=== PATIENT | male | born 1945 | race Caucasian/White ===

== ENCOUNTER 2021-12-10 09:30 | Inpatient (IN) | payer OTHER, SELFPAY ==
[2021-12-10] VITALS (22 sets, daily range): BP systolic 90–141; BP diastolic 46–76; PULSE 41–89; RESP 16–24; TEMP 35.9–36.9; O2SAT 94–99; BMI 27.2; BMI 27.7
--- NOTE | 2021-12-10 09:58 | RAD_ITS ---
STUDY: X-RAY CHEST REASON FOR EXAM: Male, 76 years old. weakness TECHNIQUE: Single AP portable view of the chest. COMPARISON: None. FINDINGS: Status post median sternotomy with a left atrial appendage closure device. The lungs are clear and expanded. There is no demonstrated pleural abnormality. Normal size heart. Normal mediastinum and dimitris. Normal visualized pulmonary arteries. Normal visualized aortic arch and descending thoracic aorta. Normal visualized thoracic spine. Normal visualized ribs, clavicles, and shoulders. There is no demonstrated abnormality of the visualized soft tissue structures of the upper abdomen. RAD/Chest 1 View (Portable) IMPRESSION: No active disease. Electronically Signed: Clarence Corley MD at 10:19 EST Tel , Service support ,
--- NOTE | 2021-12-10 09:58 | EKG12_ITS ---
Test Reason : FATIGUE Blood Pressure : / mmHG Vent. Rate : 065 BPM Atrial Rate : 202 BPM P-R Int : 000 ms QRS Dur : 148 ms QT Int : 440 ms P-R-T Axes : 000 -75 075 degrees QTc Int : 457 ms Atrial fibrillation Right bundle branch block Left anterior fascicular block Bifascicular block Abnormal ECG Confirmed by MARINA MENG, ASAF ([id number]), marketing editor STEF COSBY ([id number]) on 12/12/2021 9:45:22 AM Referred By: ANOOP Confirmed By:ASAF GRAY MD
--- NOTE | 2021-12-10 10:00 | EX.ED.DYSGE1 ---
HPI History of Present Illness Chief Complaint: Fatigue Detail of Chief Complaint: Weakness and fatigue for about a week Informant: patient Narrative Narrative: Patient presents to the emergency department with complaint of fatigue and weakness for about a week. 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 Patient also states that he had one blood vessel bypassed. Patient states he felt pretty good for about a week and then started just having increased weakness. He complains of urinary frequency although he is on diuretics. Patient denies any chest pain. He denies shortness of breath. He denies cough or fever. He has had the COVID-vaccine and booster. Patient denies any blood in the stool or black tarry stool. Patient's only blood thinner is aspirin. Patient does have remote history of A. fib. Prior similar symptoms: No [facility] Medical History (Updated 12/10/21 @ 15:[address] Tamia Mccray, DO) A-fib HTN (hypertension) Home Medications amlodipine 5 mg PO DAILY 12/10/21 [History Last Taken Unknown] aspirin 81 mg PO DAILY 12/10/21 [History Last Taken Unknown] cetirizine 10 mg PO DAILY 12/10/21 [History Last Taken Unknown] levothyroxine 125 mcg PO DAILY 12/10/21 [History Last Taken Unknown] lisinopril 40 mg PO DAILY 12/10/21 [History Last Taken Unknown] metoprolol tartrate 25 mg PO BID 12/10/21 [History Last Taken Unknown] potassium chloride 20 meq PO BID 12/10/21 [History Last Taken Unknown] tamsulosin 0.4 mg PO DAILY 12/10/21 [History Last Taken Unknown] Allergy/AdvReac Type Severity Reaction Status Date / Time Irynblb-IWD-[id number] Reductase Allergy Other Verified 12/10/21 09:33 Inhibitor ibuprofen AdvReac Other Verified 12/10/21 09:33 Surgical History (Updated 12/10/21 @ 11:16 by William Guerrero) Heart valve replaced History of open heart surgery Hx of heart artery stent Social History Smoking Status: Never smoker ROS ROS ED Constitutional Constitutional ED: Reports systems reviewed and no addt'l complaints, except as documented; Denies body ache(s), change in weight or chills Eyes Eyes: Denies acute decrease in peripheral vision, change in vision, double vision or loss of vision ENT ENT ED: Reports none; Denies ear pain, lip swelling, loss taste/smell, neck pain, otalgia or sore throat Cardiovascular Cardiovascular: Reports none; Denies abdominal pain, chest pain with activity, leg edema, lightheadedness, palpitations, rapid heart rate or syncope Respiratory/Chest Respiratory/Chest: Reports none; Denies change in mental status, dry cough, dyspnea, hemoptysis, shortness of breath at rest or shortness of breath with exertion Gastrointestinal Gastrointestinal: Reports none; Denies abdominal pain, change in stool character, diarrhea, hematemesis, hematochezia, melena, rectal bleeding or vomiting Genitourinary Genitourinary ED: Reports none; Denies abdominal discomfort, anuria, dysuria, genital pain or polyuria Musculoskeletal Musculoskeletal: Reports none; Denies arthralgias, back pain, difficulty walking, extremity pain, muscle weakness or myalgias Integumentary Reports none; Denies abscess or rash Neurologic Neurologic: Reports none and weakness; Denies abnormal gait, confusion, focal weakness, frequent falls, headache(s), loss of vision, numbness, paresthesias, radicular pain or vertigo Psychiatric Psychiatric: Reports systems reviewed and no addt'l complaints, except as documented and none; Denies behavioral changes, confusion, difficulty concentrating, hallucinations, suicidal ideation, tactile hallucinations or visual hallucinations Endocrine Endocrinology: Denies none, cold intolerance, excessive sweating, fatigue or heat intolerance Hematologic/Lymphatic Hematologic/Lymphatic: Reports none; Denies anemia, easy bleeding or easy bruising Allergic/Immunologic Allergic/Immunologic ED: Denies as per HPI, none, lip swelling, mouth swelling, throat swelling, tongue swelling or hives EXAM Physical Exam Const Vital Signs: 12/10/21 09:31 12/10/21 11:09 12/10/21 13:46 Temperature 96.6 F L Temperature Source Temporal Pulse Rate 89 76 Respiratory Rate 16 18 Respiratory Pattern Normal Blood Pressure 123/76 H 107/62 Blood Pressure Mean 91 77 Pulse Ox 97 94 Oxygen Delivery Method Room Air Room Air Positive well nourished and well developed General Appearance ED: well developed and NAD HEENT Reports TM's clear and moist mucous membranes normocephalic and atraumatic; Negative for trauma or tenderness Tympanic Membrane ED: Yes TM's clear Eyes PERRL and EOMs intact bilaterally General Eye ED: Negative for pale conjunctiva or scleral icterus Neck no lymphadenopathy, supple and no JVD General: Negative for tenderness Chest Wall inspection of chest normal and palpation of chest normal Chest: Negative for tenderness Resp normal respiratory effort and clear to auscultation bilaterally Effort and Inspection: Negative for respiratory distress or pain with movement Auscultation: Negative for rhonchi, wheezes or diminished lung sounds Cardio S1 normal heart sound, S2 normal heart sound and no murmurs Rate: other Other Details: Irregularly irregular Peripheral Pulses: pulses 2+ throughout GI normal to inspection, nondistended, normoactive bowel sounds, soft to palpation, non-tender, non-distended and no masses Back/Spine no CVA tenderness and no thoracic nor lumbar tenderness Extremity normal to inspection General Extremety ED: Negative for edema General Extremity: Negative for edema Neuro oriented x3, CN's II-XII intact bilaterally, no sensory deficits noted and gait normal Sensorium / Orientation: awake, alert, oriented to person, oriented to place and oriented to time Motor Exam: strength 5/5 throughout and strength abnormal Psych mental status grossly normal Skin no rashes or lesions noted and no wounds MDM MDM MDM Narrative Medical decision making narrative: IV line established on arrival. Patient was noted to have an elevated troponin. I did order aspirin. It is unclear if his troponin has been trending up or down since surgery. He tells me that he did have a second blockage that the plating machine operator treating him did not feel required any type of intervention. He has not had chest pain. Patient CTA was negative for PE. There was a small effusion on the left and some concern for infiltrate however patient's had no fever or cough. His COVID test was negative. We attempted multiple times to contact the [facility] and attempt to transfer patient to their facility as this is where he had his surgery and care. [facility] I discussed case with hospitalist here at [place] and will temporarily admit patient here for management. Lab Data Attestation: I reviewed the patient's lab results. Labs: Laboratory Results - last 24 hr 12/10/21 12/10/21 12/10/21 10:15 10:15 10:15 WBC 9.4 RBC 4.01 L Hgb 11.8 L Hct 35.3 L MCV 88.0 MCH 29.4 MCHC 33.4 RDW Std Deviation 43.8 RDW Coeff of Ethan 13.4 Plt Count 405 MPV 8.8 Immature Gran % (Auto) 0.500 Neut % (Auto) 70.2 H Lymph % (Auto) 20.3 Zapata % (Auto) 5.9 Eos % (Auto) 2.6 Baso % (Auto) 0.5 Absolute Neuts (auto) 6.6 Absolute Lymphs (auto) 1.91 Nucleated RBC % 0 D-Dimer Quant (PE/DVT) 9.25 H* Sodium 134 L Potassium 4.3 Chloride 99 Carbon Dioxide 26.0 Anion Gap 9 BUN 35 H Creatinine 1.14 Estim Creat Clear Calc 55.14 Est GFR (MDRD) Af Amer 80 Est GFR (MDRD) Non-Af 66 BUN/Creatinine Ratio 30.7 H Glucose 118 H Calcium 9.6 Troponin I High Sens 184 H* Urine Color Urine Clarity Urine pH Ur Specific [place] Urine Protein Urine Glucose (UA) Urine Ketones Urine Occult Blood Urine Nitrite Urine Bilirubin Urine Urobilinogen Ur Leukocyte Esterase Urine RBC Urine WBC Ur Squamous Epith Cells Urine Bacteria Urine Mucus 12/10/21 11:15 WBC RBC Hgb Hct MCV MCH MCHC RDW Std Deviation RDW Coeff of Ethan Plt Count MPV Immature Gran % (Auto) Neut % (Auto) Lymph % (Auto) Z[place]ata % (Auto) Eos % (Auto) Baso % (Auto) Absolute Neuts (auto) Absolute Lymphs (auto) Nucleated RBC % D-Dimer Quant (PE/DVT) Sodium Potassium Chloride Carbon Dioxide Anion Gap BUN Creatinine Estim Creat Clear Calc Est GFR (MDRD) Af Amer Est GFR (MDRD) Non-Af BUN/Creatinine Ratio Glucose Calcium Troponin I High Sens Urine Color Yellow Urine Clarity Sl. Cloudy Urine pH 6.0 Ur Specific [place] 1.020 Urine Protein 15 H Urine Glucose (UA) Normal Urine Ketones Negative Urine Occult Blood Negative Urine Nitrite Negative Urine Bilirubin Negative Urine Urobilinogen Normal Ur Leukocyte Esterase Negative Urine RBC 0 SEEN Urine WBC 0 SEEN Ur Squamous Epith Cells 0-5 SEEN Urine Bacteria RARE Urine Mucus 0 SEEN Radiography Chest X-Ray - ED: 1 View Diagnostic Testing: Clinical Impression(s) from Imaging Studies Chest X-Ray 12/10/21 09:58 IMPRESSION: No active disease. Electronically Signed: Clarence Corley MD at 10:19 EST Tel , Service support , Chest CTA 12/10/21 10:54 IMPRESSION: CTA chest examination, without a demonstrated pulmonary embolism or arterial dissection. Left lower lung infiltrate and pleural effusion. Electronically Signed: Richie Allan MD at 12:57 EST , Service support , 1 view chest x-ray obtained interpreted by myself as no acute disease process. Radiology in agreement. EKG Initial EKG: Attestation: I personally reviewed and interpreted this EKG as follows: Comments: Atrial fibrillation with a ventricular rate of 65 bpm with a right bundle branch block and left anterior fascicular block. When compared with EKG from 2006 the A. fib is new Prior EKG tracings: available for review Prior: Changed Discharge Plan Dx/Rx/DC Orders Clinical Impression: Fatigue, Atrial fibrillation, Elevated troponin Disposition Disposition: Acute Care Hospital [facility]
[2021-12-10 10:25] LABS: Absolute Lymphocyte Count 1.91 X10^3/uL (0.83-4.51); Absolute Neutrophil Count 6.6 X10^3/uL (2.0-7.7); Basophil# 0.05 X10^3/uL; Basophil% 0.5 % (0-1); Eosinophil# 0.24 X10^3/uL; Eosinophils% 2.6 % (0-5); Hematocrit 35.3 % (40-54); Hemoglobin 11.8 g/dL (13.0-16.5); Lymphocyte # 1.91 X10^3/ul (0.83-4.51); Lymphocyte % 20.3 % (19-41); Mean Corp Hgb Conc 33.4 g/dL (32-36); Mean Corpuscular Hgb 29.4 pg (27.0-32.0); Mean Platelet Vol. 8.8 fl (6.2-12.0); Monocyte# 0.55 X10^3/uL; Monocyte% 5.9 % (0-10); NRBC Flagged by Analyzer 0 % (0-5); Neutrophil # 6.59 X10^3/uL (2.7-7.7); Neutrophil % 70.2 % (47-70); Platelet Count 405 K/mm3 (150-450); RBC Distribution Width CV 13.4 % (11.6-14.6); RBC Distribution Width SD 43.8 fl (35.1-43.9); Red Blood Count 4.01 M/mm3 (4.6-6.2); White Blood Count 9.4 K/mm3 (4.4-11.0)
[2021-12-10 10:46] LABS: D-Dimer Quantitative (DVT/PE) 9.25 FEU/ug/m (0.27-0.49)
[2021-12-10 10:48] LABS: Anion Gap 9 (5-15); BUN 35 mg/dL (7-18); BUN/Creat Ratio 30.7 RATIO (10-20); Calcium,Total 9.6 mg/dL (8.5-10.1); Chloride 99 mmol/L (98-107); Creatinine, Serum 1.14 mg/dL (0.70-1.30); EST Glomerular Filtration Rate 66 mL/min (>60); Est Glom Filt Rate - Afr Amer 80 mL/min (>60); Estimated Creatinine Clearance 55.14 ml/min; Glucose 118 mg/dL (74-106); Potassium 4.3 mmol/L (3.5-5.1); Sodium Level 134 mmol/L (136-145); Troponin-I HS 184 pg/mL (3.0-78.0)
--- NOTE | 2021-12-10 10:54 | CT_ITS ---
STUDY: CTA CHEST REASON FOR EXAM: Male, 76 years old. Elevated d-dimer RADIATION DOSAGE (If Supplied By Facility): CTDIvol = ( 10.60 ) mGy, DLP = ( 503.77 ) mGycm TECHNIQUE: The examination was performed with the intravenous administration of 100mL Isovue-370. Post-processing of the angiographic images was performed, with multiplanar reformation and 3D reconstruction. Individualized dose optimization techniques were used for this CT. COMPARISON: Chest x-ray FINDINGS: Normal enhancement of the main pulmonary artery and right and left pulmonary arteries. Normal enhancement of the bilateral peripheral pulmonary arteries. There is no demonstrated pulmonary embolism. There is atherosclerotic calcification of the aortic arch with tortuosity. There is no demonstrated aortic dissection. Sternal cerclage wires are present from a prior sternotomy. There is atrial appendage clip. There is aortic valve prosthesis. There are coronary artery calcifications and stents. There are calcified mediastinal and left hilar lymph nodes. Normal visualized trachea and bronchi. The lungs are well expanded. There is left lower lung airspace consolidation. There are left lung granulomas. There is small left pleural effusion. Normal chest wall structures. There are degenerative changes of thoracic spine. There are multiple benign calcified granulomata of the spleen. CT/CTA Chest W/WO Contrast IMPRESSION: CTA chest examination, without a demonstrated pulmonary embolism or arterial dissection. Left lower lung infiltrate and pleural effusion. Electronically Signed: Richie Allan MD at 12:57 EST , Service support ,
[2021-12-10 11:24] LABS: Mucous, Urine 0 SEEN /hpf (<or=2+); Red Blood Cells-Urine 0 SEEN /hpf (0-5); White Blood Cells 0 SEEN /hpf (0-5)
[2021-12-10 11:25] LABS: Color, Urine Yellow (Yellow); Glucose, Dipstick Normal (Normal); Ketone-Dipstick Negative (Negative); Leukocyte Esterase-Dipstick Negative /ul (Negative); Nitrite-Dipstick Negative (Negative); Occult Blood-Urine Negative /ul (Negative); Protein-Dipstick 15 mg/dl (Negative); Urine Bilirubin Dipstick Negative (Negative); Urine Clarity Sl. Cloudy (Clear); Urine Urobilinogen Normal (Normal)
[2021-12-10 11:33] LABS: Squamous Epithelial Cells - UA 0-5 SEEN /hpf (0-5)
[2021-12-10 11:34] LABS: Bacteria RARE /hpf (None Seen)
--- NOTE | 2021-12-10 13:15 | NURSING ---
CALLED [facility] NO ONE IN TRANSFER LINE, BED CONTROL AND ADMINISTRATION. LEFT MESSAGE WITH INFO
--- NOTE | 2021-12-10 13:19 | NURSING ---
DR KARLENE DAVALOS
--- NOTE | 2021-12-10 14:33 | NURSING ---
CALLED [facility] FOR [facility]. PHONE JUST [employer]. CAN'T LEAVE MESSAGE OR TALK TO PERSON
--- NOTE | 2021-12-10 14:58 | NURSING ---
CALLING [facility]
--- NOTE | 2021-12-10 15:06 | NURSING ---
CALLED ER AT [facility]. RELEASE OF INFO NEEDS FAXED TO [facility] AT [phone] WAS TOLD TO CALL [employer] [employer] MACHINE OPERATOR ON [facility] AT EXT [phone]
--- NOTE | 2021-12-10 15:07 | NURSING ---
CALLED ADMININSTRATOR ON DUTY, EXT [phone] NO ANSWER
--- NOTE | 2021-12-10 15:32 | NURSING ---
FAXED RELEASE OF INFO TO [facility]
--- NOTE | 2021-12-10 15:33 | NURSING ---
PAGED HOSPITALIST DR SOLER FOR DR DAVALOS
--- NOTE | 2021-12-10 15:45 | NURSING ---
PCU KARLENE ACEVEDO, ELEVATED TROP, AFIB
[2021-12-10] MEDS: Aspirin 81 MG TAB.CHEW 162 MG PO (15:59)
--- NOTE | 2021-12-10 16:08 | HP.PCM.HOS_ITS ---
HPI - General General Date of Admission: 12/10/21 Date of Service: 12/10/21 Chief Complaint: Fatigue HPI Narrative STONE HAILE, is a 76 M who presented to the emergency department [facility] 12/10/2021 with a chief complaint of fatigue/weakness. On 11/27/2021 the patient underwent open heart surgery at the [facility] at which time he had per his report, a one-vessel bypass as well as a porcine aortic valve replacement. He states he was discharged from the [facility] on 12/01/2021 and had been doing well up until approximately Saturday of last week on the at which time he developed increasing fatigue and generalized weakness. Per him and his who is at the bedside with him on admission, he has had increasing amounts of sleeping and last evening he went to bed at 6 PM. He states he does not sleep well at night having to wake up multiple times to urinate. He had been on Lasix but lost 4 pounds overnight and discontinued this medication at the instruction of the [facility] physicians. He is on Flomax for BPH and I suspect this is why he is having frequent urination at night. He states he presented today because his fatigue had increased so significantly. His indicates that after surgery he had been back to his normal self and had been very active up until last Saturday as noted above. He denies any fever, cough, he denies any chills, he denies any shortness of breath, nausea or vomiting, constipation or d iarrhea, tingling numbness or weakness, dysgeusia or anosmia. In the emergency department he was afebrile with a pulse rate of 76-89, his blood pressure was within normal limits, his respiratory rate was 16-18 and his oxygen saturation was 94 to 97% on room air. His CBC was overall unremarkable e xcept for a mild anemia that was normocytic. His hemoglobin was 11.8. There is no previous lab work here for comparison. A D-dimer was 9.25 and he therefore underwent a CTA of his chest which was normal and did not demonstrate any pulmonary embolism or aortic dissection. It did however show a small left pleural effusion and some compression atelectasis. I suspect this is postoperative in nature given that he has no infectious signs or symptoms. His BMP shows a mild hyponatremia at 134 but again I have no previous lab for comparison. His serum BUN is slightly elevated at 35 with a serum creatinine of 1.14. His initial troponin was elevated at 184. His EKG showed no acute signs of ischemia but did show atrial fibrillation. The patient upon discussion has no known history of atrial fibrillation and was not told he had postoperative atrial fibrillation after his open heart surgery. A UA was obtained given his urinary frequency and was negative except for mild proteinuria. [facility] to [facility] the patient [facility] since this is where he just underwent open heart surgery and we have no medical records but we are unable to make this transfer at this time. We may need to be able to consider transfer tomorrow. Records have also been requested but not obtained at this time. [facility] Medical History (Updated 12/10/21 @ 16:[address] Bailey Garcia DO) BPH (benign prostatic hyperplasia) CAD (coronary artery disease) Carotid artery stenosis History of alcohol abuse History of tobacco abuse HTN (hypertension) Hyperlipidemia Hypothyroidism Seasonal allergies Home Medications amlodipine 5 mg PO DAILY 12/10/21 [History Last Taken Unknown] aspirin 81 mg PO DAILY 12/10/21 [History Last Taken Unknown] cetirizine 10 mg PO DAILY 12/10/21 [History Last Taken Unknown] levothyroxine 125 mcg PO DAILY 12/10/21 [History Last Taken Unknown] lisinopril 40 mg PO DAILY 12/10/21 [History Last Taken Unknown] metoprolol tartrate 25 mg PO BID 12/10/21 [History Last Taken Unknown] potassium chloride 20 meq PO BID 12/10/21 [History Last Taken Unknown] tamsulosin 0.4 mg PO DAILY 12/10/21 [History Last Taken Unknown] Allergy/AdvReac Type Severity Reaction Status Date / Time [id number]-DaV Reductase Allergy Other Verified 12/10/21 09:33 Inhibitor ibuprofen AdvReac Other Verified 12/10/21 09:33 Surgical History (Updated 12/10/21 @ 11:16 by William Guerrero) Heart valve replaced History of open heart surgery Hx of heart artery stent Social History Smoking Status: Never smoker ROS Constitutional Constitutional: Reports fatigue and weakness; Denies anorexia, change in weight, chills, fever(s), malaise, night sweats or other Eyes Eyes: Denies blurry vision, change in eye color, change in vision, discharge from eye(s), double vision, erythema, eye pain, loss of vision or other ENT HEENT: Denies abnormal hearing, dysphagia, ear pain, epistaxis, headache(s), hearing loss, nasal congestion, nasal discharge, post nasal drip, sinus pressure, sore throat or other Cardiovascular Cardiovascular: Denies chest pain, claudication, dyspnea on exertion, edema, lightheadedness, orthopnea, palpitations, paroxysmal nocturnal dyspnea, rapid heart rate, syncope or other Respiratory/Chest Respiratory/Chest: Denies cough, dyspnea, excessive phlegm production, hemoptysis, productive cough, shortness of breath at rest, shortness of breath with exertion, wheezing or other Gastrointestinal Gastrointestinal: Denies abdominal pain, coffee ground emesis, constipation, diarrhea, dyspepsia, hematemesis, hematochezia, loose stools, melena, nausea, vomiting or other Genitourinary Genitourinary: Reports nocturia, urinary frequency and urinary hesitancy; Denies burning urination, difficulty urinating, dysuria, hematuria, urinary incontinence, urinary urgency or other Musculoskeletal Musculoskeletal: Denies arthralgias, back pain, joint pain, joint stiffness, joint swelling, myalgias, neck pain or other Neurologic Neurologic: Denies abnormal gait, abnormal speech, confusion, disequilibrium, dizziness, focal weakness, headache(s), numbness, paresthesias, seizure-like activity, seizures, syncope, tingling, tremor(s) or other Psychiatric Psychiatric: Denies anxiety, depression, homicidal ideation, suicidal ideation or other Endocrine Endocrinology: Denies change in body appearance, cold intolerance, excessive sweating, heat intolerance, polydipsia, polyuria or other Hematologic/Lymphatic Hematologic/Lymphatic: Denies anemia, easy bleeding, easy bruising, lymphadenopathy or other Allergic/Immunologic Allergic/Immunologic: Denies rhinitis, hives, eczemia, asthma or other Vital Signs Vital Signs Vital Signs: 12/10/21 09:31 12/10/21 11:09 12/10/21 13:46 Temperature 96.6 F L Temperature Source Temporal Pulse Rate 89 76 Respiratory Rate 16 18 Respiratory Pattern Normal Blood Pressure 123/76 H 107/62 Blood Pressure Mean 91 77 Pulse Ox 97 94 Oxygen Delivery Method Room Air Room Air 12/10/21 15:00 12/10/21 15:42 Temperature 98.4 F Temperature Source Temporal Pulse Rate 85 85 Respiratory Rate 16 18 Respiratory Pattern Blood Pressure 126/73 H 126/73 H Blood Pressure Mean 90 90 Pulse Ox 96 96 Oxygen Delivery Method Room Air Room Air Weight Weight: 86.183 kg Body Mass Index (BMI) 27.2 Physical Exam Const alert, oriented x3, no apparent distress, healthy appearing and well nourished Constitutional Narrative: Overweight older white male sitting up in bed, appears comfortable, nontoxic, at bedside General Appearance: cooperative HEENT normocephalic, head/scalp atraumatic, moist oral mucous membranes and oropharynx normal HEENT Narrative: Mildly hard of hearing, dentition is fair, Mallampati is 2, Mouth: oral and palatal mucosa normal Eyes PERRL, EOMs intact bilaterally and conjunctivae normal Eyes Narrative: No scleral icterus Neck no lymphadenopathy, supple, no JVD and no carotid bruits Neck Narrative: Trachea midline no thyroid enlargement or nodules Resp normal respiratory effort, no retractions, no use of accessory muscles and clear to auscultation bilaterally Auscultation: Negative for crackles, rales, rhonchi or wheezes Cardio regular rate, S1 normal heart sound, S2 normal heart sound, no murmurs, no rub, no gallops, no clicks and no JVD Cardio Narrative: Irregularly irregular rhythm GI normal to inspection, nondistended, normoactive bowel sounds, soft to palpation, non-tender and non-distended; Negative for hepatosplenomegaly Extremity no clubbing, cyanosis or edema Peripheral Pulses: Yes pulses 2+ throughout Skin no rashes or lesions noted, skin turgor normal, no jaundice, no petechiae and no mottling Skin Narrative: Multiple tattoos, sternotomy incision is clean dry and intact with dressing covering Neuro oriented x3, CN's II-XII intact bilaterally, moves all extremities and no focal motor deficits Neuro Narrative: Mild generalized weakness Sensorium / Orientation: awake, alert and oriented to person Speech: speech normal Psych affect normal Results Lab / Micro Data Attestation: I reviewed the patient's lab results. Result Diagrams: 12/10/21 10:15 12/10/21 10:15 Labs: Laboratory Results - last 24 hr 12/10/21 10:15: WBC 9.4, RBC 4.01 L, Hgb 11.8 L, Hct 35.3 L, MCV 88.0, MCH 29.4, MCHC 33.4, RDW Std Deviation 43.8, RDW Coeff of Ethan 13.4, Plt Count 405, MPV 8.8, Immature Gran % (Auto) 0.500, Neut % (Auto) 70.2 H, Lymph % (Auto) 20.3, [place] % (Auto) 5.9, Eos % (Auto) 2.6, Baso % (Auto) 0.5, Absolute Neuts (auto) 6.6, Absolute Lymphs (auto) 1.91, Nucleated RBC % 0 12/10/21 10:15: D-Dimer Quant (PE/DVT) 9.25 H* 12/10/21 10:15: Sodium 134 L, Potassium 4.3, Chloride 99, Carbon Dioxide 26.0, Anion Gap 9, BUN 35 H, Creatinine 1.14, Estim Creat Clear Calc 55.14, Est GFR (MDRD) Af Amer 80, Est GFR (MDRD) Non-Af 66, BUN/Creatinine Ratio 30.7 H, Glucose 118 H, Calcium 9.6, Troponin I High Sens 184 H* 12/10/21 11:15: Urine Color Yellow, Urine Clarity Sl. Cloudy, Urine pH 6.0, Ur Specific [place] 1.020, Urine Protein 15 H, Urine Glucose (UA) Normal, Urine Ke tones Negative, Urine Occult Blood Negative, Urine Nitrite Negative, Urine Bilirubin Negative, Urine Urobilinogen Normal, Ur Leukocyte Esterase Negative, Urine RBC 0 SEEN, Urine WBC 0 SEEN, Ur Squamous Epith Cells 0-5 SEEN, Urine Bacteria RARE, Urine Mucus 0 SEEN Micro: Microbiology 12/10/21 10:12 Nasal Secretion SARS-CoV-2 Antigen (Rapid) - Final Radiology Impression Chest X-Ray 12/10/21 09:58 IMPRESSION: No active disease. Electronically Signed: Clarence Corley MD at 10:19 EST Tel , Service support , Chest CTA 12/10/21 10:54 IMPRESSION: CTA chest examination, without a demonstrated pulmonary embolism or arterial dissection. Left lower lung infiltrate and pleural effusion. Electronically Signed: Richie Allan MD at 12:57 EST , Service support , Assessment & Plan Assessment/Plan (1) Atrial fibrillation: (2) Elevated troponin: (3) Fatigue: (4) Normocytic anemia: PLAN: New onset atrial fibrillation -Continue metoprolol -Start therapeutic Lovenox -Check TSH -Obtain medical records from [place] -will potentially need an echocardiogram depending on what recent test have been performed but will hold off on ordering at this time until records have been received -Suspect this is probably related to recent cardiac surgery and valvular replacement -It is unclear at this time if he had any atrial fibrillation in the perioperative period -Await records Troponin elevation -We will cycle cardiac enzymes -Full dose Lovenox at this point -Patient just had recent bypass graft x1 on 11/27/2021 at [facility] -Suspect this was BAI or JUAN given no donation sites noted on exam -Await surgical report -May be related to atrial fibrillation -Consult cardiology Fatigue -Patient had improved postoperatively so I doubt that his fatigue is related to his recent surgery -Likely related to new onset atrial fibrillation -Check TSH -PT/OT to evaluate Normocytic anemia -I suspect this is related to his recent surgery however I have nothing to compare this to -No signs of bleeding -Anemia is mild -Monitor hemoglobin and if there is a precipitous drop will work-up further CAD/HPL/HTN -Continue home aspirin -Patient has allergy to statin -Continue home amlodipine 5 mg daily, lisinopril 40 mg daily, metoprolol 25 mg p.o. twice daily Bilateral carotid artery stenosis -Patient states he has 1 side that has 60% occlusion and the other has 80% occlusion -No bruit on exam -Patient does have follow-up in [place] for this soon Hypothyroidism -Check TSH -Continue levothyroxine 125 mcg daily BPH -Continue Flomax Seasonal allergies -Continue sertraline DVT prophylaxis -Full dose Lovenox for atrial fibrillation CODE STATUS -Full code as per discussion with patient and in the emergency department Charges/Coding Visit Charges Inpatient E&M: 14043 Init Hosp L3
--- NOTE | 2021-12-10 16:16 | EKG12_ITS ---
Test Reason : CP ADMISSION Blood Pressure : / mmHG Vent. Rate : 072 BPM Atrial Rate : 066 BPM P-R Int : 000 ms QRS Dur : 154 ms QT Int : 456 ms P-R-T Axes : 000 -80 071 degrees QTc Int : 499 ms Atrial fibrillation Right bundle branch block Left anterior fascicular block Bifascicular block Abnormal ECG When compared with ECG of 10-DEC-2021 10:31, MANUAL COMPARISON REQUIRED, DATA IS UNCONFIRMED Confirmed by MARINA MENG, ASAF ([id number]), production editor STEF COSBY ([id number]) on 12/12/2021 10:00:26 AM Referred By: KARLENE Confirmed By:ASAF GRAY MD
[2021-12-10 16:40] LABS: Troponin-I HS 188 pg/mL (3.0-78.0)
[2021-12-10 17:23] LABS: Troponin-I HS 187 pg/mL (3.0-78.0)
--- NOTE | 2021-12-10 18:03 | ECHOCS_ITS ---
Version 2 Reason For Study: Chest Pain Procedure This was a 2D Doppler, Color Flow transthoracic echocardiogram. The study was technically difficult. Contrast injection was performed. Exam performed portable in patient room. Left Ventricle Normal LV size. Mild concentric left ventricular hypertrophy. Left ventricular systolic function is normal. The estimated ejection fraction is 60 %. Post operative septal motion. Unable to assess diastolic dysfunction. Right Ventricle Normal RV size. Normal systolic function. Atria The left atrium is mildly enlarged. Normal right atrium. No doppler evidence for ASD. Mitral Valve There is mild mitral annular calcification. Mild focal mitral valve calcification of the anterior leaflet. Mild-Moderate (1-2+) mitral valve insufficiency. Tricuspid Valve Normal tricuspid valve. Mild tricuspid valve insufficiency. Right ventricular systolic pressure estimated to be 21 mmHg. Aortic Valve Stable appearing bioprosthetic aortic valve apparatus. Pulmonic Valve The pulmonic valve is not well visualized. Trivial pulmonic valve insufficiency. Great Vessels Normal sized aortic root. Pericardium/Pleural No pericardial effusion. Medication Diluted definity 2ml given slow IV push to enhance endocardial definition. MMode/2D Measurements & Calculations LVIDd: 4.3 cm IVSd: 1.4 cm LVOT diam: 2.0 cm LVIDs: 3.2 cm LVPWd: 1.4 cm RVDd: 4.3 cm FS: 23.8 % LVOT area: 3.1 cm2 Ao root diam: 2.9 cm LAV(MOD-bp): 66.6 ml LA A4 area: 20.1 cm2 LA dimension: 4.0 cm LAV(MOD-bp) Indexed: 32.4 ml/m2 LAV(MOD-sp2): 76.3 ml LAV(MOD-sp4): 54.7 ml RA A4 area: 16.1 cm2 Doppler Measurements & Calculations MV E max aaliyah: 106.8 cm/sec Ao V2 max: 155.8 cm/sec LV V1 max: 117.6 cm/sec Ao max P.7 mmHg LV V1 max P.5 mmHg Ao V2 mean: 92.5 cm/sec LV V1 mean P.3 mmHg Ao mean P.2 mmHg LV V1 mean: 69.6 cm/sec Ao V2 VTI: 25.3 cm LV V1 VTI: 19.4 cm MARK(I,D): 2.4 cm2 MARK(V,D): 2.3 cm2 SV(LVOT): 60.1 ml PA V2 max: 95.2 cm/sec TR max aaliyah: 209.0 cm/sec TR max P.5 mmHg ECHO/Echo Complete W/ Contrast Interpretation Summary The study was technically difficult. Contrast injection was performed. Left ventricular systolic function is normal. The estimated ejection fraction is 60 %. Post operative septal motion. Mild concentric left ventricular hypertrophy. The left atrium is mildly enlarged. There is mild mitral annular calcification. Mild focal mitral valve calcification of the anterior leaflet. Mild-Moderate (1-2+) mitral valve insufficiency. Mild tricuspid valve insufficiency. Stable appearing bioprosthetic aortic valve apparatus. Trivial pulmonic valve insufficiency. Right ventricular systolic pressure estimated to be 21 mmHg. Unable to assess diastolic dysfunction. Ordering Physician: Facundo Costa Referring Physician: [place], [place] Performed By: Colten Cohen RCS
[2021-12-10] MEDS: 0.9% Saline Lock 10 ML Syringe IV (18:27)
[2021-12-10 18:51] LABS: International Normalized Ratio 1.1; Prothrombin Time (Protime)PT. 13.9 SECONDS (11.7-14.9)
[2021-12-10 18:52] LABS: Partial Thromboplast Time 29.7 Seconds (24.1-36.2)
[2021-12-10] MEDS: Heparin Injection (Vial) 5,000 UNIT/ML VIAL 6000 UNIT IV (19:59)
--- NOTE | 2021-12-10 20:09 | PCS.PANDOC ---
PANDEMIC DOCUMENTATION INITIATED: Date: 07/03/2021 Time: 190
[2021-12-10] MEDS: Metoprolol Tartrate 25 MG Tablet PO (21:48)
[2021-12-11] VITALS (24 sets, daily range): BP systolic 99–141; BP diastolic 53–75; PULSE 40–72; RESP 15–21; TEMP 36.3–36.9; O2SAT 94–100
[2021-12-11] MEDS: Acetaminophen 325 MG Tablet 650 MG PO ×2 (01:34→19:38)
[2021-12-11 02:03] LABS: Absolute Lymphocyte Count 2.11 X10^3/uL (0.83-4.51); Absolute Neutrophil Count 7.7 X10^3/uL (2.0-7.7); Basophil# 0.07 X10^3/uL; Basophil% 0.6 % (0-1); Eosinophil# 0.25 X10^3/uL; Eosinophils% 2.3 % (0-5); Hematocrit 33.9 % (40-54); Hemoglobin 11.3 g/dL (13.0-16.5); Lymphocyte # 2.11 X10^3/ul (0.83-4.51); Lymphocyte % 19.5 % (19-41); Mean Corp Hgb Conc 33.3 g/dL (32-36); Mean Corpuscular Hgb 29.4 pg (27.0-32.0); Mean Corpuscular Volume 88.3 fL (80-94); Mean Platelet Vol. 9.1 fl (6.2-12.0); Monocyte# 0.61 X10^3/uL; Monocyte% 5.6 % (0-10); NRBC Flagged by Analyzer 0 % (0-5); Neutrophil # 7.72 X10^3/uL (2.7-7.7); Neutrophil % 71.5 % (47-70); Platelet Count 418 K/mm3 (150-450); RBC Distribution Width CV 13.5 % (11.6-14.6); RBC Distribution Width SD 43.5 fl (35.1-43.9); Red Blood Count 3.84 M/mm3 (4.6-6.2); White Blood Count 10.8 K/mm3 (4.4-11.0)
[2021-12-11 02:23] LABS: Partial Thromboplast Time 56.2 Seconds (24.1-36.2)
[2021-12-11 02:38] LABS: ALB/GLOB Ratio 0.8 RATIO (0.9-2.4); AST(SGOT) 14 U/L (15-37); Alanine Aminotransfer ALT/SGPT 20 U/L (16-61); Albumin, Serum 3.2 g/dL (3.2-5.0); Alkaline Phosphatase 79 U/L (45-117); Anion Gap 11 (5-15); BUN 39 mg/dL (7-18); BUN/Creat Ratio 32.8 RATIO (10-20); Calcium,Total 9.1 mg/dL (8.5-10.1); Chloride 101 mmol/L (98-107); Creatinine, Serum 1.19 mg/dL (0.70-1.30); EST Glomerular Filtration Rate 63 mL/min (>60); Est Glom Filt Rate - Afr Amer 76 mL/min (>60); Estimated Creatinine Clearance 52.82 ml/min; Globulin 4.2 g/dL (2.2-4.2); Glucose 158 mg/dL (74-106); Magnesium 1.8 mg/dL (1.6-2.6); Phosphorus 4.4 mg/dL (2.5-4.9); Potassium 4.2 mmol/L (3.5-5.1); Protein, Total 7.4 g/dL (6.4-8.2); Sodium Level 134 mmol/L (136-145); Thyroid Stim Hormone (TSH) 8.45 uIU/mL (0.358-3.74)
[2021-12-11] MEDS: Levothyroxine 125 MCG Tablet PO (05:57)
--- NOTE | 2021-12-11 07:35 | PN.HOSP_ITS ---
Subjective Subjective Patient overnight with transition on to Cardizem drip however he had significant bradycardia therefore this was discontinued. Evaluation per cardiology this morning with initiation of amiodarone drip and continued heparin drip for anticoagulation. Cardiology noted intention for potential need for cardioversion in the future once has been anticoagulated appropriately. Patient notes feeling improved, denies any dyspnea or chest pain or palpitations at this time. Patient denies fevers, chills, nausea, emesis, abdominal pain. Objective Data Objective Data Vital Signs: Vital Signs Temp Pulse Resp BP Pulse Ox 98.5 F 52 L 15 112/64 96 12/11/21 03:00 12/11/21 07:00 12/11/21 07:00 12/11/21 07:00 12/11/21 07:00 Oxygen Delivery Method Room Air Weight: 192 lb 14.472 oz Body Mass Index (BMI) 27.7 Intake & Output: Intake and Output for Last 24 Hours 12/09/21 12/10/21 12/11/21 23:59 23:59 23:59 Intake Total 254.17 / 254.17 308.4 / 308.4 Output Total 200 / 200 Balance 254.17 / 254.17 108.4 / 108.4 Lab / Micro Data Result Diagrams: 12/11/21 01:40 12/11/21 01:40 Labs: Laboratory Results - last 24 hr 12/10/21 10:15: WBC 9.4, RBC 4.01 L, Hgb 11.8 L, Hct 35.3 L, MCV 88.0, MCH 29.4, MCHC 33.4, RDW Std Deviation 43.8, RDW Coeff of Ethan 13.4, Plt Count 405, MPV 8.8, Immature Gran % (Auto) 0.500, Neut % (Auto) 70.2 H, Lymph % (Auto) 20.3, [place] % (Auto) 5.9, Eos % (Auto) 2.6, Baso % (Auto) 0.5, Absolute Neuts (auto) 6.6, Absolute Lymphs (auto) 1.91, Nucleated RBC % 0 12/10/21 10:15: D-Dimer Quant (PE/DVT) 9.25 H* 12/10/21 10:15: Sodium 134 L, Potassium 4.3, Chloride 99, Carbon Dioxide 26.0, Anion Gap 9, BUN 35 H, Creatinine 1.14, Estim Creat Clear Calc 55.14, Est GFR (MDRD) Af Amer 80, Est GFR (MDRD) Non-Af 66, BUN/Creatinine Ratio 30.7 H, Glucose 118 H, Calcium 9.6, Troponin I High Sens 184 H* 12/10/21 11:15: Urine Color Yellow, Urine Clarity Sl. Cloudy, Urine pH 6.0, Ur Specific [place] 1.020, Urine Protein 15 H, Urine Glucose (UA) Normal, Urine Ketones Negative, Urine Occult Blood Negative, Urine Nitrite Negative, Urine Bilirubin Negative, Urine Urobilinogen Normal, Ur Leukocyte Esterase Negative, Urine RBC 0 SEEN, Urine WBC 0 SEEN, Ur Squamous Epith Cells 0-5 SEEN, Urine Bacteria RARE, Urine Mucus 0 SEEN 12/10/21 16:00: Troponin I High Sens 188 H* 12/10/21 16:44: Troponin I High Sens 187 H* 12/10/21 18:28: PT 13.9, INR 1.1, APTT 29.7 12/11/21 01:40: WBC 10.8, RBC 3.84 L, Hgb 11.3 L, Hct 33.9 L, MCV 88.3, MCH 29.4, MCHC 33.3, RDW Std Deviation 43.5, RDW Coeff of Ethan 13.5, Plt Count 418, MPV 9.1, Immature Gran % (Auto) 0.500, Neut % (Auto) 71.5 H, Lymph % (Auto) 19.5, [place] % (Auto) 5.6, Eos % (Auto) 2.3, Baso % (Auto) 0.6, Absolute Neuts (auto) 7.7, Absolute Lymphs (auto) 2.11, Nucleated RBC % 0 12/11/21 01:40: Sodium 134 L, Potassium 4.2, Chloride 101, Carbon Dioxide 22.0, Anion Gap 11, BUN 39 H, Creatinine 1.19, Estim Creat Clear Calc 52.82, Est GFR (MDRD) Af Amer 76, Est GFR (MDRD) Non-Af 63, BUN/Creatinine Ratio 32.8 H, Glucose 158 H, Calcium 9.1, Phosphorus 4.4, Magnesium 1.8, Total Bilirubin 0.40, AST 14 L, ALT 20, Alkaline Phosphatase 79, Total Protein 7.4, Albumin 3.2, Globulin 4.2, Albumin/Globulin Ratio 0.8 L, TSH 8.45 H 12/11/21 01:40: APTT 56.2 H Micro: Microbiology 12/10/21 10:12 Nasal Secretion SARS-CoV-2 Antigen (Rapid) - Final Radiography Diagnostic Testing: Radiology Impression Chest X-Ray 12/10/21 09:58 IMPRESSION: No active disease. Electronically Signed: Clarence Corley MD at 10:19 EST Tel , Service support , Chest CTA 12/10/21 10:54 IMPRESSION: CTA chest examination, without a demonstrated pulmonary embolism or arterial dissection. Left lower lung infiltrate and pleural effusion. Electronically Signed: Richie Allan MD at 12:57 EST , Service support , Physical Exam Narrative Physical Examination: General: Awake, alert, oriented x 3 and cooperative, seated upright in the PCU bed, no complaints. Skin: Normal color, normal turgor, no icterus, no cyanosis except for midline sternotomy incision well appearing, no drainage even from the chest tube sites although staff did report some prior drainage, none current. HEENT: AT/NC, EOMI, PERRLA, MMM. Lungs: Mildly diminished, greater bases, appropriate effort, no rales, ronchi or wheezing. Heart: Irregular, rate controlled; no gallop, rub audible. Abdomen: Soft, overweight, NTTP, ND, distant normal bowel sounds. Extremities: No cyanosis, clubbing, or edema. Neurological: Patient awake, alert, oriented as noted, cognitive function intact; pupils equally reactive to light and accommodation, cranial nerves II- XII grossly normal, moving all 4 extremities, no focal deficits, strength mo derately to severely global decrease complicated by recent open heart surgery. Psychiatric: Affect appears fatigued otherwise normal, no acute evidence of depressive or anxiety feelings. Assessment & Plan Assessment/Plan (1) Atrial fibrillation: QUALIFIERS: Atrial fibrillation type: paroxysmal Qualified Code(s): I48.0 - Paroxysmal atrial fibrillation (2) Elevated troponin: PLAN: The patient is a 76 y/o M w/ PMHx: CAD s/p recent CABG and AVR, HTN, HLD, Chronic anemia/normocytic, Overweight, Hypothyroidism, Carotid disease, BPH, Former tobacco use and Former EtOH abuse who presents to [facility] ED on 12/10/21 with increasing fatigue, lethargy. #1. New onset, Paroxsymal atrial fibrillation w/ elevated troponin: EKG in ED w/ atrial fibrillation, rate controlled. Patient troponin suspected likely elevated given ongoing atrial fibrillation and recent cardiac surgery, given symptoms patient mid to PCU, cardiology consulted, initially requested Cardizem drip however patient came more bradycardic, transition to amiodarone drip, echocardiogram obtained as noted, TSH mildly elevated, pending free T4, continued on heparin drip. Mag 1.8. #2. Hyperglycemia, mild: Admission glucose mildly elevated 158, will obtain hemoglobin A1c to be cautious. #3. CAD: Status post recent 11/27/2021 CABG at the [facility] with a CABG x 1 BAI or JUAN as well as porcine AVR at that time, discharged 12/01/2021, records requested, CTA of note with no evidence of PE or dissection, encourage continued appropriate dressings and chest care as well as limited parameters including usage of a pillow, currently continued on aspirin, heparin drip, metoprolol although low threshold to hold given usage of amiodarone, MARILEE inhibitor, not on statin secondary to intolerance. #4. Valvular heart disease: Status post recent porcine AVR 11/27/2021, discharge is noted 12/01/2021, records requested, echocardiogram obtained with normal LV systolic function, EF 60%, postop septal motion, mild concentric LVH, mild enlarged LA, mild to moderate MVI, mild TVI, stable appearing bioprosthetic AV apparatus, trivial PVI, RVSP 21 mmHg with inability to assess diastolic dysfunction. #5. Carotid disease: Patient with history of bilateral carotid disease noting one side with 60% and the other with 80% occlusion, patient has upcoming eval uation again in [place] for continued monitoring, continued on aspirin, heparin drip, hypertensive regimen, noted statin intolerance #6. Chronic normocytic anemia: Admission hemoglobin 11.8, repeat 11.3, suspect similar given recent CABG, records requested from [place], repeat CBC in a.m. #7. Hypothyroidism with abnormal TSH: Patient currently continued on levothyroxine, TSH elevated, will obtain free T4 #8. BPH: We will continue patient home Flomax regimen. #9. DVT prophylaxis: SCDs, continue on a heparin drip. #10. CODE STATUS: Full code. Charges/Coding Visit Charges Inpatient E&M: 26633 Subs Hosp L2
[2021-12-11] MEDS: Aspirin 81 MG TAB.CHEW PO (08:02)
[2021-12-11] MEDS: Metoprolol Tartrate 25 MG Tablet PO ×2 (08:02→21:19)
[2021-12-11] MEDS: Tamsulosin HCl 0.4 MG Capsule PO (08:02)
[2021-12-11 08:07] LABS: Partial Thromboplast Time 52.1 Seconds (24.1-36.2)
--- NOTE | 2021-12-11 08:12 | PCM.CONS.C ---
Assessment & Plan Assessment/Plan (1) Fatigue: PLAN: The patient presents with concern of fatigue. This may be multifactorial in etiology. His atrial fibrillation may be a contributing factor to this superimposed upon his other comorbidities. At the moment he states he actually feels better. He is being monitored. His cardiac enzymes have been followed. He remains in atrial fibrillation with a controlled ventricular response at this time. A request has been made from the [facility] to obtain his recent cardiovascular records for continuity of care. (2) Elevated troponin: PLAN: His troponin I levels are somewhat elevated. They have not significantly changed. The etiology may be multifactorial as this could be related to his recent open heart surgery procedure as well as potentially contribution from what appears to be postoperative atrial fibrillation. At the moment it does not appear that he is undergoing an acute coronary syndrome event based upon his clinical course with respect to symptoms and lack of acute electrocardiographic findings. Thus his troponins may be a type II event secondary to his recent open heart surgery procedure and his atrial fibrillation. At the moment he is being followed. As noted above request has been made for the [facility] for copies of his recent cardiovascular records for continuity of care. He will continue medical management for his history of CAD, etc., as deemed appropriate. (3) Atrial fibrillation: PLAN: He has had atrial fibrillation. His rate appears to be controlled at this time. He will continue rate control therapy and anticoagulant therapy. It may not be unreasonable to place him on antiarrhythmic therapy and attempt to regain sinus rhythm. However, if he does not regain sinus rhythm and he maintains rate control and can tolerate anticoagulant therapy then it would be reasonable to have him followed for period of time with future plans on synchronized biphasic DC cardioversion hopefully once he is allowed to heal somewhat from his recent open heart surgery procedure. (4) CAD (coronary artery disease): PLAN: The details of his CAD are unknown. He states he only required 1 bypass graft. He will continue medical management. (5) S/P CABG (coronary artery bypass graft): PLAN: A copy of his [facility] report has been requested for continuity of care. As he does not have graft harvest incisions in his upper or lower extremities it appears that his graft may be a BAI or possibly a JUAN. (6) S/P AVR (aortic valve replacement): PLAN: He states he did have valvular replacement with a pig valve . He believes it was the aortic valve. A copy of his records have been requested. As he is into postoperative atrial fibrillation and his cardiac anatomy and structure are unknown it is not unreasonable to proceed with a transthoracic echocardiogram to assess his valvular apparatus. He will need continued [place] antibiotic prophylaxis. (7) HLD (hyperlipidemia): PLAN: According to the patient's medical records he has a allergy to statin therapy. He may need to be considered for nonstatin therapy to assist with his cardiovascular risk factors. (8) HTN (hypertension): PLAN: His blood pressure can be followed and his medications can be adjusted. (9) Normocytic anemia: PLAN: He is somewhat anemic. This may be related to his recent open heart surgery procedure. This may be a contributing factor to his fatigue. Addt'l Comments The above was discussed and reviewed with the patient and previously with Dr. Costa of Interventional Cardiology. This note was generated using a voice recognition system and there may be incorrect words, spelling or punctuation that were not noted when reviewing the office note prior to saving. HPI Consult Data Date of Consult: 12/11/21 HPI Narrative HPI Narrative: STONE HAILE, is a 76 year old white male who presents for cardiovascular rotation based upon concerns of symptoms of fatigue, abnormal troponin I levels, postoperative atrial fibrillation, status post recent (11-27-2021 at the [facility]) CABG (x1), status post recent (11-27-2021 at the [facility]) aortic valve replacement (bioprosthetic), hyperlipidemia, hypertension, hypothyroidism, peripheral arterial occlusive disease/carotid artery disease-stenosis, and anemia (mild thought to be postoperative related). The patient states he underwent evaluation and care at the [facility] on with a CABG x1 (possible BAI versus JUAN as the patient has no upper or lower extremity graft harvest incisions) and AVR (bioprosthetic). He does not recall any obvious postoperative concerns. He states he was released on 12-01-2021. He states he appeared to be recuperating reasonably well, however, yesterday he states he felt more tired and fatigued than usual. He presented to the [facility] emergency department for evaluation. He was found to be in atrial fibrillation. He also had cardiac enzymes levels performed which were elevated. He underwent evaluation with a chest x-ray and a chest CTA which were thought to be negative for any acute cardiopulmonary disease process. He was subsequently placed in the PCU for further evaluation and care. He has had repetitive cardiac enzymes which have not significantly changed. He has remained in atrial fibrillation with a controlled ventricular response. He states overall he felt better yesterday evening and better this morning. He states he has some residual chest soreness along his median sternotomy incision and chest tube sites. Otherwise he has had no other new acute chest discomforts. He denies any symptoms of acute shortness of breath or dyspnea and he has not had orthopnea or PND. There is been no near syncope or syncope. He notes that he was on diuretic therapy after leaving the hospital. He states he had weight loss. He eventually stopped his diuretics because of frequent urination at night. He states since doing so he does not believe he has had any adverse consequences. 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 [facility] Medical History (Updated 12/11/21 @ 08:[address] Thomas Franks MD) BPH (benign prostatic hyperplasia) CAD (coronary artery disease) CAD (coronary artery disease) Carotid artery stenosis History of alcohol abuse History of tobacco abuse HLD (hyperlipidemia) HTN (hypertension) HTN (hypertension) Hyperlipidemia Hypothyroidism Seasonal allergies Home Medications amlodipine 5 mg PO DAILY 12/10/21 [History Last Taken Unknown] aspirin 81 mg PO DAILY 12/10/21 [History Last Taken Unknown] cetirizine 10 mg PO DAILY 12/10/21 [History Last Taken Unknown] levothyroxine 125 mcg PO DAILY 12/10/21 [History Last Taken Unknown] lisinopril 40 mg PO DAILY 12/10/21 [History Last Taken Unknown] metoprolol tartrate 25 mg PO BID 12/10/21 [History Last Taken Unknown] potassium chloride 20 meq PO BID 12/10/21 [History Last Taken Unknown] tamsulosin 0.4 mg PO DAILY 12/10/21 [History Last Taken Unknown] Allergy/AdvReac Type Severity Reaction Status Date / Time [id number] Reductase Allergy Other Verified 12/10/21 09:33 Inhibitor ibuprofen AdvReac Other Verified 12/10/21 09:33 Surgical History (Updated 12/11/21 @ 08:[address] Thomas Franks MD) Heart valve replaced History of open heart surgery Hx of heart artery stent S/P AVR (aortic valve replacement) S/P CABG (coronary artery bypass graft) Social History Smoking Status: Never smoker ROS Constitutional Constitutional: Reports fatigue Eyes Eyes: Reports as per HPI ENT HEENT: Reports as per HPI Cardiovascular Cardiovascular: Reports fatigue Respiratory/Chest Respiratory/Chest: Reports as per HPI Gastrointestinal Gastrointestinal: Reports as per HPI Genitourinary Genitourinary: Reports as per HPI Musculoskeletal Musculoskeletal: Reports as per HPI Integumentary Integumentary: Reports as per HPI Neurologic Neurologic: Reports as per HPI Physical Exam Const alert, oriented x3 and no apparent distress Orientation / Consciousness: awake HEENT normocephalic, head/scalp atraumatic and hearing grossly normal bilaterally Eyes PERRL, EOMs intact bilaterally and conjunctivae normal Neck supple and no JVD Chest Chest: midline sternotomy incision Resp Auscultation: wheezes expiratory wheezes and left upper Cardio Rhythm: abnormal rhythm irregularly irregular Heart Sounds: S1 normal and S2 normal GI normal to inspection, nondistended, normoactive bowel sounds Extremity no pedal edema Skin Skin Narrative: Median sternotomy incision: Appears to be healing well Chest tube sites: Surgical dressing in place Neuro oriented x3, moves all extremities, no focal motor deficits and no sensory deficits noted Psych mental status grossly normal Risk Stratification Risk Stratification Applicable: Yes Age >/= 65: Yes >/= 3 CAD Risk Factors (HTN, HLD, DM, family hx of CAD, or current smoker): Yes Aspirin Use in the Past 7 Days: Yes Severe Angina (>/= episodes in 24 hours): No EKG ST Changes >/= 0.5mm: No Positive Cardiac Marker: Yes GO Risk Stratification Score: 4 GO % Risk: 20% Risk Procedure Criteria Type of Procedure Procedure Type: Elective Elective Risks - COVID COVID Risk Discussion: The surgeon/proceduralist and patient have discussed in detail the risk of exposure to and/or potential harm posed by the COVID-19 virus with having a surgery/procedure at this time versus the risk of delaying the surgery/procedure. It is not possible to know either the risk of delaying the surgery or procedure or chance of getting an infection with perfect accuracy, but a joint decision was made between the patient and the surgeon/proceduralist to proceed at this time with the scheduled surgery/procedure as indicated on the consent form. Objective Data Vital Signs: Vital Signs Temp Pulse Resp BP Pulse Ox 98.1 F 71 16 116/75 98 12/11/21 07:58 12/11/21 08:02 12/11/21 07:58 12/11/21 08:02 12/11/21 07:58 Oxygen Delivery Method Room Air Weight: 192 lb 14.472 oz Body Mass Index (BMI) 27.7 Intake & Output: Intake and Output for Last 24 Hours 12/09/21 12/10/21 12/11/21 23:59 23:59 23:59 Intake Total 254.17 / 254.17 308.4 / 308.4 Output Total 200 / 200 Balance 254.17 / 254.17 108.4 / 108.4 Lab / Micro Data Result Diagrams: 12/11/21 01:40 12/11/21 01:40 Labs: Laboratory Results - last 24 hr 12/10/21 10:15: WBC 9.4, RBC 4.01 L, Hgb 11.8 L, Hct 35.3 L, MCV 88.0, MCH 29.4, MCHC 33.4, RDW Std Deviation 43.8, RDW Coeff of Ethan 13.4, Plt Count 405, MPV 8.8, Immature Gran % (Auto) 0.500, Neut % (Auto) 70.2 H, Lymph % (Auto) 20.3, [place] % (Auto) 5.9, Eos % (Auto) 2.6, Baso % (Auto) 0.5, Absolute Neuts (auto) 6.6, Absolute Lymphs (auto) 1.91, Nucleated RBC % 0 12/10/21 10:15: D-Dimer Quant (PE/DVT) 9.25 H* 12/10/21 10:15: Sodium 134 L, Potassium 4.3, Chloride 99, Carbon Dioxide 26.0, Anion Gap 9, BUN 35 H, Creatinine 1.14, Estim Creat Clear Calc 55.14, Est GFR (MDRD) Af Amer 80, Est GFR (MDRD) Non-Af 66, BUN/Creatinine Ratio 30.7 H, Glucose 118 H, Calcium 9.6, Troponin I High Sens 184 H* 12/10/21 11:15: Urine Color Yellow, Urine Clarity Sl. Cloudy, Urine pH 6.0, Ur Specific [place] 1.020, Urine Protein 15 H, Urine Glucose (UA) Normal, Urine Ketones Negative, Urine Occult Blood Negative, Urine Nitrite Negative, Urine Bilirubin Negative, Urine Urobilinogen Normal, Ur Leukocyte Esterase Negative, Urine RBC 0 SEEN, Urine WBC 0 SEEN, Ur Squamous Epith Cells 0-5 SEEN, Urine Bacteria RARE, Urine Mucus 0 SEEN 12/10/21 16:00: Troponin I High Sens 188 H* 12/10/21 16:44: Troponin I High Sens 187 H* 12/10/21 18:28: PT 13.9, INR 1.1, APTT 29.7 12/11/21 01:40: WBC 10.8, RBC 3.84 L, Hgb 11.3 L, Hct 33.9 L, MCV 88.3, MCH 29.4, MCHC 33.3, RDW Std Deviation 43.5, RDW Coeff of Ethan 13.5, Plt Count 418, MPV 9.1, Immature Gran % (Auto) 0.500, Neut % (Auto) 71.5 H, Lymph % (Auto) 19.5, [place] % (Auto) 5.6, Eos % (Auto) 2.3, Baso % (Auto) 0.6, Absolute Neuts (auto) 7.7, Absolute Lymphs (auto) 2.11, Nucleated RBC % 0 12/11/21 01:40: Sodium 134 L, Potassium 4.2, Chloride 101, Carbon Dioxide 22.0, Anion Gap 11, BUN 39 H, Creatinine 1.19, Estim Creat Clear Calc 52.82, Est GFR (MDRD) Af Amer 76, Est GFR (MDRD) Non-Af 63, BUN/Creatinine Ratio 32.8 H, Glucose 158 H, Calcium 9.1, Phosphorus 4.4, Magnesium 1.8, Total Bilirubin 0.40, AST 14 L, ALT 20, Alkaline Phosphatase 79, Total Protein 7.4, Albumin 3.2, Globulin 4.2, Albumin/Globulin Ratio 0.8 L, TSH 8.45 H 12/11/21 01:40: APTT 56.2 H 12/11/21 07:36: APTT 52.1 H Micro: Microbiology 12/10/21 10:12 Nasal Secretion SARS-CoV-2 Antigen (Rapid) - Final Cardiology Labs/Tests 12/10/21 10:15: WBC 9.4, RBC 4.01 L, Hgb 11.8 L, Hct 35.3 L, MCV 88.0, MCH 29.4, MCHC 33.4, Plt Count 405, MPV 8.8, Immature Gran % (Auto) 0.500, Neut % (Auto) 70.2 H, Lymph % (Auto) 20.3, [place] % (Auto) 5.9, Eos % (Auto) 2.6, Baso % (Auto) 0.5, Absolute Neuts (auto) 6.6, Nucleated RBC % 0 12/10/21 10:15: D-Dimer Quant (PE/DVT) 9.25 H* 12/10/21 10:15: Sodium 134 L, Potassium 4.3, Chloride 99, Carbon Dioxide 26.0, Anion Gap 9, BUN 35 H, Creatinine 1.14, Est GFR (MDRD) Af Amer 80, Est GFR (MDRD) Non-Af 66, BUN/Creatinine Ratio 30.7 H, Glucose 118 H, Calcium 9.6 12/10/21 11:15: Urine Color Yellow, Urine Clarity Sl. Cloudy, Urine pH 6.0, Ur Specific [place] 1.020, Urine Protein 15 H, Urine Glucose (UA) Normal, Urine Ketones Negative, Urine Occult Blood Negative, Urine Nitrite Negative, Urine Bilirubin Negative, Urine Urobilinogen Normal, Ur Leukocyte Esterase Negative, Urine RBC 0 SEEN, Urine WBC 0 SEEN 12/10/21 18:28: PT 13.9, INR 1.1, APTT 29.7 12/11/21 01:40: WBC 10.8, RBC 3.84 L, Hgb 11.3 L, Hct 33.9 L, MCV 88.3, MCH 29.4, MCHC 33.3, Plt Count 418, MPV 9.1, Immature Gran % (Auto) 0.500, Neut % (Auto) 71.5 H, Lymph % (Auto) 19.5, [place] % (Auto) 5.6, Eos % (Auto) 2.3, Baso % (Auto) 0.6, Absolute Neuts (auto) 7.7, Nucleated RBC % 0 12/11/21 01:40: Sodium 134 L, Potassium 4.2, Chloride 101, Carbon Dioxide 22.0, Anion Gap 11, BUN 39 H, Creatinine 1.19, Est GFR (MDRD) Af Amer 76, Est GFR (MDRD) Non-Af 63, BUN/Creatinine Ratio 32.8 H, Glucose 158 H, Calcium 9.1, Phosphorus 4.4, Magnesium 1.8, Total Bilirubin 0.40 12/11/21 01:40: APTT 56.2 H 12/11/21 07:36: APTT 52.1 H Rhythm: Atrial fibrillation EKG: Atrial fibrillation; left axis deviation; right bundle branch block; left anterior fascicular block Radiography Diagnostic Testing: Radiology Impression Chest X-Ray 12/10/21 09:58 IMPRESSION: No active disease. Electronically Signed: Clarence Corley MD at 10:19 EST Tel , Service support , Chest CTA 12/10/21 10:54 IMPRESSION: CTA chest examination, without a demonstrated pulmonary embolism or arterial dissection. Left lower lung infiltrate and pleural effusion. Electronically Signed: Richie Allan MD at 12:57 EST , Service support ,
[2021-12-11] MEDS: Heparin Injection (Vial) 5,000 UNIT/ML VIAL IV ×2 (08:54→15:25)
[2021-12-11 08:56] LABS: Cholesterol 167 mg/dL (200); High Density Lipoprotein 36 mg/dL; Triglycerides 122 mg/dL; Very Low Density Lipoprotein 24 mg/dL (5-40)
--- NOTE | 2021-12-11 10:00 | CASEMGMT ---
RN CM Face to Face with patient for initial transition planning/care coordination assessment. RN CM introduced self and role at [facility]. Patient lying in bed, alert and oriented. Patient willing to participate in assessment and is able to answer all questions appropriately. Care providers, pharmacy, and demographics verified. Patient wishes to discharge home, denies need for home health at this time. Patient states he has no further needs or concerns at this time. CM to follow for discharge planning needs that may arise. PCP: Prem NAVARRO, karen appt Specialists: behaviorist at [place] Preferred Pharmacy: [facility] retail at discharge Insurance: [place] [facility] Prescription Benefit: none Living Will/HPOA: none LNOK: son, girlfriend Living Arrangements: Patient lives with girlfriend in a mobile home with 3 steps to enter the home. Patient states she is independent at home. Transportation: self/girlfriend DME/HHC: patient states he has cane at home. Patient denies previous HHC or SNF Disposition Plan: Patient to discharge home with family support and follow-up plans in place. Dede GRIMM, RN, CM
--- NOTE | 2021-12-11 12:10 | WOUNDNOTE ---
wound photo: chest
[2021-12-11 15:19] LABS: Partial Thromboplast Time 48.4 Seconds (24.1-36.2)
--- NOTE | 2021-12-11 17:06 | CHAPLAIN ---
Type of Pastoral Visit _x__ Initial Visit ___ Follow-up Visit ___ On-call Visit ___ General Patient Visit ___ Spiritual Assessment ___ Family Conference ___ Bereavement ___ Rapid Response ___ Code Blue ___ Other (describe below) Pastoral Care Referral From _x__ Patient ___ Family ___ Nurse ___ Physician ___ Health Education Specialist ___ Floor Layer Apprentice ___ Other (describe below) Sacrament/Intervention _x__ Active listening ___ Anointing ___ Congregation ___ Bereavement ___ Communion _x__ Stephanie exploration ___ _x__ Life review _x__ Prayer ___ Reconciliation ___ Sacrament of Sick _x__ Supportive presence ___ Wedding ___ Other (describe below) Pastoral Comments
[2021-12-11 22:05] LABS: Partial Thromboplast Time 64.3 Seconds (24.1-36.2)
--- NOTE | 2021-12-11 22:34 | NURSING ---
Ptt 64.3 therapeutic. Entered next ptt for 6 hrs from last draw
[2021-12-12 03:00] VITALS: PULSE 49
[2021-12-12 03:20] VITALS: BP 125/70; PULSE 53; RESP 16; TEMP 36.4; O2SAT 96
[2021-12-12 05:32] LABS: Absolute Lymphocyte Count 2.16 X10^3/uL (0.83-4.51); Absolute Neutrophil Count 5.2 X10^3/uL (2.0-7.7); Basophil# 0.05 X10^3/uL; Basophil% 0.6 % (0-1); Eosinophil# 0.24 X10^3/uL; Eosinophils% 2.9 % (0-5); Hematocrit 34.6 % (40-54); Hemoglobin 11.4 g/dL (13.0-16.5); Lymphocyte # 2.16 X10^3/ul (0.83-4.51); Lymphocyte % 26.2 % (19-41); Mean Corp Hgb Conc 32.9 g/dL (32-36); Mean Corpuscular Hgb 29.2 pg (27.0-32.0); Mean Corpuscular Volume 88.5 fL (80-94); Mean Platelet Vol. 9.7 fl (6.2-12.0); Monocyte# 0.62 X10^3/uL; Monocyte% 7.5 % (0-10); NRBC Flagged by Analyzer 0 % (0-5); Neutrophil # 5.15 X10^3/uL (2.7-7.7); Neutrophil % 62.3 % (47-70); Platelet Count 411 K/mm3 (150-450); RBC Distribution Width CV 13.4 % (11.6-14.6); RBC Distribution Width SD 43.7 fl (35.1-43.9); Red Blood Count 3.91 M/mm3 (4.6-6.2); White Blood Count 8.3 K/mm3 (4.4-11.0)
--- NOTE | 2021-12-12 05:55 | EKG12_ITS ---
Test Reason : AM EKG Blood Pressure : / mmHG Vent. Rate : 049 BPM Atrial Rate : 277 BPM P-R Int : 000 ms QRS Dur : 160 ms QT Int : 510 ms P-R-T Axes : 000 -75 086 degrees QTc Int : 460 ms Atrial fibrillation Right bundle branch block Left anterior fascicular block Bifascicular block Abnormal ECG Confirmed by MARIELY MENG, WHITLEY ([id number]), editor managing newspaper STEF COSBY ([id number]) on 12/13/2021 9:25:33 AM Referred By: DEEPA Confirmed By:WHITLEY SCHUSTER MD
[2021-12-12 05:57] LABS: ALB/GLOB Ratio 0.8 RATIO (0.9-2.4); AST(SGOT) 12 U/L (15-37); Alanine Aminotransfer ALT/SGPT 19 U/L (16-61); Albumin, Serum 3.2 g/dL (3.2-5.0); Alkaline Phosphatase 80 U/L (45-117); Anion Gap 8 (5-15); BUN 28 mg/dL (7-18); BUN/Creat Ratio 27.7 RATIO (10-20); Calcium,Total 8.8 mg/dL (8.5-10.1); Chloride 102 mmol/L (98-107); Creatinine, Serum 1.01 mg/dL (0.70-1.30); EST Glomerular Filtration Rate 76 mL/min (>60); Est Glom Filt Rate - Afr Amer 92 mL/min (>60); Estimated Creatinine Clearance 62.24 ml/min; Globulin 4.2 g/dL (2.2-4.2); Glucose 119 mg/dL (74-106); Potassium 4.2 mmol/L (3.5-5.1); Protein, Total 7.4 g/dL (6.4-8.2); Sodium Level 135 mmol/L (136-145); T4 Free Direct 1.39 ng/dL (0.76-1.46)
[2021-12-12] MEDS: Levothyroxine 125 MCG Tablet PO (05:59)
--- NOTE | 2021-12-12 06:02 | NURSING ---
ptt once again therapeutic. Next ptt entered for tomorrow am per policy.
[2021-12-12 06:57] VITALS: PULSE 63
--- NOTE | 2021-12-12 08:00 | PCM.PN.CARD ---
Subjective Subjective The patient appears to be resting comfortably with no new acute complaints. Objective Data Vital Signs: Vital Signs Temp Pulse Resp BP Pulse Ox 97.6 F L 63 16 125/70 H 96 12/12/21 03:20 12/12/21 06:57 12/12/21 03:20 12/12/21 03:20 12/12/21 03:20 Oxygen Delivery Method Room Air Weight: 191 lb 9.307 oz Body Mass Index (BMI) 27.7 Intake & Output: Intake and Output for Last 24 Hours 12/10/21 12/11/21 12/12/21 23:59 23:59 23:59 Intake Total 254.17 / 254.17 1288.13 / 1588.13 600 / 600 Output Total 201 / 601 700 / 700 Balance 254.17 / 254.17 1087.13 / 987.13 -100 / -100 Lab / Micro Data Result Diagrams: 12/12/21 04:10 12/12/21 04:10 Labs: Laboratory Results - last 24 hr 12/11/21 01:41: Triglycerides 122, Cholesterol 167, LDL Cholesterol 107, VLDL Cholesterol 24, HDL Cholesterol 36 L 12/11/21 07:36: APTT 52.1 H 12/11/21 14:56: APTT 48.4 H 12/11/21 21:23: APTT 64.3 H 12/12/21 04:10: WBC 8.3, RBC 3.91 L, Hgb 11.4 L, Hct 34.6 L, MCV 88.5, MCH 29.2, MCHC 32.9, RDW Std Deviation 43.7, RDW Coeff of Ethan 13.4, Plt Count 411, MPV 9.7, Immature Gran % (Auto) 0.500, Neut % (Auto) 62.3, Lymph % (Auto) 26.2, Ada % (Auto) 7.5, Eos % (Auto) 2.9, Baso % (Auto) 0.6, Absolute Neuts (auto) 5.2, Absolute Lymphs (auto) 2.16, Nucleated RBC % 0 12/12/21 04:10: Sodium 135 L, Potassium 4.2, Chloride 102, Carbon Dioxide 25.0, Anion Gap 8, BUN 28 H, Creatinine 1.01, Estim Creat Clear Calc 62.24, Est GFR (MDRD) Af Amer 92, Est GFR (MDRD) Non-Af 76, BUN/Creatinine Ratio 27.7 H, Glucose 119 H, Calcium 8.8, Total Bilirubin 0.40, AST 12 L, ALT 19, Alkaline Phosphatase 80, Total Protein 7.4, Albumin 3.2, Globulin 4.2, Albumin/Globulin Ratio 0.8 L, Free T4 1.39 12/12/21 04:10: APTT 57.0 H Cardiology Labs/Tests 12/11/21 01:41: Triglycerides 122, Cholesterol 167, LDL Cholesterol 107, VLDL Cholesterol 24, HDL Cholesterol 36 L 12/11/21 07:36: APTT 52.1 H 12/11/21 14:56: APTT 48.4 H 12/11/21 21:23: APTT 64.3 H 12/12/21 04:10: WBC 8.3, RBC 3.91 L, Hgb 11.4 L, Hct 34.6 L, MCV 88.5, MCH 29.2, MCHC 32.9, Plt Count 411, MPV 9.7, Immature Gran % (Auto) 0.500, Neut % (Auto) 62.3, Lymph % (Auto) 26.2, Ada % (Auto) 7.5, Eos % (Auto) 2.9, Baso % (Auto) 0.6, Absolute Neuts (auto) 5.2, Nucleated RBC % 0 12/12/21 04:10: Sodium 135 L, Potassium 4.2, Chloride 102, Carbon Dioxide 25.0, Anion Gap 8, BUN 28 H, Creatinine 1.01, Est GFR (MDRD) Af Amer 92, Est GFR (MDRD) Non-Af 76, BUN/Creatinine Ratio 27.7 H, Glucose 119 H, Calcium 8.8, Total Bilirubin 0.40 12/12/21 04:10: APTT 57.0 H Rhythm: Atrial fibrillation EKG: Atrial fibrillation; left axis deviation; right bundle branch block; left anterior fascicular block Radiography Diagnostic Testing: Radiology Impression Echocardiogram 12/10/21 18:03 Interpretation Summary The study was technically difficult. Contrast injection was performed. Left ventricular systolic function is normal. The estimated ejection fraction is 60 %. Post operative septal motion. Mild concentric left ventricular hypertrophy. The left atrium is mildly enlarged. There is mild mitral annular calcification. Mild focal mitral valve calcification of the anterior leaflet. Mild-Moderate (1-2+) mitral valve insufficiency. Mild tricuspid valve insufficiency. Stable appearing bioprosthetic aortic valve apparatus. Trivial pulmonic valve insufficiency. Right ventricular systolic pressure estimated to be 21 mmHg. Unable to assess diastolic dysfunction. Ordering Physician: Facundo Costa Referring Physician: [place], [place] Performed By: Colten Cohen RCS Physical Exam Const alert, oriented x3 and no apparent distress Orientation / Consciousness: awake HEENT normocephalic, head/scalp atraumatic and hearing grossly normal bilaterally Eyes PERRL, EOMs intact bilaterally and conjunctivae normal Neck supple and no JVD Chest Chest: midline sternotomy incision Resp Auscultation: wheezes expiratory wheezes and left upper Cardio Rhythm: abnormal rhythm irregularly irregular Heart Sounds: S1 normal and S2 normal GI normal to inspection, nondistended, normoactive bowel sounds Extremity no pedal edema Skin Skin Narrative: Median sternotomy incision: Appears to be healing well Chest tube sites: Surgical dressing in place Neuro oriented x3, moves all extremities, no focal motor deficits and no sensory deficits noted Psych mental status grossly normal Assessment & Plan Assessment/Plan (1) Fatigue: PLAN: The patient presents with concern of fatigue. However, he states he feels better and would like to be able to be released home for continued outpatient follow-up. This may be multifactorial in etiology. His atrial fibrillation may be a contributing factor to this superimposed upon his other comorbidities. He remains in atrial fibrillation with a controlled ventricular response at this time. A request has been made from the [facility] to obtain his recent cardiovascular records for continuity of care. They have not yet arrived. (2) Elevated troponin: PLAN: His troponin I levels are somewhat elevated. They have not significantly changed. The etiology may be multifactorial as this could be related to his recent open heart surgery procedure as well as potentially contribution from what appears to be postoperative atrial fibrillation. At the moment it does not appear that he is undergoing an acute coronary syndrome event based upon his clinical course with respect to symptoms and lack of acute electrocardiographic findings. Thus his troponins may be a type II event secondary to his recent open heart surgery procedure and his atrial fibrillation. At the moment he is being followed. As noted above request has been made for the [facility] for copies of his recent cardiovascular records for continuity of care. He will continue medical management for his history of CAD, etc., as deemed appropriate. (3) Atrial fibrillation: QUALIFIERS: Atrial fibrillation type: paroxysmal Qualified Code(s): I48.0 - Paroxysmal atrial fibrillation PLAN: He has had atrial fibrillation. His rate appears to be controlled at this time. He will continue rate control therapy and anticoagulant therapy. An attempt was made to initiate antiarrhythmic therapy with amiodarone. There was concern he did not tolerate this well based upon additional bradycardia. Thus this was discontinued. Thus, at the moment, he will continue rate control therapy. His IV heparin can be altered to oral systemic anticoagulant therapy such as apixaban/Eliquis. It may be reasonable to allow him to recover somewhat from his recent open heart surgery, with respect to his median sternotomy healing, prior to proceeding with a synchronized biphasic DC cardioversion unless required urgent/emergently based upon symptoms or hemodynamic compromise-which she has not demonstrated thus far. (4) CAD (coronary artery disease): PLAN: The details of his CAD are unknown. He states he only required 1 bypass graft. He will continue medical management. (5) S/P CABG (coronary artery bypass graft): PLAN: A copy of his [facility] report has been requested for continuity of care. As he does not have graft harvest incisions in his upper or lower extremities it appears that his graft may be a BAI or possibly a JUAN. (6) S/P AVR (aortic valve replacement): PLAN: He states he did have valvular replacement with a pig valve . He believes it was the aortic valve. A copy of his records have been requested. He did undergo evaluation with transthoracic echocardiogram. His aortic valve prosthesis appears to be stable at this time. He will need continued [place] [employer] antibiotic prophylaxis. (7) HLD (hyperlipidemia): PLAN: According to the patient's medical records he has a allergy to statin therapy. He may need to be considered for nonstatin therapy to assist with his cardiovascular risk factors. (8) HTN (hypertension): PLAN: His blood pressure can be followed and his medications can be adjusted. (9) Normocytic anemia: PLAN: He is somewhat anemic. This may be related to his recent open heart surgery procedure. This may be a contributing factor to his fatigue. Addt'l Comments Overall, at the present time, it appears reasonable to continue medical management as his recent symptoms and objective findings appear to be related to a type II event secondary to his recent open heart surgery procedure and his atrial dysrhythmia. It does not appear he requires additional noninvasive or invasive studies at this time. With respect to his atrial dysrhythmia he will continue rate control therapy and anticoagulant therapy. If he does not have spontaneous conversion to sinus rhythm during his cardiovascular follow-up scheduled at the [facility] then consideration can be given, as noted above, for future synchronized biphasic DC cardioversion which can be orchestrated by his [facility] cardiovascular team. The patient does state that he has a primary care follow-up at the [facility] later this week. He notes that in the beginning of December he has a peripheral vascular follow-up through the [facility] in [place] and subsequently a cardiovascular [facility] follow-up in [place]. The above was discussed with the patient he was agreeable to this approach. This note was generated using a voice recognition system and there may be incorrect words, spelling or punctuation that were not noted when reviewing the office note prior to saving.
[2021-12-12 08:12] VITALS: BP 117/62; PULSE 86
[2021-12-12] MEDS: Tamsulosin HCl 0.4 MG Capsule PO (08:12)
[2021-12-12] MEDS: Aspirin 81 MG TAB.CHEW PO (08:12)
[2021-12-12] MEDS: Metoprolol Tartrate 25 MG Tablet PO (08:12)
[2021-12-12] MEDS: Lisinopril 40 MG Tablet PO (08:13)
[2021-12-12 08:15] LABS: Hemoglobin A1c 6.2 % (3.8-5.6)
[2021-12-12 08:24] VITALS: BP 117/62; PULSE 74; RESP 16; TEMP 36.5; O2SAT 100
[2021-12-12] MEDS: APIXABAN 5 MG TABLET PO (09:18)
--- NOTE | 2021-12-12 10:57 | DCINST_ITS ---
Discharge Instructions Diet Discharge Diet: Low fat / Low cholesterol Activity Discharge Activity: Return to Normal Activity Weight Bearing Status: Weight bearing as tolerated Dressing / Incision Call your doctor if you observe: Fever of 101 or Higher, Shortness of breath, Dizziness, Swelling in the ankles, Chest pain and Increased palpitations (irregular heartbeat) Follow Up Care Test Results: Test results from this visit will be discussed in further detail at your follow-up appointment, if applicable. Discharge Plan Admission Admit Date/Time: 12/10/21 16:00 Primary Reason for Your Visit: afib with RVR Attending Provider: Rhina Palma Primary Care Provider: [facility],[place] Consulting Providers: Facundo Costa Instructions Patient Instructions: What Is Atrial Flutter/Atrial Fibrillation?, Understanding Atrial Fibrillation Discharge Orders/Prescriptions Prescriptions: New Eliquis 5 mg Tablet 5 mg PO BID Qty: 60 RF: 1 Continued cetirizine 10 mg Tablet 10 mg PO DAILY RF: 0 amlodipine 5 mg Tablet 5 mg PO DAILY RF: 0 tamsulosin 0.4 mg Capsule 0.4 mg PO DAILY RF: 0 levothyroxine 125 mcg Tablet 125 mcg PO DAILY RF: 0 aspirin 81 mg Tablet,Chewable 81 mg PO DAILY RF: 0 lisinopril 40 mg Tablet 40 mg PO DAILY RF: 0 metoprolol tartrate 25 mg Tablet 25 mg PO BID RF: 0 potassium chloride 20 mEq Tablet Extended Release 20 meq PO BID RF: 0 Referrals / Follow Up: Thomas Franks MD [STAFF PHYSICIAN] - Within 2 Weeks [facility],[place] [Primary Care Provider] - In 1 Week Disposition Disposition (needs filled in before D/C Order can be placed): Home, Self Care
--- NOTE | 2021-12-12 10:58 | DS.PCM_ITS ---
Providers Date of Admission: 12/10/21 Primary Care Physician: [facility] Consultations 12/10/21 16:14 Consult: Onc/Wound/process controls technician Routine Comment: Reason for Consult:: chest wound 12/10/21 16:25 Consult: Cardiology Routine Consulting Provider: Facundo Costa Reason for Consult: Troponin elevation/New Afib EMERGENT Consult: No MD Notified: Yes Date Notified: 12/10/21 Time Notified: 16:25 Method of Notification: Text Comments:: awaiting [facility] medical records Reason For Visit: AFIB/FATIGUE Diagnosis Discharge Diagnosis (1) Fatigue: Status: Acute Code(s): R53.83 - Other fatigue (2) Elevated troponin: Status: Acute Code(s): R77.8 - Other specified abnormalities of plasma proteins (3) Atrial fibrillation: Status: Acute Code(s): I48.91 - Unspecified atrial fibrillation Qualifiers: Atrial fibrillation type: paroxysmal Qualified Code(s): I48.0 - Paroxysmal atrial fibrillation (4) CAD (coronary artery disease): Status: Acute Code(s): I25.10 - Atherosclerotic heart disease of [place] coronary artery without angina pectoris (5) S/P CABG (coronary artery bypass graft): Status: Acute Code(s): Z95.1 - Presence of aortocoronary bypass graft (6) S/P AVR (aortic valve replacement): Status: Acute Code(s): Z95.2 - Presence of prosthetic heart valve (7) HLD (hyperlipidemia): Status: Acute Code(s): E78.5 - Hyperlipidemia, unspecified (8) HTN (hypertension): Status: Chronic Code(s): I10 - Essential (primary) hypertension (9) Normocytic anemia: Status: Acute Code(s): D64.9 - Anemia, unspecified Medications at Discharge Home Medications amlodipine 5 mg PO DAILY 12/10/21 aspirin 81 mg PO DAILY 12/10/21 cetirizine 10 mg PO DAILY 12/10/21 levothyroxine 125 mcg PO DAILY 12/10/21 lisinopril 40 mg PO DAILY 12/10/21 metoprolol tartrate 25 mg PO BID 12/10/21 potassium chloride 20 meq PO BID 12/10/21 tamsulosin 0.4 mg PO DAILY 12/10/21 apixaban [Eliquis] 5 mg PO BID #60 tab 12/12/21 Hospital Course Operations None Summary of Care Provided Minutes Spent on Discharge: 45 Hospital Course: Patient is a 76-year-old male with past medical history as outlined who was admitted through the ED on 12-10-2021 with chief complaint of weakness and fatigue. Patient had open heart surgery on 11-27-2021 at the [facility] where he reportedly had a one-vessel bypass as well as a porcine aortic valve replacement. Was subsequently discharged home and was doing well until he developed the above-mentioned symptoms of fatigue and generalized weakness. On admission, his vitals were essentially stable. CTA of the chest was negative for any evidence of PE or aortic dissection. Initial troponin was mildly elevated at 184 and EKG showed no evidence of ischemia but showed new onset atrial fibrillation. He was admitted and managed for new onset atrial fibrillation. He was continued on his metoprolol. Cardiology was consulted. Jeremie champagne was initially anticoagulated with Lovenox and this was subsequently switched to p.o. Eliquis. Cardiology was consulted and he had a 2D echo which showed EF of 60% with normal left ventricular size and mild concentric left ventricular hypertrophy with normal left ventricular systolic function. RVSP was 21 mmHg and had a stable appearing bioprosthetic aortic valve. He was put on Cardizem drip but this was subsequently stopped after he developed p bradycardia. He was put back on his p.o. metoprolol and remained rate controlled. Patient remained stable and was discharged home on 12-12-2021. He is to continue on his metoprolol and Eliquis and to follow-up with his primary care doctor and ca rdiologist. He is also to follow-up at the [facility] where he has an appointment on 12-13-2021. Patient seen and examined prior to discharge. He had no active complaints and felt well. Review of systems otherwise negative. Labs and vitals reviewed. Medication reviewed and reconciled. Physical Exam Const alert, oriented x3, no apparent distress, average body habitus, no limitations and healthy appearing General Appearance: cooperative, comfortable and well kempt Orientation / Consciousness: awake, oriented to person, oriented to place and oriented to time Exam Limitations: no limitations HEENT normocephalic, head/scalp atraumatic, hearing grossly normal bilaterally and moist oral mucous membranes Eyes PERRL, EOMs intact bilaterally and conjunctivae normal Resp normal respiratory effort, no retractions, no use of accessory muscles and clear to auscultation bilaterally Cardio S1 normal heart sound, S2 normal heart sound and no murmurs Cardio Narrative: afib, rate controlled. GI normal to inspection, nondistended, normoactive bowel sounds, soft to palpation and non-distended Extremity normal to inspection, full ROM and no clubbing, cyanosis or edema Skin no rashes or lesions noted Neuro oriented x3, CN's II-XII intact bilaterally and moves all extremities Sensorium / Orientation: awake and alert Psych affect normal Weight / BMI Weight Weight: 191 lb 9.307 oz Body Mass Index (BMI) 27.7 ABG / Lab / Microbiology Data Result Diagrams: 12/12/21 04:10 12/12/21 04:10 Laboratory: Laboratory Results - last 24 hr 12/11/21 14:56: APTT 48.4 H 12/11/21 21:23: APTT 64.3 H 12/12/21 04:10: WBC 8.3, RBC 3.91 L, Hgb 11.4 L, Hct 34.6 L, MCV 88.5, MCH 29.2, MCHC 32.9, RDW Std Deviation 43.7, RDW Coeff of Ethan 13.4, Plt Count 411, MPV 9.7, Immature Gran % (Auto) 0.500, Neut % (Auto) 62.3, Lymph % (Auto) 26.2, [place] % (Auto) 7.5, Eos % (Auto) 2.9, Baso % (Auto) 0.6, Absolute Neuts (auto) 5.2, Absolute Lymphs (auto) 2.16, Nucleated RBC % 0 12/12/21 04:10: Sodium 135 L, Potassium 4.2, Chloride 102, Carbon Dioxide 25.0, Anion Gap 8, BUN 28 H, Creatinine 1.01, Estim Creat Clear Calc 62.24, Est GFR (MDRD) Af Amer 92, Est GFR (MDRD) Non-Af 76, BUN/Creatinine Ratio 27.7 H, Glucose 119 H, Calcium 8.8, Total Bilirubin 0.40, AST 12 L, ALT 19, Alkaline Phosphatase 80, Total Protein 7.4, Albumin 3.2, Globulin 4.2, Albumin/Globulin Ratio 0.8 L, Free T4 1.39 12/12/21 04:10: Hemoglobin A1c 6.2 H 12/12/21 04:10: APTT 57.0 H Microbiology: Microbiology 12/10/21 10:12 Nasal Secretion SARS-CoV-2 Antigen (Rapid) - Final Radiography Diagnostic Testing: Radiology Impression Echocardiogram 12/10/21 18:03 Interpretation Summary The study was technically difficult. Contrast injection was performed. Left ventricular systolic function is normal. The estimated ejection fraction is 60 %. Post operative septal motion. Mild concentric left ventricular hypertrophy. The left atrium is mildly enlarged. There is mild mitral annular calcification. Mild focal mitral valve calcification of the anterior leaflet. Mild-Moderate (1-2+) mitral valve insufficiency. Mild tricuspid valve insufficiency. Stable appearing bioprosthetic aortic valve apparatus. Trivial pulmonic valve insufficiency. Right ventricular systolic pressure estimated to be 21 mmHg. Unable to assess diastolic dysfunction. Ordering Physician: Facundo Costa Referring Physician: [place], [place] Performed By: Colten Cohen RCS D/C Instructions Discharge Diet: Low fat / Low cholesterol Weight Bearing Status: Weight bearing as tolerated Call your doctor if you observe: Fever of 101 or Higher, Shortness of breath, Dizziness, Swelling in the ankles, Chest pain and Increased palpitations (irregular heartbeat) Meaningful Use Info Meaningful Use Diagnoses (Choose all that apply): None applicable Discharge Plan Admission Admit Date/Time: 12/10/21 16:00 Primary Reason for Your Visit: afib with RVR Attending Provider: Rhina Palma Primary Care Provider: [place], [place] Consulting Providers: Facundo Costa Instructions Patient Instructions: What Is Atrial Flutter/Atrial Fibrillation?, Und erstanding Atrial Fibrillation Discharge Orders/Prescriptions Prescriptions: New Eliquis 5 mg Tablet 5 mg PO BID Qty: 60 RF: 1 Continued cetirizine 10 mg Tablet 10 mg PO DAILY RF: 0 amlodipine 5 mg Tablet 5 mg PO DAILY RF: 0 tamsulosin 0.4 mg Capsule 0.4 mg PO DAILY RF: 0 levothyroxine 125 mcg Tablet 125 mcg PO DAILY RF: 0 aspirin 81 mg Tablet,Chewable 81 mg PO DAILY RF: 0 lisinopril 40 mg Tablet 40 mg PO DAILY RF: 0 metoprolol tartrate 25 mg Tablet 25 mg PO BID RF: 0 potassium chloride 20 mEq Tablet Extended Release 20 meq PO BID RF: 0 Referrals / Follow Up: Thomas rFanks MD [STAFF PHYSICIAN] - Within 2 Weeks [facility] [Primary Care Provider] - In 1 Week Disposition Disposition (needs filled in before D/C Order can be placed): Home, Self Care Charges/Coding Visit Charges Inpatient E&M: 60958 Disch Hosp
--- NOTE | 2021-12-12 11:05 | CASEMGMT ---
Addendum entered by Dede Tarcy 12/12/21 11:23: [facility], so [facility] unable to run for co-pay but Eliquis 30 day free trial card applied. Pt updated, voices understanding. Pt also aware that he will need to f[facility]u with [facility] provider to [facility] in [facility] clinic to [facility] the [facility], voices understanding and pt states has appt tomorrow [facility] with [facility]. Pt/family voice no further questions/concerns/needs and are ready for d/c. Shauna PENG CM Original Note: Pt to be sent home on Eliquis and med e-scribed to [facility] retail pharmacy. Lisha in pharmacy aware to check co-pay and then apply Eliquis card then notify this GINETTE ESTRELLA. Shauna PENG CM
== END 2021-12-12 12:22 | disposition home or self-care (01) | DRG 310 ==
LOC: ED 15:38 → PCU 17:15
PROVIDERS: Family Medicine; Internal Medicine Cardiovascular Disease; Internal Medicine Interventional Cardiology; Admitting Provider Internal Medicine; Emergency Provider Emergency Medicine; Visit Provider Student in an Organized Health Care Education/Training Program
DX: I48.0 Paroxysmal atrial fibrillation (principal); D64.9 Anemia, unspecified; Z95.1 Presence of aortocoronary bypass graft; Z95.2 Presence of prosthetic heart valve; I73.9 Peripheral vascular disease, unspecified; I25.10 Atherosclerotic heart disease of native coronary artery without angina pectoris; E03.9 Hypothyroidism, unspecified; I10 Essential (primary) hypertension; I65.23 Occlusion and stenosis of bilateral carotid arteries; E78.5 Hyperlipidemia, unspecified; F10.10 Alcohol abuse, uncomplicated; N40.0 Benign prostatic hyperplasia without lower urinary tract symptoms; R77.8 Other specified abnormalities of plasma proteins; Z79.01 Long term (current) use of anticoagulants; R73.9 Hyperglycemia, unspecified
CPT/HCPCS: 36415; 71045; 71275; 80048; 80053; 80061; 81001; 83036; 83735; 84100; 84439; 84443; 84484; 85025; 85379; 85610; 85730; 87426; 93005; 93306; 97162; 97166; 99251; 99285; Q9957; Q9967; A4216; C8929; G0463

== ENCOUNTER 2022-01-31 12:57 | Outpatient (CLI) | payer OTHER, SELFPAY ==
--- NOTE | 2022-01-31 13:04 | PCM.CR.HP2 ---
CR - History & Physical - General Arrival date:: 01/31/22 Arrival time:: 13:04 Date of Referral:: 01/16/22 Date of CR Evaluation:: 01/31/22 Referring Physician: [facility] Primary Diagnosis: S/P CABG AVR - History of Present Cardiac Event Onset Date: Enter Onset Date of cardiac illnesses in Comment field below Coronary Artery Bypass Graft:: Yes - 11/29/2021 Heart valve replacement or repair:: Yes - Sleep Disorder Evaluation Hx of Sleep Apnea: No Do you snore loudly (louder than talking or can be heard through closed doors)?: No Do you often feel tired/ fatigued/ sleepy during daytime?: Yes Has anyone observed you stop breathing during sleep?: No History of Hypertension (for STOP score): Yes - pt was recently tested STOP Results: Positive - Medications Home Medications: Ambulatory Orders Medication Instructions Recorded amlodipine 5 mg PO DAILY 12/10/21 aspirin 81 mg PO DAILY 12/10/21 cetirizine 10 mg PO DAILY 12/10/21 levothyroxine 125 mcg PO DAILY 12/10/21 lisinopril 40 mg PO DAILY 12/10/21 metoprolol tartrate 25 mg PO BID 12/10/21 potassium chloride 20 meq PO BID 12/10/21 tamsulosin 0.4 mg PO DAILY 12/10/21 apixaban [Eliquis] 5 mg PO BID #60 tab 12/12/21 - Allergies Allergies/Adverse Reactions: Allergies Xdgiwdi-OYU-LtB Reductase Inhibitor Allergy (Verified 12/10/21 09:33) Other ibuprofen Adverse Reaction (Verified 12/10/21 09:33) Other Advanced Directives - Advanced Directives Power of Spreader Operator: No Living Will: No Advance Directives Information Provided: Yes Advance Directives on File: No DNR Order?:: No Past Medical History - Covid-19 Screening Fever: No Unexplained muscle aches: No Current respiratory symptoms: No Upper respiratory infections symptoms: No Gastro-intestinal symptoms: No Vxu-Yldp-Qsffmf symptoms: No Has tested positive for COVID-19 in last 30 days: No Had contact w/person w/symptoms or Covid-19 (+) last 14 days: No Has High Risk Exposures ID'd by Health dept/Inf Control team: No 65 years or older:: Yes Lives in Assisted Living facility:: No Has a chronic lung disease or moderate to severe asthma:: No Has a serious heart condition:: Yes Immunocompromised:: No Severely obese (Body Mass Index of 40 or higher):: No Diabetic:: No Has chronic kidney disease undergoing dialysis:: No Has liver disease:: No - Past Medical Illness Medical History: Past Medical History (Last Updated 12/11/21 @ 08:[address] Thomas Franks MD) Atrial fibrillation I48.91 BPH (benign prostatic hyperplasia) N40.0 CAD (coronary artery disease) I25.10 CAD (coronary artery disease) I25.10 Carotid artery stenosis I65.29 Elevated troponin R77.8 Fatigue R53.83 History of alcohol abuse F10.11 History of tobacco abuse Z87.891 HLD (hyperlipidemia) E78.5 HTN (hypertension) I10 HTN (hypertension) I10 Hyperlipidemia E78.5 Hypothyroidism E03.9 Normocytic anemia D64.9 Seasonal allergies J30.2 - Past Surgical History Surgical History: Past Surgical History (Last Updated 12/11/21 @ 08:[address] Thomas Franks MD) Heart valve replaced Z95.2 History of open heart surgery Z98.890 Hx of heart artery stent Z95.5 S/P AVR (aortic valve replacement) Z95.2 S/P CABG (coronary artery bypass graft) Z95.1 Social History - Smoking History Smoking Status: Former smoker Hx Tobacco Use: Yes - Alcohol Use Alcohol Usage: Yes - Substance Abuse Hx Substance Use: No - Occupation Occupation (List type of work in comments):: Retired - Hobbies, Recreation, Social Activities Hobbies: Other - fishing and hunting Recreational Activities: I am able to engage in all my recreational activities Social Environment - Status Marital Status: - Current Living Arrangements Living Environment:: Alone - girlfriend - Children How many children do you have?: 2 Do any of your children live nearby?: Yes - Safety Do you feel safe in your surroundings?: Yes - Assistance Do you need any assistance at home?: no Review of Systems - Review of Systems Hints: Right click = Denies ([place]). Left click = Reports ([place]) Review of Present Symptoms: Reports: Heart Arrhythmia/Irregularities - a-fib, Appetite - Normal, Sleep - Normal. Denies: Shortness of Breath at Rest, Shortness of Breath with Exertion, PVD, Operative Discomfort, Angina, Wound Healing, Dizziness/Lightheadedness, Fatigue, Appetite - Special Diet - Pain Is Patient Pain Free?: Yes Risk Factor Assessment - Vital Signs Pulse Ox: 98 - Pulse Pulse Rate: 59 Pulse Rhythm: Irregular - Hypertension Blood Pressure Sitting - Right Arm: 130/64 - Obesity Height: 5 ft 10 in Weight:: 90.265 kg Weight in Pounds: 199.0 lbs Body Mass Index (BMI): 28.5 - Risk Stratification Risk Guidelines: Moderate Risk: Risk Factor for Smoking, Risk Factor for Dyslipidemia, Risk Factor for Diabetes, Risk Factor for Obesity, Risk Factor for Hypertension, Risk Factor for Sedentary Lifestyle, Risk Factor for Depression Motivation - Motivation to Participate On a scale of 1 to 10, how prepared are you to commit to attending program?: 8 What do you see as barriers to successfully being able to complete the program?: nothing What do you see as the benefits of succesfully completing the program? In other words, what do you hope to get out of participating in the program?: more energy,strength Are there issues you are dealing with that will interfere with completing the program?: none Do you have a spouse or signficant other, family or friends who will help support you to complete the program?: family
--- NOTE | 2022-01-31 13:04 | PCM.CR.ITP ---
Diagnosis - General Information Admitting Diagnosis: S/P CABG, AVR Personal Learning Style:: Audio/Visual Barriers to Learning: Vision Impairment Stage of change r/t lifestyle modifications:: Contemplation Gave educational material for:: Treating Heart Disease, Emotions & Heart Disease, Stress Management & Relaxation, Sleep Disorders & Heart Disease, How The Heart Works, What it means to have Heart Disease, How Coronary Artery Disease is Diagnosed, Heart Procedures, What Heart Medications Do, Risk Factors & Modifications, Living an Active Life, Nutrition - Education/Goals Cardiac Rehabilitation Goals: 1. Maintain the individual as the primary focus of care. 2. To improve the patient's quality of life. 3. Identification of cardiac risk factors and provide cardiac risk factor management. 4. Enhance the psychosocial status of the patient. 5. Reconditioning enough to allow the patient to resume customary activities. 6. Control symptoms of cardiac disease Personal Goals: Initial Assessment: Improve energy level, Get back to work, or to resume activities faster, Improve muscle strength and endurance, Other goal: Scale for measuring improvement of personal goals: Enter appropriate number in Comments. 2 = Unchanged. 3 = Slightly Better. 4 = Moderate Improvement. 5 = Met my Goal - Diagnosis & Disease Process Outcomes/Goals: Pt IDs own risk factors & lifestyle modifications by Session 10, Verbalizes symptoms of angina & response by session 3., Pt independently manages, Other Additional Outcomes/Goals: Plan/Interventions: Assist Pt to ID & engage in lifestyle modification to reduce CVD risk, Instruct on individual risk factors, Review symptoms of angina & emergency actions, Review secondary diagnosis & identify educational needs., Other see comment 30 day Reassessments:: Not Met 30 day Reassessments:: Not Met 30 day Reassessments:: Not Met 30 day Reassessments:: Not Met Final Reassessments:: Not Met - Safety Referral to Physical Therapy: No Referral to [facility] Case Management: No Fall Risk Assessed:: Yes Assistive Devices:: None Exercise - Initial Assessment - Visit Date of Eval: 01/31/22 - initial eval Mets: Pre-: >3 METS for 30 minutes by discharge, >5 METS for 30 minutes by discharge, >7 METS for 30 minutes by discharge, Unable to meet goal due to: (see comment below) - Physician Prescribed Exercise Modalities: Treadmill, Airdyne, NuStep, SciFit, Lateral [place] Frequency: 3x/week for 12 weeks [36 sessions] Intensity: 60-80% of age predicted maximum heart rate reserve Current METSs:: 2 Target Heart Rate:: 92-120 EKG Type: A-fib - Outcomes & Goals Goals:: Verbalizes understanding of THR, RPE & goal METS by session 6, Documents in home exercise log/reports 30 min aerobic 5 day/wk by DC, Demonstrates accurate pulse taking by DC, Other additional outcome/goals: see below - Intervention & Plan Exercise Program Goals: Instruct on personal THR & RPE, Instruct on MET level & personal MET goal, Show patient to take own pulse /validate performance until accurate, Instruct on home exercise, Other additional plan/int - Physical Activity Home Exercise Physical Activity - Home Exercise: Safe Exercise, Warm-up, Self-monitoring, Cool-Down, Home Exercise > 30 min Daily, Sitting Time <3 hours/daily - Outcomes & Goals Outcomes/Goals: Demonstrates correct Warm-up/exercise Cool-Down (S3) if = 2.5 METs, Verbalizes symptoms of exercise intolerance by Session 3 (S3), Demonstrate safe equipment use (S3) & follows exercise prescrition (6), Other: See below - Intervention & Plan Plan/Intervention: Instruct warm-up & cool-down if exercising at > 2 METs, Instruct on symptoms of exercise intolerance & actions to take, Instruct & monitor on saf, Assess intial functional capacity & safety risk, Other See below Nutrition - Initial Assessment - Program Goals Nutrition Program Goals: LDL <100 optimal. 100 - 129 Near optimal. 130 - 159 Borderline High. 160 - 189 High. Total Cholesterol <200 desirable. 200 - 239 Borderline High. >/= 240 High. HDL < 40 Low >/=60 High. Triglycerides <150 desirable. <199 optimal. VlDL 5 - 40. HgbA1C <7%. BMI <25 Patient has diagnosis of Hyperlipidemia (ICD E78)?: Yes - Visit Date of Assessment:: 01/31/22 - initial eval - Cholesterol/Lipids Determine presence & major risk factors that modify LDL goal: Cigarette smoking, Hypertension or hypertensive medication, Low HDL cholesterol <40 mg/dL*, Family history of premature CHD in Male < 55 years: female <65 yearsFa, Age men > 45 years; women >/= 55 years Outcomes/Goals: Pt IDs own risk factors & lifestyle modifications by Session 10, Verbalizes symptoms of angina & response by session 3., Pt independently manages, Other Additional Outcomes/Goals: Intervention/Plan: Advocate for lipid panel cholesterol medication if applicable, Instruct on personal lipid levels & lipid goals/NCEP guidelines, Instruct on cholesterol, Other additional plan/int Referral to dietitian:: No - declines - Diabetes (Other Core Measures) Diabetes Type: Not Applicable - Weight Mgt (Other Care) Height: 5 ft 10 in Weight:: 90.265 kg BMI: 28.5 Diagnosis Overweight/Obesity BMI> 30% ICD-10 E66: No Diagnosis High BMI/Morbid Obesity BMI> 35% ICD-10 Z68: No Outcomes/Goals: Pt sets, maintains & shows weight loss goal & trend during rehab, Other additional outcomes/goals Intervention/Plan: Instruct on ideal BMI & set weight loss goal w/patient, Assist pt to ID & incorporate diet changes for weight loss by S9, Refer to Structured Weight Loss program as appropriate, Encourage goal of using 250-300dcal per session for weight loss, Other additional plan/interventions - Healthy Eating Habits Will attend diet classes:: Yes Outcomes/Goals:: Consume diet rich in vegs,fruits,whole grain/high fiber,fish,lean meat, Limit sat/trans fats,cholesterol & added salts & sugars, Other additional outcome/goals: Intervention/Plan:: Assess current eating habits, Other Additional plan/interventions - Education Gave educational materials for:: Signs & symptoms of hypoglycemia, Signs & symptoms of hyperglycemia, Relate diabetes to coronary artery disease, Healthy eating Nutrition - 30-Day Assessment Nutrition - 60-Day Assessment Nutrition - 90-Day Assessment Nutrition - Final Assessment Medical - Initial Assessment - Visit Date of Eval: 01/31/22 - initial eval - Medication Compliance Preventative Medication(s):: Aspirin, MARILEE inhibitor, Beta lori, Eliquis H/O mental health issues: depression, anxiety, or addiction?: No Doesn?t believe in the benefits of treatment?: No Believes medications are unnecessary or harmful?: No Has a concern about medication side effects?: No Expresses concern over the cost of medications?: No Outcomes/Goals: Verbalizes medications,desired effect & common side effects @ DC, Pt self-reports following medication regimen, Keeps card in wallet w/medications listed by DC, Other additional outcome/goals: Interventions/plans: Instruct on medication effects & side effects, Review medication list w/patient every two weeks, Instruct importance of taking meds as ordered & assist problem solving, Other additional - Tobacco Use Tobacco Use: Non-smoker Do you use smokeless tobacco?: No - Hypertension Hypertension Diagnosis:: Hypertension ICD-10 I10 [place] [employer] Hypertension Guidelines: [place] [employer] Hypertension Guidelines. Normal BP Less than 120/80. Elevated BP 120/80. Hypertension Stage 1: BP 130-139/80-89. Hypertesnion Stage 2: BP 140 or higher/90 or higher. Hypertension Crisis: BP higher than 180/120 Outcomes/Goals: Able to verbalize/achieve optimal blood pressure <130/80, Incorporates diet changes & exercise for blood pressure control by DC, Other additional outcomes/goals Interventions/plan: Instruct on optimal blood pressure, hypertension & medications, Instruct on effects of sodium, alcohol, stress, exercise &hypertension, Other additional plan/interventions - Tobacco Cessation Referral Smoking Cessation Referral:: No Individual Education/Counseling:: Yes Education Schedule Given:: Yes Medical- 30-Day Assessment Medical- 60-Day Assessment Medical- 90-Day Assessment Medical - Final Assessment Psychosocial - Initial Assess - VIsit Date of Eval: 01/31/22 - initial eval History of previous Mental disease:: No - Outcomes/Goals: See list Psychosocial Outcomes/Goals:: ID's personal stressors & 2 strategies to manage stress by discharge, Other Additional outcome/goals: - Intervention/Plan: See List Interventions/Plan:: Assess stressors,coping strategies & signs of derpression on admission, Instruct/assist pt to develop coping & personal stress Mgt strategies, Refer to Behavioral Health if appropriate, Refer to Physician if appropriate, Instruct patient to recognize signs & symptoms of depression, Instruct patient to recog, Other additional plan/intervention Psychosocial - 30-Day Assess Psychosocial - 60-Day Assess Psychosocial - 90-Day Assess Psychosocial - Final Assessmen Patient Health Questionnaire Initial Assessment 1. Little interest or pleasure in doing things: Not at all 2. Feeling down, depressed, or hopeless: Not at all 3. Trouble falling or staying asleep, or sleeping too much: Not at all 4. Feeling tired or having little energy: Not at all 5. Poor appetite or overeating: Not at all 6. Feeling bad about yourself -- or that you are a failure or have let yourself or your family down: Not at all 7. Trouble concentrating on things, such as reading the newspaper or watching television: Not at all 8. Moving or speaking so slowly that other people could have noticed. Or the opposite - being so fidgety or restless that you have been moving around a lot more than usual: Not at all 9. Thoughts that you would be better off , or of hurting yourself in some way: Not at all How difficult have these problems made it for you to do your work, take care of things at home, or get along with other people?: Not difficult at all Total Score: 0 DAYNE-Q SV Test - Statements CAD is a disease of the arteries in the heart: False Examples of risk factors for heart disease: True Angina is chest pain or discomfort: True The benefits of resistance training include: True Eating more meat and dairy products: False Anti-platelet medications such as aspirin are important: True The only effective way to manage stress: False An exercise warm-up slowly increases heart rate: True Prepared, processed foods usually have high sodium: True Depression is common after a heart attack: True The statin medications lower cholesterol: True To control blood pressure, lower the amount of sodium: True If someone gets chest discomfort during walking: False Transfats are partially hydrogenated vegetable oils: I Don't Know Sleep apnea that is not treated increases the risk: False To control cholesterol, one should become a vegetarian: False Someone knows if he/she is exercising at the right level: True Diabetes cannot be prevented with exercise & health eating: True Stress is a large risk for heart attack: True A diet that can help lower blood pressure is rich in: True - Total Score Total Correct Responses: 18 Self-Efficacy Initial Assessment We would like to know how confident you are in doing certain activities. Please select your confidence level for:: Select your confidence level for the following using the scale 1-10 where 1 is not at all confident and 10 is totally confident. Your score is the average of all 6 responses. Fatigue: How confident are you that you can keep the fatigue caused by your disease from interfering with the things you want to do? Select Number: 9 Physical Discomfort or Pain: How confident are you that you can keep the physical discomfort or pain of your disease from interfering with the things you want to do? Select Number: 9 Emotional Distress: How confident are you that you can keep the emotional distress caused by your disease from interfering with the things you want to do? Select Number: 9 Other Symptoms or Health Problems: How confident are you that you can keep other symptoms or health problems from interfering with the things you want to do? Select Number: 9 Different Tasks and Activities: How confident are you that you can do the different tasks and activities needed to manage your health condition so as to reduce your need to see a doctor? Select Number: 9 Medication: How confident are you that you can do things other than just taking medication to reduce how much your illness affects your everyday life? Select Number: 9 Total Score:: 9 Nutrition Survey - Nutrition Survey Initial Have you lost >10 lbs over the past 2 months without trying?: No Are you following a special diet at home for diabetes, low fat, or low salt?: No Are you interested in meeting with a dietitian for help understanding your diet?: No Do you eat less than 3 meals a day?: Yes Do you eat fatty meats (brownlee, sausage, ribs, etc), fried foods, desserts, large amounts of salad dressings, margarine, butter, or cheese most days?: Yes Do you have food allergies? [Enter types in comment field]: No Do you eat in restaurants more than 3 times a week?: No Do you season food with salt, seasoning salt, or garlic salt?: Yes Do you used canned, boxed, frozen meals, or soups, seasoning packets?: No Total Score:: 3
[2022-01-31 14:02] VITALS: BP 130/64; PULSE 59; O2SAT 98; BMI 28.5
[2022-01-31 14:07] VITALS: BMI 28.5
== END 2022-01-31 23:59 | disposition home or self-care (01) ==
LOC: CR 12:59
DX: Z00.00 Encounter for general adult medical examination without abnormal findings (principal)

== ENCOUNTER 2022-02-12 09:30 | Outpatient (RCR) | payer OTHER, SELFPAY | END 2022-02-15 23:59 | disposition home or self-care (01) | LOC: CR 09:30 | DX: I25.84 Coronary atherosclerosis due to calcified coronary lesion (principal); Z95.1 Presence of aortocoronary bypass graft | CPT/HCPCS: 93798 ==

== ENCOUNTER 2022-03-16 09:30 | Outpatient (RCR) | payer OTHER, SELFPAY ==
--- NOTE | 2022-03-02 12:56 | PCM.CR.ITP ---
Diagnosis Exercise - 30-day Assessment - Visit Date of Eval: 03/02/22 Session #:: 8 - Physician Prescribed Exercise Modalities: Treadmill, Airdyne, NuStep Frequency: 3x/week for 12 weeks [36 sessions] Intensity: 60-80% of age predicted maximum heart rate reserve Current METSs:: 4.0 Target Heart Rate:: 92-120 Maximum Excercise HR:: 130 Resting Blood Pressure: 150/64 Maximum Exercise Blood Pressure: 178/50 EKG Type: SB with BBB, 1st degree AV block, rare PVCs. Current Physical Activity or Exercising minutes: 40:44 - Outcomes & Goals Goals:: Verbalizes understanding of THR, RPE & goal METS by session 6, Documents in home exercise log/reports 30 min aerobic 5 day/wk by DC, Demonstrates accurate pulse taking by DC - Intervention & Plan Exercise Program Goals: Instruct on personal THR & RPE, Instruct on MET level & personal MET goal, Show patient to take own pulse /validate performance until accurate, Instruct on home exercise - 30-day Reassessments 30 day Reassessments:: Progressing - Physical Activity Home Exercise Physical Activity - Home Exercise: Safe Exercise, Warm-up, Self-monitoring, Cool-Down, Home Exercise > 30 min Daily, Sitting Time <3 hours/daily - Outcomes & Goals Outcomes/Goals: Demonstrates correct Warm-up/exercise Cool-Down (S3) if = 2.5 METs, Verbalizes symptoms of exercise intolerance by Session 3 (S3), Demonstrate safe equipment use (S3) & follows exercise prescrition (6) - Intervention & Plan Plan/Intervention: Instruct warm-up & cool-down if exercising at > 2 METs, Instruct on symptoms of exercise intolerance & actions to take, Instruct & monitor on saf, Assess intial functional capacity & safety risk - 30-day Reassessments 30 day Reassessments:: Progressing Nutrition - Initial Assessment Nutrition - 30-Day Assessment - Program Goals Nutrition Program Goals: LDL <100 optimal. 100 - 129 Near optimal. 130 - 159 Borderline High. 160 - 189 High. Total Cholesterol <200 desirable. 200 - 239 Borderline High. >/= 240 High. HDL < 40 Low >/=60 High. Triglycerides <150 desirable. <199 optimal. VlDL 5 - 40. HgbA1C <7%. BMI <25 Patient has diagnosis of Hyperlipidemia (ICD E78)?: Yes - Visit Date of Assessment:: 03/02/22 Session #:: 8 - Cholesterol/Lipids Triglycerides (mg/dL): 122 Total Cholesterol (mg/dL): 167 LDL Cholesterol (mg/dL): 107 HDL Cholesterol (mg/dL): 36 Determine presence & major risk factors that modify LDL goal: Hypertension or hypertensive medication, Low HDL cholesterol <40 mg/dL*, Family history of premature CHD in Male < 55 years: female <65 yearsFa, Age men > 45 years; women >/= 55 years Outcomes/Goals: Pt IDs own risk factors & lifestyle modifications by Session 10, Verbalizes symptoms of angina & response by session 3., Pt independently manages Intervention/Plan: Instruct on personal lipid levels & lipid goals/NCEP guidelines, Instruct on cholesterol Referral to dietitian:: Yes - medical nutrition therapy 30-day Reassessments:: Progressing - Diabetes (Other Core Measures) Diabetes Type: Not Applicable - Weight Mgt (Other Care) Height: 5 ft 10 in Weight:: 199 lb BMI: 28.5 Diagnosis Overweight/Obesity BMI> 30% ICD-10 E66: No Diagnosis High BMI/Morbid Obesity BMI> 35% ICD-10 Z68: No Outcomes/Goals: Pt sets, maintains & shows weight loss goal & trend during rehab Intervention/Plan: Instruct on ideal BMI & set weight loss goal w/patient, Assist pt to ID & incorporate diet changes for weight loss by S9 30 day Reassessments:: Progressing - Healthy Eating Habits Will attend diet classes:: Yes Outcomes/Goals:: Consume diet rich in vegs,fruits,whole grain/high fiber,fish,lean meat, Limit sat/trans fats,cholesterol & added salts & sugars Intervention/Plan:: Assess current eating habits 30-day Reassessments:: Progressing - Education Gave educational materials for:: Healthy eating Nutrition - 60-Day Assessment Nutrition - 90-Day Assessment Nutrition - Final Assessment Medical - Initial Assessment Medical- 30-Day Assessment - Visit Date of Eval: 03/02/22 Session #:: 8 - Medication Compliance Preventative Medication(s):: Aspirin, Statin/lipid, Beta lori, Eliquis H/O mental health issues: depression, anxiety, or addiction?: No Doesn?t believe in the benefits of treatment?: No Believes medications are unnecessary or harmful?: No Has a concern about medication side effects?: No Expresses concern over the cost of medications?: No Outcomes/Goals: Verbalizes medications,desired effect & common side effects @ DC, Pt self-reports following medication regimen, Keeps card in wallet w/medications listed by DC Interventions/plans: Instruct on medication effects & side effects, Review medication list w/patient every two weeks, Instruct importance of taking meds as ordered & assist problem solving 30-day Reassessments:: Progressing - Tobacco Use Tobacco Use: Cigarettes How long ago did you quit using tobacco products?: Greater than or equal to 6 months ago Do you use smokeless tobacco?: No Outcomes/Goals: Smoking cessation achieved or maintained by discharge Interventions/plan: Instruct on effects of smoking & provide smoking cessation resource 30-day Reassessments:: Met - Hypertension Hypertension Diagnosis:: Hypertension ICD-10 I10 Resting Blood Pressure:: 150/64 [place] [employer] Hypertension Guidelines: [place] [employer] Hypertension Guidelines. Normal BP Less than 120/80. Elevated BP 120/80. Hypertension Stage 1: BP 130-139/80-89. Hypertesnion Stage 2: BP 140 or higher/90 or higher. Hypertension Crisis: BP higher than 180/120 Peak Exercise Blood Pressure:: 178/50 Outcomes/Goals: Able to verbalize/achieve optimal blood pressure <130/80, Incorporates diet changes & exercise for blood pressure control by DC Interventions/plan: Instruct on optimal blood pressure, hypertension & medications, Instruct on effects of sodium, alcohol, stress, exercise &hypertension 30 day Reassessments:: Progressing - Tobacco Cessation Referral Smoking Cessation Referral:: No - support provided to patient if requested Individual Education/Counseling:: No Education Schedule Given:: Yes Medical- 60-Day Assessment Medical- 90-Day Assessment Medical - Final Assessment Psychosocial - Initial Assess Psychosocial - 30-Day Assess Psychosocial - 60-Day Assess Psychosocial - 90-Day Assess Psychosocial - Final Assessmen Patient Health Questionnaire 30-Day Re-eval Assessment 1. Little interest or pleasure in doing things: Not at all 2. Feeling down, depressed, or hopeless: Not at all 3. Trouble falling or staying asleep, or sleeping too much: Not at all 4. Feeling tired or having little energy: Not at all 5. Poor appetite or overeating: Not at all 6. Feeling bad about yourself -- or that you are a failure or have let yourself or your family down: Not at all 7. Trouble concentrating on things, such as reading the newspaper or watching television: Not at all 8. Moving or speaking so slowly that other people could have noticed. Or the opposite - being so fidgety or restless that you have been moving around a lot more than usual: Not at all 9. Thoughts that you would be better off , or of hurting yourself in some way: Not at all How difficult have these problems made it for you to do your work, take care of things at home, or get along with other people?: Not difficult at all Total Score: 0 Self-Efficacy 30-Day Re-eval Assessment We would like to know how confident you are in doing certain activities. Please select your confidence level for:: Select your confidence level for the following using the scale 1-10 where 1 is not at all confident and 10 is totally confident. Your score is the average of all 6 responses. Fatigue: How confident are you that you can keep the fatigue caused by your disease from interfering with the things you want to do? Select Number: 9 Physical Discomfort or Pain: How confident are you that you can keep the physical discomfort or pain of your disease from interfering with the things you want to do? Select Number: 9 Emotional Distress: How confident are you that you can keep the emotional distress caused by your disease from interfering with the things you want to do? Select Number: 9 Other Symptoms or Health Problems: How confident are you that you can keep other symptoms or health problems from interfering with the things you want to do? Select Number: 9 Different Tasks and Activities: How confident are you that you can do the different tasks and activities needed to manage your health condition so as to reduce your need to see a doctor? Select Number: 9 Medication: How confident are you that you can do things other than just taking medication to reduce how much your illness affects your everyday life? Select Number: 9 Total Score:: 9 Nutrition Survey
[2022-03-02 13:02] VITALS: BP 150/64; BP 178/50; BMI 28.5
== END 2022-03-17 23:59 ==
LOC: CR 09:30
DX: I25.84 Coronary atherosclerosis due to calcified coronary lesion (principal)
CPT/HCPCS: 93798

== ENCOUNTER 2023-02-10 08:21 | Inpatient (IN) | payer OTHER, SELFPAY ==
[2022-03-02 13:02] VITALS: BMI 28.5
[2023-02-10] VITALS (15 sets, daily range): BP systolic 88–149; BP diastolic 43–81; PULSE 70–135; RESP 14–24; TEMP 36.7–39.4; O2SAT 93–100; BMI 32.1; BMI 31.7
--- NOTE | 2023-02-10 08:31 | EKG12_ITS ---
Test Reason : REPEAT EKG Blood Pressure : / mmHG Vent. Rate : 077 BPM Atrial Rate : 082 BPM P-R Int : 344 ms QRS Dur : 158 ms QT Int : 396 ms P-R-T Axes : 000 -70 -05 degrees QTc Int : 448 ms Sinus rhythm with sinus arrhythmia with 1st degree A-V block Right bundle branch block Left anterior fascicular block Bifascicular block Possible Lateral infarct , age undetermined Abnormal ECG Confirmed by MARINA MENG, ASAF ([id number]), managing editor STEF COSBY ([id number]) on 02/12/2023 8:19:03 AM Referred By: LATANYA Confirmed By:ASAF GRAY MD
--- NOTE | 2023-02-10 08:32 | EX.ED.DYSGE1 ---
HPI History of Present Illness Chief Complaint: Complaint Detail of Chief Complaint: Chills, difficulty urinating Informant: patient Narrative Narrative: Patient presents today that he has had chills and body aches for the past 2 days. He did not check his temperature at home. He states he is having difficulty urinating and when he does go he does get the small trickle out. He has had some burning when he does urinate. He has had some nausea. He has had a mild cough. PFSH PFSH Medical History Atrial fibrillation BPH (benign prostatic hyperplasia) CAD (coronary artery disease) Carotid artery stenosis Elevated troponin Fatigue History of alcohol abuse History of tobacco abuse HLD (hyperlipidemia) HTN (hypertension) Hypothyroidism Normocytic anemia Seasonal allergies Home Medications amlodipine 5 mg tablet 5 mg PO DAILY 12/10/21 [History Last Taken 02/09/23] aspirin 81 mg chewable tablet 81 mg PO DAILY 12/10/21 [History Last Taken 02/10/23] cetirizine 10 mg tablet 10 mg PO DAILY 12/10/21 [History Last Taken 02/10/23] levothyroxine 125 mcg tablet 125 mcg PO DAILY 12/10/21 [History Last Taken 02/09/23] metoprolol tartrate 25 mg tablet 25 mg PO BID 12/10/21 [History Last Taken 02/10/23] apixaban 5 mg tablet (Eliquis) 5 mg PO BID #60 tabs 12/12/21 [Rx Last Taken 02/10/23] lisinopril 2.5 mg tablet 2.5 mg PO DAILY HTN 02/10/23 [History Last Taken 02/10/23] Allergy/AdvReac Type Severity Reaction Status Date / Time Evhnoau-LQU-AsI Reductase Allergy Other Verified 02/10/23 08:21 Inhibitor ibuprofen AdvReac Other Verified 02/10/23 08:21 Surgical History Heart valve replaced History of open heart surgery Hx of heart artery stent S/P AVR (aortic valve replacement) S/P CABG (coronary artery bypass graft) Social History Smoking Status: Former smoker ROS ROS ED Constitutional Constitutional ED: Reports chills; Denies fever(s) Eyes Eyes: Denies change in vision or discharge from eye(s) ENT ENT ED: Denies discharge from eye(s), rhinorrhea or sore throat Cardiovascular Cardiovascular: Denies chest pain or palpitations Respiratory/Chest Respiratory/Chest: Reports cough; Denies dyspnea Gastrointestinal Gastrointestinal: Reports nausea; Denies abdominal pain or diarrhea Genitourinary Genitourinary ED: Reports difficulty urinating and dysuria Musculoskeletal Musculoskeletal: Reports myalgias; Denies back pain or extremity pain Integumentary Denies Abrasions or rash Neurologic Neurologic: Reports weakness; Denies headache(s) Allergic/Immunologic Allergic/Immunologic ED: Denies lip swelling or urticaria EXAM Physical Exam Const Vital Signs: 02/10/23 08:22 02/10/23 08:32 02/10/23 08:32 Temperature 99.7 F H 99.4 F H Temperature Source Oral Temporal Pulse Rate 135 H 121 H Respiratory Rate 14 24 H Blood Pressure 136/81 H 149/73 H Blood Pressure Mean 99 98 Pulse Ox 97 100 Oxygen Delivery Method Room Air Room Air Room Air 02/10/23 09:23 02/10/23 10:00 Temperature 102.6 F H 103.0 F H Temperature Source Core Core Pulse Rate 93 89 Respiratory Rate 18 16 Blood Pressure 121/78 H 108/78 Blood Pressure Mean 92 88 Pulse Ox 99 100 Oxygen Delivery Method Room Air Room Air Positive well nourished and well developed General Appearance ED: well developed HEENT Reports normocephalic and head/scalp atraumatic Eyes PERRL and EOMs intact bilaterally Neck supple Chest Wall inspection of chest normal and palpation of chest normal Resp normal respiratory effort and clear to auscultation bilaterally Cardio regular rhythm Rate: tachycardic GI non-tender Auscultation: hypoactive bowel sounds Palpation: soft Extremity normal to inspection Neuro oriented x3 Neuro Narrative: No focal neurologic deficits. Sensorium / Orientation: alert Psych mental status grossly normal Skin no rashes or lesions noted MDM MDM MDM Narrative Medical decision making narrative: Sepsis work-up initiated. Patient placed on compliance monitor. EKG obtained to evaluate for cardiac arrhythmia/ischemia. Labwork obtained to evaluate for leukocytosis, anemia, and electrolyte derangement. Urinalysis obtained to evaluate for infection/hematuria. Blood and urine cultures are obtained. Swab for COVID and influenza obtained. Given the patient having difficulty urinating Daniel catheter is placed. Lab Data Attestation: I reviewed the patient's lab results. Labs: Laboratory Results - last 24 hr 02/10/23 02/10/23 02/10/23 08:53 08:53 08:53 WBC 9.4 RBC 5.04 Hgb 14.8 Hct 45.8 MCV 90.9 MCH 29.4 MCHC 32.3 RDW Std Deviation 46.6 H RDW Coeff of Ethan 14.0 Plt Count 183 MPV 10.0 Immature Gran % (Auto) 0.100 Neut % (Auto) 91.1 H Lymph % (Auto) 7.4 L Pierce % (Auto) 1.0 Eos % (Auto) 0.1 Baso % (Auto) 0.3 Absolute Neuts (auto) 8.6 H Absolute Lymphs (auto) 0.70 L Nucleated RBC % 0 PT 17.0 H INR 1.4 APTT 29.4 Sodium 136 Potassium 4.1 Chloride 103 Carbon Dioxide 21.0 Anion Gap 12 BUN 30 H Creatinine 1.40 H Estim Creat Clear Calc 44.18 Est GFR (MDRD) Af Amer 63 Est GFR (MDRD) Non-Af 52 L BUN/Creatinine Ratio 21.4 H Glucose 204 H Lactic Acid Calcium 9.2 Total Bilirubin 1.10 H AST 15 ALT 25 Alkaline Phosphatase 79 Total Protein 8.1 Albumin 3.6 Globulin 4.5 H Albumin/Globulin Ratio 0.8 L Urine Color Urine Clarity Urine pH Ur Specific [place] Urine Protein Urine Glucose (UA) Urine Ketones Urine Occult Blood Urine Nitrite Urine Bilirubin Urine Urobilinogen Ur Leukocyte Esterase Urine RBC Urine WBC Ur Squamous Epith Cells Urine Bacteria Urine Mucus 02/10/23 02/10/23 08:53 08:53 WBC RBC Hgb Hct MCV MCH MCHC RDW Std Deviation RDW Coeff of Ethan Plt Count MPV Immature Gran % (Auto) Neut % (Auto) Lymph % (Auto) Pierce % (Auto) Eos % (Auto) Baso % (Auto) Absolute Neuts (auto) Absolute Lymphs (auto) Nucleated RBC % PT INR APTT Sodium Potassium Chloride Carbon Dioxide Anion Gap BUN Creatinine Estim Creat Clear Calc Est GFR (MDRD) Af Amer Est GFR (MDRD) Non-Af BUN/Creatinine Ratio Glucose Lactic Acid 5.5 H* Calcium Total Bilirubin AST ALT Alkaline Phosphatase Total Protein Albumin Globulin Albumin/Globulin Ratio Urine Color Yellow Urine Clarity Sl. Cloudy Urine pH 6.0 Ur Specific [place] 1.015 Urine Protein 100 H Urine Glucose (UA) Normal Urine Ketones 5 H Urine Occult Blood 150 H Urine Nitrite Positive H Urine Bilirubin Negative Urine Urobilinogen Normal Ur Leukocyte Esterase 100 H Urine RBC 10-25 SEEN Urine WBC 25-50 SEEN Ur Squamous Epith Cells 0 SEEN Urine Bacteria 3+ Urine Mucus 0 SEEN Radiography Chest X-Ray - ED: 1 View, Read by ED Physician and - (No focal infiltrate.) Treatment and Re-Evaluation :: Daniel catheter was placed with 400 to 500 mL of urine immediately drained. CBC reveals normal white count but left shift is noted. Chemistry studies reveal a BUN of 30 and a creatinine 1.40. This is an increase over his baseline creatinine. Lactic acid is elevated at 5.5. Urinalysis does show infection with positive nitrites, 25-50 white blood cells, 3+ bacteria. Swab for COVID and influenza is obtained. EKG reveals no acute ischemia. Bifascicular block is noted and is unchanged when compared to prior. Patient has been ordered Rocephin along with IV fluids. When I went back to reevaluate patient his blood pressure is low with a MAP of 67. Second IV line is being initiated so that he can receive his IV fluid bolus in an appropriate timeframe. He has been given Tylenol for fever but Daniel temp catheter is still reading a fever of 102. I will discuss patient with hospitalist regarding admission. Discharge Plan Triage Chief Complaint: Complaint ED Provider: Kelly Gutiérrez Dx/Rx/DC Orders Clinical Impression: Sepsis, UTI (urinary tract infection) Prescriptions: No Action cetirizine 10 mg Tablet 10 mg PO DAILY amlodipine 5 mg Tablet 5 mg PO DAILY levothyroxine 125 mcg Tablet 125 mcg PO DAILY aspirin 81 mg Tablet,Chewable 81 mg PO DAILY metoprolol tartrate 25 mg Tablet 25 mg PO BID Eliquis 5 mg Tablet 5 mg PO BID Qty: 60 1RF lisinopril 2.5 mg Tablet 2.5 mg PO DAILY [facility] [Primary [facility] Provider] - Disposition Disposition: Acute Care Hospital [facility]
[2023-02-10] MEDS: 0.9% Normal Saline 1,000 ML 150 ML IV ×3 (09:03→21:05)
[2023-02-10] MEDS: Acetaminophen 500 MG Tablet 1000 MG PO (09:03)
[2023-02-10] MEDS: proMETHazine 25 MG/ML Syringe 12.5 MG IM (09:04)
[2023-02-10 09:09] LABS: Mucous, Urine 0 SEEN /hpf (<or=2+); Squamous Epithelial Cells - UA 0 SEEN /hpf (0-5)
[2023-02-10 09:11] LABS: Absolute Neutrophil Count 8.6 X10^3/uL (2.0-7.7); Basophil# 0.03 X10^3/uL; Basophil% 0.3 % (0-1); Eosinophil# 0.01 X10^3/uL; Eosinophils% 0.1 % (0-5); Hematocrit 45.8 % (40-54); Hemoglobin 14.8 g/dL (13.0-16.5); Lymphocyte % 7.4 % (19-41); Mean Corp Hgb Conc 32.3 g/dL (32-36); Mean Corpuscular Hgb 29.4 pg (27.0-32.0); Mean Corpuscular Volume 90.9 fL (80-94); Monocyte# 0.09 X10^3/uL; NRBC Flagged by Analyzer 0 % (0-5); Neutrophil # 8.56 X10^3/uL (2.7-7.7); Neutrophil % 91.1 % (47-70); Platelet Count 183 K/mm3 (150-450); RBC Distribution Width SD 46.6 fl (35.1-43.9); Red Blood Count 5.04 M/mm3 (4.6-6.2); White Blood Count 9.4 K/mm3 (4.4-11.0)
[2023-02-10 09:19] LABS: Color, Urine Yellow (Yellow); Glucose, Dipstick Normal (Normal); Ketone-Dipstick 5 mg/dl (Negative); Leukocyte Esterase-Dipstick 100 /ul (Negative); Nitrite-Dipstick Positive (Negative); Occult Blood-Urine 150 /ul (Negative); Protein-Dipstick 100 mg/dl (Negative); Specific Gravity, Urine 1.015 (1.002-1.030); Urine Bilirubin Dipstick Negative (Negative); Urine Clarity Sl. Cloudy (Clear); Urine Urobilinogen Normal (Normal)
[2023-02-10 09:20] LABS: International Normalized Ratio 1.4
[2023-02-10 09:21] LABS: Partial Thromboplast Time 29.4 Seconds (24.1-36.2)
[2023-02-10 09:24] LABS: White Blood Cells 25-50 SEEN /hpf (0-5)
[2023-02-10 09:25] LABS: Bacteria 3+ /hpf (None Seen); Red Blood Cells-Urine 10-25 SEEN /hpf (0-5)
[2023-02-10 09:27] LABS: ALB/GLOB Ratio 0.8 RATIO (0.9-2.4); AST(SGOT) 15 U/L (15-37); Alanine Aminotransfer ALT/SGPT 25 U/L (16-61); Albumin, Serum 3.6 g/dL (3.2-5.0); Alkaline Phosphatase 79 U/L (45-117); Anion Gap 12 (5-15); BUN 30 mg/dL (7-18); BUN/Creat Ratio 21.4 RATIO (10-20); Calcium,Total 9.2 mg/dL (8.5-10.1); Chloride 103 mmol/L (98-107); EST Glomerular Filtration Rate 52 mL/min (>60); Est Glom Filt Rate - Afr Amer 63 mL/min (>60); Estimated Creatinine Clearance 44.18 ml/min; Globulin 4.5 g/dL (2.2-4.2); Glucose 204 mg/dL (74-106); Potassium 4.1 mmol/L (3.5-5.1); Protein, Total 8.1 g/dL (6.4-8.2); Sodium Level 136 mmol/L (136-145)
[2023-02-10 09:35] LABS: Lactic Acid 5.5 mmol/L (0.4-1.9)
--- NOTE | 2023-02-10 09:46 | RAD_ITS ---
EXAM: XR CHEST, 1 VIEW CLINICAL INDICATION: Cough. TECHNIQUE: Frontal view of the chest. This report was created using [employer] report generation technology. COMPARISON: 12/10/2021. FINDINGS: LUNGS AND PLEURAL SPACES: The lungs are clear. No pneumothorax. No effusion. HEART: Metallic clip in the left atrial appendage is unchanged. MEDIASTINUM: Central airways and mediastinal contour are unremarkable. BONES/JOINTS: Intact sternal wires. SOFT TISSUES: Unremarkable. RAD/Chest 1 View (Portable) IMPRESSION: No acute findings in the chest and unchanged when compared to 12/10/2021. Electronically Signed: Ravin Guzman MD at 11:01 EDT ,
[2023-02-10] MEDS: Ceftriaxone 1 GM/50 ML BAG IV ×2 (10:03→18:10)
[2023-02-10] MEDS: 0.9% Normal Saline 1,000 ML 999 ML IV ×4 (10:03→13:32)
--- NOTE | 2023-02-10 10:36 | EKG12_ITS ---
Test Reason : GI Blood Pressure : / mmHG Vent. Rate : 103 BPM Atrial Rate : 000 BPM P-R Int : 000 ms QRS Dur : 148 ms QT Int : 402 ms P-R-T Axes : 000 -89 052 degrees QTc Int : 526 ms Junctional rhythm with occasional Premature ventricular complexes Right bundle branch block Left anterior fascicular block Bifascicular block Septal infarct , age undetermined Abnormal ECG Confirmed by MARINA MENG, ASAF ([id number]), deputy editor in chief STEF COSBY ([id number]) on 02/12/2023 8:19:57 AM Referred By: LATANYA Confirmed By:ASAF GRAY MD
--- NOTE | 2023-02-10 12:36 | HP.PCM.HOS_ITS ---
[facility] Date of Service: 02/10/23 Chief Complaint: Chills, dysuria HPI Narrative STONE HAILE, is a 77 M who presents to the ER at [facility] with complaints of dysuria x48 hours along with chills. Patient has had problems urinating over the past 24 hours with decreased urine stream. Work-up in the emergency room showed the patient to be febrile with a temp of 103, white blood cell count was normal, lactic acid was elevated at 5.5, urinalysis was grossly positive for urinary tract infection. Patient's creatinine was elevated at 1.4, BUN was also elevated at 30. Bilirubin was mildly elevated at 1.1. Patient's chest x-ray was unremarkable. While in the emergency room, patient's systolic blood pressure dropped into the 80s, he was given several fluid boluses with elevation of his blood pressure as a result. Patient was alert and appropriate, he did not appear confused. Patient will be admitted for severe cystitis, he was given IV Rocephin in the emergency room, vigorous fluid administration we will continue. Patient's past medical history includes coronary artery disease with one-vessel bypass and aortic valve replacement last year. Patient takes Eliquis for paroxysmal A-fib. [facility] Medical History Atrial fibrillation BPH (benign prostatic hyperplasia) CAD (coronary artery disease) Carotid artery stenosis Elevated troponin Fatigue History of alcohol abuse History of tobacco abuse HLD (hyperlipidemia) HTN (hypertension) Hypothyroidism Normocytic anemia Seasonal allergies Home Medications amlodipine 5 mg tablet 5 mg PO DAILY 12/10/21 [History Last Taken 02/09/23] aspirin 81 mg chewable tablet 81 mg PO DAILY 12/10/21 [History Last Taken 02/10] cetirizine 10 mg tablet 10 mg PO DAILY 12/10/21 [History Last Taken 02/10/23] levothyroxine 125 mcg tablet 125 mcg PO DAILY 12/10/21 [History Last Taken 02/09/23] metoprolol tartrate 25 mg tablet 25 mg PO BID 12/10/21 [History Last Taken 02/10/23] apixaban 5 mg tablet (Eliquis) 5 mg PO BID #60 tabs 12/12/21 [Rx Last Taken 02/10/23] lisinopril 2.5 mg tablet 2.5 mg PO DAILY HTN 02/10/23 [History Last Taken 02/10/23] tamsulosin 0.4 mg capsule 0.4 mg PO QHS prostate 02/10/23 [History Last Taken 02/09/23] Allergy/AdvReac Type Severity Reaction Status Date / Time Opsdlyf-SQO-DhF Reductase Allergy Other Verified 02/10/23 08:21 Inhibitor ibuprofen AdvReac Other Verified 02/10/23 08:21 Surgical History Heart valve replaced History of open heart surgery Hx of heart artery stent S/P AVR (aortic valve replacement) S/P CABG (coronary artery bypass graft) Social History Smoking Status: Former smoker ROS Constitutional Constitutional: Reports chills and malaise; Denies anorexia, change in weight, fever(s), night sweats or weakness Eyes Eyes: Denies blurry vision, change in vision, discharge from eye(s) or eye pain Cardiovascular Cardiovascular: Denies chest pain, claudication, dyspnea on exertion, edema, lightheadedness, orthopnea or palpitations Respiratory/Chest Respiratory/Chest: Denies cough, excessive phlegm production, hemoptysis, productive cough, shortness of breath at rest or shortness of breath with exertion Gastrointestinal Gastrointestinal: Denies abdominal pain, constipation, diarrhea, hematemesis, hematochezia, melena, nausea or vomiting Genitourinary Genitourinary: Reports difficulty urinating and dysuria; Denies burning urination, hematuria, urinary frequency, urinary hesitancy, urinary incontinence or urinary urgency Musculoskeletal Musculoskeletal: Denies back pain, joint pain, joint stiffness, joint swelling, myalgias or neck pain Neurologic Neurologic: Denies abnormal gait, abnormal speech, confusion, disequilibrium, dizziness, focal weakness, headache(s), loss of vision, numbness, other visual disturbances, paresthesias, syncope or tingling Psychiatric Psychiatric: Denies anxiety, cognitive impairment, depression, irritability, mood swings or suicidal ideation Endocrine Endocrinology: Denies change in body appearance, cold intolerance, excessive sweating, heat intolerance, polydipsia or polyuria Hematologic/Lymphatic Hematologic/Lymphatic: Denies none, anemia, easy bleeding, easy bruising or lymphadenopathy Allergic/Immunologic Allergic/Immunologic: Denies rhinitis, urticaria, eczemia or asthma Vital Signs Vital Signs Vital Signs: 02/10/23 08:22 02/10/23 08:32 02/10/23 08:32 Temperature 99.7 F H 99.4 F H Temperature Source Oral Temporal Pulse Rate 135 H 121 H Respiratory Rate 14 24 H Blood Pressure 136/81 H 149/73 H Blood Pressure Mean 99 98 Pulse Ox 97 100 Oxygen Delivery Method Room Air Room Air Room Air 02/10/23 09:23 02/10/23 10:00 02/10/23 11:00 Temperature 102.6 F H 103.0 F H Temperature Source Core Core Pulse Rate 93 89 82 Respiratory Rate 18 16 Blood Pressure 121/78 H 108/78 88/54 L Blood Pressure Mean 92 88 65 Pulse Ox 99 100 94 Oxygen Delivery Method Room Air Room Air Room Air 02/10/23 11:50 02/10/23 12:01 Temperature 100.7 F H 100.6 F H Temperature Source Core Core Pulse Rate 80 Respiratory Rate 16 Blood Pressure 101/59 L Blood Pressure Mean 73 Pulse Ox 94 Oxygen Delivery Method Room Air Weight Weight: 101.5 kg Body Mass Index (BMI) 32.1 Physical Exam Const alert, oriented x3, no apparent distress and healthy appearing General Appearance: cooperative, well kempt and well developed Orientation / Consciousness: awake, oriented to person, oriented to place and oriented to time HEENT normocephalic, head/scalp atraumatic, hearing grossly normal bilaterally and moist oral mucous membranes Eyes PERRL, EOMs intact bilaterally and conjunctivae normal Neck supple, no JVD, thyroid normal and no carotid bruits General: trachea midline Resp normal respiratory effort, no retractions, no use of accessory muscles and clear to auscultation bilaterally Auscultation: Negative for rales, rhonchi or wheezes Cardio regular rate, regular rhythm, S1 normal heart sound, S2 normal heart sound, no rub and no gallops Cardio Narrative: 1/6 systolic murmur was noted at the apex and left sternal border GI normal to inspection, nondistended, normoactive bowel sounds, soft to palpation, non-tender and non-distended Extremity normal to inspection and no clubbing, cyanosis or edema Skin no rashes or lesions noted General Skin Exam: no breakdown Neuro oriented x3, CN's II-XII intact bilaterally, moves all extremities, no focal motor deficits and no sensory deficits noted Sensorium / Orientation: awake, alert, oriented to person, oriented to place and oriented to time Speech: speech normal Psych affect normal Results Lab / Micro Data Result Diagrams: 02/10/23 08:53 02/10/23 08:53 Labs: Laboratory Results - last 24 hr 02/10/23 08:53: WBC 9.4, RBC 5.04, Hgb 14.8, Hct 45.8, MCV 90.9, MCH 29.4, MCHC 32.3, RDW Std Deviation 46.6 H, RDW Coeff of Ethan 14.0, Plt Count 183, MPV 10.0, Immature Gran % (Auto) 0.100, Neut % (Auto) 91.1 H, Lymph % (Auto) 7.4 L, [place] % (Auto) 1.0, Eos % (Auto) 0.1, Baso % (Auto) 0.3, Absolute Neuts (auto) 8.6 H, Absolute Lymphs (auto) 0.70 L, Nucleated RBC % 0 02/10/23 08:53: PT 17.0 H, INR 1.4, APTT 29.4 02/10/23 08:53: Sodium 136, Potassium 4.1, Chloride 103, Carbon Dioxide 21.0, Anion Gap 12, BUN 30 H, Creatinine 1.40 H, Estim Creat Clear Calc 44.18, Est GFR (MDRD) Af Amer 63, Est GFR (MDRD) Non-Af 52 L, BUN/Creatinine Ratio 21.4 H, Glucose 204 H, Calcium 9.2, Total Bilirubin 1.10 H, AST 15, ALT 25, Alkaline Phosphatase 79, Total Protein 8.1, Albumin 3.6, Globulin 4.5 H, Albumin/Globulin Ratio 0.8 L 02/10/23 08:53: Lactic Acid 5.5 H* 02/10/23 08:53: Urine Color Yellow, Urine Clarity Sl. Cloudy, Urine pH 6.0, Ur Specific [place] 1.015, Urine Protein 100 H, Urine Glucose (UA) Normal, Urine Ketones 5 H, Urine Occult Blood 150 H, Urine Nitrite Positive H, Urine Bilirubin Negative, Urine Urobilinogen Normal, Ur Leukocyte Esterase 100 H, Urine RBC 10- 25 SEEN, Urine WBC 25-50 SEEN, Ur Squamous Epith Cells 0 SEEN, Urine Bacteria 3+, Urine Mucus 0 SEEN Micro: Microbiology 02/10/23 08:50 Nasal Secretion SARS-CoV-2 & FLU Antigen (Rapid) - Final Radiology Impression Chest X-Ray 02/10/23 09:46 IMPRESSION: No acute findings in the chest and unchanged when compared to 12/10/2021. Electronically Signed: Ravin Guzman MD at 11:01 EDT , Assessment & Plan Assessment/Plan (1) UTI (urinary tract infection): PLAN: Plan 1. Severe cystitis-patient will be admitted to [facility] 3, he will be given IV Rocephin, fluids will be administered, labs will be monitored. It is unclear at this time with the patient actually has sepsis. #2 dehydration-patient was given fluid bolus in the emergency room, I will continue vigorous fluid administration on [facility] #3 coronary artery disease-this appears stable at this time, he will remain on his home medications, patient is intolerant of statins #4 paroxysmal atrial fibrillation-patient currently is in sinus rhythm at this time with a rate of approximately 78, he will remain on his Eliquis and rate control medication #5 hypercoagulable state secondary to #4-patient takes Eliquis and this will be continued in the hospital #6 hypothyroidism-patient will remain on Synthroid #7 essential hypertension-patient will remain on his present medications #8 hypotension-this is probably secondary to dehydration, vigorous fluid adm inistration will be given to the patient Total clinical time spent by myself addressing the patient's medical problems, reviewing all of the data, and collaborating with the patient's care team: 75 m inutes Charges/Coding Visit Charges Inpatient E&M: 41570 Init Hosp L3
[2023-02-10 13:05] LABS: Reflex Lactate? Y
[2023-02-10 14:12] LABS: Lactic Acid 2.1 mmol/L (0.4-1.9)
[2023-02-10] MEDS: Tamsulosin HCl 0.4 MG Capsule PO (21:03)
[2023-02-10] MEDS: APIXABAN 5 MG TABLET PO (21:03)
[2023-02-10] MEDS: Metoprolol Tartrate 25 MG Tablet PO (21:03)
[2023-02-10] MEDS: Acetaminophen 325 MG Tablet 650 MG PO (21:05)
[2023-02-11] VITALS (12 sets, daily range): BP systolic 119–152; BP diastolic 53–67; PULSE 58–75; RESP 16–20; TEMP 36.9–37.5; O2SAT 93–98
[2023-02-11] MEDS: 0.9% Normal Saline 1,000 ML 150 ML IV ×2 (03:43→11:13)
[2023-02-11] MEDS: Levothyroxine 125 MCG Tablet PO (05:07)
[2023-02-11 07:11] LABS: Absolute Lymphocyte Count 0.93 X10^3/uL (0.83-4.51); Absolute Neutrophil Count 8.8 X10^3/uL (2.0-7.7); Basophil# 0.04 X10^3/uL; Basophil% 0.4 % (0-1); Eosinophil# 0.05 X10^3/uL; Eosinophils% 0.5 % (0-5); Hematocrit 35.8 % (40-54); Hemoglobin 11.5 g/dL (13.0-16.5); Lymphocyte # 0.93 X10^3/ul (0.83-4.51); Lymphocyte % 8.9 % (19-41); Mean Corp Hgb Conc 32.1 g/dL (32-36); Mean Corpuscular Hgb 30.1 pg (27.0-32.0); Mean Corpuscular Volume 93.7 fL (80-94); Mean Platelet Vol. 10.3 fl (6.2-12.0); Monocyte# 0.56 X10^3/uL; Monocyte% 5.4 % (0-10); NRBC Flagged by Analyzer 0 % (0-5); Neutrophil # 8.76 X10^3/uL (2.7-7.7); Neutrophil % 84.2 % (47-70); Platelet Count 127 K/mm3 (150-450); RBC Distribution Width CV 14.6 % (11.6-14.6); RBC Distribution Width SD 50.3 fl (35.1-43.9); Red Blood Count 3.82 M/mm3 (4.6-6.2); White Blood Count 10.4 K/mm3 (4.4-11.0)
[2023-02-11 07:44] LABS: Anion Gap 5 (5-15); BUN 27 mg/dL (7-18); BUN/Creat Ratio 31.1 RATIO (10-20); Calcium,Total 7.8 mg/dL (8.5-10.1); Chloride 114 mmol/L (98-107); Creatinine, Serum 0.87 mg/dL (0.70-1.30); EST Glomerular Filtration Rate 90 mL/min (>60); Est Glom Filt Rate - Afr Amer 109 mL/min (>60); Estimated Creatinine Clearance 71.09 ml/min; Glucose 144 mg/dL (74-106); Sodium Level 140 mmol/L (136-145)
[2023-02-11] MEDS: Aspirin 81 MG TAB.CHEW PO (08:35)
[2023-02-11] MEDS: Lisinopril 2.5 MG Tablet PO (08:35)
[2023-02-11] MEDS: Metoprolol Tartrate 25 MG Tablet PO ×2 (08:35→21:46)
[2023-02-11] MEDS: Loratadine 10 MG Tablet PO (08:35)
[2023-02-11] MEDS: amLODIPine 5 MG Tablet PO (08:35)
[2023-02-11] MEDS: APIXABAN 5 MG TABLET PO ×2 (08:36→21:45)
--- NOTE | 2023-02-11 14:05 | CASEMGMT ---
RN?CM?HORSE EXERCISER?CM?to room to meet with patient for initial transition planning/care coordination?assessment.?RN?CM?introduced self and role at [facility].? Pt voices understanding and consents to?assessment?at this time.? Pt resting in bed in no distress at this time.? Pt is A/O at this time and answers all questions appropriately.?? Care providers, pharmacy, and demographics verified/updated at this time. 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 LNOK: son, Keanu. Daughter. Caregiver/Sarah Living Arrangements: Sarah/caregiver lives w/pt in mobile home w/3 steps to enter. Pt indep w/ADL's. Sarah assists w/medications, meals @ times, exercises, and home mgmt tasks. Transportation:?Pt states drives self and states no transportation concerns at this time.?Sarah will take pt home @ d/c . DME: Pt uses a cane sometimes and has a BP machine. ?Pt states no need for further DME at this time.? HHC/SNF: No hx of either. Denies need for HHC and no needs identified. Pt wishes to return home and states has no concerns with going home at time of discharge.? CM?to follow for any discharge planning/needs.? Pt voices no concerns/needs at this time.? Advised pt to ask for?CM?if any questions/concerns/needs arise.? Voices understanding. PLAN:??Home Petey BSN?RN?CM
[2023-02-11] MEDS: Acetaminophen 325 MG Tablet 650 MG PO (15:00)
--- NOTE | 2023-02-11 16:15 | PN.HOSP_ITS ---
Reason for Visit Reason for Visit: Diagnoses Urinary tract infection, site not specified (02/10/23) Subjective Subjective Was seen and examined today, I talked with his who was in the room at the time of my examination. Patient's blood culture was positive for gram-negative lactose slat basket maker helper, the actual identity is not back at this time. Patient remains on IV Rocephin, I have elected to turn his fluids down. Patient does not complain of any chills, he does complain that his back hurt him but he states when he turned to the left that the back pain went away. Objective Data Objective Data Vital Signs: Vital Signs Temp Pulse Resp BP Pulse Ox O2 Del Method 99.5 F H 69 16 120/57 L 95 Room Air 02/11/23 15:40 02/11/23 15:40 02/11/23 15:40 02/11/23 15:40 02/11/23 15:40 02/11/23 15:40 Oxygen Delivery Method Room Air Weight: 100.335 kg Body Mass Index (BMI) 31.7 Intake & Output: Intake and Output for Last 24 Hours 02/09/23 02/10/23 02/11/23 23:59 23:59 23:59 Intake Total 4357.45 / 4597.45 3225 / 3225 Output Total 900 / 1150 1550 / 1550 Balance 3457.45 / 3447.45 1675 / 1675 Lab / Micro Data Result Diagrams: 02/11/23 06:33 02/11/23 06:33 Labs: Laboratory Results - last 24 hr 02/11/23 06:33: WBC 10.4, RBC 3.82 L, Hgb 11.5 L, Hct 35.8 L, MCV 93.7, MCH 30.1, MCHC 32.1, RDW Std Deviation 50.3 H, RDW Coeff of Ethan 14.6, Plt Count 127 L, MPV 10.3, Immature Gran % (Auto) 0.600, Neut % (Auto) 84.2 H, Lymph % (Auto) 8.9 L, [place] % (Auto) 5.4, Eos % (Auto) 0.5, Baso % (Auto) 0.4, Absolute Neuts (auto) 8.8 H, Absolute Lymphs (auto) 0.93, Nucleated RBC % 0 02/11/23 06:33: Sodium 140, Potassium 4.0, Chloride 114 H, Carbon Dioxide 21.0, Anion Gap 5, BUN 27 H, Creatinine 0.87, Estim Creat Clear Calc 71.09, Est GFR (MDRD) Af Amer 109, Est GFR (MDRD) Non-Af 90, BUN/Creatinine Ratio 31.1 H, Glucose 144 H, Calcium 7.8 L Micro: Microbiology 02/10/23 08:52 Blood Culture (Wb) - Anticubital Left Blood Culture - Preliminary GNR lactose slat basket maker helper 02/10/23 08:53 Blood Culture (Wb) - Anticubital Right Blood Culture - Preliminary GNR lactose slat basket maker helper 02/10/23 08:53 Urine Catheter - Catheter Urine Culture - Preliminary GNR lactose slat basket maker helper 02/10/23 08:50 Nasal Secretion SARS-CoV-2 & FLU Antigen (Rapid) - Final Physical Exam Const alert, oriented x3, no apparent distress and healthy appearing General Appearance: cooperative, well kempt and well developed Orientation / Consciousness: awake, oriented to person, oriented to place and o riented to time HEENT normocephalic, head/scalp atraumatic and moist oral mucous membranes Eyes PERRL, EOMs intact bilaterally and conjunctivae normal Neck supple, no JVD, thyroid normal and no carotid bruits General: trachea midline Resp normal respiratory effort, no retractions, no use of accessory muscles and clear to auscultation bilaterally Auscultation: Negative for rales, rhonchi or wheezes Cardio regular rate, regular rhythm, S1 normal heart sound, S2 normal heart sound, no murmurs, no rub and no gallops GI normal to inspection, nondistended, normoactive bowel sounds, soft to palpation, non-tender and non-distended Extremity no clubbing, cyanosis or edema Skin no rashes or lesions noted General Skin Exam: no breakdown Neuro oriented x3, CN's II-XII intact bilaterally, moves all extremities, no focal motor deficits and no sensory deficits noted Sensorium / Orientation: awake, alert, oriented to person, oriented to place and oriented to time Speech: speech normal Psych affect normal Assessment & Plan Assessment/Plan (1) Sepsis: (2) UTI (urinary tract infection): PLAN: Plan 1. Acute sepsis secondary to gram-negative bacteria from severe cystitis- continue IV Rocephin, patient's white blood cell count is normal today #2 dehydration-patient's creatinine is normal today, his BUN is slightly elevated, I have elected to turn down his fluids #3 coronary artery disease-this appears stable at this time, he will remain on his home medications, patient is intolerant of statins #4 paroxysmal atrial fibrillation-patient currently is in sinus rhythm at this time #5 hypercoagulable state secondary to #4-patient takes Eliquis and this will be continued in the hospital #6 hypothyroidism-patient will remain on Synthroid #7 essential hypertension-patient will remain on his present medications #8 hypotension-corrected at this time #9 lactic acidosis-I do not think the elevated lactic acidosis was from septic shock, I think this likely was due to dehydration. Total clinical time spent by myself addressing the patient's medical problems, reviewing all of the data, and collaborating with the patient's care team: 35 minutes Charges/Coding Visit Charges Inpatient E&M: 15701 Subs Hosp L2
[2023-02-11] MEDS: 0.9% Normal Saline 1,000 ML 75 ML IV (21:45)
[2023-02-11] MEDS: 0.9% Saline Lock 10 ML Syringe IV (21:45)
[2023-02-11] MEDS: Tamsulosin HCl 0.4 MG Capsule 0.8 MG PO (21:46)
[2023-02-12 02:48] VITALS: BP 133/72; PULSE 67; RESP 22; TEMP 37.1; O2SAT 93
[2023-02-12] MEDS: Levothyroxine 125 MCG Tablet PO (04:42)
[2023-02-12 06:48] VITALS: O2SAT 93
[2023-02-12 08:11] VITALS: BP 125/57; PULSE 52; RESP 16; TEMP 36.8; O2SAT 96
[2023-02-12 08:18] VITALS: PULSE 84
[2023-02-12 08:50] VITALS: PULSE 84
[2023-02-12] MEDS: Loratadine 10 MG Tablet PO (08:50)
[2023-02-12] MEDS: Aspirin 81 MG TAB.CHEW PO (08:50)
[2023-02-12] MEDS: Metoprolol Tartrate 25 MG Tablet PO (08:50)
[2023-02-12] MEDS: amLODIPine 5 MG Tablet PO (08:50)
[2023-02-12] MEDS: Lisinopril 2.5 MG Tablet PO (08:50)
[2023-02-12] MEDS: APIXABAN 5 MG TABLET PO (08:51)
--- NOTE | 2023-02-12 09:40 | PCM.DC ---
Discharge Instructions Diet Discharge Diet: No restrictions Activity Discharge Activity: Return to Normal Activity Weight Bearing Status: Full weight bearing Follow Up Care Test Results: Test results from this visit will be discussed in further detail at your follow-up appointment, if applicable. Discharge Plan Admission Admit Date/Time: 02/10/23 12:28 Primary Reason for Your Visit: Sepsis from urinary tract infection Attending Provider: Lc Avery Primary Care Provider: [facility] Discharge Orders/Prescriptions Prescriptions: New tamsulosin 0.4 mg Capsule 0.8 mg PO QHS Qty: 60 0RF ciprofloxacin HCl [Cipro] 500 mg tablet 500 mg PO BID Qty: 14 0RF Rx Instructions: start on Continued cetirizine 10 mg Tablet 10 mg PO DAILY amlodipine 5 mg Tablet 5 mg PO DAILY levothyroxine 125 mcg Tablet 125 mcg PO DAILY aspirin 81 mg Tablet,Chewable 81 mg PO DAILY metoprolol tartrate 25 mg Tablet 25 mg PO BID Eliquis 5 mg Tablet 5 mg PO BID Qty: 60 1RF lisinopril 2.5 mg Tablet 2.5 mg PO DAILY Discontinued tamsulosin 0.4 mg Capsule 0.4 mg PO QHS Referrals / Follow Up: [facility] [Primary Care Provider] - Within 2 Weeks Disposition Disposition (needs filled in before D/C Order can be placed): Home, Self Care
--- NOTE | 2023-02-12 09:49 | PCM.DC.SUM ---
Providers Date of Admission: 02/10/23 Date of Discharge: 02/12/23 Primary Care Physician: [facility] Reason For Visit: SEVERE CYSTITIS Diagnosis Discharge Diagnosis (1) Sepsis: Status: Acute Code(s): A41.9 - Sepsis, unspecified organism (2) UTI (urinary tract infection): Status: Acute Code(s): N39.0 - Urinary tract infection, site not specified Plan 1. Acute sepsis secondary to E. coli from severe cystitis, present on admission-continue IV Rocephin, patient's white blood cell count is normal today #2 dehydration-patient's creatinine is normal today, his BUN is slightly elevated, I have elected to turn down his fluids #3 coronary artery disease-this appears stable at this time, he will remain on his home medications, patient is intolerant of statins #4 paroxysmal atrial fibrillation-patient currently is in sinus rhythm at this time #5 hypercoagulable state secondary to #4-patient takes Eliquis and this will be continued in the hospital #6 hypothyroidism-patient will remain on Synthroid #7 essential hypertension-patient will remain on his present medications #8 hypotension-corrected at this time #9 lactic acidosis-I do not think the elevated lactic acidosis was from septic shock, I think this likely was due to dehydration. Total clinical time spent by myself addressing the patient's medical problems, reviewing all of the data, and collaborating with the patient's care team: 35 minutes Medications at Discharge Home Medications amlodipine 5 mg tablet 5 mg PO DAILY 12/10/21 aspirin 81 mg chewable tablet 81 mg PO DAILY 12/10/21 cetirizine 10 mg tablet 10 mg PO DAILY 12/10/21 levothyroxine 125 mcg tablet 125 mcg PO DAILY 12/10/21 metoprolol tartrate 25 mg tablet 25 mg PO BID 12/10/21 apixaban 5 mg tablet (Eliquis) 5 mg PO BID #60 tabs 12/12/21 lisinopril 2.5 mg tablet 2.5 mg PO DAILY HTN 02/10/23 ciprofloxacin HCl 500 mg tablet (Cipro) 500 mg PO BID #14 tabs 02/12/23 tamsulosin 0.4 mg capsule 0.8 mg PO QHS #60 caps 02/12/23 Hospital Course Operations None Procedures None Summary of Care Provided Minutes Spent on Discharge: 32 Hospital Course: This 77-year-old white male was seen in the emergency room at [facility] with complaints of dysuria x48 hours along with chills. Work-up in the emergency room showed the patient to be febrile with temperature of 103, white blood cell count was normal, lactic acid was elevated at 5.5, urinalysis was grossly positive for urinary tract infection. Patient's creatinine was elevated at 1.4 and BUN was 30. Patient's chest x-ray was unremarkable, patient had a period of low blood pressure in the ER but was given fluids and responded to fluids. Patient was admitted for severe cystitis, he was given IV Rocephin, blood cultures ultimately grew out E. coli. This indicated sepsis on admission. I did not feel the patient was in septic shock. Patient responded well to antibiotics, on 02/12/2023, patient was seen and examined: On examination he appeared in good health and spirits. Vital signs as documented. Skin warm and dry and without overt rashes. Neck without JVD, neck was supple, trachea midline, thyroid was normal. Lungs clear bilaterally, normal air movement was noted. Heart exam notable for regular rhythm, normal sounds and absence of murmurs, rubs or gallops. Abdomen unremarkable and without evidence of organomegaly, masses, or abdominal aortic enlargement. Bowel sounds are present, abdomen is not distended. Extremities nonedematous, no cyanosis was noted, no clubbing was noted. Neuro: Cranial nerves II through XII are grossly intact, no focal motor deficits were noted, sensation to light touch and pinprick intact, motor exam 5/5 throughout. Psych: Patient is alert and oriented x3, he does not appear anxious or depressed, he does not appear agitated. Patient appears stable for discharge on 02/12/2023. Weight / BMI Weight Weight: 100.335 kg Body Mass Index (BMI) 31.7 ABG / Lab / Microbiology Data Result Diagrams: 02/11/23 06:33 02/11/23 06:33 Microbiology: Microbiology 02/10/23 08:53 Urine Catheter - Catheter Urine Culture - Final Escherichia coli 02/10/23 08:52 Blood Culture (Wb) - Anticubital Left Blood Culture - Preliminary GNR lactose fuse cup expander 02/10/23 08:53 Blood Culture (Wb) - Anticubital Right Blood Culture - Preliminary GNR lactose fuse cup expander 02/10/23 08:50 Nasal Secretion SARS-CoV-2 & FLU Antigen (Rapid) - Final D/C Instructions Discharge Diet: No restrictions Weight Bearing Status: Full weight bearing Meaningful Use Info Meaningful Use Diagnoses (Choose all that apply): None applicable Discharge Plan Admission Admit Date/Time: 02/10/23 12:28 Primary Reason for Your Visit: Sepsis from urinary tract infection Attending Provider: Lc Avery Primary Care Provider: [facility] Discharge Orders/Prescriptions Prescriptions: New tamsulosin 0.4 mg Capsule 0.8 mg PO QHS Qty: 60 0RF ciprofloxacin HCl [Cipro] 500 mg tablet 500 mg PO BID Qty: 14 0RF Rx Instructions: start on Continued cetirizine 10 mg Tablet 10 mg PO DAILY amlodipine 5 mg Tablet 5 mg PO DAILY levothyroxine 125 mcg Tablet 125 mcg PO DAILY aspirin 81 mg Tablet,Chewable 81 mg PO DAILY metoprolol tartrate 25 mg Tablet 25 mg PO BID Eliquis 5 mg Tablet 5 mg PO BID Qty: 60 1RF lisinopril 2.5 mg Tablet 2.5 mg PO DAILY Discontinued tamsulosin 0.4 mg Capsule 0.4 mg PO QHS Referrals / Follow Up: [facility] [Primary Care Provider] - Within 2 Weeks Disposition Disposition (needs filled in before D/C Order can be placed): Home, Self Care Charges/Coding Visit Charges Inpatient E&M: 72184 Disch Hosp >30min
--- NOTE | 2023-02-12 11:10 | PHA.DC.MC ---
Pharmacy Service has performed discharge medication reconciliation and counseling for this patient. 1. CIPROFLOXACIN 500MG PO BID X 7 DAYS The patient's discharge medication list was reviewed for discrepancies and discrepancies were resolved. Home Medications amlodipine 5 mg tablet 5 mg PO DAILY 12/10/21 aspirin 81 mg chewable tablet 81 mg PO DAILY 12/10/21 cetirizine 10 mg tablet 10 mg PO DAILY 12/10/21 levothyroxine 125 mcg tablet 125 mcg PO DAILY 12/10/21 metoprolol tartrate 25 mg tablet 25 mg PO BID 12/10/21 apixaban 5 mg tablet (Eliquis) 5 mg PO BID #60 tabs 12/12/21 lisinopril 2.5 mg tablet 2.5 mg PO DAILY HTN 02/10/23 ciprofloxacin HCl 500 mg tablet (Cipro) 500 mg PO BID #14 tabs 02/12/23 tamsulosin 0.4 mg capsule 0.8 mg PO QHS #60 caps 02/12/23 The patient was counseled on the following discharge medications and changes in medications for homegoing were reviewed. The Reason for Use, instructions for use, and potential side effects were reviewed for all new medications. The patient's questions regarding all of their medications were answered. The patient was able to verbally demonstrate an understanding of their discharge medications.
[2023-02-12 11:12] VITALS: BP 145/74; PULSE 62; RESP 16; TEMP 36.9; O2SAT 96
== END 2023-02-12 11:25 | disposition home or self-care (01) | DRG 872 ==
LOC: ED 10:49 → MS3 13:04
PROVIDERS: Admitting Provider Internal Medicine; Emergency Provider Emergency Medicine; Visit Provider Internal Medicine
DX: A41.50 Gram-negative sepsis, unspecified (principal); D68.69 Other thrombophilia; N30.00 Acute cystitis without hematuria; I95.9 Hypotension, unspecified; I48.0 Paroxysmal atrial fibrillation; E86.0 Dehydration; E03.9 Hypothyroidism, unspecified; E78.5 Hyperlipidemia, unspecified; I10 Essential (primary) hypertension; I25.10 Atherosclerotic heart disease of native coronary artery without angina pectoris; N40.0 Benign prostatic hyperplasia without lower urinary tract symptoms; Z20.822 Contact with and (suspected) exposure to COVID-19; Z79.82 Long term (current) use of aspirin; Z79.01 Long term (current) use of anticoagulants; Z79.890 Hormone replacement therapy; Z79.899 Other long term (current) drug therapy; Z87.891 Personal history of nicotine dependence; Z95.1 Presence of aortocoronary bypass graft; Z95.5 Presence of coronary angioplasty implant and graft; Z95.2 Presence of prosthetic heart valve
CPT/HCPCS: 36415; 51702; 71045; 80048; 80053; 81001; 83605; 85025; 85610; 85730; 87040; 87077; 87086; 87088; 87186; 87428; 93005; 99285; 99406; J7030; A4216; J0696

== ENCOUNTER 2023-02-19 16:52 | Emergency (ER) | payer OTHER, SELFPAY ==
[2022-03-02 13:02] VITALS: BMI 28.5
[2023-02-19 16:53] VITALS: BP 171/83; PULSE 64; RESP 18; TEMP 37.3; O2SAT 90; BMI 31.9
[2023-02-19 16:57] VITALS: BP 171/83; PULSE 64; RESP 18; TEMP 37.3; O2SAT 90
--- NOTE | 2023-02-19 17:04 | ED.VIS.DYS ---
HPI History of Present Illness Chief Complaint: Cough Detail of Chief Complaint: Dyspnea, dyspnea on exertion cough and rattling in my chest Informant: patient and friend Onset/Context/Timing Onset: Days (2 to 3 days ago) Context: sudden Timing: Continuous Quality: Positive for Dyspnea on exertion; Negative for Orthopnea, PND or Wheezing Current Severity: Mild Maximum Severity: Moderate Worsened by: Exertion and Coughing Relieved by: Nothing Associated Symptoms cough and yellow sputum; Negative for rhinorrhea, post nasal drip, ear pain, fever, sore throat, subjective, chills or sweats Chest Pain: Positive for None Narrative Narrative: Patient is a 77-year-old male. He has multiple medical problems. He was admitted for sepsis. Source was urinary tract. He was admitted February 10 and discharged on February 12. Patient is not a good informant. He had friend bring him to the hospital because he has had shortness of breath with walking. Friend states he is coughing much more than he admits to. His cough is productive. Sputum is colored. He denies history of emphysema COPD. He states he has not smoked in over 20 years. He denies subjective or objective fever. He does report chills. He denies headache, visual, ocular auditory symptoms. He denies rhinorrhea, congestion, postnasal drainage and sore throat. He denies chest discomfort. He denies abdominal pain, nausea, vomiting or diarrhea. He denies dysuria, frequency, urgency or hematuria. He denies leg pain, swelling discoloration. He denies history of VTE. He denies symptoms of claudication. He is on an anticoagulant. He is on an anticoagulant because he has history of paroxysmal atrial fibrillation. PE Risk Factors: Negative for Cancer, OCP + Smoking + > 35, Prior DVT or PE, Recent immobilization, Recent surgery or Recent travel Prior similar symptoms: No Recent Illness/Hospitalization: Yes (Urosepsis) [facility] Medical History Atrial fibrillation BPH (benign prostatic hyperplasia) CAD (coronary artery disease) Carotid artery stenosis Elevated troponin Fatigue History of alcohol abuse History of tobacco abuse HLD (hyperlipidemia) HTN (hypertension) Hypothyroidism Normocytic anemia Seasonal allergies Home Medications amlodipine 5 mg tablet 5 mg PO DAILY 12/10/21 [History Last Taken 02/09/23] aspirin 81 mg chewable tablet 81 mg PO DAILY 12/10/21 [History Last Taken 02/10/23] cetirizine 10 mg tablet 10 mg PO DAILY 12/10/21 [History Last Taken 02/10/23] levothyroxine 125 mcg tablet 125 mcg PO DAILY 12/10/21 [History Last Taken 02/09/23] metoprolol tartrate 25 mg tablet 25 mg PO BID 12/10/21 [History Last Taken 02/10/23] apixaban 5 mg tablet (Eliquis) 5 mg PO BID #60 tabs 12/12/21 [Rx Last Taken 02/10/23] lisinopril 2.5 mg tablet 2.5 mg PO DAILY HTN 02/10/23 [History Last Taken 02/10/23] ciprofloxacin HCl 500 mg tablet (Cipro) 500 mg PO BID #14 tabs 02/12/23 [Rx Last Taken Unknown] tamsulosin 0.4 mg capsule 0.8 mg PO QHS #60 caps 02/12/23 [Rx Last Taken Unknown] albuterol sulfate 90 mcg/actuation aerosol inhaler (Ventolin HFA) 2 puff inhalation Q4H PRN PRN Wheezing ##1 02/19/23 [Rx Last Taken Unknown] levofloxacin 500 mg tablet 500 mg PO DAILY #7 tabs 02/19/23 [Rx Last Taken Unknown] Allergy/AdvReac Type Severity Reaction Status Date / Time [id number] Reductase Allergy Other Verified 02/19/23 16:53 Inhibitor ibuprofen AdvReac Other Verified 02/19/23 16:53 Surgical History Heart valve replaced History of open heart surgery Hx of heart artery stent S/P AVR (aortic valve replacement) S/P CABG (coronary artery bypass graft) Social History (Updated 02/19/23 @ 17:[address] Jam Arciniega MD) household members: none Smoking Status: Former smoker substance use type: does not use ROS ROS ED Constitutional Constitutional ED: Reports chills; Denies fever(s), sweats or weight loss Eyes Eyes: Denies blurry vision, change in vision or diplopia ENT ENT ED: Denies ear pain, rhinorrhea or sore throat Cardiovascular Cardiovascular: Denies chest pain, orthopnea, palpitations, paroxysmal nocturnal dyspnea or racing heartbeat Respiratory/Chest Respiratory/Chest: Reports cough, dyspnea and dyspnea on exertion; Denies orthopnea or paroxysmal nocturnal dyspnea Gastrointestinal Gastrointestinal: Denies abdominal pain, diarrhea, melena or vomiting Genitourinary Genitourinary ED: Denies dysuria, hematuria or urinary frequency Musculoskeletal Musculoskeletal: Denies arthralgias, back pain, myalgias or neck pain Integumentary Denies abscess, Abrasions or rash Neurologic Neurologic: Reports weakness; Denies headache(s) or paresthesias Psychiatric Psychiatric: Denies anxiety Endocrine Endocrinology: Reports other Details: Patient does have history of hypothyroidism. He is presently on levothyroxine 125 mcg. He states he is compliant with his medication. ; Denies cold intolerance or heat intolerance Hematologic/Lymphatic Hematologic/Lymphatic: Reports easy bruising; Denies easy bleeding or lymphadenopathy Allergic/Immunologic Allergic/Immunologic ED: Reports mouth swelling and tongue swelling EXAM Physical Exam Const Vital Signs: 02/19/23 16:53 02/19/23 16:57 02/19/23 17:13 Temperature 99.2 F H 99.2 F H Temperature Source Temporal Temporal Pulse Rate 64 64 Respiratory Rate 18 18 Blood Pressure 171/83 H 171/83 H Blood Pressure Mean 112 112 Pulse Ox 90 90 95 Oxygen Delivery Method Room Air Room Air Room Air 02/19/23 17:13 Temperature Temperature Source Pulse Rate 64 Respiratory Rate 24 H Blood Pressure Blood Pressure Mean Pulse Ox Oxygen Delivery Method Positive well nourished, well developed, obese and unkempt General Appearance ED: unkempt, well developed and NAD; Negative for pallor Nutritional Appearance: obese HEENT Reports moist mucous membranes HEENT Narrative: Head is atraumatic normocephalic. Ears normal. Nares patent with no discharge. Posterior pharynx without erythema or exudate. Uvula is midline. Eyes PERRL and EOMs intact bilaterally General Eye ED: Negative for pale conjunctiva or scleral icterus Neck no lymphadenopathy, supple, no meningeal signs and no JVD Resp normal respiratory effort and No clear to auscultation bilaterally Resp Narrative: There is egophony noted right lower lobe posteriorly Auscultation: rales right lower, rhonchi lower bilaterally (Greater on the right than left.) and wheezes expiratory wheezes and right lower (With forced expiration) Cardio regular rate, regular rhythm, S1 normal heart sound, S2 normal heart sound and no murmurs GI non-tender, non-distended and no masses Auscultation: normoactive bowel sounds Palpation: soft Back/Spine no CVA tenderness Extremity Extremity Narrative: Patient has stigmata of peripheral arterial disease. He has thin skin. There is lack of hair on his toes. Toenails are thick. DP pulses not palpable. Capillary refill is normal, however. Neuro oriented x3, CN's II-XII intact bilaterally and no sensory deficits noted [place] Coma Scale: document GCS findings Spontaneous Obeys Commands Oriented 15 Sensorium / Orientation: alert Motor Exam: strength 5/5 throughout Psych Appearance: unkempt Thought Process: normal thought process Skin no wounds and No skin turgor normal General Skin Exam: Negative for jaundice or pallor Rashes: no rashes MDM MDM MDM Narrative Medical decision making narrative: Clinically patient has a right lower lobe pneumonia. Patient does not use inhaler. Will treat his wheezing with albuterol q. for 15 minutes x 3. We will obtain a CBC to assess white count and H&H. We will obtain a BMP to assess for endorgan dysfunction. Since he is not febrile tachycardic or tachypneic lactate was not obtained. Patient's oxygenation is marginal at 90% on room air. We will ambulate to determine if he desaturates. Obtained records for most recent admission. Patient was treated for E. coli sepsis. He has known history of coronary disease, paroxysmal atrial fibrillation, hypothyroidism, essential hyper pretension. Curb 65 score is 1. Low risk group with 2.7% 30-day mortality. Consider outpatient treatment. Port score 79 point. Risk class III with a 0.9 to 2.8% mortality. Outpatient treatment is acceptable depending on clinical judgment. Since patient does not appear ill he is appropriate for outpatient therapy. History & Record Review Additional record(s) reviewed:: Prior inpatient record, Prior outpatient record, Prior ED visit and Prior labs Lab Data Attestation: I reviewed the patient's lab results. Lab results narrative: White count is normal. Patient is anemic. His H&H is essentially unchanged from prior. Labs: Laboratory Results - last 24 hr 02/19/23 02/19/23 17:10 17:10 WBC 7.4 RBC 4.35 L Hgb 12.8 L Hct 38.5 L MCV 88.5 MCH 29.4 MCHC 33.2 RDW Std Deviation 44.4 H RDW Coeff of Ethan 13.6 Plt Count 279 MPV 8.7 Immature Gran % (Auto) 1.800 H Neut % (Auto) 67.9 Lymph % (Auto) 20.4 [place] % (Auto) 6.3 Eos % (Auto) 3.1 Baso % (Auto) 0.5 Absolute Neuts (auto) 5.0 Absolute Lymphs (auto) 1.50 Nucleated RBC % 0 Sodium 137 Potassium 4.1 Chloride 103 Carbon Dioxide 27.0 Anion Gap 7 BUN 16 Creatinine 0.94 Estim Creat Clear Calc 65.79 Est GFR (MDRD) Af Amer 100 Est GFR (MDRD) Non-Af 82 BUN/Creatinine Ratio 17.0 Glucose 111 H Calcium 9.0 Radiography Chest X-Ray - ED: 2 View and Read by ED Physician (Comparing today's chest x-ray to x-ray obtained February 10, 2023 reveals infiltrate probably superior segment of the right lower lobe. Lung parenchyma otherwise unremarkable. Cardiac silhouette and size unremarkable. Perihilar region unremarkable. Osseous trucks unremarkable. Is independently re ) Rhythm Strip Rhythm Strip: Sinus Rhythm Rate: 63 Ectopy: None Treatment and Re-Evaluation :: Patient was informed of his laboratory results. He will be discharged with prescription for levofloxacin and inhaler. Patient was informed of risk with outpatient therapy. He states he feels better. Discharge Plan Triage Chief Complaint: Cough ED Provider: Jam Arciniega Dx/Rx/DC Orders Clinical Impression: Right lower lobe pneumonia, Acute bronchospasm, Hypertension, Anticoagulant long-term use, Paroxysmal A-fib Instructions: ED Pneumonia (Adult) Prescriptions: New levofloxacin [levofloxacin] 500 mg tablet 500 mg PO DAILY Qty: 7 0RF albuterol sulfate [Ventolin HFA] 90 mcg/actuation HFA aerosol inhaler 2 puff inhalation Q4H PRN PRN (Reason: Wheezing) Qty: 1 0RF No Action cetirizine 10 mg Tablet 10 mg PO DAILY amlodipine 5 mg Tablet 5 mg PO DAILY levothyroxine 125 mcg Tablet 125 mcg PO DAILY aspirin 81 mg Tablet,Chewable 81 mg PO DAILY metoprolol tartrate 25 mg Tablet 25 mg PO BID Eliquis 5 mg Tablet 5 mg PO BID Qty: 60 1RF lisinopril 2.5 mg Tablet 2.5 mg PO DAILY tamsulosin 0.4 mg Capsule 0.8 mg PO QHS Qty: 60 0RF ciprofloxacin HCl [Cipro] 500 mg tablet 500 mg PO BID Qty: 14 0RF Rx Instructions: start on [facility] Care Provider[facility] [facility] [Primary [facility] Provider] - 3-5 Days if not improving Disposition Disposition: Home, Self Care
[2023-02-19] MEDS: Albuterol 2.5 MG/3 ML VIAL.NEB. INHALATION ×3 (17:11→18:03)
[2023-02-19 17:13] VITALS: PULSE 64; RESP 24; O2SAT 95
[2023-02-19 17:18] LABS: Basophil# 0.04 X10^3/uL; Basophil% 0.5 % (0-1); Eosinophil# 0.23 X10^3/uL; Eosinophils% 3.1 % (0-5); Hematocrit 38.5 % (40-54); Hemoglobin 12.8 g/dL (13.0-16.5); Lymphocyte % 20.4 % (19-41); Mean Corp Hgb Conc 33.2 g/dL (32-36); Mean Corpuscular Hgb 29.4 pg (27.0-32.0); Mean Corpuscular Volume 88.5 fL (80-94); Mean Platelet Vol. 8.7 fl (6.2-12.0); Monocyte# 0.46 X10^3/uL; Monocyte% 6.3 % (0-10); NRBC Flagged by Analyzer 0 % (0-5); Neutrophil % 67.9 % (47-70); Platelet Count 279 K/mm3 (150-450); RBC Distribution Width CV 13.6 % (11.6-14.6); RBC Distribution Width SD 44.4 fl (35.1-43.9); Red Blood Count 4.35 M/mm3 (4.6-6.2); White Blood Count 7.4 K/mm3 (4.4-11.0)
--- NOTE | 2023-02-19 17:28 | RAD_ITS ---
INDICATION: Shortness of breath, rales right side EXAMINATION/TECHNIQUE: X-RAY - XR Chest 2 Views COMPARISON: 02/10/2023 FINDINGS: LINES/DEVICES: None. LUNGS: No consolidation, vascular congestion. Lateral view shows mild blunting of the posterior sulci. MEDIASTINUM AND CARDIOVASCULAR STRUCTURES: Cardiac size stable within normal limits. Stable changes of prior cardiac surgery with valve replacement. BONES AND SOFT TISSUES: No acute changes. RAD/Chest PA and Lateral IMPRESSION: Small posterior pleural effusions versus chronic pleural thickening. No acute consolidative process. Electronically Signed: Soren Martinez MD at 19:34 EDT ,
[2023-02-19 17:30] LABS: Anion Gap 7 (5-15); BUN 16 mg/dL (7-18); Chloride 103 mmol/L (98-107); Creatinine, Serum 0.94 mg/dL (0.70-1.30); EST Glomerular Filtration Rate 82 mL/min (>60); Est Glom Filt Rate - Afr Amer 100 mL/min (>60); Estimated Creatinine Clearance 65.79 ml/min; Glucose 111 mg/dL (74-106); Potassium 4.1 mmol/L (3.5-5.1); Sodium Level 137 mmol/L (136-145)
[2023-02-19 18:01] VITALS: BP 169/74; PULSE 81; RESP 21; O2SAT 95
[2023-02-19 18:03] VITALS: PULSE 71; RESP 22
[2023-02-19] MEDS: levoFLOXacin 750 MG Tablet PO (18:17)
== END 2023-02-19 18:32 | disposition home or self-care (01) ==
PROVIDERS: Emergency Provider Emergency Medicine; Visit Provider Emergency Medicine
DX: J18.9 Pneumonia, unspecified organism (principal); I48.0 Paroxysmal atrial fibrillation; J98.01 Acute bronchospasm; E78.5 Hyperlipidemia, unspecified; I10 Essential (primary) hypertension; I25.10 Atherosclerotic heart disease of native coronary artery without angina pectoris; Z79.01 Long term (current) use of anticoagulants; Z87.891 Personal history of nicotine dependence; R06.09 Other forms of dyspnea; E66.9 Obesity, unspecified
CPT/HCPCS: 71046; 80048; 85025; 94640; 99283; A4216

== ENCOUNTER 2025-06-15 15:04 | Emergency (ER) | payer OTHER, SELFPAY ==
[2022-03-02 13:02] VITALS: BMI 28.5
[2025-06-15] VITALS (8 sets, daily range): BP systolic 140–169; BP diastolic 70–87; PULSE 44–68; RESP 15–20; TEMP 36.6–36.8; O2SAT 94–98; BMI 30.4
--- NOTE | 2025-06-15 15:22 | EKG12_ITS ---
Test Reason : LOW HR Blood Pressure : */* mmHG Vent. Rate : 64 BPM Atrial Rate : 64 BPM P-R Int : 328 ms QRS Dur : 154 ms QT Int : 446 ms P-R-T Axes : 76 -70 -4 degrees QTcB Int : 460 ms Sinus rhythm with 1st degree A-V block with frequent Premature ventricular complexes Right bundle branch block Left anterior fascicular block Bifascicular block Abnormal ECG Confirmed by MARINA MENG, ASAF ([id number]), supervising editor trailer STEF COSBY ([id number]) on 06/16/2025 8:37:18 AM Referred By: TB/PRAVEZ Confirmed By: ASAF GRAY MD
--- NOTE | 2025-06-15 15:30 | CT_ITS ---
PROCEDURE: BRAIN/HEAD WITHOUT CONTRAST 06/15/2025 REASON FOR EXAM: VISION CHANGES Dizzy, with blurred vision. TECHNIQUE: BRAIN/HEAD WITHOUT CONTRAST Coronal and Sagittal reconstruction series were provided. One or more dose reduction techniques were used (e.g., Automated exposure control, adjustment of the mA and/or kV according to patient size, use of iterative reconstruction technique. RADIATION DOSE SUMMARY: CTDlvol: 44.99 mGy DLP: 812.98 mGycm COMPARISON: None. FINDINGS: Brain: No intracranial hemorrhage, mass, or mass effect is seen. CSF Spaces: Mild generalized cerebral atrophy. Ventricles appear symmetric and within the normal range for age. Sinuses/Mastoids: Clear at visualized levels Bones: No fracture or other significant osseous change is seen. CT/Brain/Head without Contrast IMPRESSION: NO ACUTE FINDINGS Reading Location: [place] [id number]
[2025-06-15] MEDS: 0.9% Normal Saline (1000mL) 1,000 ML 999 ML IV (15:31)
--- NOTE | 2025-06-15 15:32 | EX.ED.DYSGE1 ---
HPI History of Present Illness Chief Complaint: Dizziness Narrative Narrative: Patient is a 79-year-old male with a past medical history of hyperlipidemia, CAD status post CABG with aortic valve replacement, BPH, atrial fibrillation on warfarin, hypertension who presents to the emergency department the chief complaint of fatigue and lightheadedness. Patient states that this has been going on for approximately a week now that he has not been feeling his normal self and states that he called the [facility] and they advised him to come to the emergency department to be evaluated. Patient states that he has been taking his medications as prescribed. He states that he does not believe that he is on any beta-blockers but he is a poor historian and cannot exactly tell me what medications he is on. Patient denies any history of blood clots. In the triage note it notes that he is dizzy after further clarification he is not dizzy he is lightheaded with his symptoms. He states that he is also had vision changes going off and on for a extended period of time and he notes that he will periodically see the lines in his vision. [facility] Medical History HLD (hyperlipidemia) Normocytic anemia History of alcohol abuse History of tobacco abuse Seasonal allergies Hypothyroidism Carotid artery stenosis CAD (coronary artery disease) BPH (benign prostatic hyperplasia) Elevated troponin Atrial fibrillation Fatigue HTN (hypertension) Home Medications ?Medication ?Instructions ?Recorded ?Last Taken ?Type amlodipine 5 mg tablet 5 mg PO DAILY 12/10/21 06/15/25 History cetirizine 10 mg tablet 10 mg PO DAILY 12/10/21 06/15/25 History levothyroxine 125 mcg tablet 125 mcg PO DAILY 12/10/21 06/15/25 History metoprolol tartrate 25 mg tablet 25 mg PO BID 12/10/21 06/15/25 History apixaban 5 mg tablet (Eliquis) 5 mg PO BID #60 tabs 12/12/21 06/15/25 Rx lisinopril 2.5 mg tablet 2.5 mg PO DAILY HTN 02/10/23 06/15/25 History tamsulosin 0.4 mg capsule 0.8 mg (2 x 0.4 mg) PO QHS #60 caps 02/12/23 06/14/25 Rx Allergy/AdvReac Type Severity Reaction Status Date / Time [id number] Reductase Allergy Other Verified 06/15/25 15:07 Inhibitor ibuprofen AdvReac Other Verified 06/15/25 15:07 Surgical History S/P AVR (aortic valve replacement) S/P CABG (coronary artery bypass graft) History of open heart surgery Hx of heart artery stent Heart valve replaced Social History household members: none Smoking Status: Former smoker substance use type: does not use ROS ROS ED ROS Narrative Constitutional: Denies headache, fever, chills Eyes: Complains of change in vision as noted above states that this has been going on for quite some time not new Cardiovascular: Denies chest pain Respiratory: Denies cough or wheezing shortness of breath Abdomen: Denies abdominal pain nausea vomit diarrhea : Denies urinary symptoms Neurological: Complains of generalized fatigue denies any numbness, weakness, tingling Musculoskeletal: Denies back pain Skin: Denies any rashes or lesions EXAM Physical Exam Narrative Exam Narrative: General: Patient was lying in bed rest comfortably did not appear to be acute distress Head: Atraumatic, normocephalic Eyes: PERRL bilaterally, EOMI bilateral, no conjunctival injection noted Neck: Soft, supple, trachea midline Cardiovascular: Patient is bradycardic with a regular rhythm Respiratory: Clear to auscultation bilaterally Abdomen: Soft, nondistended, nontender to palpation Extremities: +4/5 strength noted in the bilateral upper and lower extremities, radial pulses +2/4 in the bilateral extremities Neurological: Patient following commands knew that he was at [facility] the year is 2024 Skin: Warm, dry, intact no rashes or lesions noted Const Vital Signs: 06/15/25 15:05 06/15/25 15:15 06/15/25 15:32 Temperature 97.9 F Temperature Source Oral Pulse Rate 44 L 68 Respiratory Rate 16 20 H Blood Pressure 169/70 H Blood Pressure Mean 103 Pulse Ox 97 97 96 Oxygen Delivery Method Room Air Room Air 06/15/25 16:07 06/15/25 17:00 06/15/25 18:00 Temperature 98.1 F 98.1 F 98.3 F Temperature Source Oral Oral Oral Pulse Rate 60 59 L 57 L Respiratory Rate 18 15 16 Blood Pressure 157/82 H 164/81 H 166/78 H Blood Pressure Mean 107 108 107 Pulse Ox 94 98 98 Oxygen Delivery Method Room Air Room Air Room Air 06/15/25 19:22 06/15/25 19:22 Temperature 97.8 F Temperature Source Pulse Rate 62 62 Respiratory Rate 20 H 20 H Blood Pressure 140/87 H 140/87 H Blood Pressure Mean 104 104 Pulse Ox 95 95 Oxygen Delivery Method Room Air MDM MDM MDM Narrative Medical decision making narrative: Patient is a 79-year-old male who presented to the emergency department the chief complaint of fatigue, lightheadedness and generalized not feeling well. On the differential diagnosis includes but limited to electrolyte abnormality, ACS, pneumonia, pneumothorax, heart block. Once workup is obtained reviewed he will be reevaluated. Patient CBC reviewed and showed no evidence of leukocytosis white blood count normal at 9.8, he was 13.7, platelet count of 214. Patient INR normal at 1.1, PT 14.1. Patient sodium was 130, potassium normal at 4.7, creatinine 0.90. Patient's magnesium level normal at 1.8. Patient troponin was 18 with a delta troponin of 18. Patient has EKG obtained and reviewed which showed sinus rhythm with a rate of 64 bpm with frequent PVCs noted with evidence of first-degree AV block with a OK interval of 328. Patient TSH was elevated to 6.25 with a free T4 and T3 normal at 1.30 and 2.4 respectively. Patient's chest x-ray reviewed by myself by radiology which showed moderate degenerative changes of the thoracic spine chronic wedge compression of the mid thoracic spine no subluxation lungs appear clear no acute cardiopulmonary processes. Right upper quadrant abdominal surgical lips were noted. Partially calcified aorta noted. Patient CT head and brain without contrast reviewed showed no acute findings. Patient ambulated well here in the emergency department after his arrival here he had no further episodes of bradycardia with a heart rate in the 30s. I attempted to reach out to on-call testing director Dr. Vergara however while waiting his call back the patient states that he wants to go he does not want to be here any longer. Did have the patient's sign out AGAINST MEDICAL ADVICE. He was advised to return with worsening symptoms or any concerns. He is advised to follow-up with his doctors in the outpatient setting. He is agreeable spinal course concerns answered. Lab Data Labs: Laboratory Results - last 24 hr 06/15/25 06/15/25 15:17 17:27 WBC 9.8 RBC 4.54 L Hgb 13.7 Hct 41.3 MCV 91.0 MCH 30.2 MCHC 33.2 RDW Std Deviation 44.1 H RDW Coeff of Ethan 13.2 Plt Count 214 MPV 10.4 Immature Gran % (Auto) 0.300 Neut % (Auto) 55.7 Lymph % (Auto) 31.7 Hood % (Auto) 9.6 Eos % (Auto) 2.1 Baso % (Auto) 0.6 Absolute Neuts (auto) 5.5 Absolute Lymphs (auto) 3.11 Nucleated RBC % 0 PT 14.1 INR 1.1 APTT 28.6 Sodium 138 Potassium 4.7 Chloride 100 Carbon Dioxide 24.3 Anion Gap 13 BUN 22 H Creatinine 0.90 Estim Creat Clear Calc 74.95 Est GFR (MDRD) Non-Af 86 BUN/Creatinine Ratio 24.8 H Glucose 103 H Calcium 9.7 Magnesium 1.8 Troponin T High Sens 18 Troponin T Hi Sens 2 Hr 18 TSH 6.250 H Free T4 1.30 Free T3 pg/dL 2.4 Radiography Diagnostic Testing: Clinical Impression(s) from Imaging Studies Brain CT 06/15/25 15:30 IMPRESSION: NO ACUTE FINDINGS Reading Location: [place] [address] Chest X-Ray 06/15/25 16:00 IMPRESSION: The cardiomediastinal silhouette is remarkable for postsurgical changes, including aortic valve replacement, and a partially calcified aorta. No evidence of cardiomegaly. Right upper quadrant abdominal surgical clips are seen. Moderate degenerative changes of the thoracic spine are seen, with multiple mild, likely chronic, wedge compressions of the mid thoracic spine. No subluxation is seen. Lungs appear clear of acute disease. No pleural effusion or pneumothorax is seen. Reading Location: [place] [address] Discharge Plan Triage Chief Complaint: Dizziness ED Provider: Anibal Douglass Dx/Rx/DC Orders Clinical Impression: Bradycardia, Frequent PVCs, Lightheadedness Prescriptions: No Action cetirizine 10 mg Tablet 10 mg PO DAILY amlodipine 5 mg Tablet 5 mg PO DAILY levothyroxine 125 mcg Tablet 125 mcg PO DAILY metoprolol tartrate 25 mg Tablet 25 mg PO BID Eliquis 5 mg Tablet 5 mg PO BID Qty: 60 1RF lisinopril 2.5 mg Tablet 2.5 mg PO DAILY tamsulosin 0.4 mg Capsule 0.8 mg PO QHS Qty: 60 0RF [facility] [[facility] Care Provider] - Print Language: Wolof Disposition Disposition: Against Medical Advice Discharge Date/Time: 06/15/25 20:07
[2025-06-15 15:54] LABS: Hematocrit 41.3 % (40-54); Hemoglobin 13.7 g/dL (13.0-16.5); Immature Granulocytes Count 0.030 X10^3/uL (0.0-0.0); Mean Corp Hgb Conc 33.2 g/dL (32-36); Mean Corpuscular Volume 91.0 fL (80-94); Mean Platelet Vol. 10.4 fl (6.2-12.0); NRBC Flagged by Analyzer 0 % (0-5); Platelet Count 214 K/mm3 (150-450); RBC Distribution Width CV 13.2 % (11.6-14.6); RBC Distribution Width SD 44.1 fl (35.1-43.9); Red Blood Count 4.54 M/mm3 (4.6-6.2); White Blood Count 9.8 K/mm3 (4.4-11.0)
--- NOTE | 2025-06-15 16:00 | RAD_ITS ---
PROCEDURE: CHEST PA AND LATERAL 06/15/2025 REASON FOR EXAM: CHEST PAIN TECHNIQUE: CHEST PA AND LATERAL COMPARISON: None. RAD/Chest PA and Lateral IMPRESSION: The cardiomediastinal silhouette is remarkable for postsurgical changes, includ ing aortic valve replacement, and a partially calcified aorta. No evidence of cardiomegaly. Right upper quadrant abdominal surgical clips are seen. Moderate degenerative changes of the thoracic spine are seen, with multiple mil d, likely chronic, wedge compressions of the mid thoracic spine. No subluxation is seen. Lungs appear clear of acute disease. No pleural effusion or pneumothorax is se en. Reading Location: [place] [address]
[2025-06-15 16:25] LABS: Anion Gap 13 (5-15); BUN 22 mg/dL (4-19); BUN/Creat Ratio 24.8 RATIO (10-20); Calcium,Total 9.7 mg/dL (7.6-11.0); Carbon Dioxide 24.3 mmol/L (21.0-32.0); Chloride 100 mmol/L (98-108); Estimated Creatinine Clearance 74.95 ml/min (50-250); Free T3 2.4 pg/mL (2.18-3.98); Glucose 103 mg/dL (70-99); Magnesium 1.8 mg/dL (1.5-2.2); Potassium 4.7 mmol/L (3.3-5.1); Troponin T High Sensitivity 18 ng/L (<=22)
[2025-06-15 16:52] LABS: Prothrombin Time (Protime)PT. 14.1 SECONDS (11.7-14.9)
[2025-06-15 16:53] LABS: Partial Thromboplast Time 28.6 Seconds (24.1-36.2)
[2025-06-15 18:07] LABS: Troponin T High Sens 2 HR 18 ng/L (<=22)
--- NOTE | 2025-06-15 20:00 | ED.RN ---
pt hits call light requests to be discharged immediately. states we're leaving right now, we've been here since 3 o'clock. this rn notifies dr moreno then enters room and reminds pt that md is awaiting a return phone call from dr nuñez. pt's states we're done waiting, we're going to his regular doctor tomorrow anyways. iv dc'd. dr moreno in to talk to pt, who is insistent on leaving. ama paper signed by pt. pt & grateful for care.
== END 2025-06-15 20:07 | disposition left against medical advice (07) ==
PROVIDERS: Emergency Provider Emergency Medicine; Visit Provider Emergency Medicine
DX: R42 Dizziness and giddiness (principal); I48.91 Unspecified atrial fibrillation; I49.3 Ventricular premature depolarization; I10 Essential (primary) hypertension; I25.10 Atherosclerotic heart disease of native coronary artery without angina pectoris; Z87.891 Personal history of nicotine dependence; E78.5 Hyperlipidemia, unspecified; R00.1 Bradycardia, unspecified; Z95.1 Presence of aortocoronary bypass graft; Z95.5 Presence of coronary angioplasty implant and graft; Z79.899 Other long term (current) drug therapy; E03.9 Hypothyroidism, unspecified; Z79.890 Hormone replacement therapy; N40.0 Benign prostatic hyperplasia without lower urinary tract symptoms; Z79.01 Long term (current) use of anticoagulants
CPT/HCPCS: 70450; 71046; 80048; 83735; 84439; 84443; 84481; 84484; 85025; 85610; 85730; 93005; 96360; 99284; A4216

== ENCOUNTER 2025-09-04 09:40 | Emergency (ER) | payer OTHER, SELFPAY ==
[2022-03-02 13:02] VITALS: BMI 28.5
[2025-09-04 09:42] VITALS: BP 149/62; PULSE 76; RESP 16; TEMP 37.3; O2SAT 98; BMI 30.4
--- NOTE | 2025-09-04 10:05 | EX.ED.DYSGE1 ---
HPI History of Present Illness Chief Complaint: General Illness Narrative Narrative: 79-year-old male past medical history of hypertension, coronary artery disease presents with upper respiratory infection type symptoms that he has had for the last 5 days or so. He states his symptoms began on Saturday when he went fishing, came home and had a scratchy throat. That seemed to improve. However, a few days ago he has developed a cough, low energy, and the chills. This was after he went bowling. Throughout the night, he felt like he could not sleep unless he had a fan on him. He felt subjectively feverish. He denies any shortness of breath, but he states he has had low energy. No other exacerbating or alleviating factors. He states he has not had his immunizations yet this year. Sore throat has improved. [facility] Medical History Osteoarthritis Aortic valve stenosis Hyperglycemia HLD (hyperlipidemia) Normocytic anemia History of alcohol abuse History of tobacco abuse Seasonal allergies Hypothyroidism Carotid artery stenosis CAD (coronary artery disease) BPH (benign prostatic hyperplasia) Elevated troponin Atrial fibrillation Fatigue HTN (hypertension) Home Medications ?Medication ?Instructions ?Recorded ?Last Taken ?Type amlodipine 5 mg tablet 5 mg PO DAILY 12/10/21 06/15/25 History cetirizine 10 mg tablet 10 mg PO DAILY 12/10/21 06/15/25 History levothyroxine 125 mcg tablet 125 mcg PO DAILY 12/10/21 06/15/25 History apixaban 5 mg tablet (Eliquis) 5 mg PO BID #60 tabs 12/12/21 06/15/25 Rx lisinopril 2.5 mg tablet 2.5 mg PO DAILY HTN 02/10/23 06/15/25 History tamsulosin 0.4 mg capsule 0.8 mg (2 x 0.4 mg) PO QHS #60 caps 02/12/23 06/14/25 Rx alirocumab 75 mg/mL subcutaneous 75 mg subcut Q4W 08/23/25 Unknown History pen injector cyanocobalamin (vitamin B-12) 1,000 mcg IM Q4W 08/23/25 Unknown History 1,000 mcg/mL injection solution diclofenac sodium 1 % topical gel 2 g topical BID PRN pain 08/23/25 Unknown History metoprolol succinate 25 mg 25 mg PO QDAY 08/23/25 Unknown History tablet,extended release 24 hr Allergy/AdvReac Type Severity Reaction Status Date / Time ezetimibe (From Zetia) Allergy Unknown unknown Verified 09/04/25 09:44 Brzsbeg-NJJ-ZtG Reductase Allergy Other Verified 09/04/25 09:44 Inhibitor ibuprofen AdvReac Other Verified 09/04/25 09:44 Surgical History H/O right and left heart catheterization S/P AVR (aortic valve replacement) S/P CABG (coronary artery bypass graft) Hx of heart artery stent Social History household members: none Smoking Status: Former smoker substance use type: does not use ROS ROS ED ROS Narrative Review of systems positive for scratchy throat, occasional cough, low energy, malaise and fatigue. Positive chills, no overt fever. No chest pain or shortness of breath. No exacerbating or alleviating factors. EXAM Physical Exam Narrative Exam Narrative: Afebrile. Vital signs noted. Nontoxic-appearing. Cardiovascular examination reveals regular rate and rhythm. Lungs are clear to auscultation bilaterally with the exception of occasional rhonchi right greater than left. Airway patent. No pharyngeal erythema or exudate. No drooling or trismus. Neck soft and supple without meningismus. Abdomen is soft and nontender with positive bowel sounds. No noted pedal edema bilaterally. Neurological examination nonfocal, nonlateralizing. Const Vital Signs: 09/04/25 09:42 09/04/25 09:53 09/04/25 11:42 Temperature 99.1 F Temperature Source Oral Pulse Rate 76 50 L Respiratory Rate 16 16 Respiratory Effort Normal Non-Labored Respiratory Pattern Normal Blood Pressure 149/62 H 131/65 H Blood Pressure Mean 91 87 Pulse Ox 98 96 Oxygen Delivery Method Room Air MDM MDM MDM Narrative Medical decision making narrative: The differential diagnosis includes but not limited to bronchitis versus pneumonia versus viral syndrome. I do not feel he needs a strep swab as he states his symptoms are improving. Temperature is 99.1 degrees. He was swabbed for COVID, influenza, and RSV. Chest x-ray was obtained and 2 views to help rule out pneumonia and the need for antibiotics. Baseline laboratories will be obtained as he has history of anemia. He may have dehydration or other electrolyte abnormality, but history and physical does not support this as he has not had nausea, vomiting, or diarrhea. I reviewed his laboratory work and he has slight elevation of his white count at 11.3 which I think is not specific, hemoglobin 13.3, hematocrit 39.6, platelet count normal at 158. BMP shows no evidence of extreme dehydration with glucose elevated at 130 with a normal anion gap of 13, BUN is only slightly elevated at 22 with normal creatinine of 0.94. Chest x-ray 2 views interpreted by myself independently shows no evidence of a pneumonia or pneumothorax. I do not feel antibiotics are indicated. I reviewed his respiratory swab and he is negative for COVID, influenza, and RSV. I do not feel antivirals are indicated. Upon repeat examination, he states he is feeling improved from when he came in, even better than yesterday evening. I feel he can be discharged to follow-up. Return instructions to the emergency department were reviewed. [id number] medications as needed. Disposition is discharged home in stable condition. History & Record Review Discussion w/independent historian: Patient and Family () Lab Data Attestation: I reviewed the patient's lab results. Labs: Laboratory Results - last 24 hr 09/04/25 10:30 WBC 11.3 H RBC 4.43 L Hgb 13.3 Hct 39.6 L MCV 89.4 MCH 30.0 MCHC 33.6 RDW Std Deviation 45.1 H RDW Coeff of Ethan 13.8 Plt Count 158 MPV 9.7 Immature Gran % (Auto) 0.400 Neut % (Auto) 83.2 H Lymph % (Auto) 9.8 L [place] % (Auto) 5.8 Eos % (Auto) 0.4 Baso % (Auto) 0.4 Absolute Neuts (auto) 9.4 H Absolute Lymphs (auto) 1.11 Nucleated RBC % 0 Sodium 139 Potassium 3.9 Chloride 101 Carbon Dioxide 25.7 Anion Gap 13 BUN 22 H Creatinine 0.94 Estim Creat Clear Calc 71.71 Est GFR (MDRD) Non-Af 81 BUN/Creatinine Ratio 23.8 H Glucose 130 H Calcium 8.9 Radiography Diagnostic Testing: Clinical Impression(s) from Imaging Studies Chest X-Ray 09/04/25 11:20 IMPRESSION: NO ACUTE FINDINGS. Reading Location: [facility] [place] Discharge Plan Triage Chief Complaint: General Illness ED Provider: Ravin Naik Dx/Rx/DC Orders Clinical Impression: URI (upper respiratory infection), Viral syndrome Instructions: ED Viral Syndrome (Adult), ED URI, Viral, No Abx (Adult) Prescriptions: No Action cyanocobalamin (vitamin B-12) 1,000 mcg/mL solution 1,000 mcg IM Q4W metoprolol succinate 25 mg tablet extended release 24 hr 25 mg PO QDAY diclofenac sodium 1 % gel 2 g topical BID PRN (Reason: pain) Rx Instructions: apply to left knee alirocumab 75 mg/mL pen injector 75 mg subcut Q4W cetirizine 10 mg Tablet 10 mg PO DAILY amlodipine 5 mg Tablet 5 mg PO DAILY levothyroxine 125 mcg Tablet 125 mcg PO DAILY Eliquis 5 mg Tablet 5 mg PO BID Qty: 60 1RF lisinopril 2.5 mg Tablet 2.5 mg PO DAILY tamsulosin 0.4 mg Capsule 0.8 mg PO QHS Qty: 60 0RF [facility] [Primary Care Provider, None] - 3-5 Days if not improving Activity Restrictions/Additional Instructions: Return with sustained high fever, difficulty breathing, new or worsening symptoms. [id number] medications as needed. Print Language: Lithuanian Disposition Disposition: Home, Self Care
--- OUTSIDE RECORDS SUMMARY | 2025-09-04 10:23 | XMS RPT_ITS | CCD ---
Author Organization [facility] Care Team Providers Care Geosciences Faculty Member Name Role Phone Dr. Tamia Mccray Emergency Provider [place], [place] Primary Care Provider Dr. Bailey Bynum Admit Provider Dr. Bailey Garcia Attending Provider Dr. Bailey Garcia Other Provider Dr. Facundo Costa Other Provider Dr. Annie Hernandez Attending Provider Dr. Annie Hernandez Other Provider Dr. Thomas Franks Attending Provider Dr. Annie Hernandez Referring Provider Dr. Rhina Palma Other Provider Dr. Rhina Palma Attending Provider [place] Primary Care Provider UnavailDr. Kelly Horner Emergency Provider [phone] Lc Avery Attending Provider Dr. Lc Avery Admit Provider Dr. Lc Avery Other Provider [place], [place] Primary Care Provider Dr. Anibal Handy DO Emergency Provider [place] Primary Care Unavailable Anibal Douglass Attending Unavailable [facility] Primary Care Physician BRENDA CAVAZOS MD Attending Unavailable [facility] Primary Care Unavailable Allergies Allergy Classification Reported Allergen(s) Allergy Type Date of Onset Reaction(s) Facility (6 sources) Ibuprofen Drug Allergy 12-10-2021 Other [facility] (7 sources) Hatqjem-Ouf-Pmz Reductase Inhibitor; Translations: [Ghefkuj-Lim-Msb Reductase Inhibitor] Allergy to substance 12-10-2021 Other [facility] (1 source) Ibuprofen Drug Allergy 06-15-2025 [facility] Repository Medications Current Medications Medication Drug Class(es) Dates Sig (Normalized) Sig (Original) amLODIPine 5 mg oral tablet (6 sources) Dihydropyridine Calcium Channel Aniyah Start: 12-10-2021 take 1 tablet by mouth once daily Amlodipine 5 mg Tablet Active 5 mg PO DAILY December 10, 2021 1:00am apixaban 5 mg oral tablet (6 sources) Factor Xa Inhibitor Start: 12-12-2021 take 1 tablet by mouth twice daily Apixaban (Eliquis) 5 mg Tablet Active 5 mg PO TWICE A DAY 60 December 12, 2021 1:00am cetirizine hydrochloride 10 mg oral tablet (6 sources) Histamine-1 Receptor Antagonist Start: 12-10-2021 take 1 tablet by mouth once daily Cetirizine 10 mg Tablet Active 10 mg PO DAILY December 10, 2021 1:00am levothyroxine sodium 0.125 mg oral tablet (6 sources) l-Thyroxine Start: 12-10-2021 take 1 tablet by mouth once daily Levothyroxine 125 mcg Tablet Active 125 ug PO DAILY December 10, 2021 1:00am lisinopril 2.5 mg oral tablet (6 sources) Angiotensin Converting Enzyme Inhibitor Start: 02-10-2023 take 1 tablet by mouth once daily Lisinopril 2.5 mg Tablet Active 2.5 mg PO DAILY February 10, 2023 12:00am HTN Start: 12-10-2021 take 40 mg by mouth once daily Lisinopril Active 40 MG PO DAILY December 10, 2021 12:09pm metoprolol tartrate 25 mg oral tablet (6 sources) beta-Adrenergic Aniyah Start: 12-10-2021 take 1 tablet by mouth twice daily Metoprolol Tartrate 25 mg Tablet Active 25 mg PO TWICE A DAY December 10, 2021 1:00am potassium chloride 20 meq extended release oral tablet (2 sources) Start: 12-10-2021 take 20 mEq by mouth twice daily Potassium Chloride Active 20 MEQ PO TWICE A DAY December 10, 2021 12:09pm tamsulosin hydrochloride 0.4 mg oral capsule (9 sources) alpha-Adrenergic Aniyah Start: 02-12-2023 take 2 capsules by mouth at bedtime Tamsulosin 0.4 mg Capsule Active 0.8 mg PO AT BEDTIME 60 0 February 12, 2023 12:00am Start: 02-12-2023 take 0.8 mg by mouth at bedtim e Tamsulosin Active 0.8 MG PO AT BEDTIME 60 February 12, 2023 12:00am Start: 02-10-2023 End: 02-12-2023 take 1 capsule by mouth at bedtime Tamsulosin 0.4 mg Capsule Discontinued 0.4 mg PO AT BEDTIME February 10, 2023 12:00am February 12, 2023 9:41am prostate Start: 12-10-2021 take 0.4 mg by mouth once leslie y Tamsulosin Active 0.4 MG PO DAILY December 10, 2021 12:09pm Completed/Discontinued Medications Medication Drug Class(es) Dates Sig (Normalized) Sig (Original) [id number] 200 actuat albuterol 0.09 mg/actuat metered dose inhaler (2 sources) beta2-Adrenergic Agonist Start: 02-19-2023 End: 06-15-2025 Albuterol Sulfate (Ventolin Hfa) 90 mcg/actuation HFA aerosol inhaler Discontinued 2 NMA INHALATION EVERY 4 HOURS NEEDED as needed for Wheezing 1 0 February 19, 2023 12:00am June 15, 2025 3:35pm Start: 02-19-2023 take 1 puff(s) by in halation every four hours as needed Albuterol Sulfate (Ventolin Hfa) 90 mcg/actuation HFA aerosol inhaler Active 2 PUFF INHALATION EVERY 4 HOURS NEEDED February 19, 2023 12:00am aspirin 81 mg chewable tablet (6 sources) Platelet Aggregation Inhibitor, Nonsteroidal Anti-inflammatory Drug Start: 12-10-2021 End: 06-15-2025 take 1 tablet by mouth once daily Aspirin 81 mg Tablet,Chewable Discontinued 81 mg PO DAILY December 10, 2021 1:00am June 15, 2025 3:36pm ciprofloxacin 500 mg oral tablet (3 sources) Quinolone Antimicrobial Start: 02-12-2023 End: 06-15-2025 take 1 tablet by mouth twice daily Ciprofloxacin Hcl (Cipro) 500 mg tablet Discontinued 500 mg PO TWICE A DAY 14 0 February 12, 2023 12:00am June 15, 2025 3:36pm start on levoFLOXacin 500 mg oral tablet (2 sources) Quinolone Antimicrobial Start: 02-19-2023 End: 06-15-2025 take 1 tablet by mouth once daily Levofloxacin 500 mg tablet Discontinued 500 mg PO DAILY 7 0 February 19, 2023 12:00am June 15, 2025 3:36pm Problems Problem Classification Problem Date Documented Da te Episodic/Chronic Cardiac dysrhythmias (2 sources) Paroxysmal atrial fibrillation; Translations: [Paroxysmal atrial fibrillation] 02-19-2023 Chronic Essential hypertension (2 sources) Hypertensive disorder; Translations: [Essential (primary) hypertension] 02-19-2023 Chronic Malaise and fatigue (2 sources) Asthenia; Translations: [Weakness] Onset: 06-17-2025 Episodic Other aftercare (2 sources) Long-term current use of anticoagulant; Translations: [intermediate (current) use of anticoagulants] 02-19-2023 Episodic Other upper respiratory disease (2 sources) Acute bronchospasm; Translations: [Acute bronchospasm] 02-19-2023 Episodic Pneumonia (except that caused by tuberculosis or sexually transmitted disease) (2 sources) Right lower zone pneumonia; Translations: [Pneumonia, unspecified organism] 02-19-2023 Episodic Septicemia (except in labor) (6 sources) Sepsis; Translations: [Sepsis, unspecified organism] 02-10-2023 Episodic Urinary tract infections (6 sources) Urinary tract infectious disease; Translations: [Urinary tract infection, site not specified] 02-10-2023 Episodic Results Test Name Value Interpretation Reference Range Facility .Auto Diffon 06-17-2025 Basophil, Absolute 0.1 10 3/mcL Normal 0.0-0.3 [facility] Comment on above: Performed By: #### M DW, MG, ANEU, CBC, GFR, ADIFF, CMP #### [facility] [address] [place] [address] Basophils/100 WBC (Bld) 0.7 % Normal 0.0-2.5 [facility] Comment on above: Performed By: #### M DW, MG, ANEU, CBC, GFR, ADIFF, CMP #### [address] [address] Eosinophil, Absolute 0.1 10 3/mcL Normal 0.0-0.7 [facility] Comment on above: Performed By: #### M DW, MG, ANEU, CBC, GFR, ADIFF, CMP #### [address] [address] Eosinophils/100 WBC (Bld) 1.5 % Normal 0.0-6.0 [facility] Comment on above: Performed By: #### M DW, MG, ANEU, CBC, GFR, ADIFF, CMP #### [address] [address] Lymphocyte, Absolute 1.9 10 3/mcL Normal 0.9-4.3 [facility] Comment on above: Performed By: #### M DW, MG, ANEU, CBC, GFR, ADIFF, CMP #### [address] [address] Lymphocytes/100 WBC (Bld) 28.0 % Normal 20.0-40.0 [facility] Comment on above: Performed By: #### M DW, MG, ANEU, CBC, GFR, ADIFF, CMP #### [address] [address] Monocyte, Absolute 0.6 10 3/mcL Normal 0.1-1.4 [facility] Comment on above: Performed By: #### M DW, MG, ANEU, CBC, GFR, ADIFF, CMP #### [address] [address] Monocytes/100 WBC (Bld) 9.3 % Normal 2.0-13.0 [facility] Comment on above: Performed By: #### M DW, MG, ANEU, CBC, GFR, ADIFF, CMP #### [address] [address] Neutrophils/100 WBC (Bld) 60.5 % Normal 50.0-75.0 [facility] Comment on above: Performed By: #### M DW, MG, ANEU, CBC, GFR, ADIFF, CMP #### [address] [address] .GFRon 06-17-2025 Estimated Glomerular Filtration Rate 86 ml/min/1.73sqm Normal [facility] Comment on above: Result Comment: Stages of Chronic Kidney Disease (CKD) Stage Description eGFR(ml/min/1.73 sq.m.) CKD 1 Normal kidney function or >=90 normal kindney function with possible kidney damage (ex. Proteinuria) CKD 2 Kidney damage with mild loss 60-89 of kidney function CKD 3a Mild to moderate loss of kidney 45-59 function CKD 3b Moderate to severe loss of 30-44 of kindey function CKD 4 Severe loss of kidney function 15-29 CKD 5 Kidney failure <15 Note: (go live 2024) the eGFR calculation was updated to the 2020 CKD-EPI creatinine equation without a race factor to calculate the eGFR results. Performed By: #### M DW, MG, ANEU, CBC, GFR, ADIFF, CMP #### [place] [address] .MDWon 06-17-2025 Monocyte Distribution Width 18.43 Normal 0.00-20.00 [facility] Comment on above: Result Comment: For ED adult patients suspected of sepsis, MDW<=20.0 does not rule out sepsis or risk of sepsis Performed By: #### M DW, MG, ANEU, CBC, GFR, ADIFF, CMP #### [place] [address] .NEUABSon 06-17-2025 Neutrophil, Absolute 4.2 10 3/mcL Normal 2.3-8.1 [facility] Comment on above: Performed By: #### M DW, MG, ANEU, CBC, GFR, ADIFF, CMP #### [place] [address] CBCon 06-17-2025 Erythrocyte distribution width (RBC) [Ratio] 13.7 % Normal 11.5-15.5 [facility] Comment on above: Performed By: #### M DW, MG, ANEU, CBC, GFR, ADIFF, CMP #### [place] [address] Hematocrit (Bld) [Volume fraction] 40.7 % Normal 40.0-52.0 [facility] Comment on above: Performed By: #### M DW, MG, ANEU, CBC, GFR, ADIFF, CMP #### [place] [address] Hgb 14.0 G/dL Normal 13.0-17.5 [facility] Comment on above: Performed By: #### M DW, MG, ANEU, CBC, GFR, ADIFF, CMP #### [place] [address] MCH (RBC) [Entitic mass] 30.5 pg Normal 27.0-33.0 [facility] Comment on above: Performed By: #### M DW, MG, ANEU, CBC, GFR, ADIFF, CMP #### [place] [address] MCHC 34.3 G/dL Normal 32.0-36.0 [facility] Comment on above: Performed By: #### M DW, MG, ANEU, CBC, GFR, ADIFF, CMP #### [place] [address] MCV (RBC) [Entitic vol] 89.0 fL Normal 81.0-100.0 [facility] Comment on above: Performed By: #### M DW, MG, ANEU, CBC, GFR, ADIFF, CMP #### [place] [address] Platelet 190 10 3/mcL Normal 150-450 [facility] Comment on above: Performed By: #### M DW, MG, ANEU, CBC, GFR, ADIFF, CMP #### [place] [address] Platelet mean volume (Bld) [Entitic vol] 7.6 fL Normal 6.4-10.5 [facility] Comment on above: Performed By: #### M DW, MG, ANEU, CBC, GFR, ADIFF, CMP #### [place] [address] RBC 4.58 10 6/mcL Normal 4.50-6.00 [facility] Comment on above: Performed By: #### M DW, MG, ANEU, CBC, GFR, ADIFF, CMP #### [place] [address] WBC 6.9 10 3/mcL Normal 4.5-10.8 [facility] Comment on above: Performed By: #### M DW, MG, ANEU, CBC, GFR, ADIFF, CMP #### [place] [address] CMPon 06-17-2025 Albumin Level 3.9 G/dL Normal 3.2-4.8 [facility] Comment on above: Performed By: #### M DW, MG, ANEU, CBC, GFR, ADIFF, CMP #### [place] [address] Albumin/Globulin [Mass ratio] 1.1 {ratio} Normal 0.9-1.6 [facility] Comment on above: Performed By: #### M DW, MG, ANEU, CBC, GFR, ADIFF, CMP #### [place] [address] ALP [Catalytic activity/Vol] 65 U/L Normal 38-126 [facility] Comment on above: Performed By: #### M DW, MG, ANEU, CBC, GFR, ADIFF, CMP #### [place] [address] ALT [Catalytic activity/Vol] 17 U/L Normal 12-55 [facility] Comment on above: Performed By: #### M DW, MG, ANEU, CBC, GFR, ADIFF, CMP #### [place] [address] AST [Catalytic activity/Vol] 21 U/L Normal 8-34 [facility] Comment on above: Performed By: #### M DW, MG, ANEU, CBC, GFR, ADIFF, CMP #### [place] [address] Bili Total 0.40 mg/dL Normal 0.20-1.20 [facility] Comment on above: Result Comment: Use of this assay is not recommended for patients undergoing treatment with eltrombopag due to the potential for falsely elevated results. Performed By: #### M DW, MG, ANEU, CBC, GFR, ADIFF, CMP #### [place] [address] BUN/Creatinine Ratio 21.3 ratio Normal 10.0-22.0 [facility] Comment on above: Performed By: #### M DW, MG, ANEU, CBC, GFR, ADIFF, CMP #### [place] [id number] Calcium [Mass/Vol] 9.5 mg/dL Normal 8.7-10.4 [facility] Comment on above: Performed By: #### M DW, MG, ANEU, CBC, GFR, ADIFF, CMP #### [place] [id number] Chloride [Moles/Vol] 103 mmol/L Normal 98-110 [facility] Comment on above: Performed By: #### M DW, MG, ANEU, CBC, GFR, ADIFF, CMP #### [place] [id number] CO2 [Moles/Vol] 29 mmol/L Normal 22-32 [facility] Comment on above: Performed By: #### M DW, MG, ANEU, CBC, GFR, ADIFF, CMP #### [place] [address] Creatinine [Mass/Vol] 0.89 mg/dL Normal 0.60-1.40 [facility] Comment on above: Result Comment: Test ing performed on [employer] [place] analyzer using enzymatic creatinine methodology. Performed By: #### M DW, MG, ANEU, CBC, GFR, ADIFF, CMP #### [place] [address] Electrolyte Balance 9.0 mEq/L Normal 4.0-15.0 [facility] Comment on above: Performed By: #### M DW, MG, ANEU, CBC, GFR, ADIFF, CMP #### [place] [address] Globulin 3.5 G/dL Normal 2.5-4.2 [facility] Comment on above: Performed By: #### M DW, MG, ANEU, CBC, GFR, ADIFF, CMP #### [address] [address] Glucose [Mass/Vol] 114 mg/dL Normal 82-115 [facility] Comment on above: Performed By: #### M DW, MG, ANEU, CBC, GFR, ADIFF, CMP #### [address] [address] Potassium [Moles/Vol] 4.4 mmol/L Normal 3.5-5.0 [facility] Comment on above: Performed By: #### M DW, MG, ANEU, CBC, GFR, ADIFF, CMP #### [address] [address] Sodium [Moles/Vol] 141 mmol/L Normal 136-145 [facility] Comment on above: Performed By: #### M DW, MG, ANEU, CBC, GFR, ADIFF, CMP #### [address] [address] Total Protein 7.4 G/dL Normal 5.7-8.2 [facility] Comment on above: Performed By: #### M DW, MG, ANEU, CBC, GFR, ADIFF, CMP #### [address] [address] Urea nitrogen [Mass/Vol] 19.0 mg/dL Normal 8.0-22.0 [facility] Comment on above: Performed By: #### M DW, MG, ANEU, CBC, GFR, ADIFF, CMP #### [address] [address] LABORATORYOrdered By: SYSTEM SYSTEM on 06-17-2025 Albumin BCP dye [Mass/Vol] 3.9 G/dL Normal 3.2 - 4.8 G/dL ADM SS Albumin/Globulin [Mass ratio] 1.1 {ratio} Normal 0.9 - 1.6 ratio ADM SS ALP [Catalytic activity/Vol] 65 U/L Normal 38 - 126 U/L ADM SS ALT No additional P-5'-P [Catalytic activity/Vol] 17 U/L Normal 12 - 55 U/L ADM SS AST [Catalytic activity/Vol] 21 U/L Normal 8 - 34 U/L ADM SS Basophils (Bld) [#/Vol] 0.1 103/mcL Normal 0.0 - 0.3 10^3/mcL Workflow SS Basophils/100 WBC (Bld) 0.7 % Normal 0.0 - 2.5 % Workflow SS Bilirubin [Mass/Vol] 0.40 mg/dL Normal 0.20 - 1.20 mg/dL ADM SS Comment on above: Interpretive Data: U se of this assay is not recommended for patients undergoing treatment with eltrombopag due to the potential for falsely elevated results. Calcium [Mass/Vol] 9.5 mg/dL Normal 8.7 - 10. 4 mg/dL ADM SS Chloride [Moles/Vol] 103 mmol/L Normal 98 - 11 0 mEq/L AH ADM SS CO2 [Moles/Vol] 29 mmol/L Normal 22 - 32 mEq/L ADM SS Creatinine [Mass/Vol] 0.89 mg/dL Normal 0.60 - 1.40 mg/dL ADM SS Comment on above: Interpretive Data: T esting performed on [employer] [facility] [place] analyzer using enzymatic creatinine methodology. Electrolyte Balance 9.0 mEq/L Normal 4.0 - 15 .0 mEq/L ADM SS Eosinophils (Bld) [#/Vol] 0.1 103/mcL Normal 0.0 - 0.7 10^3/mcL Workflow SS Eosinophils/100 WBC (Bld) 1.5 % Normal 0.0 - 6.0 % Workflow SS Erythrocyte distribution width (RBC) [Ratio] 13.7 % Normal 11.5 - 15.5 % Workflow SS Estimated Glomerular Filtration Rate 86 ml/min/1.73sqm Invalid Interpretation Code ADM SS Comment on above: Interpretive Data: Stages of Chronic Kidney Disease (CKD) Stage Description eGFR(ml/min/1.73 sq.m.) CKD 1 Normal kidney function or >=90 normal kindney function with possible kidney damage (ex. Proteinuria) CKD 2 Kidney damage with mild loss 60-89 of kidney function CKD 3a Mild to moderate loss of kidney 45-59 function CKD 3b Moderate to severe loss of 30-44 of kindey function CKD 4 Severe loss of kidney function 15-29 CKD 5 Kidney failure <15 Note: (go live 2024) the eGFR calculation was updated to the 2020 CKD-EPI creatinine equation without a race factor to calculate the eGFR results. Globulin 3.5 G/dL Normal 2.5 - 4.2 G/dL ADM SS Glucose [Mass/Vol] 114 mg/dL Normal 82 - 115 mg/dL ADM SS Hematocrit (Bld) [Volume fraction] 40.7 % Normal 40.0 - 52.0 % AH Workflow SS Hemoglobin (Bld) [Mass/Vol] 14.0 G/dL Normal 13.0 - 17.5 G/dL AH Workflow SS Lymphocytes (Bld) [#/Vol] 1.9 103/mcL Normal 0.9 - 4.3 10^3/mcL AH Workflow SS Lymphocytes/100 WBC (Bld) 28.0 % Normal 20.0 - 40.0 % AH Workflow SS Magnesium [Mass/Vol] 1.7 mg/dL Normal 1.6 - 2 .4 mg/dL ADM SS MCH (RBC) [Entitic mass] 30.5 pg Normal 27. 0 - 33.0 pg Workflow SS MCHC 34.3 G/dL Normal 32.0 - 36.0 G/dL Workflow SS MCV (RBC) [Entitic vol] 89.0 fL Normal 81.0 - 100.0 fL Workflow SS Monocyte distribution width Auto (Bld) [Entitic vol] 18.43 1 Normal 0.00 - 20.00 Workflow SS Comment on above: Result Comment: For ED adult patients suspected of sepsis, MDW<=20.0 does not rule out sepsis or risk of sepsis Monocytes (Bld) [#/Vol] 0.6 103/mcL Normal 0.1 - 1.4 10^3/mcL Workflow SS Monocytes/100 WBC (Bld) 9.3 % Normal 2.0 - 13.0 % AH Workflow SS Neutrophils (Bld) [#/Vol] 4.2 103/mcL Normal 2.3 - 8.1 10^3/mcL Workflow SS Neutrophils/100 WBC (Bld) 60.5 % Normal 50.0 - 75.0 % Workflow SS Platelet mean volume (Bld) [Entitic vol] 7.6 fL Normal 6.4 - 10.5 fL Workflow SS Platelets (Bld) [#/Vol] 190 103/mcL Normal 150 - 450 10^3/mcL AH Workflow SS Potassium [Moles/Vol] 4.4 mmol/L Normal 3.5 - 5.0 mEq/L ADM SS Protein [Mass/Vol] 7.4 G/dL Normal 5.7 - 8.2 G/dL ADM SS RBC (Bld) [#/Vol] 4.58 106/mcL Normal 4.50 - 6.0 0 10^6/mcL Workflow SS Sodium [Moles/Vol] 141 mmol/L Normal 136 - 145 mEq/L ADM SS Troponin I.cardiac DL <= 0.01 ng/mL [Mass/Vol] 11 ng/L Normal 0 - 54 ng/L ADM SS Comment on above: Interpretive Data: High Sensitive Troponin I Reference Ranges: Female: 0-34 ng/L Male: 0-54 ng/L Testing performed on [employer] IM analyzer using direct chemiluminescent technology. Urea nitrogen [Mass/Vol] 19.0 mg/dL Normal 8.0 - 22.0 mg/dL ADM SS Urea nitrogen/Creatinine [Mass ratio] 21.3 ratio Normal 10.0 - 22.0 ratio ADM SS WBC (Bld) [#/Vol] 6.9 103/mcL Normal 4.5 - 10.8 10^3/mcL Workflow SS MGon 06-17-2025 Magnesium [Mass/Vol] 1.7 mg/dL Normal 1.6-2.4 [facility] Comment on above: Performed By: #### M DW, MG, ANEU, CBC, GFR, ADIFF, CMP #### [address] [address] [facility] High Sensitivity Troponin I 11 ng/L Normal 0-54 [facility] Comment on above: Result Comment: High Sensitive Troponin I Reference Ranges: Female: 0-34 ng/L Male: 0-54 ng/L Testing performed on [employer] IM analyzer using direct chemiluminescent technology. Performed By: #### T [facility] #### [address] [address] XR CHEST 1 VIEWon 06-17-2025 XR CHEST 1 VIEW ORIGINAL EXAMINATION: ONE XRAY VIEW OF THE CHEST 06/17/2025 2:52 pm COMPARISON: None. HISTORY: ORDERING SYSTEM PROVIDED HISTORY: Reason for Exam: tightness FINDINGS: Median sternotomy wires. Low lung volumes. Cardiomediastinal silhouette is prominent may be related to portable technique. Valve prosthesis. No overt edema. No focal consolidation. No pleural effusion. No pneumothorax. No acute osseous abnormality. IMPRESSION: Low lung volumes. No acute cardiopulmonary process. Interpreted by: Radha Garcia Preliminary Report By: Radha Garcia Electronically signed By Radha Garcia Dictated Date: 06/17/2025 3:03:21 PM Prelim Date: 06/17/2025 3:05:51 PM Sign Date: 06/17/2025 3:05:51 PM Ordering Provider: LESLIE MATOS [facility] 12 Lead EKGon 06-15-2025 12 Lead EKG [facility] Cardi[facility] Services [address] [address] 12 Lead EKG 06/15/25 1516 MR#: [id number] Acct: [id number] Name: STONE HAILE Rep #: [id number] : [id number] 79 From: Goldy Vergara MD Attending Dr: Status: DEP ER Ordering Dr: Anibal Douglass DO Date: 06/15/25 Location: ED Sex: M C Admitted: Test Reason : LOW HR Blood Pressure : */* mmHG Vent. Rate : 64 BPM Atrial Rate : 64 BPM P-R Int : 328 ms QRS Dur : 154 ms QT Int : 446 ms P-R-T Axes : 76 -70 -4 degrees QTcB Int : 460 ms Sinus rhythm with 1st degree A-V block with frequent Premature ventricular complexes Right bundle branch block Left anterior fascicular block Bifascicular block Abnormal ECG Confirmed by GOLDY VERGARA MD ([id number]), website/blog editor STEF COSBY ([id number]) on 06/16/2025 8:37:18 AM Referred By: TB/CG Confirmed By: GOLDY VERGARA MD 06/16/25 0837 Date Goldy Vergara MD CC: Dr. Anibal Douglass DO; [facility] Signed Normal [facility] Absolute lymphocyte countOrd ered By: Anibal Douglass on 06-15-2025 Lymphocytes Auto (Unsp spec) [#/Vol] 3.11 10*3/uL 0.83-4.51 [facility] Absolute neutrophil countOrd ered By: Anibal Douglass on 06-15-2025 Neutrophils (Bld) [#/Vol] 5.5 10*3/uL 2.0-7.7 [facility] Activated partial thrombopla stin time (aPTT) in platelet poor plasma by coagulation aOrdered By: Anibal Douglass on 06-15-2025 aPTT Coag (PPP) [Time] 28.6 s 24.1-36.2 [facility] Anion gap in Serum or Plasma Ordered By: Anibal Douglass on 06-15-2025 Anion gap [Moles/Vol] 13 mmol/L 5-15 [facility] Automated lymphocyte count a s percentage of total leukocytesOrdered By: Anibal Douglass on 06-15-2025 Lymphocytes/100 WBC Auto (Unsp spec) 31.7 % 19-41 [facility] BUN/creatinine ratioOrdered By: Anibal Douglass on 06-15-2025 Urea nitrogen/Creatinine [Mass ratio] 24.8 mg/mg High 10-20 [facility] Basic Metabolic Profile (BMP )on 06-15-2025 BUN/CRE 24.8 RATIO High - [facility] Comment on above: Performed By: #### L 300.3900, L501.4021, L506.0400, L100.0100, L300.4310, L501.5200, L500.2500, L501.33857, L501.9520 #### [facility] [address] [place], [address] Calcium [Mass/Vol] 9.7 mg/dL Normal 7.6-11.0 [facility] Comment on above: Performed By: #### L 300.3900, L501.4021, L506.0400, L100.0100, L300.4310, L501.5200, L500.2500, L501.27833, L501.9520 #### [facility] [address] [place], [address] Chloride [Moles/Vol] 100 mmol/L Normal 98-108 [facility] Comment on above: Performed By: #### L 300.3900, L501.4021, L506.0400, L100.0100, L300.4310, L501.5200, L500.2500, L501.06983, L501.9520 #### [facility] [address] [place], [address] CO2 [Moles/Vol] 24.3 mmol/L Normal 21.0-32.0 [facility] Comment on above: Performed By: #### L 300.3900, L501.4021, L506.0400, L100.0100, L300.4310, L501.5200, L500.2500, L501.78041, L501.9520 #### [facility] [address] [place], [place], [id number] ([phone]) Creatinine [Mass/Vol] 0.90 mg/dL Normal 0.70-1.20 [facility] Comment on above: Performed By: #### L 300.3900, L501.4021, L506.0400, L100.0100, L300.4310, L501.5200, L500.2500, L501.96936, L501.9520 #### [facility] [address] [place], [place], [id number] ([phone]) ECRCL 74.95 ml/min Normal 50-250 [facility] Comment on above: Performed By: #### L 300.3900, L501.4021, L506.0400, L100.0100, L300.4310, L501.5200, L500.2500, L501.16979, L501.9520 #### [facility] [address] [place], [address] GAP 13 Normal 5-15 [facility] Comment on above: Performed By: #### L 300.3900, L501.4021, L506.0400, L100.0100, L300.4310, L501.5200, L500.2500, L501.33990, L501.9520 #### [facility] [address] [place], [address] GFR/1.73 sq M.predicted among non-blacks MDRD (S/P/Bld) [Vol rate/Area] 86 mL/min/{1.73_m2} Normal >60 [facility] Comment on above: Result Comment: mL/m in/1.73m2 CKD-EPI Creatinine Equation (2020) Performed By: #### L 300.3900, L501.4021, L506.0400, L100.0100, L300.4310, L501.5200, L500.2500, L501.69542, L501.9520 #### [facility] [address] [place], [address] Glucose [Mass/Vol] 103 mg/dL High 70-99 [facility] Comment on above: Performed By: #### L 300.3900, L501.4021, L506.0400, L100.0100, L300.4310, L501.5200, L500.2500, L501.61051, L501.9520 #### [facility] [address] [place], [address] Potassium [Moles/Vol] 4.7 mmol/L Normal 3.3-5.1 [facility] Comment on above: Performed By: #### L 300.3900, L501.4021, L506.0400, L100.0100, L300.4310, L501.5200, L500.2500, L501.19126, L501.9520 #### [facility] [address] [place], [address] Sodium [Moles/Vol] 138 mmol/L Normal 133-145 [facility] Comment on above: Performed By: #### L 300.3900, L501.4021, L506.0400, L100.0100, L300.4310, L501.5200, L500.2500, L501.08611, L501.9520 #### [facility] [address] [place], [address] Urea nitrogen [Mass/Vol] 22 mg/dL High - [facility] Comment on above: Performed By: #### L 300.3900, L501.4021, L506.0400, L100.0100, L300.4310, L501.5200, L500.2500, L501.37058, L501.9520 #### [facility] [address] [place], [address] Basophil percentageOrdered B y: Anibal Douglass on 06-15-2025 Basophils/100 WBC (Bld) 0.6 % 0-1 [facility] Brain/Head without Contrasto n 06-15-2025 Brain/Head without Contrast [facility] Imaging Services [address] [place], [place] [address] Brain/Head without Contrast MR#: [id number] Acct: [id number] Name: HAILESTONE David Rep #: [id number] : 1945 M 79 From: Ozzie Bah PCP: [facility] Hospital Status: REG ER Study: Brain/Head without Contrast Date of Exam: 05/19 08/12 Exam# [id number] Ordering Dr: Anibal Douglass DO PROCEDURE: BRAIN/HEAD WITHOUT CONTRAST 06/15/2025 REASON FOR EXAM: VISION CHANGES Dizzy, with blurred vision. TECHNIQUE: BRAIN/HEAD WITHOUT CONTRAST Coronal and Sagittal reconstruction series were provided. One or more dose reduction techniques were used (e.g., Automated exposure control, adjustment of the mA and/or kV according to patient size, use of iterative reconstruction technique. RADIATION DOSE SUMMARY: CTDlvol: 44.99 mGy DLP: 812.98 mGycm COMPARISON: None. FINDINGS: Brain: No intracranial hemorrhage, mass, or mass effect is seen. CSF Spaces: Mild generalized cerebral atrophy. Ventricles appear symmetric and within the normal range for age. Sinuses/Mastoids: Clear at visualized levels Bones: No fracture or other significant osseous change is seen. CT/Brain/Head without Contrast IMPRESSION: NO ACUTE FINDINGS Reading Location: [place] [address] CC: Dr. Anibal Douglass, ; [facility] Asphalt Engineer: Signed Normal [facility] CBC W/Diff, Automatedon - Absolute Lymph 3.11 X10 3/uL Normal 0.83-4.51 [facility] Comment on above: Performed By: #### L 300.3900, L501.4021, L506.0400, L100.0100, L300.4310, L501.5200, L500.2500, L501.90231, L501.9520 #### [facility] [address], [address] Absolute Neut 5.5 X10 3/uL Normal 2.0-7.7 [facility] Comment on above: Performed By: #### L 300.3900, L501.4021, L506.0400, L100.0100, L300.4310, L501.5200, L500.2500, L501.98606, L501.9520 #### [facility] [address] [place], [address] Basophils/100 WBC (Bld) 0.6 % Normal 0-1 [facility] Comment on above: Performed By: #### L 300.3900, L501.4021, L506.0400, L100.0100, L300.4310, L501.5200, L500.2500, L501.12364, L501.9520 #### [facility] [address] [place], [address] Eosinophils/100 WBC (Bld) 2.1 % Normal 0-5 [facility] Comment on above: Performed By: #### L 300.3900, L501.4021, L506.0400, L100.0100, L300.4310, L501.5200, L500.2500, L501.39843, L501.9520 #### [facility] [address] [place], [address] Erythrocyte distribution width (RBC) [Ratio] 13.2 % Normal 11.6-14.6 [facility] Comment on above: Performed By: #### L 300.3900, L501.4021, L506.0400, L100.0100, L300.4310, L501.5200, L500.2500, L501.59233, L501.9520 #### [facility] [address] [place], [address] Hematocrit (Bld) [Volume fraction] 41.3 % Normal 40-54 [facility] Comment on above: Performed By: #### L 300.3900, L501.4021, L506.0400, L100.0100, L300.4310, L501.5200, L500.2500, L501.76606, L501.9520 #### [facility] [address] [place], [address] Hemoglobin (Bld) [Mass/Vol] 13.7 g/dL Normal 13.0-16.5 [facility] Comment on above: Performed By: #### L 300.3900, L501.4021, L506.0400, L100.0100, L300.4310, L501.5200, L500.2500, L501.25690, L501.9520 #### [facility] [address] [place], [address] IG% 0.300 Normal 0.0-0.9 [facility] Comment on above: Result Comment: IG% - Immature Granulocytes (promyelocytes, myelocytes and metamyelocytes) > 1% indicates that a LEFT SHIFT is Present. Performed By: #### L 300.3900, L501.4021, L506.0400, L100.0100, L300.4310, L501.5200, L500.2500, L501.12429, L501.9520 #### [facility] [address] [place], [address] Lymphocytes/100 WBC (Bld) 31.7 % Normal 19-41 [facility] Comment on above: Performed By: #### L 300.3900, L501.4021, L506.0400, L100.0100, L300.4310, L501.5200, L500.2500, L501.75487, L501.9520 #### [facility] [address] [place], [address] MCH (RBC) [Entitic mass] 30.2 pg Normal 27.0-32.0 [facility] Comment on above: Performed By: #### L 300.3900, L501.4021, L506.0400, L100.0100, L300.4310, L501.5200, L500.2500, L501.71684, L501.9520 #### [facility] [address] [place], [address] MCHC (RBC) [Mass/Vol] 33.2 g/dL Normal 32-36 [facility] Comment on above: Performed By: #### L 300.3900, L501.4021, L506.0400, L100.0100, L300.4310, L501.5200, L500.2500, L501.58273, L501.9520 #### [facility] [address] [place] [place], [address] MCV (RBC) [Entitic vol] 91.0 fL Normal 80-94 [facility] Comment on above: Performed By: #### L 300.3900, L501.4021, L506.0400, L100.0100, L300.4310, L501.5200, L500.2500, L501.78375, L501.9520 #### [facility] [address] [place], [address] Monocytes/100 WBC (Bld) 9.6 % Normal 0-10 [facility] Comment on above: Performed By: #### L 300.3900, L501.4021, L506.0400, L100.0100, L300.4310, L501.5200, L500.2500, L501.00362, L501.9520 #### [facility] [address] [place], [address] Neutrophils/100 WBC (Bld) 55.7 % Normal 47-70 [facility] Comment on above: Performed By: #### L 300.3900, L501.4021, L506.0400, L100.0100, L300.4310, L501.5200, L500.2500, L501.07410, L501.9520 #### [facility] [address] [place], [address] Nucleated RBC (Bld) [#/Vol] 0 10*3/uL Normal 0-5 [facility] Comment on above: Performed By: #### L 300.3900, L501.4021, L506.0400, L100.0100, L300.4310, L501.5200, L500.2500, L501.96236, L501.9520 #### [facility] [address] [place], [address] Platelet mean volume (Bld) [Entitic vol] 10.4 fL Normal 6.2-12.0 [facility] Comment on above: Performed By: #### L 300.3900, L501.4021, L506.0400, L100.0100, L300.4310, L501.5200, L500.2500, L501.09269, L501.9520 #### [facility] [address] [place], [address] Platelets (Bld) [#/Vol] 214 10*3/uL Normal 150-450 [facility] Comment on above: Performed By: #### L 300.3900, L501.4021, L506.0400, L100.0100, L300.4310, L501.5200, L500.2500, L501.98980, L501.9520 #### [facility] [address] [place], [address] RBC (Bld) [#/Vol] 4.54 10*6/uL Low 4.6-6.2 [facility] Comment on above: Performed By: #### L 300.3900, L501.4021, L506.0400, L100.0100, L300.4310, L501.5200, L500.2500, L501.59779, L501.9520 #### [facility] [address] [place], [address] RDW SD 44.1 fl High 35.1-43.9 [facility] Comment on above: Performed By: #### L 300.3900, L501.4021, L506.0400, L100.0100, L300.4310, L501.5200, L500.2500, L501.60793, L501.9520 #### [facility] [address] [place], [address] WBC (Bld) [#/Vol] 9.8 10*3/uL Normal 4.4-11.0 [facility] Comment on above: Performed By: #### L 300.3900, L501.4021, L506.0400, L100.0100, L300.4310, L501.5200, L500.2500, L501.52445, L501.9520 #### [facility] [address] [place], [address] Carbon dioxide, total [Moles /volume] in Central venous bloodOrdered By: Anibal Douglass on 06-15-2025 CO2 [Moles/Vol] 24.3 mmol/L 21.0-32.0 [facility] Chest PA and Lateralon 06-15 Chest PA and Lateral [facility] Imaging Services [address] [place] [address] Chest PA and Lateral MR#: [id number] Acct: [id number] Name: MICSTONE A Rep #: [id number] : 1945 M 79 From: Ozzie Bah PCP: [facility] Status: REG ER Study: Chest PA and Lateral Date of Exam: 06/15/25 Exam# [id number] Ordering Dr: Anibal Douglass DO PROCEDURE: CHEST PA AND LATERAL 06/15/2025 REASON FOR EXAM: CHEST PAIN TECHNIQUE: CHEST PA AND LATERAL COMPARISON: None. RAD/Chest PA and Lateral IMPRESSION: The cardiomediastinal silhouette is remarkable for postsurgical changes, including aortic valve replacement, and a partially calcified aorta. No evidence of cardiomegaly. Right upper quadrant abdominal surgical clips are seen. Moderate degenerative changes of the thoracic spine are seen, with multiple mild, likely chronic, wedge compressions of the mid thoracic spine. No subluxation is seen. Lungs appear clear of acute disease. No pleural effusion or pneumothorax is seen. Reading Location: [place] [address] CC: Dr. Anibal Douglass DO; [facility] Asphalt Engineer: Signed Normal [facility] Chloride assayOrdered By: Dillon Douglass on 06-15-2025 Chloride [Moles/Vol] 100 mmol/L 98-108 [facility] Emergency Department Summary on 06-15-2025 Emergency Department Summary [facility] Medical Records Department [address] [place] [address] Emergency Department Summary 06/15/25 MR#: [id number] Acct: [id number] Name: STONE HAILE Rep #: [id number] : 1945 79 From: Anibal Douglass DO PCP: [facility] Hospital Status:DEP ER Location: ED HPI History of Present Illness Chief Complaint: Dizziness Narrative Narrative: Patient is a 79-year-old male with a past medical history of hyperlipidemia, CAD status post CABG with aortic valve replacement, BPH, atrial fibrillation on warfarin, hypertension who presents to the emergency department the chief complaint of fatigue and lightheadedness. Patient states that this has been going on for approximately a week now that he has not been feeling his normal self and states that he called the [place] and they advised him to come to the emergency department to be evaluated. Patient states that he has been taking his medications as prescribed. He states that he does not believe that he is on any beta-blockers but he is a poor historian and cannot exactly tell me what medications he is on. Patient denies any history of blood clots. In the triage note it notes that he is dizzy after further clarification he is not dizzy he is lightheaded with his symptoms. He states that he is also had vision changes going off and on for a extended period of time and he notes that he will periodically see the lines in his vision. [facility] Medical History HLD (hyperlipidemia) Normocytic anemia History of alcohol abuse History of tobacco abuse Seasonal allergies Hypothyroidism Carotid artery stenosis CAD (coronary artery disease) BPH (benign prostatic hyperplasia) Elevated troponin Atrial fibrillation Fatigue HTN (hypertension) Home Medications ???Medication ???Instructions ???Recorded ???Last Taken ???Type amlodipine 5 mg tablet 5 mg PO DAILY 12/10/21 06/15/25 Hi story cetirizine 10 mg tablet 10 mg PO DAILY 12/10/21 06/15/25 H istory levothyroxine 125 mcg tablet 125 mcg PO DAILY 12/10/21 06/15/25 History metoprolol tartrate 25 mg tablet 25 mg PO BID 12/10/21 06/15/25 His tory apixaban 5 mg tablet (Eliquis) 5 mg PO BID #60 tabs 12/12/2105/19 Rx lisinopril 2.5 mg tablet 2.5 mg PO DAILY HTN 02/10/2306/15 History tamsulosin 0.4 mg capsule 0.8 mg (2 x 0.4 mg) PO QHS #60 cap s 02/12/23 06/14/25 Rx Allergy/AdvReac Type Severity Reaction Status Date / Time Sbvneso-OVU-DeW Reductase Allergy Other Verified 06/15/25 15:07 Inhibitor ibuprofen AdvReac Other Verified 06/15/25 15:07 Surgical History S/P AVR (aortic valve replacement) S/P CABG (coronary artery bypass graft) History of open heart surgery Hx of heart artery stent Heart valve replaced Social History household members: none Smoking Status: Former smoker substance use type: does not use ROS ROS ED ROS Narrative Constitutional: Denies headache, fever, chills Eyes: Complains of change in vision as noted above states that this has been going on for quite some time not new Cardiovascular: Denies chest pain Respiratory: Denies cough or wheezing shortness of breath Abdomen: Denies abdominal pain nausea vomit diarrhea : Denies urinary symptoms Neurological: Complains of generalized fatigue denies any numbness, weakness, tingling Musculoskeletal: Denies back pain Skin: Denies any rashes or lesions EXAM Physical Exam Narrative Exam Narrative: General: Patient was lying in bed rest comfortably did not appear to be acute distress Head: Atraumatic, normocephalic Eyes: PERRL bilaterally, EOMI bilateral, no conjunctival injection noted Neck: Soft, supple, trachea midline Cardiovascular: Patient is bradycardic with a regular rhythm Respiratory: Clear to auscultation bilaterally Abdomen: Soft, nondistended, nontender to palpation Extremities: +4/5 strength noted in the bilateral upper and lower extremities, radial pulses +2/4 in the bilateral extremities Neurological: Patient following commands knew that he was at [facility] the year is 2024 Skin: Warm, dry, intact no rashes or lesions noted Const Vital Signs: 06/15/25 15:05 06/15/25 15:15 06/15/25 15:32 Temperature 97.9 F Temperature Source Oral Pulse Rate 44 L 68 Respiratory Rate 16 20 H Blood Pressure 169/70 H Blood Pressure Mean 103 Pulse Ox 97 97 96 Oxygen Delivery Method Room Air Room Air 06/15/25 16:07 06/15/25 17:00 06/15/25 18:00 Temperature 98.1 F 98.1 F 98.3 F Temperature Source Oral Oral Oral Pulse Rate 60 59 L 57 L Respiratory Rate 18 15 16 Blood Pressure 157/82 H 164/81 H 166/78 H Blood Pressure Mean 107 108 (more content not included)... Normal [facility] Eosinophil percentageOrdered By: Anibal Douglass on 06-15-2025 Eosinophils/100 WBC (Bld) 2.1 % 0-5 [facility] Erythrocyte distribution wid th ratioOrdered By: Anibal Douglass on 06-15-2025 Erythrocyte distribution width (RBC) [Ratio] 13.2 % 11.6-14.6 [facility] Erythrocyte distribution wid th standard deviationOrdered By: Anibal Douglass on 06-15-2025 Erythrocyte distribution width (RBC) [Ratio] 44.1 fl High 35.1-43.9 [facility] Free T3on 06-15-2025 Free T3 [Mass/Vol] 2.4 pg/mL Normal 2.18-3.98 [facility] Comment on above: Performed By: #### L 300.3900, L501.4021, L506.0400, L100.0100, L300.4310, L501.5200, L500.2500, L501.71211, L501.9520 #### [facility] [address] [place], [address] Free F2Nyswagf By: Anibal quevedo on 06-15-2025 Free T3 [Mass/Vol] 2.4 pg/mL 2.18-3.98 [facility] Glomerular filtration rate ( GFR) estimation/1.73 sq m using serum, plasma, or whole bOrdered By: Anibal Douglass on 06-15-2025 GFR/1.73 sq M.predicted among non-blacks MDRD (S/P/Bld) [Vol rate/Area] 86 mL/min/{1.73_m2} >60 [facility] Comment on above: mL/min/1.73m2 CKD-EP I Creatinine Equation (2020) Hematocrit Auto (Bld) [Volum e fraction]Ordered By: Anibal Douglass on 06-15-2025 Hematocrit (Bld) [Volume fraction] 41.3 % 40-54 [facility] Hemoglobin measurementOrdere d By: Anibal Douglass on 06-15-2025 Hemoglobin (Bld) [Mass/Vol] 13.7 g/dL 13.0-16.5 [facility] Immature granulocytes/100 WB C Auto (Bld)Ordered By: Anibal Douglass on 06-15-2025 Immature granulocytes/100 WBC (Bld) 0.300 % 0.0-0.9 [facility] Comment on above: IG% - Immature Granu locytes (promyelocytes, myelocytes and metamyelocytes) > 1% indicates that a LEFT SHIFT is Present. International normalized rat io (INR) calculationOrdered By: Anibal Douglass on 06-15-2025 INR Coag (Bld) [Relative time] 1.1 {INR} [facility] L501.4021on 06-15-2025 Trop T High Sen 18 ng/L Normal <=22 [facility] Comment on above: Performed By: #### L 300.3900, L501.4021, L506.0400, L100.0100, L300.4310, L501.5200, L500.2500, L501.34904, L501.9520 #### [facility] [address] [place], [place], [id number] MCV (mean corpuscular volume ) determinationOrdered By: Anibal Douglass on 06-15-2025 MCV (RBC) [Entitic vol] 91.0 fL 80-94 [facility] Magnesiumon 06-15-2025 Magnesium [Mass/Vol] 1.8 mg/dL Normal 1.5-2.2 [facility] Comment on above: Performed By: #### L 300.3900, L501.4021, L506.0400, L100.0100, L300.4310, L501.5200, L500.2500, L501.29065, L501.9520 #### [facility] [address] [place], [place], [id number] Magnesium measurement (mass/ volume)Ordered By: Anibal Douglass on 06-15-2025 Magnesium (Unsp spec) [Mass/Vol] 1.8 mg/dL 1.5-2.2 [facility] Mean corpuscular hemoglobin (MCH) determinationOrdered By: Anibal Douglass on 06-15-2025 MCH (RBC) [Entitic mass] 30.2 pg 27.0-32.0 [facility] Mean corpuscular hemoglobin concentration (MCHC) determinationOrdered By: Anibal Douglass on 06-15-2025 MCHC (RBC) [Mass/Vol] 33.2 g/dL 32-36 [facility] Mean platelet volume determi nationOrdered By: Anibal Douglass on 06-15-2025 Platelet mean volume (Bld) [Entitic vol] 10.4 fL 6.2-12.0 [facility] Monocyte percentageOrdered B y: Anibal Douglass on 06-15-2025 Monocytes/100 WBC (Bld) 9.6 % 0-10 [facility] Neutrophil percentageOrdered By: Anibal Douglass on 06-15-2025 Neutrophils/100 WBC (Bld) 55.7 % 47-70 [facility] Nucleated red blood cell per centageOrdered By: Anibal Douglass on 06-15-2025 Nucleated RBC/100 WBC (Bld) [Ratio] 0 % 0-5 [facility] Partial Thromboplast Timeon 06-15-2025 aPTT Coag (Bld) [Time] 28.6 s Normal 24.1-36.2 [facility] Comment on above: Performed By: #### L 300.3900, L501.4021, L506.0400, L100.0100, L300.4310, L501.5200, L500.2500, L501.35397, L501.9520 #### [facility] [place], [address] Platelet countOrdered By: Dillon Douglass on 06-15-2025 Platelets (Bld) [#/Vol] 214 10*3/uL 150-450 [facility] Potassium measurement (mass/ volume)Ordered By: Anibal Douglass on 06-15-2025 Potassium (Unsp spec) [Mass/Vol] 4.7 mmol/L 3.3-5.1 [facility] Prothrombin Time w/INRon INR Coag (PPP) [Relative time] 1.1 {INR} Normal [facility] Comment on above: Performed By: #### L 300.3900, L501.4021, L506.0400, L100.0100, L300.4310, L501.5200, L500.2500, L501.56080, L501.9520 #### [facility] [address] [place], [place], [address] PT Coag (PPP) [Time] 14.1 s Normal 11.7-14.9 [facility] Comment on above: Performed By: #### L 300.3900, L501.4021, L506.0400, L100.0100, L300.4310, L501.5200, L500.2500, L501.98258, L501.9520 #### [facility] [address] [place], [place], [address] Prothrombin timeOrdered By: Anibal Douglass on 06-15-2025 PT Coag (PPP) [Time] 14.1 s 11.7-14.9 [facility] RBC Auto (Bld) [#/Vol]Ordere d By: Anibal Douglass on 06-15-2025 RBC (Bld) [#/Vol] 4.54 10*6/uL Low 4.6-6.2 [facility] Serum creatinine measurement (mass/volume)Ordered By: Anibal Douglass on 06-15-2025 Creatinine [Mass/Vol] 0.90 mg/dL 0.70-1.20 [facility] Serum glucose measurement (m ass/volume)Ordered By: Anibal Douglass on 06-15-2025 Glucose [Mass/Vol] 103 mg/dL High 70-99 [facility] Serum or plasma calcium corina urement (mass/volume)Ordered By: Anibal Douglass on 06-15-2025 Calcium [Mass/Vol] 9.7 mg/dL 7.6-11.0 [facility] Serum or plasma urea nitroge n measurement (mass/volume)Ordered By: Anibal Douglass on 06-15-2025 Urea nitrogen [Mass/Vol] 22 mg/dL High 4-19 [facility] Sodium levelOrdered By: Kevin Douglass on 06-15-2025 Sodium [Moles/Vol] 138 mmol/L 133-145 [facility] T4 Free Directon 06-15-2025 T4 FREE DIRECT 1.30 ng/dL Normal 0.76-1.46 [facility] Comment on above: Performed By: #### L 300.3900, L501.4021, L506.0400, L100.0100, L300.4310, L501.5200, L500.2500, L501.57367, L501.9520 #### [facility] [address] [place], [address] T4 freeOrdered By: Anibal quevedo on 06-15-2025 Free T4 [Mass/Vol] 1.30 ng/dL 0.76-1.46 [facility] TSH DL <= 0.005 mIU/L QnOrde red By: Anibal Douglass on 06-15-2025 TSH Qn 6.250 uIU/mL High 0.300-4.200 [facility] Thyroid Stim Hormone (TSH)on 06-15-2025 TSH 6.250 uIU/mL High 0.300-4.200 [facility] Comment on above: Performed By: #### L 300.3900, L501.4021, L506.0400, L100.0100, L300.4310, L501.5200, L500.2500, L501.44847, L501.9520 #### [facility] [address] [place], [place], [id number] Troponin T HS 2 HRon 025 Trop T High Sen 18 ng/L Normal <=22 [facility] Comment on above: Performed By: #### L 300.3900, L501.4021, L506.0400, L100.0100, L300.4310, L501.5200, L500.2500, L501.43291, L501.9520 #### [facility] [address] [place], [address] Troponin T HS 4 HRon 025 Trop T High Sen Normal <=22 [facility] Comment on above: Result Comment: pt d ischarged Performed By: #### L 300.3900, L501.4021, L506.0400, L100.0100, L300.4310, L501.5200, L500.2500, L501.62022, L501.9520 #### [facility] [address] [place], [place], [id number] Troponin T.cardiac [Mass/vol ume] in Serum or Plasma by High sensitivity methodOrdered By: Anibal Douglass on 06-15-2025 Troponin T.cardiac High sensitivity method [Mass/Vol] 18 ng/L <22 [facility] Troponin T.cardiac High sensitivity method [Mass/Vol] 18 ng/L <22 [facility] White blood cell (WBC) count Ordered By: Anibal Douglass on 06-15-2025 WBC (Bld) [#/Vol] 9.8 10*3/uL 4.4-11.0 [facility] Absolute lymphocyte countOrd ered By: Dr. Arciniega on 02-19-2023 Lymphocytes Auto (Unsp spec) [#/Vol] 1.50 10*3/uL 0.83-4.51 [facility] Basophil percentageOrdered B y: Dr. Arciniega on 02-19-2023 Basophils/100 WBC (Bld) 0.5 % 0-1 [facility] Chloride [Moles/Vol] 103 mmol/L 98-107 [facility] Eosin[facility]/100 WBC (Bld) 3.1 % 0-5 [facility] Glucose [Mass/Vol] 111 mg/dL 74-106 [facility] Comment on above: Fasting Glucose resu lt from 100 to 125 mg/dL suggests IMPAIRED HOMEOSTASIS per A.D.A. criteria. Neutrophils (Bld) [#/Vol] 5.0 10*3/uL 2.0-7.7 [facility] Neutrophils/100 WBC (Bld) 67.9 % 47-70 [facility] Potassium [Moles/Vol] 4.1 mmol/L 3.5-5.1 [facility] Sodium [Moles/Vol] 137 mmol/L 136-145 [facility] WBC (Bld) [#/Vol] 7.4 10*3/uL 4.4-11.0 [facility] Blood erythrocytes count (nu mber/volume)Ordered By: Dr. Arciniega on 02-19-2023 RBC (Bld) [#/Vol] 4.35 10*6/uL 4.6-6.2 [facility] Blood hemoglobin measurement (mass/volume)Ordered By: Dr. Arciniega on 02-19-2023 Hemoglobin (Bld) [Mass/Vol] 12.8 g/dL 13.0-16.5 [facility] Blood lymphocytes/100 leukoc ytesOrdered By: Dr. Arciniega on 02-19-2023 Lymphocytes/100 WBC (Bld) 20.4 % 19-41 [facility] Blood monocytes/100 leukocyt esOrdered By: Dr. Arciniega on 02-19-2023 Monocytes/100 WBC (Bld) 6.3 % 0-10 [facility] Blood platelet mean volumeOr dered By: Dr. Arciniega on 02-19-2023 Platelet mean volume (Bld) [Entitic vol] 8.7 fL 6.2-12.0 [facility] Determination of erythrocyte mean corpuscular volume (MCV)Ordered By: Dr. Arciniega on 02-19-2023 MCV (RBC) [Entitic vol] 88.5 fL 80-94 [facility] Hematocrit Auto (Bld) [Volum e fraction]Ordered By: Dr. Arciniega on 02-19-2023 Hematocrit (Bld) [Volume fraction] 38.5 % 40-54 [facility] Laboratory - Chemistry and C hemistry - challengeOrdered By: Dr. Arciniega on 02-19-2023 CO2 [Moles/Vol] 27.0 mmol/L 21.0-32.0 [facility] Urea nitrogen/Creatinine [Mass ratio] 17.0 mg/mg 10-20 [facility] Laboratory - Hematology and Cell countsOrdered By: Dr. Arciniega on 02-19-2023 Erythrocyte distribution width (RBC) [Entitic vol] 44.4 fL 35.1-43.9 [facility] Erythrocyte distribution width (RBC) [Ratio] 13.6 % 11.6-14.6 [facility] Immature granulocytes/100 WBC (Bld) 1.800 % 0.0-0.9 [facility] Comment on above: IG% - Immature Granu locytes (promyelocytes, myelocytes and metamyelocytes) > 1% indicates that a LEFT SHIFT is Present. MCH (RBC) [Entitic mass] 29.4 pg 27.0-32.0 [facility] Nucleated RBC/100 WBC (Bld) [Ratio] 0 % 0-5 [facility] MCHC Auto (RBC) [Mass/Vol]Or dered By: Dr. Arciniega on 02-19-2023 MCHC (RBC) [Mass/Vol] 33.2 g/dL 32-36 [facility] No Panel InformationOrdered By: Dr. Arciniega on 02-19-2023 Estimated Creatinine Clearance Calc 65.79 ml/min [facility] Estimated GFR (MDRD) Amer 100 mL/min >60 [facility] Comment on above: GFR Calc Estimated GFR (MDRD) Non-Af Amer 82 mL/min >60 [facility] Comment on above: Non- GFR Calc Platelets bldOrdered By: Dr. Arciniega on 02-19-2023 Platelets (Bld) [#/Vol] 279 10*3/uL 150-450 [facility] Serum or plasma calcium corina urement (mass/volume)Ordered By: Dr. Arciniega on 02-19-2023 Calcium [Mass/Vol] 9.0 mg/dL 8.5-10.1 [facility] Serum or plasma creatinine m easurement (mass/volume)Ordered By: Dr. Arciniega on 02-19-2023 Creatinine [Mass/Vol] 0.94 mg/dL 0.70-1.30 [facility] Comment on above: The validity of the calculated GFR & GFRAA in patients over 70 years has not been determined. Clinical correlation is essential. Serum or plasma urea nitroge n measurement (mass/volume)Ordered By: Dr. Arciniega on 02-19-2023 Urea nitrogen [Mass/Vol] 16 mg/dL 7-18 [facility] Thin prep Papanicolaou smear with manual screeningOrdered By: Dr. Arciniega on 02-19-2023 Thin prep Papanicolaou smear with manual screening 7 5-15 [facility] Laboratory - Microbiology an d Antimicrobial susceptibilityOrdered By: Dr. 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 Gutiérrez on 02-13-2023 Bacteria identified Cx Nom (Bld) Escherichia coli [facility] Culture, urineOrdered By: Dr Benson Gutiérrez on 02-12-2023 Bacteria identified Cx Nom (U) Escherichia coli [facility] Absolute lymphocyte countOrd ered By: Dr. Avery on 02-11-2023 Lymphocytes Auto (Unsp spec) [#/Vol] 0.93 10*3/uL 0.83-4.51 [facility] Basophil percentageOrdered B y: Dr. Avery on 02-11-2023 Basophils/100 WBC (Bld) 0.4 % 0-1 [facility] Chloride [Moles/Vol] 114 mmol/L 98-107 [facility] Eosinophils/100 WBC (Bld) 0.5 % 0-5 [facility] Glucose [Mass/Vol] 144 mg/dL 74-106 [facility] Comment on above: Fasting Glucose resu lt greater than or equal to 126 mg/dL suggests DIABETES MELLITUS per A.D.A. criteria. Neutrophils (Bld) [#/Vol] 8.8 10*3/uL 2.0-7.7 [facility] Neutrophils/100 WBC (Bld) 84.2 % 47-70 [facility] Potassium [Moles/Vol] 4.0 mmol/L 3.5-5.1 [facility] Sodium [Moles/Vol] 140 mmol/L 136-145 [facility] WBC (Bld) [#/Vol] 10.4 10*3/uL 4.4-11.0 [facility] Blood erythrocytes count (nu mber/volume)Ordered By: Dr. Avery on 02-11-2023 RBC (Bld) [#/Vol] 3.82 10*6/uL 4.6-6.2 [facility] Blood hemoglobin measurement (mass/volume)Ordered By: Dr. Avery on 02-11-2023 Hemoglobin (Bld) [Mass/Vol] 11.5 g/dL 13.0-16.5 [facility] Blood lymphocytes/100 leukoc ytesOrdered By: Dr. Avery on 02-11-2023 Lymphocytes/100 WBC (Bld) 8.9 % 19-41 [facility] Blood monocytes/100 leukocyt esOrdered By: Dr. Avery on 02-11-2023 Monocytes/100 WBC (Bld) 5.4 % 0-10 [facility] Blood platelet mean volumeOr dered By: Dr. Avery on 02-11-2023 Platelet mean volume (Bld) [Entitic vol] 10.3 fL 6.2-12.0 [facility] Determination of erythrocyte mean corpuscular volume (MCV)Ordered By: Dr. Avery on 02-11-2023 MCV (RBC) [Entitic vol] 93.7 fL 80-94 [facility] Hematocrit Auto (Bld) [Volum e fraction]Ordered By: Dr. Avery on 02-11-2023 Hematocrit (Bld) [Volume fraction] 35.8 % 40-54 [facility] Laboratory - Chemistry and C hemistry - challengeOrdered By: Dr. Avery on 02-11-2023 CO2 [Moles/Vol] 21.0 mmol/L 21.0-32.0 [facility] Urea nitrogen/Creatinine [Mass ratio] 31.1 mg/mg 10-20 [facility] Laboratory - Hematology and Cell countsOrdered By: Dr. Avery on 02-11-2023 Erythrocyte distribution width (RBC) [Entitic vol] 50.3 fL 35.1-43.9 [facility] Erythrocyte distribution width (RBC) [Ratio] 14.6 % 11.6-14.6 [facility] Immature granulocytes/100 WBC (Bld) 0.600 % 0.0-0.9 [facility] Comment on above: IG% - Immature Granu locytes (promyelocytes, myelocytes and metamyelocytes) > 1% indicates that a LEFT SHIFT is Present. MCH (RBC) [Entitic mass] 30.1 pg 27.0-32.0 [facility] Nucleated RBC/100 WBC (Bld) [Ratio] 0 % 0-5 [facility] MCHC Auto (RBC) [Mass/Vol]Or dered By: Dr. Avery on 02-11-2023 MCHC (RBC) [Mass/Vol] 32.1 g/dL 32-36 [facility] No Panel InformationOrdered By: Dr. Avery on 02-11-2023 Estimated Creatinine Clearance Calc 71.09 ml/min [facility] Estimated GFR (MDRD) Amer 109 mL/min >60 [facility] Comment on above: GFR Calc Estimated GFR (MDRD) Non-Af Amer 90 mL/min >60 [facility] Comment on above: Non- GFR Calc Platelets bldOrdered By: Dr. Avery on 02-11-2023 Platelets (Bld) [#/Vol] 127 10*3/uL 150-450 [facility] Serum or plasma calcium corina urement (mass/volume)Ordered By: Dr. Avery on 02-11-2023 Calcium [Mass/Vol] 7.8 mg/dL 8.5-10.1 [facility] Serum or plasma creatinine m easurement (mass/volume)Ordered By: Dr. Avery on 02-11-2023 Creatinine [Mass/Vol] 0.87 mg/dL 0.70-1.30 [facility] Comment on above: The validity of the calculated GFR & GFRAA in patients over 70 years has not been determined. Clinical correlation is essential. Serum or plasma urea nitroge n measurement (mass/volume)Ordered By: Dr. Avery on 02-11-2023 Urea nitrogen [Mass/Vol] 27 mg/dL 7-18 [facility] Thin prep Papanicolaou smear with manual screeningOrdered By: Dr. Avery on 02-11-2023 Thin prep Papanicolaou smear with manual screening 5 5-15 [facility] Absolute lymphocyte countOrd ered By: Dr. Gutiérrez on 02-10-2023 Lymphocytes Auto (Unsp spec) [#/Vol] 0.70 10*3/uL 0.83-4.51 [facility] Basophil percentageOrdered B y: Dr. Gutiérrez on 02-10-2023 Lactate [Moles/Vol] 2.1 mmol/L 0.4-2.0 [facility] Comment on above: Critical Result(s) C alled at: 14:19:02 02/10/2023 by: Kishor Nails RN (MS3). Results read back by same. Basophil percentage 25-50 SEEN /hpf 0-5 [facility] Basophils/100 WBC (Bld) 0.3 % 0-1 [facility] Bilirubin [Mass/Vol] 1.10 mg/dL 0.20-1.00 [facility] Comment on above: For patients on eltr ombopag therapy, use of Dimension [place] TBIL is not recommended. Chloride [Moles/Vol] 103 mmol/L 98-107 [facility] Eosinophils/100 WBC (Bld) 0.1 % 0-5 [facility] Glucose [Mass/Vol] 204 mg/dL 74-106 [facility] Comment on above: Glucose result great er than or equal to 200 mg/dLsuggests DIABETES MELLITUS per A.D.A. criteria. Lactate [Moles/Vol] 5.5 mmol/L 0.4-2.0 [facility] Comment on above: Critical Result(s) C alled at: 09:41:59 02/10/2023 by: Kishor Castro RN (ER). Results read back by same. Neutrophils (Bld) [#/Vol] 8.6 10*3/uL 2.0-7.7 [facility] Neutrophils/100 WBC (Bld) 91.1 % 47-70 [facility] Potassium [Moles/Vol] 4.1 mmol/L 3.5-5.1 [facility] Protein [Mass/Vol] 8.1 g/dL 6.4-8.2 [facility] Sodium [Moles/Vol] 136 mmol/L 136-145 [facility] WBC (Bld) [#/Vol] 9.4 10*3/uL 4.4-11.0 [facility] Bilirubin Test strip Ql (U)O rdered By: Dr. Gutiérrez on 02-10-2023 Bilirubin Ql (U) Negative Negative [facility] Blood erythrocytes count (nu mber/volume)Ordered By: Dr. Gutiérrez on 02-10-2023 RBC (Bld) [#/Vol] 5.04 10*6/uL 4.6-6.2 [facility] Blood hemoglobin measurement (mass/volume)Ordered By: Dr. Gutiérrez on 02-10-2023 Hemoglobin (Bld) [Mass/Vol] 14.8 g/dL 13.0-16.5 [facility] Blood lymphocytes/100 leukoc ytesOrdered By: Dr. Gutiérrez on 02-10-2023 Lymphocytes/100 WBC (Bld) 7.4 % 19-41 [facility] Blood monocytes/100 leukocyt esOrdered By: Dr. Gutiérrez on 02-10-2023 Monocytes/100 WBC (Bld) 1.0 % 0-10 [facility] Blood platelet mean volumeOr dered By: Dr. Gutiérrez on 02-10-2023 Platelet mean volume (Bld) [Entitic vol] 10.0 fL 6.2-12.0 [facility] Determination of erythrocyte mean corpuscular volume (MCV)Ordered By: Dr. Gutiérrez on 02-10-2023 MCV (RBC) [Entitic vol] 90.9 fL 80-94 [facility] Hematocrit Auto (Bld) [Volum e fraction]Ordered By: Dr. Gutiérrez on 02-10-2023 Hematocrit (Bld) [Volume fraction] 45.8 % 40-54 [facility] INR in Blood by Coagulation assayOrdered By: Dr. Gutiérrez on 02-10-2023 INR Coag (Bld) [Relative time] 1.4 {INR} [facility] Influenza virus A and B and SARS-CoV-2 (COVID-19) Ag panel - Upper respiratory specimOrdered By: Dr. Gutiérrez on 02-10-2023 SARS-CoV-2 (COVID-19) RNA RAJNI+probe Ql (Resp) [facility] Ketones Test strip Ql (U)Ord ered By: Dr. Gutiérrez on 02-10-2023 Ketones Ql (U) 5 mg/dl Negative [facility] Laboratory - Chemistry and C hemistry - challengeOrdered By: Dr. Gutiérrez on 02-10-2023 ALP [Catalytic activity/Vol] 79 U/L 45-117 [facility] ALT [Catalytic activity/Vol] 25 U/L 16-61 [facility] CO2 [Moles/Vol] 21.0 mmol/L 21.0-32.0 [facility] Globulin (S) [Mass/Vol] 4.5 g/dL 2.2-4.2 [facility] Urea nitrogen/Creatinine [Mass ratio] 21.4 mg/mg 10-20 [facility] Laboratory - CoagulationOrde red By: Dr. Gutiérrez on 02-10-2023 aPTT Coag (Bld) [Time] 29.4 s 24.1-36.2 [facility] PT Coag (PPP) [Time] 17.0 s 11.7-14.9 [facility] Laboratory - Hematology and Cell countsOrdered By: Dr. Gutiérrez on 02-10-2023 Erythrocyte distribution width (RBC) [Entitic vol] 46.6 fL 35.1-43.9 [facility] Erythrocyte distribution width (RBC) [Ratio] 14.0 % 11.6-14.6 [facility] Immature granulocytes/100 WBC (Bld) 0.100 % 0.0-0.9 [facility] Comment on above: IG% - Immature Granu locytes (promyelocytes, myelocytes and metamyelocytes) > 1% indicates that a LEFT SHIFT is Present. MCH (RBC) [Entitic mass] 29.4 pg 27.0-32.0 [facility] Nucleated RBC/100 WBC (Bld) [Ratio] 0 % 0-5 [facility] MCHC Auto (RBC) [Mass/Vol]Or dered By: Dr. Gutiérrez on 02-10-2023 MCHC (RBC) [Mass/Vol] 32.3 g/dL 32-36 [facility] Mucus LM Ql (Urine sed)Order ed By: Dr. Gutiérrez on 02-10-2023 Mucus Ql (Urine sed) 0 SEEN /hpf [facility] Nitrite Test strip Ql (U)Ord ered By: Dr. Gutiérrez on 03-26-2023 Nitrite Ql (U) Positive Negative [facility] No Panel InformationOrdered By: Dr. Gutiérrez on 02-10-2023 Estimated Creatinine Clearance Calc 44.18 ml/min [facility] Estimated GFR (MDRD) Amer 63 mL/min >60 [facility] Comment on above: GFR Calc Estimated GFR (MDRD) Non-Af Amer 52 mL/min >60 [facility] Comment on above: Non- GFR Calc Platelets bldOrdered By: Dr. Gutiérrez on 02-10-2023 Platelets (Bld) [#/Vol] 183 10*3/uL 150-450 [facility] Protein Test strip Ql (U)Ord ered By: Dr. Gutiérrez on 02-10-2023 Protein Ql (U) 100 mg/dl Negative [facility] Serum or plasma albumin corina urement (mass/volume)Ordered By: Dr. Gutiérrez on 02-10-2023 Albumin [Mass/Vol] 3.6 g/dL 3.2-5.0 [facility] Serum or plasma albumin/glob ulin mass ratioOrdered By: Dr. Gutiérrez on 02-10-2023 Albumin/Globulin [Mass ratio] 0.8 {ratio} 0.9-2.4 [facility] Serum or plasma calcium corina urement (mass/volume)Ordered By: Dr. Gutiérrez on 02-10-2023 Calcium [Mass/Vol] 9.2 mg/dL 8.5-10.1 [facility] Serum or plasma creatinine m easurement (mass/volume)Ordered By: Dr. Gutiérrez on 02-10-2023 Creatinine [Mass/Vol] 1.40 mg/dL 0.70-1.30 [facility] Comment on above: The validity of the calculated GFR & GFRAA in patients over 70 years has not been determined. Clinical correlation is essential. Serum or plasma urea nitroge n measurement (mass/volume)Ordered By: Dr. Gutiérrez on 02-10-2023 Urea nitrogen [Mass/Vol] 30 mg/dL 7-18 [facility] Squamous epithelial cells de tection in urine sediment by light microscopyOrdered By: Dr. Gutiérrez on 02-10-2023 Epithelial cells.squamous LM Ql (Urine sed) 0 SEEN /hpf 0-5 [facility] Thin prep Papanicolaou smear with manual screeningOrdered By: Dr. Gutiérrez on 02-10-2023 Thin prep Papanicolaou smear with manual screening 15 U/L 15-37 [facility] Thin prep Papanicolaou smear with manual screening 12 5-15 [facility] Urine blood detectionOrdered By: Dr. Gutiérrez on 02-10-2023 RBC Ql (U) 150 /ul Negative [facility] RBC Ql (U) 10-25 SEEN /hpf 0-5 [facility] Urine clarityOrdered By: Dr. Gutiérrez on 02-10-2023 Clarity (U) Sl. Cloudy Clear [facility] Urine color determinationOrd ered By: Dr. Gutiérrez on 02-10-2023 Color (U) Yellow Yellow [facility] Urine glucose detectionOrder ed By: Dr. Gutiérrez on 02-10-2023 Glucose Ql (U) Normal mg/dl Normal [facility] Urine leukocyte esterase det ection by dipstickOrdered By: Dr. Gutiérrez on 02-10-2023 Leukocyte esterase Test strip Ql (U) 100 /ul Negative [facility] Urine pHOrdered By: Dr. Shaun champagne on 02-10-2023 pH (U) 6.0 [pH] 5.0 - 8.0 [facility] Urine sediment bacteria coun t by microscopy (number/high power field)Ordered By: Dr. Gutiérrez on 02-10-2023 Bacteria LM.HPF (Urine sed) [#/Area] 3 /[HPF] None Seen [facility] Urine specific gravity measu rementOrdered By: Dr. Gutiérrez on 02-10-2023 Specific gravity (U) [Rel density] 1.015 1.002-1.030 [facility] Urobilinogen Auto test strip Ql (U)Ordered By: Dr. Gutiérrez on 02-10-2023 Urobilinogen Ql (U) Normal mg/dl Normal [facility] Absolute lymphocyte counton 12-12-2021 Lymphocytes Auto (Unsp spec) [#/Vol] 2.16 10*3/uL 0.83-4.51 [facility] Work Phone: Basophil percentageon 2021 Basophils/100 WBC (Bld) 0.6 % 0-1 [facility] Work Phone: [phone] Bilirubin [Mass/Vol] 0.40 mg/dL 0.20-1.00 [facility] Work Phone: Comment on above: For patients on eltr ombopag therapy, use of Dimension [place] TBIL is not recommended. Chloride [Moles/Vol] 102 mmol/L 98-107 [facility] Work Phone: Eosinophils/100 WBC (Bld) 2.9 % 0-5 [facility] Work Phone: Glucose [Mass/Vol] 119 mg/dL 74-106 [facility] Work Phone: Comment on above: Fasting Glucose resu lt from 100 to 125 mg/dL suggests IMPAIRED HOMEOSTASIS per A.D.A. criteria. Neutrophils (Bld) [#/Vol] 5.2 10*3/uL 2.0-7.7 [facility] Work Phone: Neutrophils/100 WBC (Bld) 62.3 % 47-70 [facility] Work Phone: Potassium [Moles/Vol] 4.2 mmol/L 3.5-5.1 [facility] Work Phone: Protein [Mass/Vol] 7.4 g/dL 6.4-8.2 [facility] Work Phone: Sodium [Moles/Vol] 135 mmol/L 136-145 [facility] Work Phone: [phone] WBC (Bld) [#/Vol] 8.3 10*3/uL 4.4-11.0 [facility] Work Phone: Blood erythrocytes count (nu mber/volume)on 12-12-2021 RBC (Bld) [#/Vol] 3.91 10*6/uL 4.6-6.2 [facility] Work Phone: Blood hemoglobin measurement (mass/volume)on 12-12-2021 Hemoglobin (Bld) [Mass/Vol] 11.4 g/dL 13.0-16.5 [facility] Work Phone: Blood lymphocytes/100 leukoc yteson 12-12-2021 Lymphocytes/100 WBC (Bld) 26.2 % 19-41 [facility] Work Phone: Blood monocytes/100 leukocyt eson 12-12-2021 Monocytes/100 WBC (Bld) 7.5 % 0-10 [facility] Work Phone: Blood platelet mean volumeon 12-12-2021 Platelet mean volume (Bld) [Entitic vol] 9.7 fL 6.2-12.0 [facility] Work Phone: Determination of erythrocyte mean corpuscular volume (MCV)on 12-12-2021 MCV (RBC) [Entitic vol] 88.5 fL 80-94 [facility] Work Phone: Hematocrit Auto (Bld) [Volum e fraction]on 12-12-2021 Hematocrit (Bld) [Volume fraction] 34.6 % 40-54 [facility] Work Phone: Laboratory - Chemistry and C hemistry - challengeon 12-12-2021 ALP [Catalytic activity/Vol] 80 U/L 45-117 [facility] Work Phone: ALT [Catalytic activity/Vol] 19 U/L 16-61 [facility] Work Phone: CO2 [Moles/Vol] 25.0 mmol/L 21.0-32.0 [facility] Work Phone: Free T4 [Mass/Vol] 1.39 ng/dL 0.76-1.46 [facility] Work Phone: Globulin (S) [Mass/Vol] 4.2 g/dL 2.2-4.2 [facility] Work Phone: Urea nitrogen/Creatinine [Mass ratio] 27.7 mg/mg 10-20 [facility] Work Phone: Laboratory - Coagulationon 0 12-12-2021 aPTT Coag (Bld) [Time] 57.0 s 24.1-36.2 [facility] Work Phone: Laboratory - Hematology and Cell countson 12-12-2021 Erythrocyte distribution width (RBC) [Entitic vol] 43.7 fL 35.1-43.9 [facility] Work Phone: Erythrocyte distribution width (RBC) [Ratio] 13.4 % 11.6-14.6 [facility] Work Phone: Immature granulocytes/100 WBC (Bld) 0.500 % 0.0-0.9 [facility] Work Phone: Comment on above: IG% - Immature Granu locytes (promyelocytes, myelocytes and metamyelocytes) > 1% indicates that a LEFT SHIFT is Present. MCH (RBC) [Entitic mass] 29.2 pg 27.0-32.0 [facility] Work Phone: Nucleated RBC/100 WBC (Bld) [Ratio] 0 % 0-5 [facility] Work Phone: MCHC Auto (RBC) [Mass/Vol]on 12-12-2021 MCHC (RBC) [Mass/Vol] 32.9 g/dL 32-36 [facility] Work Phone: No Panel Informationon 12-12 Estimated Creatinine Clearance Calc 62.24 ml/min [facility] Work Phone: Estimated GFR (MDRD) Amer 92 mL/min >60 [facility] Work Phone: Comment on above: GFR Calc Estimated GFR (MDRD) Non-Af Amer 76 mL/min >60 [facility] Work Phone: Comment on above: Non- GFR Calc Platelets bldon 12-12-2021 Platelets (Bld) [#/Vol] 411 10*3/uL 150-450 [facility] Work Phone: Serum or plasma albumin corina urement (mass/volume)on 12-12-2021 Albumin [Mass/Vol] 3.2 g/dL 3.2-5.0 [facility] Work Phone: Serum or plasma albumin/glob ulin mass ratioon 12-12-2021 Albumin/Globulin [Mass ratio] 0.8 {ratio} 0.9-2.4 [facility] Work Phone: Serum or plasma calcium corina urement (mass/volume)on 12-12-2021 Calcium [Mass/Vol] 8.8 mg/dL 8.5-10.1 [facility] Work Phone: Serum or plasma creatinine m easurement (mass/volume)on 12-12-2021 Creatinine [Mass/Vol] 1.01 mg/dL 0.70-1.30 [facility] Work Phone: Comment on above: The validity of the calculated GFR & GFRAA in patients over 70 years has not been determined. Clinical correlation is essential. Serum or plasma urea nitroge n measurement (mass/volume)on 12-12-2021 Urea nitrogen [Mass/Vol] 28 mg/dL 7-18 [facility] Work Phone: Thin prep Papanicolaou smear with manual screeningon 12-12-2021 Thin prep Papanicolaou smear with manual screening 12 U/L 15-37 [facility] Work Phone: Thin prep Papanicolaou smear with manual screening 8 5-15 [facility] Work Phone: Whole blood hemoglobin A1c/t otal hemoglobin ratio (mass fraction)on 12-12-2021 HbA1c (Bld) [Mass fraction] 6.2 % 3.8-5.6 [facility] Work Phone: Comment on above: Normal < 5.7 % Predi abetic 5.7 - 6.4 % Diabetic >or= 6.5 % Please note range changes. Basophil percentageon 2021 Cholesterol [Mass/Vol] 167 mg/dL <200 [facility] Work Phone: Comment on above: <200 mg/dL Desirable 200-240 mg/dL Borderline >240 mg/dL High Risk Triglyceride [Mass/Vol] 122 mg/dL [facility] Work Phone: Comment on above: The drugs N-Acetylcy steine and Metamizole may falsely depress this assay.Serum Triglycerides Reference Interval Normal <150 mg/dL Borderline high 150 - 199 mg/dL High 200 - 499 mg/dL Very High > or = 500 mg/dL Basophil percentage 4.4 mg/dL 2.5-4.9 [facility] Work Phone: Laboratory - Chemistry and C hemistry - challengeon 12-11-2021 Magnesium [Mass/Vol] 1.8 mg/dL 1.6-2.6 [facility] Work Phone: No Panel Informationon 12-11 Thyroid Stimulating Hormone (TSH) 8.45 uIU/mL 0.358-3.74 [facility] Work Phone: Serum or plasma cholesterol in HDL measurement (mass/volume)on 12-11-2021 Cholesterol in HDL [Mass/Vol] 36 mg/dL [facility] Work Phone: Comment on above: The drugs N-Acetylcy steine and Metamizole may falsely depress this assay. Reference Range HDL <40 mg/dL Low HDL Cholesterol HDL >or= 60 mg/dL High HDL Cholesterol Serum or plasma cholesterol in VLDL measurement (mass/volume)on 12-11-2021 Cholesterol in VLDL [Mass/Vol] 24 mg/dL 5-40 [facility] Work Phone: Serum or plasma low density lipoprotein (LDL) cholesterol measurement (mass/volume)on 12-11-2021 Cholesterol in LDL [Mass/Vol] 107 mg/dL 0-130 [facility] Work Phone: Basophil percentageon 2021 Basophil percentage 0 SEEN /hpf [facility] Work Phone: Bilirubin Test strip Ql (U)o n 12-10-2021 Bilirubin Ql (U) Negative Negative [facility] Work Phone: INR in Blood by Coagulation assayon 12-10-2021 INR Coag (Bld) [Relative time] 1.1 {INR} [facility] Work Phone: Ketones Test strip Ql (U)on 12-10-2021 Ketones Ql (U) Negative Negative [facility] Work Phone: Laboratory - Coagulationon 0 12-10-2021 PT Coag (PPP) [Time] 13.9 s 11.7-14.[address] [facility] Work Phone: Mucus LM Ql (Urine sed)on Mucus Ql (Urine sed) 0 SEEN /hpf [facility] Work Phone: Nitrite Test strip Ql (U)on 12-10-2021 Nitrite Ql (U) Negative Negative [facility] Work Phone: No Panel Informationon 12-10 Troponin I High Sensitivity 187 pg/mL 3.0-78.0 [facility] Work Phone: Comment on above: Critical Result(s) C alled at: 17:28:35 12/10/2021 by: axel hargrove to Juliette Mchugh RN PCU. Results read back by same. Please Note: New Test Units and Gender Specific Reference Ranges. For more information see Policy Stat Procedure [place] High Sensitivity Troponin (TNIH) and attachments. D-Dimer Quantitative (PE/DVT) 9.25 FEU/ug/m 0.27-0.49 [facility] Work Phone: Comment on above: D-Dimer ELEVATED (>0 .49): Additional studies and clinicalassessments are indicated to conclude diagnosis of:Deep Vein Thrombosis (DVT) or Pulmonary Embolism (PE)CRITICAL VALUE VERIFIED. CALLED TO GINETTE JURADO12/10/21 1046 Celia Romo.RESULTS READ BACK BY SAME . SARS-CoV-2 Antigen (Rapid) [facility] Work Phone: Protein Test strip Ql (U)on 12-10-2021 Protein Ql (U) 15 mg/dl Negative [facility] Work Phone: Squamous epithelial cells de tection in urine sediment by light microscopyon 12-10-2021 Epithelial cells.squamous LM Ql (Urine sed) 0-5 SEEN /hpf [facility] Work Phone: Urine blood detectionon 11-19 RBC Ql (U) Negative Negative [facility] Work Phone: RBC Ql (U) 0 SEEN /hpf [facility] Work Phone: Urine clarityon 12-10-2021 Clarity (U) Sl. Cloudy Clear [facility] Work Phone: Urine color determinationon 12-10-2021 Color (U) Yellow Yellow [facility] Work Phone: Urine glucose detectionon Glucose Ql (U) Normal mg/dl Normal [facility] Work Phone: Urine leukocyte esterase det ection by dipstickon 12-10-2021 Leukocyte esterase Test strip Ql (U) Negative Negative [facility] Work Phone: Urine pHon 12-10-2021 pH (U) 6.0 [pH] [facility] Work Phone: Urine sediment bacteria coun t by microscopy (number/high power field)on 12-10-2021 Bacteria LM.HPF (Urine sed) [#/Area] RARE /hpf None Seen [facility] Work Phone: Urine specific gravity measu rementon 12-10-2021 Specific gravity (U) [Rel density] 1.020 [facility] Work Phone: Urobilinogen Auto test strip Ql (U)on 12-10-2021 Urobilinogen Ql (U) Normal mg/dl Normal [facility] Work Phone: Vital Signs Date Time Vital Sign Value Performing Clinician Faci lity 06-15-2025 19:22-0400 Body temperature 97.8 [degF] [facility] 06-15-2025 19:22-0400 Diastolic blood pressure 87 mm[Hg] [facility] 06-15-2025 19:22-0400 Heart rate 62 /min [facility] 06-15-2025 19:22-0400 Respiratory rate 20 /min [facility] 06-15-2025 19:22-0400 SaO2% (BldA) [Mass fraction] 95 % [facility] 06-15-2025 19:22-0400 Systolic blood pressure 140 mm[Hg] [facility] 06-15-2025 15:05-0400 Body height 177.8 cm [facility] 06-15-2025 15:05-0400 Body mass index (BMI) [Ratio] 30.4 kg/m2 [facility] 06-15-2025 15:05-0400 Body weight 96.29 kg [facility] 02-19-2023 18:03-0400 Heart rate 71 /min [facility] 02-19-2023 18:03-0400 Respiratory rate 22 /min [facility] 02-19-2023 18:01-0400 Diastolic blood pressure 74 mm[Hg] [facility] 02-19-2023 18:01-0400 SaO2% (BldA) [Mass fraction] 95 % [facility] 02-19-2023 18:01-0400 Systolic blood pressure 169 mm[Hg] [facility] 02-19-2023 16:57-0400 Body temperature 99.2 [degF] [facility] 02-19-2023 16:53-0400 Body height 177.8 cm [facility] 02-19-2023 16:53-0400 Body mass index (BMI) [Ratio] 31.9 kg/m2 [facility] 02-19-2023 16:53-0400 Body weight 101.06 kg [facility] 02-12-2023 11:12-0400 Body temperature 98.4 [degF] [facility] 02-12-2023 11:12-0400 Diastolic blood pressure 74 mm[Hg] [facility] 02-12-2023 11:12-0400 Heart rate 62 /min [facility] 02-12-2023 11:12-0400 Respiratory rate 16 /min [facility] 02-12-2023 11:12-0400 SaO2% (BldA) [Mass fraction] 96 % [facility] 02-12-2023 11:12-0400 Systolic blood pressure 145 mm[Hg] [facility] 02-10-2023 13:15-0400 Body height 177.8 cm [facility] 02-10-2023 13:15-0400 Body mass index (BMI) [Ratio] 31.7 kg/m2 [facility] 02-10-2023 13:15-0400 Body weight 100.33 kg [facility] 02-10-2023 12:52-0400 Body temperature 99.7 [degF] [facility] 02-10-2023 12:52-0400 Diastolic blood pressure 60 mm[Hg] [facility] 02-10-2023 12:52-0400 Heart rate 79 /min [facility] 02-10-2023 12:52-0400 Respiratory rate 19 /min [facility] 02-10-2023 12:52-0400 SaO2% (BldA) [Mass fraction] 94 % [facility] 02-10-2023 12:52-0400 Systolic blood pressure 96 mm[Hg] [facility] 02-10-2023 08:34-0400 Body mass index (BMI) [Ratio] 32.1 kg/m2 [facility] 02-10-2023 08:34-0400 Body weight 101.5 kg [facility] 02-10-2023 08:22-0400 Body height 177.8 cm [facility] 03-02-2022 13:02-0400 Body height 177.[address] Tamia Mccray Work Phone: [facility] Work Phone: 03-02-2022 13:02-0400 Body weight 90.[address] Tamia Mccray Work Phone: [facility] Work Phone: 01-31-2022 14:07-0400 Body height 177.[address] Tamia Mccray Work Phone: [facility] Work Phone: 01-31-2022 14:07-0400 Body weight 90.[address] Tamia Mccray Work Phone: [facility] Work Phone: 01-31-2022 14:02-0400 Body mass index (BMI) [Ratio] 28.5 kg/m2 Dr. Tamia Mccray Work Phone: [facility] Work Phone: 01-31-2022 14:02-0400 Heart rate 59 /min Dr. Tamia Mccray Work Phone: [facility] Work Phone: 01-31-2022 14:02-0400 SaO2% (BldA) [Mass fraction] 98 % Dr. Tamia Mccray Work Phone: [facility] Work Phone: 12-12-2021 07:24-0500 Body temperature 97.7 [degF] Dr. Tamia Mccray Work Phone: [facility] Work Phone: 12-12-2021 07:24-0500 Diastolic blood pressure 62 mm[Hg] Dr. Tamia Mccray Work Phone: [facility] Work Phone: 12-12-2021 07:24-0500 Heart rate 74 /min Dr. Tamia Mccray Work Phone: [facility] Work Phone: 12-12-2021 07:24-0500 Respiratory rate 16 /min Dr. Tamia Mccray Work Phone: [facility] Work Phone: 12-12-2021 07:24-0500 SaO2% (BldA) [Mass fraction] 100 % Dr. Tamia Mccray Work Phone: [facility] Work Phone: 12-12-2021 07:24-0500 Systolic blood pressure 117 mm[Hg] Dr. Tamia Mccray Work Phone: [facility] Work Phone: 12-12-2021 04:53-0500 Body weight 86.[address] Tamia Mccray Work Phone: [facility] Work Phone: 12-10-2021 15:17-0500 Body mass index (BMI) [Ratio] 27.7 kg/m2 Dr. Tamia Mccray Work Phone: [facility] Work Phone: Encounters Encounter Date Encounter Type Care Provider Facility Start: 06-17-2025 End: 06-17-2025 Emergency department patient visit BRENDA CAVAZOS MD [facility] Start: 06-15-2025 End: 06-15-2025 Emergency department patient visit [facility] Work Phone: Start: 02-19-2023 End: 02-19-2023 Emergency department patient visit [facility] Start: 02-12-2023 Non-patient / Non-visit [facility] Start: 02-11-2023 Non-patient / Non-visit [facility] Start: 02-10-2023 Non-patient / Non-visit [facility] Start: 02-10-2023 End: 02-12-2023 Evaluation and management of inpatient [facility] Start: 02-10-2023 End: 02-10-2023 Emergency department patient visit [facility] Start: 03-16-2022 End: 03-17-[address] Tamia Mccray Work Phone: [facility] Start: 02-12-2022 End: 02-15-[address] Tamia Mccray Work Phone: [facility] Start: 01-31-2022 End: 01-31-[address] Tamia Mccray Work Phone: [facility] Start: 12-12-2021 Non-patient / Non-visit Dr. Shanna Mccray Work Phone: [facility] Start: 12-12-2021 Non-patient / Non-visit Dr. Shanna Mccray Work Phone: [facility] Start: 12-11-2021 Non-patient / Non-visit Dr. Shanna Mccray Work Phone: [facility] Start: 12-10-2021 Non-patient / Non-visit Dr. Shanna Mccray Work Phone: [facility] Start: 12-10-2021 End: 12-12-2021 Evaluation and management of inpatient Dr. Tamia Mccray Work Phone: [facility] Procedures Date Procedure Procedure Detail Performing Clinician Start: 06-15-2025 X-ray of chest, PA a nd lateral views [facility] Start: 06-15-2025 CT of head without contrast [facility] Start: 06-15-2025 Estimated creatinine clearance [facility] Start: 02-10-2023 Plain chest X-ray [facility] Start: 12-10-2021 SARS-CoV-2 Antigen (Rapid) Dr. Tamia Mccray Work Phone: Start: 12-10-2021 CT angiography of ch est with contrast Dr. Tamia Mccray Work Phone: Start: 12-10-2021 Plain chest X-ray Dr. Cristino Mccray Work Phone: Bacteria identified in Blood by Culture [facility] Bacteria identified in Blood by Culture [facility] SARS-CoV-2 & FLU Ant igen (Rapid) [facility] Urine culture [facility] Plan of Treatment Date Care Activity Detail Author Start: 06-15-2025 [facility] Start: 02-19-2023 Plain chest X-ray Chest PA and Lateral [facility] Start: 02-19-2023 XR Chest PA and Lateral [facility] Start: 02-12-2023 Patient discharge [facility] Start: 02-12-2023 Care planning and pr oblem solving actions [facility] Start: 02-12-2023 Removal of urinary catheter [facility] Start: 02-11-2023 Care planning and pr oblem solving actions [facility] Start: 02-10-2023 Ambulation without limitation [facility] Start: 02-10-2023 Assessment of risk o f venous thromboembolism [facility] Start: 02-10-2023 Insertion of cathete r into peripheral vein [facility] Start: 02-10-2023 Providing care accor ding to standard [facility] Start: 02-10-2023 Following clinical p athway protocol [facility] Start: 02-10-2023 End: 02-10-2023 [facility] Start: 02-10-2023 Admission procedure [facility] Start: 02-10-2023 End: 02-10-2023 Blood culture [facility] Start: 02-10-2023 End: 02-10-2023 [facility] Bacteria identified in Blood by Culture Blood Culture [facility] Bacteria identified in Blood by Culture Blood Culture [facility] Bacteria identified in Urine by Culture [facility] Bacteria identified in Urine by Culture Urine Culture [facility] Patient Education [facility] Work Phone: Patient referral [facility] Work Phone: Troponin T.cardiac [Mass/volume] in Serum or Plasma by High sensitivity method [facility] Immunizations Immunization Date Immunization Notes Care Provider Fa cility 09-10-2022 influenza, injectabl e, quadrivalent, preservative free [facility] 09-10-2022 influenza, seasonal, injectable [facility] 10-23-2021 Covid (Pfizer) Dr. Tamia yen Work Phone: [facility] 09-18-[address] Tamia Mccray Work Phone: [facility] 02-20-2021 Covid (Pfizer) Dr. Tamia yen Work Phone: [facility] Payers Date Payer Category Payer Medicare [id number] 2025 Private Health Insurance [facility] [id number] 2025 Unknown [id number] 2025 Self-pay [id number] 2025 Unknown [id number] 90 2003 Unknown [id number] 1945 Unknown [id number] Medicare [id number] Unknown [id number] Social History Date Type Detail Facility Start: 01-31-2022 End: 02-19-2023 Tobacco smoking status [facility] Unknown if ever smoked [facility] Start: 1945 Sex Assigned At Male [facility] Start: 06-15-2025 End: 06-17-2025 Tobacco smoking status NHIS Ex-smoker (finding) [facility] Sexual Orientation [facility] Start: 06-17-2025 Sex Male (finding) [facility] Goals Date Patient Goal Desired Activity /State Functional Status Date Assessment Result Facility 02-12-2023 Functional status Chair [facility] Work Phone: 12-12-2021 Functional status Activity Abili ty Standby Assist [facility] Work Phone: 12-12-2021 Functional status Ambulates [facility] Work Phone: Mental Status Date Assessment Result Facility 06-15-2025 Cognitive function Voice/Name [facility] Work Phone: 02-12-2023 Cognitive function Voice/Name [facility] Work Phone: 12-12-2021 Cognitive function Voice/Name;Deep Pain [facility] Work Phone: Clinical Notes 02-10-2023 to 06-17-2025 Note Date & Type Note Facility 06-17-2025 Hospital Discharg e instructions Patient Education 06/17/2025 19:48:12 Weakness (Uncertain Cause) Weakness with Uncertain Cause Based on your exam today, the exact cause of your weakness is not certain. But your weakness does not seem to be a sign of a serious illness at this time. Keep an eye on your symptoms and get medical advice as instructed below. Home care Rest at home today. Don't over-exert yourself. Take any medicine as prescribed. For the next few days, drink extra fluids (unless your healthcare provider wants you to restrict fluids for other reasons). Don't skip meals. Unless otherwise directed, continue to take any prescription medicines. Contact your healthcare provider if you have any questions or concerns. Follow-up care Follow up with your healthcare provider, or as advised. When to seek medical advice Call your healthcare provider right away for any of the following: Symptoms get worse Symptoms don't start getting better within 2 days Fever of 100.4 F (38 C) or higher, or as directed by your healthcare provider Call 911 Call 911 for any of these: Chest, arm, neck, jaw, or upper back pain Trouble breathing Numbness or weakness of the face, one arm, or one leg Slurred speech, confusion, or trouble speaking, walking, or seeing Blood in vomit or stool (black or red color) Loss of consciousness Severe headache [phone] [employer]. [address] [place] [address], [place] [address]. All rights reserved. This information is not intended as a substitute for professional medical care. Always follow your healthcare professional's instructions. Follow Up Care 06/17/2025 14:34:38 With:KOSTA RAINEY MD Address: [address] [place] [address]- [phone] When:2-4 days Comments:Make an appointment in 2 to 4 days with your physician. Return if you are worse in any way. With:[facility] Address: [address] [facility] [address]- When:2-4 days Comments:Return to ED if symptoms worsen [facility] 06-17-2025 Emergency department Discharge summary Discharge Instructions Thank you for allowing [facility] to assist you with your healthcare needs. The following is important discharge information regarding your hospital visit. Diagnosis from Today's Visit Weakness What to Do Next Instructions from Your Care Team Your workup was unremarkable here today. We gave you a heart monitor instructed in use. Please use as directed. We gave your follow-up to cardiology. Follow-up with them and your primary physician in 2 to 3 days. If you have chest pain, shortness of breath, lightheadedness or dizziness, or if you are worse in any way please return. Discharge Event Monitor Instructions - Ordered -- 06/17/25 19:40:00 EDT, You have been ordered mobile outpatient telemetry. If not given a device in the ED, expect to receive one in the mail. If you have not received a device within 14 days after discharge, please call [facility] at [phone]. Post Acute Orders No qualifying data available. You Need to Schedule the Following Appointments Follow Up with KOSTA RAINEY MD When:Within 2-4 days Where:[address] [place] [address]- [phone] Additional Information: Make an appointment in 2 to 4 days with your physician. Return if you are worse in any way. Follow Up with [facility] When:Within 2-4 days Where:[address] [place], [place] [address] [address]- Additional Information: Return to ED if symptoms worsen Allergies No active allergies Medications Please ask your primary doctor or pharmacist before taking any other medication not listed, including over the counter drugs, herbal medications, vitamins and or supplements as they may interact with your home medications. Please take this list to your next doctor s visit. Bring all medications you take, including over the counter medications, herbals and other supplements with you to your doctor s visit. Patients and families are reminded to discard old lists and to update any records with all medication providers or retail pharmacies. Education Materials Weakness with Uncertain Cause Based on your exam today, the exact cause of your weakness is not certain. But your weakness does not seem to be a sign of a serious illness at this time. Keep an eye on your symptoms and get medical advice as instructed below. Home care Rest at home today. Don't over-exert yourself. Take any medicine as prescribed. For the next few days, drink extra fluids (unless your healthcare provider wants you to restrict fluids for other reasons). Don't skip meals. Unless otherwise directed, continue to take any prescription medicines. Contact your healthcare provider if you have any questions or concerns. Follow-up care Follow up with your healthcare provider, or as advised. When to seek medical advice Call your healthcare provider right away for any of the following: Symptoms get worse Symptoms don't start getting better within 2 days Fever of 100.4 F (38 C) or higher, or as directed by your healthcare provider Call 911 Call 911 for any of these: Chest, arm, neck, jaw, or upper back pain Trouble breathing Numbness or weakness of the face, one arm, or one leg Slurred speech, confusion, or trouble speaking, walking, or seeing Blood in vomit or stool (black or red color) Loss of consciousness Severe headache [phone] [employer] [address] [place] [address]. All rights reserved. This information is not intended as a substitute for professional medical care. Always follow your healthcare professional's instructions. Additional Information VACCINATE! IT SAVES LIVES! Members of the community who have not yet received the COVID-19 vaccine and would like to receive it can visit one of [facility] vaccine clinics. There are many vaccine clinic locations within the [facility]. For locations and available times, please visit [email or web address] [email or web address] It is important to note that some COVID mobile vaccine clinics are held outdoors and may be canceled in rainy or stormy conditions. To learn more about pediatric vaccinations (ages 5-11), we invite you to visit the [facility] webpage. [email or web address] [email or web address]-Freq [email or web address] To learn more about the COVID-19 vaccine, we invite you to visit the CDC website for a list of frequently asked questions. https://www.cdc.gov/coronavirus/ 2019-ncov/vaccines/faq.html [facility] Patient Portal Access Instructions: Stay connected with your healthcare team and access your personal medical information anytime with the [facility] Patient Portal. If you would like a full copy of your medical records please contact the [facility] Medical Records Department Saturday through Saturday between 8a.m. and 4:30p.m. Please follow the directions below to access the portal: 1.Access the email account you provided upon registration to the hospital.2.Look for an invitation email from [facility].3.Open the email and access the invitation link: Accept Invitation to [facility]4.Fill in the required knox to create your account. Sign into [email or web address] with your username and password that you created in the above steps to stay up to date. You can then view a summary of results, a summary of your visits, and the ability to download your summaries to your computer or send the information securely to a physician. Remember that your healthcare information is confidential, so carefully consider who you will allow to register on the [facility] Patient Portal for access to your information. You can also access the [facility] Patient Portal on the [employer] [place]. Simply click on Health Records under Health Data and then click on the [employer] logo. HOW TO SAFELY DISPOSE OF PRESCRIPTION MEDICATIONS Please use one of the following methods to safely dispose of your unused medications. 1.Use a drug disposal kit: the drug disposal pouch allows you to safely discard your old and unused drugs. Ask your nurse to give you one when you are discharged.2.Visit a local take-back location: Many local pharmacies and police departments have programs that collect old and unwanted prescription drugs. Call your local pharmacy or go to http://Viratech.[employer]/4Y0Ko3r to find one close to you.3.Make use of household items: Use cat litter or old coffee grounds to dispose medications if other options are not available. Mix your drugs with these household products, seal them in an airtight container and throw it into the garbage. Call [facility]: [phone] to be sure your drugs can be disposed of in this way. Some medicines may require a different approach.4.Never flush your medications down the toilet. IF YOU HAVE BEEN PRESCRIBED AN OPIOIDS FOR PAIN If you have been prescribed an opioid (such as hydrocodone, oxycodone or morphine), it is critical to understand the possible side effects and risks of opioid pain medications. Even when taken as directed, opioids can have several side effects including: Tolerance, meaning you might need to take more of a medication for the same pain relief. Nausea, vomiting and/or constipation. Sleepiness, dizziness, dry mouth, confusion, depression or itching. Physical dependence, meaning you have withdrawal symptoms when a medication is stopped ? this can develop within a few days. KNOW YOUR RESPONSIBILITIES It is important to know exactly how much and how often to take the opioid pain medications you are prescribed. Never take opioids in higher amounts or more often than prescribed. Do not combine opioids with alcohol or other drugs that cause drowsiness, such as benzodiazepines, also known as benzos, including diazepam and alprazolam, muscle relaxants or sleep aids. Never sell or share prescription opioids. This is illegal. Store opioids in a secure place and out of reach of others (including children, family, friends and visitors). The last page(s) of this document has been signed and retained as a CHART COPY Signatures Patient Education Materials Weakness (Uncertain Cause) Medication Leaflets My discharge plan and instructions have been reviewed and explained to me and IMIC HAROLD A understand my current condition and have read and understand these discharge instructions. I have received a written copy of the plan/instructions. If I have questions, I am aware that I should contact my doctor. 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 HISTORY: ORDERING SYSTEM PROVIDED HISTORY: Reason for Exam: tightness FINDINGS: Median sternotomy wires. Low lung volumes. Cardiomediastinal silhouette is prominent may be related to portable technique. Valve prosthesis. No overt edema. No focal consolidation. No pleural effusion. No pneumothorax. No acute osseous abnormality. IMPRESSION: Low lung volumes. No acute cardiopulmonary process. Interpreted by: Radha Garcia Preliminary Report By: Radha Garcia Electronically signed By Radha Garcia Dictated Date: 06/17/2025 3:03:21 PM Prelim Date: 06/17/2025 3:05:51 PM Sign Date: 06/17/2025 3:05:51 PM Ordering Provider: LESLIE MATOS [id number] Note* Exam Date Time Procedure Performing Provider Status 06/17/25 2:34 PM EKG (ED) - CV BRENDA CAVAZOS MD; Flora arce (Verified) ECG Final Report SINUS RHYTHM PROLONGED MS INTERVAL RBBB AND LAFB Electronic Signature: BRENDA CAVAZOS MD 06/17/2025 17:05:13 [id number] Radiology Diagnostic study note [facility] Imaging Services [address] [place] [address] [id number] Brain/Head without Contrast MR#: [id number] Acct: [id number] Name: STONE HAILE Rep #: [id number] : 1945 M 79 From: Johnny Conti MD PCP: [facility] Status: REG ER Study:Brain/Head without Contrast Date of Exa m: 06/15/25 Exam# [id number] Ordering Dr: Cathie Douglass DO PROCEDURE: BRAIN/HEAD WITHOUT CONTRAST 06/15/2025 REASON FOR EXAM: VISION CHANGES Dizzy, with blurred vision. TECHNIQUE: BRAIN/HEAD WITHOUT CONTRAST Coronal and Sagittal reconstruction series were provided. One or more dose reduction techniques were used (e.g., Automated exposure control, adjustment of the mA and/or kV according to patient size, use of iterative reconstruction technique. RADIATION DOSE SUMMARY: CTDlvol: 44.99 mGy DLP: 812.98 mGycm COMPARISON: None. FINDINGS: Brain: No intracranial hemorrhage, mass, or mass effect is seen. CSF Spaces: Mild generalized cerebral atrophy. Ventricles appear symmetric and within the normal range for age. Sinuses/Mastoids: Clear at visualized levels Bones: No fracture or other significant osseous change is seen. CT/Brain/Head without Contrast IMPRESSION: NO ACUTE FINDINGS Reading Location: [place] [address] CC: Dr. Anibal Douglass DO; [facility] ~ Asphalt Engineer: Signed [facility]07-29-2025 Radiology Diagnostic study note [facility] Imaging Services [address] [place] [address] [id number] Chest PA and Lateral MR#: [id number] Acct: [id number] Name: STONE HAILE Rep #: [id number] : 1945 M 79 From: Johnny Conti MD PCP: [facility] Status: REG ER Study:Chest PA and Lateral Date of Exam: 06/15/25 Exam# [id number] Ordering Dr: Cathie Douglass DO PROCEDURE: CHEST PA AND LATERAL 06/15/2025 REASON FOR EXAM: CHEST PAIN TECHNIQUE: CHEST PA AND LATERAL COMPARISON: None. RAD/Chest PA and Lateral IMPRESSION: The cardiomediastinal silhouette is remarkable for postsurgical changes, including aortic valve replacement, and a partially calcified aorta. No evidence of cardiomegaly. Right upper quadrant abdominal surgical clips are seen. Moderate degenerative changes of the thoracic spine are seen, with multiple mild, likely chronic, wedge compressions of the mid thoracic spine. No subluxation is seen. Lungs appear clear of acute disease. No pleural effusion or pneumothorax is seen. Reading Location: [place] [address] CC: Dr. Anibal Douglass DO; [facility] ~ Asphalt Engineer: Signed [facility]04-04-[address] Arciniega [facility] February 19, 2023 6:01pm Note Date/Time February 19, 2023 5:13 pm [facility] Medical Records Department [address] [place] [address] Emergency Department Summary 02/19/23 MR#: [id number] Acct: [id number] Name: STONE HAILE Rep #:[id number] : 1945 77 From: Jam Arciniega MD PCP: [facility] Status:REG ER Location: ED HPI History of Present Illness Chief Complaint: Cough Detail of Chief Complaint: Dyspnea, dyspnea on exertion cough and rattling in mychest Informant: patient and friend Onset/Context/Timing Onset: Days (2 to 3 days ago) Context: sudden Timing: Continuous Quality: Positive for Dyspnea on exertion; Negative for Orthopnea, PND or Wheezing Current Severity: Mild Maximum Severity: Moderate Worsened by: Exertion and Coughing Relieved by: Nothing Associated Symptoms cough and yellow sputum; Negative for rhinorrhea, post nasal drip, ear pain, fever, sore throat, subjective, chills or sweats Chest Pain: Positive for None Narrative Narrative: Patient is a 77-year-old male. He has multiple medical problems. He was admitted for sepsis. Source was urinary tract. He was admitted February 10 and discharged on February 12. Patient is not a good informant. He had friend bring him to the hospital because he has had shortness of breath with walking. Friendstates he is coughing much more than he admits to. His cough is productive. Sputum is colored. He denies history of emphysema COPD. He states he has not smoked in over 20 years. He denies subjective or objective fever. He does report chills. He denies headache, visual, ocular auditory symptoms. He denies rhinorrhea, congestion, postnasal drainage and sore throat. He denies chest discomfort. Hedenies abdominal pain, nausea, vomiting or diarrhea. He denies dysuria, frequency, urgency or hematuria. He denies leg pain, swelling discoloration. He denies history of VTE. He denies symptoms of claudication. He is on an anticoagulant. He is on an anticoagulant because he has history of paroxysmal atrial fibrillation. PE Risk Factors: Negative for Cancer, OCP + Smoking + > 35, Prior DVT or PE, Recent immobilization, Recent surgery or Recent travel Prior similar symptoms: No Recent Illness/Hospitalization: Yes (Urosepsis) [facility] Medical History Atrial fibrillation BPH (benign prostatic hyperplasia) CAD (coronary artery disease) Carotid artery stenosis Elevated troponin Fatigue History of alcohol abuse History of tobacco abuse HLD (hyperlipidemia) HTN (hypertension) Hypothyroidism Normocytic anemia Seasonal allergies Home Medications amlodipine 5 mg tablet 5 mg PO DAILY 12/10/21 [History Last Taken 02/09/23] aspirin 81 mg chewable tablet 81 mg PO DAILY 12/10/21 [History Last Taken 02/10/23] cetirizine 10 mg tablet 10 mg PO DAILY 12/10/21 [History Last Taken 02/10/23] levothyroxine 125 mcg tablet 125 mcg PO DAILY 12/10/21 [History Last Taken 02/09/23] metoprolol tartrate 25 mg tablet 25 mg PO BID 12/10/21 [History Last Taken 02/10/23] apixaban 5 mg tablet (Eliquis) 5 mg PO BID #60 tabs 12/12/21 [Rx Last Taken 02/10/23] lisinopril 2.5 mg tablet 2.5 mg PO DAILY HTN 02/10/23 [History Last Taken 02/10/23] ciprofloxacin HCl 500 mg tablet (Cipro) 500 mg PO BID #14 tabs 02/12/23 [Rx Last Taken Unknown] tamsulosin 0.4 mg capsule 0.8 mg PO QHS #60 caps 02/12/23 [Rx Last Taken Unknown] albuterol sulfate 90 mcg/actuation aerosol inhaler (Ventolin HFA) 2 puff inhalation Q4H PRN PRN Wheezing ##1 02/19/23 [Rx Last Taken Unknown] levofloxacin 500 mg tablet 500 mg PO DAILY #7 tabs 02/19/23 [Rx Last Taken Unknown] Allergy/AdvReac Type Severity Reaction Status Date / Time Tqugmin-HQK-QyT Reductase Allergy Other Verified 02/19/23 16:53 Inhibitor ibuprofen AdvReac Other Verified 02/19/23 16:53 Surgical History Heart valve replaced History of open heart surgery Hx of heart artery stent S/P AVR (aortic valve replacement) S/P CABG (coronary artery bypass graft) Social History (Updated 02/19/23 @ 17:[address] Jam Arciniega MD) household members: none Smoking Status: Former smoker substance use type: does not use ROS ROS ED Constitutional Constitutional ED: Reports chills; Denies fever(s), sweats or weight loss Eyes Eyes: Denies blurry vision, change in vision or diplopia ENT ENT ED: Denies ear pain, rhinorrhea or sore throat Cardiovascular Cardiovascular: Denies chest pain, orthopnea, palpitations, paroxysmal nocturnaldyspnea or racing heartbeat Respiratory/Chest Respiratory/Chest: Reports cough, dyspnea and dyspnea on exertion; Denies orthopnea or paroxysmal nocturnal dyspnea Gastrointestinal Gastrointestinal: Denies abdominal pain, diarrhea, melena or vomiting Genitourinary Genitourinary ED: Denies dysuria, hematuria or urinary frequency Musculoskeletal Musculoskeletal: Denies arthralgias, back pain, myalgias or neck pain Integumentary Denies abscess, Abrasions or rash Neurologic Neurologic: Reports weakness; Denies headache(s) or paresthesias Psychiatric Psychiatric: Denies anxiety Endocrine Endocrinology: Reports other Details: Patient does have history of hypothyroidism. He is presently on levothyroxine 125 mcg. He states he is compliant with his medication. ; Denies cold intolerance or heat intolerance Hematologic/Lymphatic Hematologic/Lymphatic: Reports easy bruising; Denies easy bleeding or lymphadenopathy Allergic/Immunologic Allergic/Immunologic ED: Reports mouth swelling and tongue swelling EXAM Physical Exam Const Vital Signs: 02/19/23 16:53 02/19/23 16:57 02/19/23 17:13 Temperature 99.2 F H 99.2 F H Temperature Source Temporal Temporal Pulse Rate 64 64 Respiratory Rate 18 18 Blood Pressure 171/83 H 171/83 H Blood Pressure Mean 112 112 Pulse Ox 90 90 95 Oxygen Delivery Method Room Air Room Air Room Air 02/19/23 17:13 Temperature Temperature Source Pulse Rate 64 Respiratory Rate 24 H Blood Pressure Blood Pressure Mean Pulse Ox Oxygen Delivery Method Positive well nourished, well developed, obese and unkempt General Appearance ED: unkempt, well developed and NAD; Negative for pallor Nutritional Appearance: obese HEENT Reports moist mucous membranes HEENT Narrative: Head is atraumatic normocephalic. Ears normal. Nares patent with no discharge. Posterior pharynx without erythema or exudate. Uvula is midline. Eyes PERRL and EOMs intact bilaterally General Eye ED: Negative for pale conjunctiva or scleral icterus Neck no lymphadenopathy, supple, no meningeal signs and no JVD Resp normal respiratory effort and No clear to auscultation bilaterally Resp Narrative: There is egophony noted right lower lobe posteriorly Auscultation: rales right lower, rhonchi lower bilaterally (Greater on the rightthan left.) and wheezes expiratory wheezes and right lower (With forced expiration) Cardio regular rate, regular rhythm, S1 normal heart sound, S2 normal heart sound and no murmurs GI non-tender, non-distended and no masses Auscultation: normoactive bowel sounds Palpation: soft Back/Spine no CVA tenderness Extremity Extremity Narrative: Patient has stigmata of peripheral arterial disease. He has thin skin. There is lack of hair on his toes. Toenails are thick. DP pulses not palpable. Capillary refill is normal, however. Neuro oriented x3, CN's II-XII intact bilaterally and no sensory deficits noted Crooks Coma Scale: document GCS findings Spontaneous Obeys Commands Oriented 15 Sensorium / Orientation: alert Motor Exam: strength 5/5 throughout Psych Appearance: unkempt Thought Process: normal thought process Skin no wounds and No skin turgor normal General Skin Exam: Negative for jaundice or pallor Rashes: no rashes MDM MDM MDM Narrative Medical decision making narrative: Clinically patient has a right lower lobe pneumonia. Patient does not use inhaler. Will treat his wheezing with albuterol q. for 15 minutes x 3. We willobtain a CBC to assess white count and H&H. We will obtain a BMP to assess for endorgan dysfunction. Since he is not febrile tachycardic or tachypneic lactatewas not obtained. Patient's oxygenation is marginal at 90% on room air. We will ambulate to determine if he desaturates. Obtained records for most recent admission. Patient was treated for E. coli sepsis. He has known history of coronary disease, paroxysmal atrial fibrillation, hypothyroidism, essential hyper pretension. Curb 65 score is 1. Low risk group with 2.7% 30-day mortality. Consider outpatient treatment. Port score 79 point. Risk class III with a 0.9 to 2.8% mortality. Outpatient treatment is acceptable depending on clinical judgment. Since patient does not appear ill he is appropriate for outpatient therapy. History & Record Review Additional record(s) reviewed:: Prior inpatient record, Prior outpatient record,Prior ED visit and Prior labs Lab Data Attestation: I reviewed the patient's lab results. Lab results narrative: White count is normal. Patient is anemic. His H&H is essentially unchanged from prior. Labs: Laboratory Results - last 24 hr 02/19/23 02/19/23 17:10 17:10 WBC 7.4 RBC 4.35 L Hgb 12.8 L Hct 38.5 L MCV 88.5 MCH 29.4 MCHC 33.2 RDW Std Deviation 44.4 H RDW Coeff of Ethan 13.6 Plt Count 279 MPV 8.7 Immature Gran % (Auto) 1.800 H Neut % (Auto) 67.9 Lymph % (Auto) 20.4 [place] % (Auto) 6.3 Eos % (Auto) 3.1 Baso % (Auto) 0.5 Absolute Neuts (auto) 5.0 Absolute Lymphs (auto) 1.50 Nucleated RBC % 0 Sodium 137 Potassium 4.1 Chloride 103 Carbon Dioxide 27.0 Anion Gap 7 BUN 16 Creatinine 0.94 Estim Creat Clear Calc 65.79 Est GFR (MDRD) Af Amer 100 Est GFR (MDRD) Non-Af 82 BUN/Creatinine Ratio 17.0 Glucose 111 H Calcium 9.0 Radiography Chest X-Ray - ED: 2 View and Read by ED Physician (Comparing today's chest x- rayto x-ray obtained February 10, 2023 reveals infiltrate probably superior segment ofthe right lower lobe. Lung parenchyma otherwise unremarkable. Cardiac silhouette and size unremarkable. Perihilar region unremarkable. Osseous trucks unremarkable. Is independently re ) Rhythm Strip Rhythm Strip: Sinus Rhythm Rate: 63 Ectopy: None Treatment and Re-Evaluation :: Patient was informed of his laboratory results. He will be discharged with prescription for levofloxacin and inhaler. Patient was informed of risk with outpatient therapy. He states he feels better. Discharge Plan Triage Chief Complaint: Cough ED Provider: Jam Arciniega Dx/Rx/DC Orders Clinical Impression: Right lower lobe pneumonia, Acute bronchospasm, Hypertension, Anticoagulant long-term use, Paroxysmal A-fib Instructions: ED Pneumonia (Adult) Prescriptions: New levofloxacin [levofloxacin] 500 mg tablet 500 mg PO DAILY Qty: 7 0RF albuterol sulfate [Ventolin HFA] 90 mcg/actuation HFA aerosol inhaler 2 puff inhalation Q4H PRN PRN (Reason: Wheezing) Qty: 1 0RF No Action cetirizine 10 mg Tablet 10 mg PO DAILY amlodipine 5 mg Tablet 5 mg PO DAILY levothyroxine 125 mcg Tablet 125 mcg PO DAILY aspirin 81 mg Tablet,Chewable 81 mg PO DAILY metoprolol tartrate 25 mg Tablet 25 mg PO BID Eliquis 5 mg Tablet 5 mg PO BID Qty: 60 1RF lisinopril 2.5 mg Tablet 2.5 mg PO DAILY tamsulosin 0.4 mg Capsule 0.8 mg PO QHS Qty: 60 0RF ciprofloxacin HCl [Cipro] 500 mg tablet 500 mg PO BID Qty: 14 0RF Rx Instructions: start on [facility] Care [facility] [facility] [Primary [facility] Provider] - 3-5 Days if not improving Disposition Disposition: Home, Self Care What to do if you have Problems For any increased pain, shortness of breath, bleeding, nausea or vomiting, chestpain, or any unexpected problems, contact your Primary Care Provider. Call [facility] ([phone]) or report to the closest Emergency Room. Call 911 if necessary. 02/19/23 1801 <Electronically signed by Jam Arciniega MD> Cosigner Signature (if applicable): CC: [place] [facility] ~ Signed [facility] Work Phone: [phone]) 567-104903-27-[address] Avery [facility] February 11, 2023 4:18pm Note Date/Time February 11, 2023 4:1 8pm [facility] Medical Records Department [address] [place], [place] [address] [address] Progress Note - Hospitalist 02/11/23 1615 MR#: [id number] Acct: [id number] Name: STONE HAILE Rep #:[id number] : 1945 77 From: Lc Avery DO [facility] Status:ADM IN Location: [facility] [id number] Reason for Visit Reason for Visit: Diagnoses Urinary tract infection, site not specified (02/10/23) Subjective Subjective Was seen and examined today, I talked with his who was in the room at the time of my examination. Patient's blood culture was positive for gram-negative lactose referral manager, the actual identity is not back at this time. Patient remains on IV Rocephin, I have elected to turn his fluids down. Patient does not complain of any chills, he does complain that his back hurt him but he states when he turned to the left that the back pain went away. Objective Data Objective Data Vital Signs: Vital Signs Temp Pulse Resp BP Pulse Ox O2 Del Method 99.5 F H 69 16 120/57 L 95 Room Air 02/11/23 15:40 02/11/23 15:40 02/11/23 15:40 02/11/23 15:40 02/11/23 15:40 02/11/23 15:40 Oxygen Delivery Method Room Air Weight: 100.335 kg Body Mass Index (BMI) 31.7 Intake & Output: Intake and Output for Last 24 Hours 02/09/23 02/10/23 02/11/23 23:59 23:59 23:59 Intake Total 4357.45 / 4597.45 3225 / 3225 Output Total 900 / 1150 1550 / 1550 Balance 3457.45 / 3447.45 1675 / 1675 Lab / Micro Data Result Diagrams: 02/11/23 06:33 02/11/23 06:33 Labs: Laboratory Results - last 24 hr 02/11/23 06:33: WBC 10.4, RBC 3.82 L, Hgb 11.5 L, Hct 35.8 L, MCV 93.7, MCH 30.1, MCHC 32.1, RDW Std Deviation 50.3 H, RDW Coeff of Ethan 14.6, Plt Count 127 L, MPV 10.3, Immature Gran % (Auto) 0.600, Neut % (Auto) 84.2 H, Lymph % (Auto) 8.9 L, [place] % (Auto) 5.4, Eos % (Auto) 0.5, Baso % (Auto) 0.4, Absolute Neuts (auto) 8.8 H, Absolute Lymphs (auto) 0.93, Nucleated RBC % 0 03/27/23 06:33: Sodium 140, Potassium 4.0, Chloride 114 H, Carbon Dioxide 21.0, Anion Gap 5, BUN 27 H, Creatinine 0.87, Estim Creat Clear Calc 71.09, Est GFR (MDRD) Af Amer 109, Est GFR (MDRD) Non-Af 90, BUN/Creatinine Ratio 31.1 H, Glucose 144 H, Calcium 7.8 L Micro: Microbiology 02/10/23 08:52 Blood Culture (Wb) - Anticubital Left Blood Culture - Preliminary GNR lactose referral manager 02/10/23 08:53 Blood Culture (Wb) - Anticubital Right Blood Culture - Preliminary GNR lactose referral manager 02/10/23 08:53 Urine Catheter - Catheter Urine Culture - Preliminary GNR lactose referral manager 02/10/23 08:50 Nasal Secretion SARS-CoV-2 & FLU Antigen (Rapid) - Final Physical Exam Const alert, oriented x3, no apparent distress and healthy appearing General Appearance: cooperative, well kempt and well developed Orientation / Consciousness: awake, oriented to person, oriented to place and oriented to time HEENT normocephalic, head/scalp atraumatic and moist oral mucous membranes Eyes PERRL, EOMs intact bilaterally and conjunctivae normal Neck supple, no JVD, thyroid normal and no carotid bruits General: trachea midline Resp normal respiratory effort, no retractions, no use of accessory muscles and clearto auscultation bilaterally Auscultation: Negative for rales, rhonchi or wheezes Cardio regular rate, regular rhythm, S1 normal heart sound, S2 normal heart sound, no murmurs, no rub and no gallops GI normal to inspection, nondistended, normoactive bowel sounds, soft to palpation,non-tender and non-distended Extremity no clubbing, cyanosis or edema Skin no rashes or lesions noted General Skin Exam: no breakdown Neuro oriented x3, CN's II-XII intact bilaterally, moves all extremities, no focal motor deficits and no sensory deficits noted Sensorium / Orientation: awake, alert, oriented to person, oriented to place andoriented to time Speech: speech normal Psych affect normal Assessment & Plan Assessment/Plan (1) Sepsis: (2) UTI (urinary tract infection): PLAN: Plan 1. Acute sepsis secondary to gram-negative bacteria from severe cystitis- continue IV Rocephin, patient's white blood cell count is normal today #2 dehydration-patient's creatinine is normal today, his BUN is slightly elevated, I have elected to turn down his fluids #3 coronary artery disease-this appears stable at this time, he will remain on his home medications, patient is intolerant of statins #4 paroxysmal atrial fibrillation-patient currently is in sinus rhythm at this time #5 hypercoagulable state secondary to #4-patient takes Eliquis and this will be continued in the hospital #6 hypothyroidism-patient will remain on Synthroid #7 essential hypertension-patient will remain on his present medications #8 hypotension-corrected at this time #9 lactic acidosis-I do not think the elevated lactic acidosis was from septic shock, I think this likely was due to dehydration. Total clinical time spent by myself addressing the patient's medical problems, reviewing all of the data, and collaborating with the patient's care team: 35 minutes Charges/Coding Visit Charges Inpatient E&M: 92306 Subs Hosp L2 02/11/23 1618 <Electronically signed by Lc Avery DO> Cosigner Signature (if applicable): CC: ~ Signed [facility] Work Phone: 1(310) 735-593003-26-[address] Gutiérrez [facility] February 10, 2023 3:31pm Note Date/Time February 10, 2023 8:3 3am [facility] Medical Records Department [address] [place] [address] Emergency Department Summary 02/10/23 MR#: [id number] Acct: [id number] Name: STONE HAILE Rep #:[id number] : 1945 77 From: Kelly Gutiérrez MD PCP: [facility] Status:ADM IN Location: [place] [address] HPI History of Present Illness Chief Complaint: Complaint Detail of Chief Complaint: Chills, difficulty urinating Informant: patient Narrative Narrative: Patient presents today that he has had chills and body aches for the past 2 days. He did not check his temperature at home. He states he is having difficulty urinating and when he does go he does get the small trickle out. He has had some burning when he does urinate. He has had some nausea. He has had a mild cough. [facility] Medical History Atrial fibrillation BPH (benign prostatic hyperplasia) CAD (coronary artery disease) Carotid artery stenosis Elevated troponin Fatigue History of alcohol abuse History of tobacco abuse HLD (hyperlipidemia) HTN (hypertension) Hypothyroidism Normocytic anemia Seasonal allergies Home Medications amlodipine 5 mg tablet 5 mg PO DAILY 12/10/21 [History Last Taken 02/09/23] aspirin 81 mg chewable tablet 81 mg PO DAILY 12/10/21 [History Last Taken 02/10/23] cetirizine 10 mg tablet 10 mg PO DAILY 12/10/21 [History Last Taken 02/10/23] levothyroxine 125 mcg tablet 125 mcg PO DAILY 12/10/21 [History Last Taken 02/09/23] metoprolol tartrate 25 mg tablet 25 mg PO BID 12/10/21 [History Last Taken 02/10/23] apixaban 5 mg tablet (Eliquis) 5 mg PO BID #60 tabs 12/12/21 [Rx Last Taken 02/10/23] lisinopril 2.5 mg tablet 2.5 mg PO DAILY HTN 02/10/23 [History Last Taken 02/10/23] Allergy/AdvReac Type Severity Reaction Status Date / Time Rptnghw-HWG-LpD Reductase Allergy Other Verified 02/10/23 08:21 Inhibitor ibuprofen AdvReac Other Verified 02/10/23 08:21 Surgical History Heart valve replaced History of open heart surgery Hx of heart artery stent S/P AVR (aortic valve replacement) S/P CABG (coronary artery bypass graft) Social History Smoking Status: Former smoker ROS ROS ED Constitutional Constitutional ED: Reports chills; Denies fever(s) Eyes Eyes: Denies change in vision or discharge from eye(s) ENT ENT ED: Denies discharge from eye(s), rhinorrhea or sore throat Cardiovascular Cardiovascular: Denies chest pain or palpitations Respiratory/Chest Respiratory/Chest: Reports cough; Denies dyspnea Gastrointestinal Gastrointestinal: Reports nausea; Denies abdominal pain or diarrhea Genitourinary Genitourinary ED: Reports difficulty urinating and dysuria Musculoskeletal Musculoskeletal: Reports myalgias; Denies back pain or extremity pain Integumentary Denies Abrasions or rash Neurologic Neurologic: Reports weakness; Denies headache(s) Allergic/Immunologic Allergic/Immunologic ED: Denies lip swelling or urticaria EXAM Physical Exam Const Vital Signs: 02/10/23 08:22 02/10/23 08:32 02/10/23 08:32 Temperature 99.7 F H 99.4 F H Temperature Source Oral Temporal Pulse Rate 135 H 121 H Respiratory Rate 14 24 H Blood Pressure 136/81 H 149/73 H Blood Pressure Mean 99 98 Pulse Ox 97 100 Oxygen Delivery Method Room Air Room Air Room Air 02/10/23 09:23 02/10/23 10:00 Temperature 102.6 F H 103.0 F H Temperature Source Core Core Pulse Rate 93 89 Respiratory Rate 18 16 Blood Pressure 121/78 H 108/78 Blood Pressure Mean 92 88 Pulse Ox 99 100 Oxygen Delivery Method Room Air Room Air Positive well nourished and well developed General Appearance ED: well developed HEENT Reports normocephalic and head/scalp atraumatic Eyes PERRL and EOMs intact bilaterally Neck supple Chest Wall inspection of chest normal and palpation of chest normal Resp normal respiratory effort and clear to auscultation bilaterally Cardio regular rhythm Rate: tachycardic GI non-tender Auscultation: hypoactive bowel sounds Palpation: soft Extremity normal to inspection Neuro oriented x3 Neuro Narrative: No focal neurologic deficits. Sensorium / Orientation: alert Psych mental status grossly normal Skin no rashes or lesions noted MDM MDM MDM Narrative Medical decision making narrative: Sepsis work-up initiated. Patient placed on monitoring specialist. EKG obtained to evaluate for cardiac arrhythmia/ischemia. Labwork obtained to evaluate for leukocytosis, anemia, and electrolyte derangement. Urinalysis obtained to evaluate for infection/hematuria. Blood and urine cultures are obtained. Swab for COVID and influenza obtained. Given the patient having difficulty urinatingFoley catheter is placed. Lab Data Attestation: I reviewed the patient's lab results. Labs: Laboratory Results - last 24 hr 02/10/23 02/10/23 02/10/23 08:53 08:53 08:53 WBC 9.4 RBC 5.04 Hgb 14.8 Hct 45.8 MCV 90.9 MCH 29.4 MCHC 32.3 RDW Std Deviation 46.6 H RDW Coeff of Ethan 14.0 Plt Count 183 MPV 10.0 Immature Gran % (Auto) 0.100 Neut % (Auto) 91.1 H Lymph % (Auto) 7.4 L [place] % (Auto) 1.0 Eos % (Auto) 0.1 Baso % (Auto) 0.3 Absolute Neuts (auto) 8.6 H Absolute Lymphs (auto) 0.70 L Nucleated RBC % 0 PT 17.0 H INR 1.4 APTT 29.4 Sodium 136 Potassium 4.1 Chloride 103 Carbon Dioxide 21.0 Anion Gap 12 BUN 30 H Creatinine 1.40 H Estim Creat Clear Calc 44.18 Est GFR (MDRD) Af Amer 63 Est GFR (MDRD) Non-Af 52 L BUN/Creatinine Ratio 21.4 H Glucose 204 H Lactic Acid Calcium 9.2 Total Bilirubin 1.10 H AST 15 ALT 25 Alkaline Phosphatase 79 Total Protein 8.1 Albumin 3.6 Globulin 4.5 H Albumin/Globulin Ratio 0.8 L Urine Color Urine Clarity Urine pH Ur Specific [place] Urine Protein Urine Glucose (UA) Urine Ketones Urine Occult Blood Urine Nitrite Urine Bilirubin Urine Urobilinogen Ur Leukocyte Esterase Urine RBC Urine WBC Ur Squamous Epith Cells Urine Bacteria Urine Mucus 02/10/23 02/10/23 08:53 08:53 WBC RBC Hgb Hct MCV MCH MCHC RDW Std Deviation RDW Coeff of Ethan Plt Count MPV Immature Gran % (Auto) Neut % (Auto) Lymph % (Auto) [place] % (Auto) Eos % (Auto) Baso % (Auto) Absolute Neuts (auto) Absolute Lymphs (auto) Nucleated RBC % PT INR APTT Sodium Potassium Chloride Carbon Dioxide Anion Gap BUN Creatinine Estim Creat Clear Calc Est GFR (MDRD) Af Amer Est GFR (MDRD) Non-Af BUN/Creatinine Ratio Glucose Lactic Acid 5.5 H* Calcium Total Bilirubin AST ALT Alkaline Phosphatase Total Protein Albumin Globulin Albumin/Globulin Ratio Urine Color Yellow Urine Clarity Sl. Cloudy Urine pH 6.0 Ur Specific [place] 1.015 Urine Protein 100 H Urine Glucose (UA) Normal Urine Ketones 5 H Urine Occult Blood 150 H Urine Nitrite Positive H Urine Bilirubin Negative Urine Urobilinogen Normal Ur Leukocyte Esterase 100 H Urine RBC 10-25 SEEN Urine WBC 25-50 SEEN Ur Squamous Epith Cells 0 SEEN Urine Bacteria 3+ Urine Mucus 0 SEEN Radiography Chest X-Ray - ED: 1 View, Read by ED Physician and - (No focal infiltrate.) Treatment and Re-Evaluation :: Daniel catheter was placed with 400 to 500 mL of urine immediately drained. CBC reveals normal white count but left shift is noted. Chemistry studies reveal a BUN of 30 and a creatinine 1.40. This is an increase over his baseline creatinine. Lactic acid is elevated at 5.5. Urinalysis does show infection with positive nitrites, 25-50 white blood cells, 3+ bacteria. Swab for COVID and influenza is obtained. EKG reveals no acute ischemia. Bifascicular block is noted and is unchanged when compared to prior. Patient has been ordered Rocephin along with IV fluids. When I went back to reevaluate patient his blood pressure is low with a MAP of 67. Second IV line is being initiated so that he can receive his IV fluid bolus in an appropriate timeframe. He has been given Tylenol for fever but Daniel temp catheter is stillreading a fever of 102. I will discuss patient with hospitalist regarding admission. Discharge Plan Triage Chief Complaint: Complaint ED Provider: Kelly Gutiérrez Dx/Rx/DC Orders Clinical Impression: Sepsis, UTI (urinary tract infection) Prescriptions: No Action cetirizine 10 mg Tablet 10 mg PO DAILY amlodipine 5 mg Tablet 5 mg PO DAILY levothyroxine 125 mcg Tablet 125 mcg PO DAILY aspirin 81 mg Tablet,Chewable 81 mg PO DAILY metoprolol tartrate 25 mg Tablet 25 mg PO BID Eliquis 5 mg Tablet 5 mg PO BID Qty: 60 1RF lisinopril 2.5 mg Tablet 2.5 mg PO DAILY [facility] [facility] [Primary Care Provider] - Disposition Disposition: Acute Care Hospital [facility] What to do if you have Problems For any increased pain, shortness of breath, bleeding, nausea or vomiting, chestpain, or any unexpected problems, contact your Primary Care Provider. Call [facility] ([phone]) or report to the closest Emergency Room. Call 911 if necessary. 02/10/23 1531 <Electronically signed by Kelly Gutiérrez MD> Cosigner Signature (if applicable): CC: [facility] ~ Signed [facility] Work Phone: [phone] [phone] History and physical note Author Dr. Avery [facility] February 10, 2023 1:11pm Note Date/Time February 10, 2023 12: 36pm [facility] Medical Records Department [address] [place] [address] H&P Exam - Hospitalist 02/10/23 1236 MR#: [id number] Acct: [id number] Name: STONE HAILE Rep #:[id number] : 1945 77 From: Lc Avery DO PCP: [facility] Status:ADM IN Location: [facility] [id number] HPI - General General Date of Service: 02/10/23 Chief Complaint: Chills, dysuria HPI Narrative STONE HAILE, is a 77 M who presents to the ER at [facility] with complaints of dysuria x48 hours along with chills. Patient has had problems urinating over the past 24 hours with decreased urine stream. Work-up in the emergency room showed the patient to be febrile with a temp of 103, white blood cell count was normal, lactic acid was elevated at 5.5, urinalysis was grossly positive for urinary tract infection. Patient's creatinine was elevated at 1.4,BUN was also elevated at 30. Bilirubin was mildly elevated at 1.1. Patient's chest x-ray was unremarkable. While in the emergency room, patient's systolic blood pressure dropped into the 80s, he was given several fluid boluses with elevation of his blood pressure as a result. Patient was alert and appropriate,he did not appear confused. Patient will be admitted for severe cystitis, he was given IV Rocephin in the emergency room, vigorous fluid administration we will continue. Patient's past medical history includes coronary artery disease with one-vessel bypass and aortic valve replacement last year. Patient takes Eliquis for paroxysmal A-fib. [facility] Medical History Atrial fibrillation BPH (benign prostatic hyperplasia) CAD (coronary artery disease) Carotid artery stenosis Elevated troponin Fatigue History of alcohol abuse History of tobacco abuse HLD (hyperlipidemia) HTN (hypertension) Hypothyroidism Normocytic anemia Seasonal allergies Home Medications amlodipine 5 mg tablet 5 mg PO DAILY 12/10/21 [History Last Taken 02/09/23] aspirin 81 mg chewable tablet 81 mg PO DAILY 12/10/21 [History Last Taken 02/10/23] cetirizine 10 mg tablet 10 mg PO DAILY 12/10/21 [History Last Taken 02/10/23] levothyroxine 125 mcg tablet 125 mcg PO DAILY 12/10/21 [History Last Taken 02/09/23] metoprolol tartrate 25 mg tablet 25 mg PO BID 12/10/21 [History Last Taken 02/10/23] apixaban 5 mg tablet (Eliquis) 5 mg PO BID #60 tabs 12/12/21 [Rx Last Taken 02/10/23] lisinopril 2.5 mg tablet 2.5 mg PO DAILY HTN 02/10/23 [History Last Taken 02/10/23] tamsulosin 0.4 mg capsule 0.4 mg PO QHS prostate 02/10/23 [History Last Taken 02/09/23] Allergy/AdvReac Type Severity Reaction Status Date / Time Oheeeic-VAL-GcH Reductase Allergy Other Verified 02/10/23 08:21 Inhibitor ibuprofen AdvReac Other Verified 02/10/23 08:21 Surgical History Heart valve replaced History of open heart surgery Hx of heart artery stent S/P AVR (aortic valve replacement) S/P CABG (coronary artery bypass graft) Social History Smoking Status: Former smoker ROS Constitutional Constitutional: Reports chills and malaise; Denies anorexia, change in weight, fever(s), night sweats or weakness Eyes Eyes: Denies blurry vision, change in vision, discharge from eye(s) or eye pain Cardiovascular Cardiovascular: Denies chest pain, claudication, dyspnea on exertion, edema, lightheadedness, orthopnea or palpitations Respiratory/Chest Respiratory/Chest: Denies cough, excessive phlegm production, hemoptysis, productive cough, shortness of breath at rest or shortness of breath with exertion Gastrointestinal Gastrointestinal: Denies abdominal pain, constipation, diarrhea, hematemesis, hematochezia, melena, nausea or vomiting Genitourinary Genitourinary: Reports difficulty urinating and dysuria; Denies burning urination, hematuria, urinary frequency, urinary hesitancy, urinary incontinenceor urinary urgency Musculoskeletal Musculoskeletal: Denies back pain, joint pain, joint stiffness, joint swelling, myalgias or neck pain Neurologic Neurologic: Denies abnormal gait, abnormal speech, confusion, disequilibrium, dizziness, focal weakness, headache(s), loss of vision, numbness, other visual disturbances, paresthesias, syncope or tingling Psychiatric Psychiatric: Denies anxiety, cognitive impairment, depression, irritability, mood swings or suicidal ideation Endocrine Endocrinology: Denies change in body appearance, cold intolerance, excessive sweating, heat intolerance, polydipsia or polyuria Hematologic/Lymphatic Hematologic/Lymphatic: Denies none, anemia, easy bleeding, easy bruising or lymphadenopathy Allergic/Immunologic Allergic/Immunologic: Denies rhinitis, urticaria, eczemia or asthma Vital Signs Vital Signs Vital Signs: 02/10/23 08:22 02/10/23 08:32 02/10/23 08:32 Temperature 99.7 F H 99.4 F H Temperature Source Oral Temporal Pulse Rate 135 H 121 H Respiratory Rate 14 24 H Blood Pressure 136/81 H 149/73 H Blood Pressure Mean 99 98 Pulse Ox 97 100 Oxygen Delivery Method Room Air Room Air Room Air 02/10/23 09:23 02/10/23 10:00 02/10/23 11:00 Temperature 102.6 F H 103.0 F H Temperature Source Core Core Pulse Rate 93 89 82 Respiratory Rate 18 16 Blood Pressure 121/78 H 108/78 88/54 L Blood Pressure Mean 92 88 65 Pulse Ox 99 100 94 Oxygen Delivery Method Room Air Room Air Room Air 02/10/23 11:50 02/10/23 12:01 Temperature 100.7 F H 100.6 F H Temperature Source Core Core Pulse Rate 80 Respiratory Rate 16 Blood Pressure 101/59 L Blood Pressure Mean 73 Pulse Ox 94 Oxygen Delivery Method Room Air Weight Weight: 101.5 kg Body Mass Index (BMI) 32.1 Physical Exam Const alert, oriented x3, no apparent distress and healthy appearing General Appearance: cooperative, well kempt and well developed Orientation / Consciousness: awake, oriented to person, oriented to place and oriented to time HEENT normocephalic, head/scalp atraumatic, hearing grossly normal bilaterally and moist oral mucous membranes Eyes PERRL, EOMs intact bilaterally and conjunctivae normal Neck supple, no JVD, thyroid normal and no carotid bruits General: trachea midline Resp normal respiratory effort, no retractions, no use of accessory muscles and clearto auscultation bilaterally Auscultation: Negative for rales, rhonchi or wheezes Cardio regular rate, regular rhythm, S1 normal heart sound, S2 normal heart sound, no rub and no gallops Cardio Narrative: 1/6 systolic murmur was noted at the apex and left sternal border GI normal to inspection, nondistended, normoactive bowel sounds, soft to palpation,non-tender and non-distended Extremity normal to inspection and no clubbing, cyanosis or edema Skin no rashes or lesions noted General Skin Exam: no breakdown Neuro oriented x3, CN's II-XII intact bilaterally, moves all extremities, no focal motor deficits and no sensory deficits noted Sensorium / Orientation: awake, alert, oriented to person, oriented to place andoriented to time Speech: speech normal Psych affect normal Results Lab / Micro Data Result Diagrams: 02/10/23 08:53 02/10/23 08:53 Labs: Laboratory Results - last 24 hr 02/10/23 08:53: WBC 9.4, RBC 5.04, Hgb 14.8, Hct 45.8, MCV 90.9, MCH 29.4, MCHC 32.3, RDW Std Deviation 46.6 H, RDW Coeff of Ethan 14.0, Plt Count 183, MPV 10.0, Immature Gran % (Auto) 0.100, Neut % (Auto) 91.1 H, Lymph % (Auto) 7.4 L, [place] %(Auto) 1.0, Eos % (Auto) 0.1, Baso % (Auto) 0.3, Absolute Neuts (auto) 8.6 H, Absolute Lymphs (auto) 0.70 L, Nucleated RBC % 0 02/10/23 08:53: PT 17.0 H, INR 1.4, APTT 29.4 02/10/23 08:53: Sodium 136, Potassium 4.1, Chloride 103, Carbon Dioxide 21.0, Anion Gap 12, BUN 30 H, Creatinine 1.40 H, Estim Creat Clear Calc 44.18, Est GFR(MDRD) Af Amer 63, Est GFR (MDRD) Non-Af 52 L, BUN/Creatinine Ratio 21.4 H, Glucose 204 H, Calcium 9.2, Total Bilirubin 1.10 H, AST 15, ALT 25, Alkaline Phosphatase 79, Total Protein 8.1, Albumin 3.6, Globulin 4.5 H, Albumin/GlobulinRatio 0.8 L 02/10/23 08:53: Lactic Acid 5.5 H* 02/10/23 08:53: Urine Color Yellow, Urine Clarity Sl. Cloudy, Urine pH 6.0, Ur Specific [place] 1.015, Urine Protein 100 H, Urine Glucose (UA) Normal, Urine Ketones 5 H, Urine Occult Blood 150 H, Urine Nitrite Positive H, Urine BilirubinNegative, Urine Urobilinogen Normal, Ur Leukocyte Esterase 100 H, Urine RBC 10-25 SEEN, Urine WBC 25-50 SEEN, Ur Squamous Epith Cells 0 SEEN, Urine Bacteria 3+, Urine Mucus 0 SEEN Micro: Microbiology 02/10/23 08:50 Nasal Secretion SARS-CoV-2 & FLU Antigen (Rapid) - Final Radiology Impression Chest X-Ray 02/10/23 09:46 IMPRESSION: No acute findings in the chest and unchanged when compared to 12/10/2021. Electronically Signed: Ravin Guzman MD at 11:01 EDT , Assessment & Plan Assessment/Plan (1) UTI (urinary tract infection): PLAN: Plan 1. Severe cystitis-patient will be admitted to [facility] 3, he will be given IV Rocephin, fluids will be administered, labs will be monitored. It is unclear atthis time with the patient actually has sepsis. #2 dehydration-patient was given fluid bolus in the emergency room, I will continue vigorous fluid administration on [facility] #3 coronary artery disease-this appears stable at this time, he will remain on his home medications, patient is intolerant of statins #4 paroxysmal atrial fibrillation-patient currently is in sinus rhythm at this time with a rate of approximately 78, he will remain on his Eliquis and rate control medication #5 hypercoagulable state secondary to #4-patient takes Eliquis and this will be continued in the hospital #6 hypothyroidism-patient will remain on Synthroid #7 essential hypertension-patient will remain on his present medications #8 hypotension-this is probably secondary to dehydration, vigorous fluid administration will be given to the patient Total clinical time spent by myself addressing the patient's medical problems, reviewing all of the data, and collaborating with the patient's care team: 75 minutes Charges/Coding Visit Charges Inpatient E&M: 33827 Init Hosp L3 02/10/23 1252 <Electronically signed by Lc Avery DO> Cosigner Signature (if applicable): CC: Dr. Lc Avery DO; [facility]~ Signed ADDENDUM by Dr. Lc Avery DO on 02/10/23 at 1310 Addendum Please correct the primary diagnosis: #1 acute sepsis secondary to acute severe cystitis-bacterial in nature, patient will receive Rocephin IV and labs will be monitored. I do not feel the patient has septic shock at this time. 02/10/23 1311<Electronically signed by Lc Avery DO> Cosigner Signature (if applicable): cc: Dr. Lc Avery DO; [facility] ~* Signed [facility] Work Phone: Discharge summary Author Dr. Avery [facility] February 12, 2023 9:49am Note Date/Time February 12, 2023 9:4 1am [facility] Medical Records Department [address] [place] [id number] Instructions for Home/Discharge Instructions 02/12/23 0940 MR#: [id number] Acct: [id number] Name: STONE HAILE Rep #:[id number] : 1945 77 From: Lc Avery DO PCP: [place], [place] Status:ADM IN Discharge Instructions Diet Discharge Diet: No restrictions Activity Discharge Activity: Return to Normal Activity Weight Bearing Status: Full weight bearing Follow Up Care Test Results: Test results from this visit will be discussed in further detail at your follow- up appointment, if applicable. Discharge Plan Admission Admit Date/Time: 02/10/23 12:28 Primary Reason for Your Visit: Sepsis from urinary tract infection Attending Provider: Lc Avery Primary Care Provider: [place], [place] Discharge Orders/Prescriptions Prescriptions: New tamsulosin 0.4 mg Capsule 0.8 mg PO QHS Qty: 60 0RF ciprofloxacin HCl [Cipro] 500 mg tablet 500 mg PO BID Qty: 14 0RF Rx Instructions: start on Continued cetirizine 10 mg Tablet 10 mg PO DAILY amlodipine 5 mg Tablet 5 mg PO DAILY levothyroxine 125 mcg Tablet 125 mcg PO DAILY aspirin 81 mg Tablet,Chewable 81 mg PO DAILY metoprolol tartrate 25 mg Tablet 25 mg PO BID Eliquis 5 mg Tablet 5 mg PO BID Qty: 60 1RF lisinopril 2.5 mg Tablet 2.5 mg PO DAILY Discontinued tamsulosin 0.4 mg Capsule 0.4 mg PO QHS Referrals / Follow Up: [facility] [Primary Care Provider] - Within 2 Weeks Disposition Disposition (needs filled in before D/C Order can be placed): Home, Self Care 02/12/23 0928<Electronically signed by Lc Avery DO>Lc Avery DO CC: [facility] ~ Signed [facility] Work Phone: Evaluation + Plan note No data available for this section [facility] Evaluation noteNo assessment information available [facility] Work Phone: Evaluation note* Diagnosis Onset Date Resolution Status Sepsis acute UTI (urinary tract infection) acute [facility] Work Phone: History and physical note Author Dr. Avery [facility] February 10, 2023 12:52pm Note Date/Time February 10, 2023 12: 36pm [facility] Medical Records Department [address] [place] [id number] H&P Exam - Hospitalist 02/10/23 1236 MR#: [id number] Acct: [id number] Name: STONE HAILE Rep #:[id number] : 1945 77 From: Lc Avery DO [facility] Status:REG ER Location: ED HPI - General General Date of Service: 02/10/23 Chief Complaint: Chills, dysuria HPI Narrative STONE HAILE, is a 77 M who presents to the ER at [facility] with complaints of dysuria x48 hours along with chills. Patient has had problems urinating over the past 24 hours with decreased urine stream. Work-up in the emergency room showed the patient to be febrile with a temp of 103, whiteblood cell count was normal, lactic acid was elevated at 5.5, urinalysis was grossly positive for urinary tract infection. Patient's creatinine was elevatedat 1.4, BUN was also elevated at 30. Bilirubin was mildly elevated at 1.1. Patient's chest x-ray was unremarkable. While in the emergency room, patient's systolic blood pressure dropped into the 80s, he was given several fluid boluseswith elevation of his blood pressure as a result. Patient was alert and appropriate, he did not appear confused. Patient will be admitted for severe cystitis, he was given IV Rocephin in the emergency room, vigorous fluid administration we will continue. Patient's past medical history includes coronary artery disease with one-vessel bypass and aortic valve replacement last year. Patient takes Eliquis for paroxysmal A-fib. [facility] Medical History Atrial fibrillation BPH (benign prostatic hyperplasia) CAD (coronary artery disease) Carotid artery stenosis Elevated troponin Fatigue History of alcohol abuse History of tobacco abuse HLD (hyperlipidemia) HTN (hypertension) Hypothyroidism Normocytic anemia Seasonal allergies Home Medications amlodipine 5 mg tablet 5 mg PO DAILY 12/10/21 [History Last Taken 02/09/23] aspirin 81 mg chewable tablet 81 mg PO DAILY 12/10/21 [History Last Taken 02/10/23] cetirizine 10 mg tablet 10 mg PO DAILY 12/10/21 [History Last Taken 02/10/23] levothyroxine 125 mcg tablet 125 mcg PO DAILY 12/10/21 [History Last Taken 02/09/23] metoprolol tartrate 25 mg tablet 25 mg PO BID 12/10/21 [History Last Taken 02/10/23] apixaban 5 mg tablet (Eliquis) 5 mg PO BID #60 tabs 12/12/21 [Rx Last Taken 02/10/23] lisinopril 2.5 mg tablet 2.5 mg PO DAILY HTN 02/10/23 [History Last Taken 02/10/23] tamsulosin 0.4 mg capsule 0.4 mg PO QHS prostate 02/10/23 [History Last Taken 02/09/23] Allergy/AdvReac Type Severity Reaction Status Date / Time [id number] Reductase Allergy Other Verified 02/10/23 08:21 Inhibitor ibuprofen AdvReac Other Verified 02/10/23 08:21 Surgical History Heart valve replaced History of open heart surgery Hx of heart artery stent S/P AVR (aortic valve replacement) S/P CABG (coronary artery bypass graft) Social History Smoking Status: Former smoker ROS Constitutional Constitutional: Reports chills and malaise; Denies anorexia, change in weight, fever(s), night sweats or weakness Eyes Eyes: Denies blurry vision, change in vision, discharge from eye(s) or eye pain Cardiovascular Cardiovascular: Denies chest pain, claudication, dyspnea on exertion, edema, lightheadedness, orthopnea or palpitations Respiratory/Chest Respiratory/Chest: Denies cough, excessive phlegm production, hemoptysis, productive cough, shortness of breath at rest or shortness of breath with exertion Gastrointestinal Gastrointestinal: Denies abdominal pain, constipation, diarrhea, hematemesis, hematochezia, melena, nausea or vomiting Genitourinary Genitourinary: Reports difficulty urinating and dysuria; Denies burning urination, hematuria, urinary frequency, urinary hesitancy, urinary incontinenceor urinary urgency Musculoskeletal Musculoskeletal: Denies back pain, joint pain, joint stiffness, joint swelling, myalgias or neck pain Neurologic Neurologic: Denies abnormal gait, abnormal speech, confusion, disequilibrium, dizziness, focal weakness, headache(s), loss of vision, numbness, other visual disturbances, paresthesias, syncope or tingling Psychiatric Psychiatric: Denies anxiety, cognitive impairment, depression, irritability, mood swings or suicidal ideation Endocrine Endocrinology: Denies change in body appearance, cold intolerance, excessive sweating, heat intolerance, polydipsia or polyuria Hematologic/Lymphatic Hematologic/Lymphatic: Denies none, anemia, easy bleeding, easy bruising or lymphadenopathy Allergic/Immunologic Allergic/Immunologic: Denies rhinitis, urticaria, eczemia or asthma Vital Signs Vital Signs Vital Signs: 02/10/23 08:22 02/10/23 08:32 02/10/23 08:32 Temperature 99.7 F H 99.4 F H Temperature Source Oral Temporal Pulse Rate 135 H 121 H Respiratory Rate 14 24 H Blood Pressure 136/81 H 149/73 H Blood Pressure Mean 99 98 Pulse Ox 97 100 Oxygen Delivery Method Room Air Room Air Room Air 02/10/23 09:23 02/10/23 10:00 02/10/23 11:00 Temperature 102.6 F H 103.0 F H Temperature Source Core Core Pulse Rate 93 89 82 Respiratory Rate 18 16 Blood Pressure 121/78 H 108/78 88/54 L Blood Pressure Mean 92 88 65 Pulse Ox 99 100 94 Oxygen Delivery Method Room Air Room Air Room Air 02/10/23 11:50 02/10/23 12:01 Temperature 100.7 F H 100.6 F H Temperature Source Core Core Pulse Rate 80 Respiratory Rate 16 Blood Pressure 101/59 L Blood Pressure Mean 73 Pulse Ox 94 Oxygen Delivery Method Room Air Weight Weight: 101.5 kg Body Mass Index (BMI) 32.1 Physical Exam Const alert, oriented x3, no apparent distress and healthy appearing General Appearance: cooperative, well kempt and well developed Orientation / Consciousness: awake, oriented to person, oriented to place and oriented to time HEENT normocephalic, head/scalp atraumatic, hearing grossly normal bilaterally and moist oral mucous membranes Eyes PERRL, EOMs intact bilaterally and conjunctivae normal Neck supple, no JVD, thyroid normal and no carotid bruits General: trachea midline Resp normal respiratory effort, no retractions, no use of accessory muscles and clearto auscultation bilaterally Auscultation: Negative for rales, rhonchi or wheezes Cardio regular rate, regular rhythm, S1 normal heart sound, S2 normal heart sound, no rub and no gallops Cardio Narrative: 1/6 systolic murmur was noted at the apex and left sternal border GI normal to inspection, nondistended, normoactive bowel sounds, soft to palpation,non-tender and non-distended Extremity normal to inspection and no clubbing, cyanosis or edema Skin no rashes or lesions noted General Skin Exam: no breakdown Neuro oriented x3, CN's II-XII intact bilaterally, moves all extremities, no focal motor deficits and no sensory deficits noted Sensorium / Orientation: awake, alert, oriented to person, oriented to place andoriented to time Speech: speech normal Psych affect normal Results Lab / Micro Data Result Diagrams: 02/10/23 08:53 02/10/23 08:53 Labs: Laboratory Results - last 24 hr 02/10/23 08:53: WBC 9.4, RBC 5.04, Hgb 14.8, Hct 45.8, MCV 90.9, MCH 29.4, MCHC 32.3, RDW Std Deviation 46.6 H, RDW Coeff of Ethan 14.0, Plt Count 183, MPV 10.0, Immature Gran % (Auto) 0.100, Neut % (Auto) 91.1 H, Lymph % (Auto) 7.4 L, [place] %(Auto) 1.0, Eos % (Auto) 0.1, Baso % (Auto) 0.3, Absolute Neuts (auto) 8.6 H, Absolute Lymphs (auto) 0.70 L, Nucleated RBC % 0 02/10/23 08:53: PT 17.0 H, INR 1.4, APTT 29.4 02/10/23 08:53: Sodium 136, Potassium 4.1, Chloride 103, Carbon Dioxide 21.0, Anion Gap 12, BUN 30 H, Creatinine 1.40 H, Estim Creat Clear Calc 44.18, Est GFR(MDRD) Af Amer 63, Est GFR (MDRD) Non-Af 52 L, BUN/Creatinine Ratio 21.4 H, Glucose 204 H, Calcium 9.2, Total Bilirubin 1.10 H, AST 15, ALT 25, Alkaline Phosphatase 79, Total Protein 8.1, Albumin 3.6, Globulin 4.5 H, Albumin/GlobulinRatio 0.8 L 02/10/23 08:53: Lactic Acid 5.5 H* 02/10/23 08:53: Urine Color Yellow, Urine Clarity Sl. Cloudy, Urine pH 6.0, Ur Specific [place] 1.015, Urine Protein 100 H, Urine Glucose (UA) Normal, Urine Ketones 5 H, Urine Occult Blood 150 H, Urine Nitrite Positive H, Urine BilirubinNegative, Urine Urobilinogen Normal, Ur Leukocyte Esterase 100 H, Urine RBC 10-25 SEEN, Urine WBC 25-50 SEEN, Ur Squamous Epith Cells 0 SEEN, Urine Bacteria 3+, Urine Mucus 0 SEEN Micro: Microbiology 02/10/23 08:50 Nasal Secretion SARS-CoV-2 & FLU Antigen (Rapid) - Final Radiology Impression Chest X-Ray 02/10/23 09:46 IMPRESSION: No acute findings in the chest and unchanged when compared to 12/10/2021. Electronically Signed: Ravin Guzman MD at 11:01 EDT , Assessment & Plan Assessment/Plan (1) UTI (urinary tract infection): PLAN: Plan 1. Severe cystitis-patient will be admitted to [facility] 3, he will be given IV Rocephin, fluids will be administered, labs will be monitored. It is unclear atthis time with the patient actually has sepsis. #2 dehydration-patient was given fluid bolus in the emergency room, I will continue vigorous fluid administration on [facility] #3 coronary artery disease-this appears stable at this time, he will remain on his home medications, patient is intolerant of statins #4 paroxysmal atrial fibrillation-patient currently is in sinus rhythm at this time with a rate of approximately 78, he will remain on his Eliquis and rate control medication #5 hypercoagulable state secondary to #4-patient takes Eliquis and this will be continued in the hospital #6 hypothyroidism-patient will remain on Synthroid #7 essential hypertension-patient will remain on his present medications #8 hypotension-this is probably secondary to dehydration, vigorous fluid administration will be given to the patient Total clinical time spent by myself addressing the patient's medical problems, reviewing all of the data, and collaborating with the patient's care team: 75 minutes Charges/Coding Visit Charges Inpatient E&M: 52216 Init Hosp L3 02/10/23 1252 <Electronically signed by Lc Avery DO> Cosigner Signature (if applicable): CC: Dr. Lc Avery DO; [facility]~ Signed [facility] Work Phone: Reason for referral (narrative)No reason for referral information availableWBrown [facility] Work Phone: Chief Complaint and Reason for Visit Chief Complaint AFIB/FATIGUE FATIGUE, ELEVATED TROPONIN, A. FIB AFIB/FATIGUE AFIB/FATIGUE AFIB/FATIGUE AFIB/FATIGUE AFIB/FATIGUE S/P CABG, AVR S/P CABG, AVR Chief Complaint AFIB/FATIGUE FATIGUE, ELEVATED TROPONIN, A. FIB AFIB/FATIGUE AFIB/FATIGUE AFIB/FATIGUE AFIB/FATIGUE AFIB/FATIGUE S/P CABG, AVR S/P CABG, AVR S/P CABG, AVR Chief Complaint uti uti Chief Complaint SEVERE CYSTITIS uti SEVERE CYSTITIS Reason for Visit Sepsis UTI (urinary tract infection) Chief Complaint SEVERE CYSTITIS uti SEVERE CYSTITIS SEVERE CYSTITIS cough, congestion Reason for Visit Sepsis UTI (urinary tract infection) Chief Complaint Admit Date DIZZINESS, BLURRED VISION June 15 3:04pm Advance Directives No Advanced Directives Records Found Advance Directive Response Recorded Date/ Time Living Will No January 31, 2022 2:02pm Power of Media Analyst No January 31 2:02pm Advance Directive Response Recorded Date/ Time Living Will No February 10, 2023 8:23am Power of Media Analyst No February 10 8:23am Advance Directive Response Recorded Date/ Time Living Will No February 10, 2023 1:16pm Power of Media Analyst No February 10 1:16pm Advance Directive Response Recorded Date/ Time Living Will No February 19, 2023 6:19pm Power of Media Analyst No February 19 6:19pm Advance Directive Response Recorded Date/ Time Do you have a Healthcare Power of Media Analyst? No June 15, 2025 3:11pm Summary Purpose Family History No Family History Records Found No data available for this section No Family History Records Found Additional Source Comments Goals (unrecognized section and content) Goals may be documented in a n alternate sectionGoals may be documented in an alternate sectionGoals may be documented in an alternate sectionGoals may be documented in an alternate section No data available for this section Care Teams (unrecognized sec tion and content) Team Status: Active Member Role Status Dates Dr. Jerardo Moore MD Family Provider Active [facility] Primary Care Provider Active Team Status: Active Member Role Status Dates [facility] Primary Care Provider Active Dr. Kelly Gutiérrez MD Emergency Provider Active Dr. Lc Avery DO Attending Provider Active Team Status: Inactive Member Role Status Dates [facility] Primary Care Provider Active Dr. Kelly Gutiérrez MD Emergency Provider Active Team Status: Active Member Role Status Dates [facility] Primary Care Provider Active Dr. Kelly Gutiérrez MD Emergency Provider Active Dr. Lc Avery DO Admit Provider, Attending Provider, Other Provider Active Team Status: Inactive Member Role Status Dates [facility] Primary Care Provider Active Dr. Kelly Gutiérrez MD Emergency Provider Active Dr. Lc Avery DO Admit Provider, Attending Pro vider Active Team Status: Inactive Member Role Status [facility] Primary Care Provider Active Dr. Jam Arciniega MD Emergency Provider Active Team Status: Active Member Role/Relationship Status Dates [facility] Primary Care Provider Active Team Status: Inactive Member Role/Relationship Status [facility] Primary Care Provider Active Start: June 15, 2025 End: June 15, 2025 Dr. Anibal Douglass DO Emergency Provider Active Start: June 15, 2025 End: June 15, 2025 (unrecognized sect ion and content) No Status Records FoundNo Status Records Found INFORMATION SOURCE (unrecogn ized section and content) DATE CREATED AUTHOR 06/17/2025 [facility] DATE CREATED AUTHOR AUTHOR'S DAVEY SONG 06/27/2025 [facility] FOR RECORDS PERTAINING TO PATIENTS WHO ARE OR HAVE BEEN ENROLLED IN A CHEMICAL DEPENDENCY/SUBSTANCEABUSE PROGRAM, SOME INFORMATION MAY BE OMITTED. This clinical summary was aggregated from multiple sources. Caution should be exercised in using it in the provision of clinical care. This summary normalizes information from multiple sources, and as a consequence, information in this document may materially change the coding, format and clinical context of patient data. In addition, data may be omitted in some cases. CLINICAL DECISIONS SHOULD BE BASED ON THE PRIMARY CLINICAL RECORDS. [employer] provides no warranty or guarantee of the accuracy or completeness of information in this document.
[2025-09-04 10:39] LABS: Hematocrit 39.6 % (40-54); Hemoglobin 13.3 g/dL (13.0-16.5); Immature Granulocytes Count 0.050 X10^3/uL (0.0-0.0); Mean Corp Hgb Conc 33.6 g/dL (32-36); Mean Corpuscular Volume 89.4 fL (80-94); Mean Platelet Vol. 9.7 fl (6.2-12.0); NRBC Flagged by Analyzer 0 % (0-5); Platelet Count 158 K/mm3 (150-450); RBC Distribution Width CV 13.8 % (11.6-14.6); RBC Distribution Width SD 45.1 fl (35.1-43.9); Red Blood Count 4.43 M/mm3 (4.6-6.2); White Blood Count 11.3 K/mm3 (4.4-11.0)
[2025-09-04 11:06] LABS: Anion Gap 13 (5-15); BUN 22 mg/dL (4-19); BUN/Creat Ratio 23.8 RATIO (10-20); Calcium,Total 8.9 mg/dL (7.6-11.0); Carbon Dioxide 25.7 mmol/L (21.0-32.0); Chloride 101 mmol/L (98-108); Estimated Creatinine Clearance 71.71 ml/min (50-250); Glucose 130 mg/dL (70-99); Potassium 3.9 mmol/L (3.3-5.1)
--- NOTE | 2025-09-04 11:20 | RAD_ITS ---
PROCEDURE: CHEST PA AND LATERAL 09/04/2025 REASON FOR EXAM: COUGH TECHNIQUE: Procedure Code: RADCXR Modality: DX Procedure: CHEST PA AND LATERAL COMPARISON: 06/15/2025 FINDINGS: LUNGS AND PLEURA: The lungs are clear. No pleural effusion or pneumothorax. HEART AND MEDIASTINUM: The heart size and mediastinal contours are normal. 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 Left atrial appendage closure device again noted. AORTA: Calcified thoracic aorta. BONES: No acute osseous abnormality. Stable anterior wedge deformity of the T8 vertebral body. RAD/Chest PA and Lateral IMPRESSION: NO ACUTE FINDINGS. Reading Location: [id number]
[2025-09-04 11:42] VITALS: BP 131/65; PULSE 50; RESP 16; O2SAT 96
[2025-09-04 12:35] VITALS: BP 133/63; PULSE 54; RESP 18; TEMP 37; O2SAT 100
== END 2025-09-04 12:37 | disposition home or self-care (01) ==
PROVIDERS: Emergency Provider Emergency Medicine; Visit Provider Emergency Medicine
DX: J06.9 Acute upper respiratory infection, unspecified (principal); I10 Essential (primary) hypertension; E78.5 Hyperlipidemia, unspecified; Z87.891 Personal history of nicotine dependence; B34.9 Viral infection, unspecified; I25.10 Atherosclerotic heart disease of native coronary artery without angina pectoris
CPT/HCPCS: 71046; 80048; 85025; 87631; 99283; A4216

== ENCOUNTER → 2025-10-27 | Outpatient (CLI) | payer OTHER, SELFPAY ==
[2022-03-02 13:02] VITALS: BMI 28.5
--- NOTE | 2025-10-27 06:41 | ECHOCS_ITS ---
Reason For Study Reason For Study: CAD/ASHD, SSS Procedure This was a 2D Doppler, Color Flow transthoracic echocardiogram. The study was technically difficult. Due to suboptimal apical imaging window. Contrast injection was performed. Exam performed in department. Left Ventricle Normal size and thickness. LVEF 60%. Stage II diastolic dysfunction with elevated left atrial filling pressures. Right Ventricle Normal right ventricle. Atria The left atrium is severely enlarged. The right atrium is mildly enlarged. Mitral Valve Mild prolapse of the posterior mitral valve leaflet. Moderate mitral valve regurgitation. Tricuspid Valve Mild-Moderate (1-2+) tricuspid valve insufficiency. Right ventricular systolic pressure estimated to be 53 mmHg. Aortic Valve Stable appearing bioprosthetic aortic valve. Mean peak gradient 5 mmHg. Trivial aortic valve regurgitation. Pulmonic Valve Mild (1+) pulmonic valve insufficiency. Great Vessels Normal sized aortic root. Pericardium/Pleural No pericardial effusion. Medication 22 gauge I.V. with prn adaptor inserted into left arm. Diluted definity 1.5ml given slow IV push to enhance endocardial definition. MMode/2D Measurements & Calculations LVIDd: 4.6 cm IVSd: 1.1 cm LVOT diam: 2.1 cm LVIDs: 3.0 cm LVPWd: 1.1 cm RVDd: 4.0 cm FS: 34.8 % LVOT area: 3.4 cm2 asc Aorta Diam: 3.9 cm LAV(MOD-bp): 108.1 ml LVAd ap4: 35.7 cm2 LAV(MOD-bp) Indexed: 50.2 ml/m2 LVLd ap4: 8.1 cm LAV(MOD-sp2): 118.4 ml EDV(MOD-sp4): 127.6 ml LAV(MOD-sp4): 93.1 ml EDV(sp4-el): 133.1 ml LVAs ap4: 26.7 cm2 LVLs ap4: 7.5 cm ESV(MOD-sp4): 78.5 ml ESV(sp4-el): 81.1 ml EF(MOD-sp4): 38.5 % EF(sp4-el): 39.1 % LVAd ap2: 38.3 cm2 SV(MOD-sp4): 49.1 ml LVLd ap2: 8.6 cm EDV(MOD-bp): 138.1 ml SI(MOD-sp4): 22.8 ml/m2 EDV(MOD-sp2): 140.2 ml ESV(MOD-bp): 80.1 ml EDV(sp2-el): 145.0 ml EF(MOD-bp): 42.0 % LVAs ap2: 27.3 cm2 LVLs ap2: 7.6 cm ESV(MOD-sp2): 80.1 ml ESV(sp2-el): 83.4 ml EF(MOD-sp2): 42.9 % SV(MOD-sp2): 60.1 ml SV(sp4-el): 52.0 ml LA A4 area: 26.8 cm2 SI(MOD-sp2): 27.9 ml/m2 LA dimension(2D): 4.7 cm RA A4 area: 18.3 cm2 TAPSE: 1.8 cm Time Measurements MV dec time: 0.21 sec Doppler Measurements & Calculations MV E max rizwan: 108.3 cm/sec Lat Peak E' Rizwan: 3.2 cm/sec Med Peak E' Rizwan: 5.8 cm/sec MV A max rizwan: 67.5 cm/sec E/E' lat: 33.6 E/E' med: 18.6 MV E/A: 1.6 MV V2 max: 109.1 cm/sec MV P1/2t max rizwan: 111.4 cm/sec Ao V2 max: 164.1 cm/sec MV max P.8 mmHg MV P1/2t: 70.3 msec Ao max P.8 mmHg MV V2 mean: 55.3 cm/sec Ao V2 mean: 109.8 cm/sec MV mean P.4 mmHg MV dec slope: 464.3 cm/sec2 Ao mean P.5 mmHg MV V2 VTI: 34.5 cm MVA(P1/2t): 3.1 cm2 Ao V2 VTI: 35.1 cm AV (velocity ratio): 0.80 MVA(VTI): 2.8 cm2 MARK(I,D): 2.7 cm2 MARK(V,D): 2.5 cm2 LV V1 max: 118.7 cm/sec SV(LVOT): 96.4 ml PA V2 max: 90.3 cm/sec LV V1 max P.6 mmHg LV V1 mean P.7 mmHg LV V1 mean: 78.2 cm/sec LV V1 VTI: 28.1 cm PI dec slope: 172.8 cm/sec2 TR max rizwan: 307.9 cm/sec TR max P.9 mmHg ECHO/Echo Complete W/ Contrast Interpretation Summary LVEF 60%. Stage II diastolic dysfunction with elevated left atrial filling pres sures. The left atrium is severely enlarged. The right atrium is mildly enlarged. Mild prolapse of the posterior mitral valve leaflet. Moderate mitral valve regu rgitation. Mild-Moderate (1-2+) tricuspid valve insufficiency. Right ventricular systolic pressure estimated to be 53 mmHg. Stable appearing bioprosthetic aortic valve. Mean peak gradient 5 mmHg. Trivial aortic valve regurgitation. Mild (1+) pulmonic valve insufficiency. The study was technically difficult. Ordering Physician: Aleksandra Arredondo Referring Physician: [facility] Performed By: Manju Sam, JARON, RVT
--- NOTE | 2025-10-27 06:41 | CDU_ITS ---
Reason For Study Reason For Study: Sick sinus syndrome, amaurosis fugax Rt. Velocities/BP Lt. Velocities/BP Prox CCA 69.6/6.9 cm/sec. Prox CCA 62.1/11.8 cm/sec. Mid CCA 60.8/8.0 cm/sec. Mid CCA 56.0/10.6 cm/sec. Dist CCA 66.3/11.3 cm/sec. Dist CCA 41.2/10.0 cm/sec. Prox ICA 243.4/62.4 cm/sec. Prox ICA 93.0/20.4 cm/sec. Mid ICA 130.2/33.6 cm/sec. Mid ICA 64.9/12.4 cm/sec. Dist ICA 65.5/16.3 cm/sec. Dist ICA 83.2/21.9 cm/sec. Rt. ICA/CCA = 4.0. Lt. ICA/CCA = 1.7. Prox ECA 108.4/5.3 cm/sec. Prox ECA 66.7/0.0 cm/sec. Rt. Vert. 20.8/0.0 cm/sec. Lt. Vert. 52.3/14.9 cm/sec. Right Extracranial There is intimal thickening but no significant atherosclerotic plaque noted in the right common carotid artery. There is heterogeneous, irregular atherosclerotic plaque noted in the right internal carotid artery. There is homogeneous, smooth atherosclerotic plaque noted in the right external carotid artery. Antegrade flow is noted in the right vertebral artery. Left Extracranial There is homogeneous, smooth atherosclerotic plaque noted in the left common carotid artery. There is heterogeneous, irregular atherosclerotic plaque noted in the left internal carotid artery. There is heterogeneous, irregular atherosclerotic plaque noted in the left external carotid artery. Antegrade flow is noted in the left vertebral artery. Procedure Carotid Duplex 18412. This is a Carotid Duplex examination using B-mode, color flow and specral Doppler. Exam performed in department. VL/Carotid Duplex Ultrasound Interpretation Summary Severe (>70%) stenosis right extracranial internal carotid. Mild (<50%) stenosis left extracranial internal carotid. Patent and antegrade vertebrals bilaterally. Ordering Physician: Aleksandra Arredondo Referring Physician: [facility] Performed By: Stephanie Head RVT
--- OUTSIDE RECORDS SUMMARY | 2025-10-27 06:43 | XMS RPT_ITS | CCD ---
Author Organization [facility] Care Team Providers Care Executive Officer [employer] Team Name Role Phone Dr. Tamia Mccray Emergency Provider [place], [place] Primary Care Provider Dr. Bailey Bynum Admit Provider Dr. Bailey Garcia Attending Provider Dr. Baliey Garcia Other Provider Dr. Facundo Costa Other Provider Dr. Annie Hernandez Attending Provider Dr. Annie Hernandez Other Provider Dr. Thomas Franks Attending Provider Dr. Annie Hernandez Referring Provider Dr. Rhina Palma Other Provider Dr. Rhina Palma Attending Provider [place], [place] Primary Care Provider Dr. Kelly Lewis Emergency Provider [phone] Lc Avery Attending Provider Dr. Lc Avery Admit Provider Dr. Lc Avery Other Provider [place], [place] Primary Care Provider Dr. Anibal Handy DO Emergency Provider [phone] [facility] Primary Care Physician BRENDA CAVAZOS MD Attending Unavailable [facility] Primary Care Unavailable [facility] [place] Primary Care Unavailable Anibal Douglass Attending Unavailable [facility] [place] Primary Care Unavailable Ravin Naik Attending Unavailable [facility] [place] Primary Care Physician Unavailab Dr. Anibal Ho DO Attending Physician Dr. Anibal Douglass DO Emergency Department Physic sneha Ravin Naik MD Attending Physician [phone] Ravin Naik MD Emergency Department Physician Allergies Allergy Classification Reported Allergen(s) Allergy Type Date of Onset Reaction(s) Facility (7 sources) Ibuprofen Drug Allergy 12-10-2021 Other [facility] (8 sources) Xefvqwz-Zpi-Dri Reductase Inhibitor; Translations: [Fyfusng-Plt-Fpd Reductase Inhibitor] Allergy to substance 12-10-2021 Other [facility] (1 source) ezetimibe Drug Allergy 09-04-2025 [facility] Repository (1 source) Ibuprofen Drug Allergy 09-04-2025 [facility] Repository (1 source) ezetimibe Drug Allergy 09-04-2025 unknown [facility] Medications Current Medications Medication Drug Class(es) Dates Sig (Normalized) Sig (Original) 1 ml alirocumab 75 mg/ml auto-injector (1 source) PCSK9 Inhibitor Start: 08-23-2025 Alirocumab 75 mg/mL pen injector Active 75 mg SC every 4 weeks August 22, 2025 11:00pm Complies with drug therapy amLODIPine 5 mg oral tablet (7 sources) Dihydropyridine Calcium Channel Aniyah Start: 12-10-2021 take 1 tablet by mouth once daily Amlodipine 5 mg Tablet Active 5 mg PO DAILY December 10, 2021 12:00am Complies with drug therapy apixaban 5 mg oral tablet (7 sources) Factor Xa Inhibitor Start: 12-12-2021 take 1 tablet by mouth twice daily Apixaban (Eliquis) 5 mg Tablet Active 5 mg PO TWICE A DAY 60 December 12, 2021 12:00am Complies with drug therapy cetirizine hydrochloride 10 mg oral tablet (7 sources) Histamine-1 Receptor Antagonist Start: 12-10-2021 take 1 tablet by mouth once daily Cetirizine 10 mg Tablet Active 10 mg PO DAILY December 10, 2021 12:00am Complies with drug therapy diclofenac sodium 0.01 mg/mg topical gel (1 source) Nonsteroidal Anti-inflammatory Drug Start: 08-23-2025 apply 2 g topically twice daily as needed for pain Diclofenac Sodium 1 % gel Active 2 g TOPICAL TWICE A DAY as needed for pain August 22, 2025 11:00pm apply to left knee Complies with drug therapy levothyroxine sodium 0.125 mg oral tablet (7 sources) l-Thyroxine Start: 12-10-2021 take 1 tablet by mouth once daily Levothyroxine 125 mcg Tablet Active 125 ug PO DAILY December 10, 2021 12:00am Complies with drug therapy lisinopril 2.5 mg oral tablet (7 sources) Angiotensin Converting Enzyme Inhibitor Start: 02-10-2023 take 1 tablet by mouth once daily Lisinopril 2.5 mg Tablet Active 2.5 mg PO DAILY February 09, 2023 11:00pm HTN Complies with drug therapy Start: 12-10-2021 take 40 mg by mouth once daily Lisinopril Active 40 MG PO DAILY December 10, 2021 12:09pm 24 hr metoprolol succinate 25 mg extended release oral tablet (8 sources) beta-Adrenergic Aniyah Start: 08-23-2025 take 1 tablet by mouth once daily Metoprolol Succinate 25 mg tablet extended release 24 hr Active 25 mg PO daily August 22, 2025 11:00pm Complies with drug therapy Start: 12-10-2021 End: 08-23-2025 take 1 tablet by mouth twice daily Metoprolol Tartrate 25 mg Tablet Discontinued 25 mg PO TWICE A DAY December 10, 2021 12:00am August 23, 2025 12:40pm potassium chloride 20 meq extended release oral tablet (2 sources) Start: 12-10-2021 take 20 mEq by mouth twice daily Potassium Chloride Active 20 MEQ PO TWICE A DAY December 10, 2021 12:09pm tamsulosin hydrochloride 0.4 mg oral capsule (11 sources) alpha-Adrenergi c Aniyah Start: 02-12-2023 take 2 capsules by mouth at bedtime Tamsulosin 0.4 mg Capsule Active 0.8 mg PO AT BEDTIME 60 0 February 11, 2023 11:00pm Complies with drug therapy Start: 02-12-2023 take 0.8 mg by mouth at bedtim e Tamsulosin Active 0.8 MG PO AT BEDTIME 60 February 12, 2023 12:00am Start: 02-10-2023 End: 02-12-2023 take 1 capsule by mouth at bedtime Tamsulosin 0.4 mg Capsule Discontinued 0.4 mg PO AT BEDTIME February 09, 2023 11:00pm February 12, 2023 8:41am prostate Start: 12-10-2021 take 0.4 mg by mouth once leslie y Tamsulosin Active 0.4 MG PO DAILY December 10, 2021 12:09pm vitamin b12 1 mg/ml injectable solution (1 source) Vitamin B12 Start: 08-23-2025 Cyanocobalamin (Vitamin B-12) 1,000 mcg/mL solution Active 1000 ug IM every 4 weeks August 22, 2025 11:00pm Complies with drug therapy Completed/Discontinued Medications Medication Drug Class(es) Dates Sig (Normalized) Sig (Original) [id number] actuat albuterol 0.09 mg/actuat metered dose inhaler (3 sources) beta2-Adrenergic Agonist Start: 02-19-2023 End: 06-15-2025 Albuterol Sulfate (Ventolin Hfa) 90 mcg/actuation HFA aerosol inhaler Discontinued 2 NMA INHALATION EVERY 4 HOURS NEEDED as needed for Wheezing 1 0 February 18, 2023 11:00pm June 15, 2025 2:35pm Start: 02-19-2023 take 1 puff(s) by in halation every four hours as needed Albuterol Sulfate (Ventolin Hfa) 90 mcg/actuation HFA aerosol inhaler Active 2 PUFF INHALATION EVERY 4 HOURS NEEDED February 19, 2023 12:00am aspirin 81 mg chewable tablet (7 sources) Platelet Aggregation Inhibitor, Nonsteroidal Anti-inflammatory Drug Start: 12-10-2021 End: 06-15-2025 take 1 tablet by mouth once daily Aspirin 81 mg Tablet,Chewable Discontinued 81 mg PO DAILY December 10, 2021 12:00am June 15, 2025 2:36pm ciprofloxacin 500 mg oral tablet (4 sources) Quinolone Antimicrobial Start: 02-12-2023 End: 06-15-2025 take 1 tablet by mouth twice daily Ciprofloxacin Hcl (Cipro) 500 mg tablet Discontinued 500 mg PO TWICE A DAY 14 0 February 11, 2023 11:00pm June 15, 2025 2:36pm start on levoFLOXacin 500 mg oral tablet (3 sources) Quinolone Antimicrobial Start: 02-19-2023 End: 06-15-2025 take 1 tablet by mouth once daily Levofloxacin 500 mg tablet Discontinued 500 mg PO DAILY 7 0 February 18, 2023 11:00pm June 15, 2025 2:36pm Problems Problem Classification Problem Date Documented Da te Episodic/Chronic Cardiac dysrhythmias (4 sources) Paroxysmal atrial fibrillation; Translations: [Paroxysmal atrial fibrillation] 02-19-2023 Chronic Cardiac dysrhythmias (1 source) Bradycardia; Translations: [Bradycardia, unspecified] 06-23-2025 Episodic Conditions associated with dizziness or vertigo (2 sources) Dizziness and giddiness; Translations: [Lightheadedness] Onset: 06-22-2025 06-23-2025 Episodic Coronary atherosclerosis and other heart disease (1 source) Coronary arteriosclerosis; Translations: [Atherosclerotic heart disease of [place] coronary artery without angina pectoris] 09-02-2025 Chronic Essential hypertension (4 sources) Hypertensive disorder; Translations: [Essential (primary) hypertension] 02-19-2023 Chronic Comment on above: denies Malaise and fatigue (2 sources) Asthenia; Translations: [Weakness] Onset: 06-17-2025 Episodic Other aftercare (3 sources) Long-term current use of anticoagulant; Translations: [alf (current) use of anticoagulants] 02-19-2023 Episodic Other upper respiratory disease (3 sources) Acute bronchospasm; Translations: [Acute bronchospasm] 02-19-2023 Episodic Other upper respiratory infections (1 source) Upper respiratory infection; Translations: [Acute upper respiratory infection, unspecified] 09-12-2025 Episodic Pneumonia (except that caused by tuberculosis or sexually transmitted disease) (3 sources) Right lower zone pneumonia; Translations: [Pneumonia, unspecified organism] 02-19-2023 Episodic Residual codes; unclassified (1 source) Illness, unspecified; Translations: [Illness, unspecified] Onset: 09-08-2025 Episodic Septicemia (except in labor) (7 sources) Sepsis; Translations: [Sepsis, unspecified organism] 02-10-2023 Episodic Urinary tract infections (7 sources) Urinary tract infectious disease; Translations: [Urinary tract infection, site not specified] 02-10-2023 Episodic Viral infection (1 source) Viral disease; Translations: [Viral infection, unspecified] 09-12-2025 Episodic Results Test Name Value Interpretation Reference Range Facility Absolute lymphocyte countOrd ered By: Ravin Naik on 09-04-2025 Lymphocytes Auto (Unsp spec) [#/Vol] 1.11 10*3/uL 0.83-4.51 [facility] Absolute neutrophil countOrd ered By: Ravin Oteroroxy on 09-04-2025 Neutrophils (Bld) [#/Vol] 9.4 10*3/uL High 2.0-7.7 [facility] Anion gap in Serum or Plasma Ordered By: Ravin Naik on 09-04-2025 Anion gap [Moles/Vol] 13 mmol/L 5-15 [facility] Automated lymphocyte count a s percentage of total leukocytesOrdered By: Ravin Naik on 09-04-2025 Lymphocytes/100 WBC Auto (Unsp spec) 9.8 % Low - [facility] BUN/creatinine ratioOrdered By: Ravin Naik on 09-04-2025 Urea nitrogen/Creatinine [Mass ratio] 23.8 mg/mg High 09-06 [facility] Basic Metabolic Profile (BMP )on 09-04-2025 BUN/CRE 23.8 RATIO High 09-06 [facility] Comment on above: Performed By: #### L 500.2500, L100.0100 #### [facility] [address] [place], [address] Calcium [Mass/Vol] 8.9 mg/dL Normal 7.6-11.0 [facility] Comment on above: Performed By: #### L 500.2500, L100.0100 #### [facility] [address] [place], [address] Chloride [Moles/Vol] 101 mmol/L Normal 98-108 [facility] Comment on above: Performed By: #### L 500.2500, L100.0100 #### [facility] [address] [place], [address] CO2 [Moles/Vol] 25.7 mmol/L Normal 21.0-32.0 [facility] Comment on above: Performed By: #### L 500.2500, L100.0100 #### [facility] [address] [place], [address] Creatinine [Mass/Vol] 0.94 mg/dL Normal 0.70-1.20 [facility] Comment on above: Performed By: #### L 500.2500, L100.0100 #### [facility] [address] [place], [address] ECRCL 71.71 ml/min Normal 50-250 [facility] Comment on above: Performed By: #### L 500.2500, L100.0100 #### [facility] [address] [place], [address] GAP 13 Normal 5-15 [facility] Comment on above: Performed By: #### L 500.2500, L100.0100 #### [facility] [address] [place], [address] GFR/1.73 sq M.predicted among non-blacks MDRD (S/P/Bld) [Vol rate/Area] 81 mL/min/{1.73_m2} Normal >60 [facility] Comment on above: Result Comment: mL/m in/1.73m2 CKD-EPI Creatinine Equation (2020) Performed By: #### L 500.2500, L100.0100 #### [facility] [address] [place], [address] Glucose [Mass/Vol] 130 mg/dL High 70-99 [facility] Comment on above: Performed By: #### L 500.2500, L100.0100 #### [facility] [address] [place], [address] Potassium [Moles/Vol] 3.9 mmol/L Normal 3.3-5.1 [facility] Comment on above: Performed By: #### L 500.2500, L100.0100 #### [facility] [address] [place], [address] Sodium [Moles/Vol] 139 mmol/L Normal 133-145 [facility] Comment on above: Performed By: #### L 500.2500, L100.0100 #### [facility] [address] [place], [address] Urea nitrogen [Mass/Vol] 22 mg/dL High 4-19 [facility] Comment on above: Performed By: #### L 500.2500, L100.0100 #### [facility] [address] [place], [address] Basophil percentageOrdered B y: Ravin Naik on 09-04-2025 Basophils/100 WBC (Bld) 0.4 % 0-1 [facility] CBC W/Diff, Automatedon 08-18 Absolute Lymph 1.11 X10 3/uL Normal 0.83-4.51 [facility] Comment on above: Performed By: #### L 500.2500, L100.0100 #### [facility] [address] [place], [address] Absolute Neut 9.4 X10 3/uL High 2.0-7.7 [facility] Comment on above: Performed By: #### L 500.2500, L100.0100 #### [facility] [address] [place], [address] Basophils/100 WBC (Bld) 0.4 % Normal 0-1 [facility] Comment on above: Performed By: #### L 500.2500, L100.0100 #### [facility] [address] [place], [address] Eosinophils/100 WBC (Bld) 0.4 % Normal 0-5 [facility] Comment on above: Performed By: #### L 500.2500, L100.0100 #### [facility] [address] [place], [address] Erythrocyte distribution width (RBC) [Ratio] 13.8 % Normal 11.6-14.6 [facility] Comment on above: Performed By: #### L 500.2500, L100.0100 #### [facility] [address] [place], [address] Hematocrit (Bld) [Volume fraction] 39.6 % Low 40-54 [facility] Comment on above: Performed By: #### L 500.2500, L100.0100 #### [facility] [address] [place], [address] Hemoglobin (Bld) [Mass/Vol] 13.3 g/dL Normal 13.0-16.5 [facility] Comment on above: Performed By: #### L 500.2500, L100.0100 #### [facility] [address] [place], [address] IG% 0.400 Normal 0.0-0.9 [facility] Comment on above: Result Comment: IG% - Immature Granulocytes (promyelocytes, myelocytes and metamyelocytes) > 1% indicates that a LEFT SHIFT is Present. Performed By: #### L 500.2500, L100.0100 #### [facility] [address] [place], [address] Lymphocytes/100 WBC (Bld) 9.8 % Low 19-41 [facility] Comment on above: Performed By: #### L 500.2500, L100.0100 #### [facility] [address] [place], [address] MCH (RBC) [Entitic mass] 30.0 pg Normal 27.0-32.0 [facility] Comment on above: Performed By: #### L 500.2500, L100.0100 #### [facility] [address] [place], [address] MCHC (RBC) [Mass/Vol] 33.6 g/dL Normal 32-36 [facility] Comment on above: Performed By: #### L 500.2500, L100.0100 #### [facility] [address] [place], [address] MCV (RBC) [Entitic vol] 89.4 fL Normal 80-94 [facility] Comment on above: Performed By: #### L 500.2500, L100.0100 #### [facility] [address] [place], [address] Monocytes/100 WBC (Bld) 5.8 % Normal 0-10 [facility] Comment on above: Performed By: #### L 500.2500, L100.0100 #### [facility] [address] [place], [address] Neutrophils/100 WBC (Bld) 83.2 % High 47-70 [facility] Comment on above: Performed By: #### L 500.2500, L100.0100 #### [facility] [address] [place], [address] Nucleated RBC (Bld) [#/Vol] 0 10*3/uL Normal 0-5 [facility] Comment on above: Performed By: #### L 500.2500, L100.0100 #### [facility] [address] [place], [address] Platelet mean volume (Bld) [Entitic vol] 9.7 fL Normal 6.2-12.0 [facility] Comment on above: Performed By: #### L 500.2500, L100.0100 #### [facility] [address] [place], [address] Platelets (Bld) [#/Vol] 158 10*3/uL Normal 150-450 [facility] Comment on above: Performed By: #### L 500.2500, L100.0100 #### [facility] [address] [place], [address] RBC (Bld) [#/Vol] 4.43 10*6/uL Low 4.6-6.2 [facility] Comment on above: Performed By: #### L 500.2500, L100.0100 #### [facility] [address] [place], [address] RDW SD 45.1 fl High 35.1-43.9 [facility] Comment on above: Performed By: #### L 500.2500, L100.0100 #### [facility] [address] [place], [address] WBC (Bld) [#/Vol] 11.3 10*3/uL High 4.4-11.0 [facility] Comment on above: Performed By: #### L 500.2500, L100.0100 #### [facility] [address] [place], [address] Carbon dioxide, total [Moles /volume] in Central venous bloodOrdered By: Ravin Naik on 09-04-2025 CO2 [Moles/Vol] 25.7 mmol/L 21.0-32.0 [facility] Chest PA and Lateralon 09-04 Chest PA and Lateral [facility] Imaging Services [address] [place] [address] Chest PA and Lateral MR#: [id number] Acct: [id number] Name: STONE HAILE David Rep #: [id number] : 1945 M 79 From: Lisha Lee MD PCP: [facility] Status: [facility] ER Study: Chest PA and Lateral Date of Exam: 09/04/25 Exam# [id number] Ordering Dr: Ravin Naik MD PROCEDURE: CHEST PA AND LATERAL 09/04/2025 REASON FOR EXAM: COUGH TECHNIQUE: Procedure Code: RADCXR Modality: DX Procedure: CHEST PA AND LATERAL COMPARISON: 06/15/2025 FINDINGS: LUNGS AND PLEURA: The lungs are clear. No pleural effusion or pneumothorax. HEART AND MEDIASTINUM: The heart size and mediastinal contours are normal. 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 Left atrial appendage closure device again noted. AORTA: Calcified thoracic aorta. BONES: No acute osseous abnormality. Stable anterior wedge deformity of the T8 vertebral body. RAD/Chest PA and Lateral IMPRESSION: NO ACUTE FINDINGS. Reading Location: [id number] CC: Dr. Ravin Naik MD; [facility] Computer Bookkeeper: Signed Normal [facility] Chloride assayOrdered By: Fran Naik on 09-04-2025 Chloride [Moles/Vol] 101 mmol/L 98-108 [facility] Emergency Department Summary on 09-04-2025 Emergency Department Summary [facility] Medical Records Department [address] [place] [address] Emergency Department Summary 09/04/25 MR#: [id number] Acct: [id number] Name: STONE HAILE Rep #: [id number] : 1945 79 From: Ravin Naik MD PCP: [facility] Status:REG ER Location: ED HPI History of Present Illness Chief Complaint: General Illness Narrative Narrative: 79-year-old male past medical history of hypertension, coronary artery disease presents with upper respiratory infection type symptoms that he has had for the last 5 days or so. He states his symptoms began on Saturday when he went fishing, came home and had a scratchy throat. That seemed to improve. However, a few days ago he has developed a cough, low energy, and the chills. This was after he went bowling. Throughout the night, he felt like he could not sleep unless he had a fan on him. He felt subjectively feverish. He denies any shortness of breath, but he states he has had low energy. No other exacerbating or alleviating factors. He states he has not had his immunizations yet this year. Sore throat has improved. [facility] Medical History Osteoarthritis Aortic valve stenosis Hyperglycemia HLD (hyperlipidemia) Normocytic anemia History of alcohol [...] 125 mcg PO DAILY 12/10/21 06/15/25 History apixaban 5 mg tablet (Eliquis) 5 mg PO BID #60 tabs 12/12/21 07/08/12 Rx lisinopril 2.5 mg tablet 2.5 mg PO DAILY HTN 02/10/2306/15 History tamsulosin 0.4 mg capsule 0.8 mg (2 x 0.4 mg) PO QHS #60 cap s 02/12/23 06/14/25 Rx alirocumab 75 mg/mL subcutaneous 75 mg subcut Q4W 08/23/25 Unknown History pen injector cyanocobalamin (vitamin B-12) 1,000 mcg IM Q4W 08/23/25 Unknown History 1,000 mcg/mL injection solution diclofenac sodium 1 % topical gel 2 g topical BID PRN pain 08/23/25 Unknown History metoprolol succinate 25 mg 25 mg PO QDAY 08/23/25 Unknown His tory tablet,extended release 24 hr Allergy/AdvReac Type Severity Reaction Status Date / Time ezetimibe (From Zetia) Allergy Unknown unknown Verified 09/04/25 09:44 Onwbgmp-TWH-TmZ Reductase Allergy Other Verified 09/04/25 09:44 Inhibitor ibuprofen AdvReac Other Verified 09/04/25 09:44 Surgical History H/O right and left heart catheterization S/P AVR (aortic valve replacement) S/P CABG (coronary artery bypass graft) Hx of heart artery stent Social History household members: none Smoking Status: Former smoker substance use type: does not use ROS ROS ED ROS Narrative Review of systems positive for scratchy throat, occasional cough, low energy, malaise and fatigue. Positive chills, no overt fever. No chest pain or shortness of breath. No exacerbating or alleviating factors. EXAM Physical Exam Narrative Exam Narrative: Afebrile. Vital signs noted. Nontoxic-appearing. Cardiovascular examination reveals regular rate and rhythm. Lungs are clear to auscultation bilaterally with the exception of occasional rhonchi right greater than left. Airway patent. No pharyngeal erythema or exudate. No drooling or trismus. Neck soft and supple without meningismus. Abdomen is soft and nontender with positive bowel sounds. No noted pedal edema bilaterally. Neurological examination nonfocal, nonlateralizing. Const Vital Signs: 09/04/25 09:42 09/04/25 09:53 09/04/25 11:42 Temperature 99.1 F Temperature Source Oral Pulse Rate 76 50 L Respiratory Rate 16 16 Respiratory Effort Normal Non-Labored Respiratory Pattern Normal Blood Pressure 149/62 H 131/65 H Blood Pressure Mean 91 87 Pulse Ox 98 96 Oxygen Delivery Method Room Air MDM MDM MDM Narrative Medical decision making narrative: The differential diagnosis includes but not limited to bronchitis versus pneumonia versus viral syndrome. I do not feel he needs a strep swab as he states his symptoms are improving. Temperature is 99.1 degrees. He was swabbed for COVID, influenza, and RSV. Chest x-ray was obtained and 2 views to help rule out pneumonia and the need for antibiotics. Baseline laboratories will be obtained as he has history of anemia. He may have dehydration or other electrolyte abnormality, but (more content not included)... Normal [facility] Eosinophil percentageOrdered By: Ravin Naik on 09-04-2025 Eosinophils/100 WBC (Bld) 0.4 % 0-5 [facility] Erythrocyte distribution wid th ratioOrdered By: Ravin Naik on 09-04-2025 Erythrocyte distribution width (RBC) [Ratio] 13.8 % 11.6-14.6 [facility] Erythrocyte distribution wid th standard deviationOrdered By: Ravin Naik on 09-04-2025 Erythrocyte distribution width (RBC) [Ratio] 45.1 fl High 35.1-43.9 [facility] Glomerular filtration rate ( GFR) estimation/1.73 sq m using serum, plasma, or whole bOrdered By: Ravin Naik on 09-04-2025 GFR/1.73 sq M.predicted among non-blacks MDRD (S/P/Bld) [Vol rate/Area] 81 mL/min/{1.73_m2} >60 [facility] Comment on above: mL/min/1.73m2 CKD-EP I Creatinine Equation (2020) Hematocrit Auto (Bld) [Volum e fraction]Ordered By: Ravin Naik on 09-04-2025 Hematocrit (Bld) [Volume fraction] 39.6 % Low 40-54 [facility] Hemoglobin measurementOrdere d By: Ravin Naik on 09-04-2025 Hemoglobin (Bld) [Mass/Vol] 13.3 g/dL 13.0-16.5 [facility] Immature granulocytes/100 WB C Auto (Bld)Ordered By: Ravin Naik on 09-04-2025 Immature granulocytes/100 WBC (Bld) 0.400 % 0.0-0.9 [facility] Comment on above: IG% - Immature Granu locytes (promyelocytes, myelocytes and metamyelocytes) > 1% indicates that a LEFT SHIFT is Present. Influenza virus A and B and SARS-CoV-2 (COVID-19) and Respiratory syncytial virus RNAOrdered By: Ravin Naik on 09-04-2025 SARS-CoV-2 (COVID-19) RNA RAJNI+probe Ql (Unsp spec) [facility] M100.678on 09-04-2025 M100.678 Normal Reference Ran ge = Negative GeneXpert Instrument, PCR method SARS-CoV-2 (COVID 19) Negative INFLUENZA A Negative INFLUENZA B Negative RSV PCR Negative Normal [facility] Comment on above: Performed By: #### M 100.678 #### [facility] [address] [place] [address], [address] MCV (mean corpuscular volume ) determinationOrdered By: Ravin Naik on 09-04-2025 MCV (RBC) [Entitic vol] 89.4 fL 80-94 [facility] Mean corpuscular hemoglobin (MCH) determinationOrdered By: Ravin Naik on 09-04-2025 MCH (RBC) [Entitic mass] 30.0 pg 27.0-32.0 [facility] Mean corpuscular hemoglobin concentration (MCHC) determinationOrdered By: Ravni Naik on 09-04-2025 MCHC (RBC) [Mass/Vol] 33.6 g/dL 32-36 [facility] Mean platelet volume determi nationOrdered By: Ravin Naik on 09-04-2025 Platelet mean volume (Bld) [Entitic vol] 9.7 fL 6.2-12.0 [facility] Monocyte percentageOrdered B y: Ravin Naik on 09-04-2025 Monocytes/100 WBC (Bld) 5.8 % 0-10 [facility] Neutrophil percentageOrdered By: Ravin Naik on 09-04-2025 Neutrophils/100 WBC (Bld) 83.2 % High 47-70 [facility] Nucleated red blood cell per centageOrdered By: Ravin Naik on 09-04-2025 Nucleated RBC/100 WBC (Bld) [Ratio] 0 % 0-5 [facility] Platelet countOrdered By: Fran Naik on 09-04-2025 Platelets (Bld) [#/Vol] 158 10*3/uL 150-450 [facility] Potassium measurement (mass/ volume)Ordered By: Ravin Naik on 09-04-2025 Potassium (Unsp spec) [Mass/Vol] 3.9 mmol/L 3.3-5.1 [facility] RBC Auto (Bld) [#/Vol]Ordere d By: Ravin Naik on 09-04-2025 RBC (Bld) [#/Vol] 4.43 10*6/uL Low 4.6-6.2 [facility] Serum creatinine measurement (mass/volume)Ordered By: Ravin Naik on 09-04-2025 Creatinine [Mass/Vol] 0.94 mg/dL 0.70-1.20 [facility] Serum glucose measurement (m ass/volume)Ordered By: Ravin Naik on 09-04-2025 Glucose [Mass/Vol] 130 mg/dL High 70-99 [facility] Serum or plasma calcium corina urement (mass/volume)Ordered By: Ravin Naik on 09-04-2025 Calcium [Mass/Vol] 8.9 mg/dL 7.6-11.0 [facility] Serum or plasma urea nitroge n measurement (mass/volume)Ordered By: Ravin Naik on 09-04-2025 Urea nitrogen [Mass/Vol] 22 mg/dL High 4-19 [facility] Sodium levelOrdered By: Ravin Naik on 09-04-2025 Sodium [Moles/Vol] 139 mmol/L 133-145 [facility] White blood cell (WBC) count Ordered By: Ravin Naik on 09-04-2025 WBC (Bld) [#/Vol] 11.3 10*3/uL High 4.4-11.0 [facility] .Auto Diffon 06-17-2025 Basophil, Absolute 0.1 10 3/mcL Normal 0.0-0.3 [facility] Comment on above: Performed By: #### M DW, MG, ANEU, CBC, GFR, ADIFF, CMP #### [address] [address] Basophils/100 WBC (Bld) 0.7 % Normal 0.0-2.5 [facility] Comment on above: Performed By: #### M DW, MG, ANEU, CBC, GFR, ADIFF, CMP #### [address] [address] Eosinophil, Absolute 0.1 10 3/mcL Normal 0.0-0.7 [facility] Comment on above: Performed By: #### M DW, MG, ANEU, CBC, GFR, ADIFF, CMP #### [address] [address] Eosinophils/100 WBC (Bld) 1.5 % Normal 0.0-6.0 [facility] Comment on above: Performed By: #### M DW, MG, ANEU, CBC, GFR, ADIFF, CMP #### [address] [address] Lymphocyte, Absolute 1.9 10 3/mcL Normal 0.9-4.3 [facility] Comment on above: Performed By: #### M DW, MG, ANEU, CBC, GFR, ADIFF, CMP #### [address] [address] Lymphocytes/100 WBC (Bld) 28.0 % Normal 20.0-40.0 [facility] Comment on above: Performed By: #### M DW, MG, ANEU, CBC, GFR, ADIFF, CMP #### [place] [id number] [place] [address] Monocyte, Absolute 0.6 10 3/mcL Normal 0.1-1.4 [facility] Comment on above: Performed By: #### M DW, MG, ANEU, CBC, GFR, ADIFF, CMP #### [address] [address] Monocytes/100 WBC (Bld) 9.3 % Normal 2.0-13.0 [facility] Comment on above: Performed By: #### M DW, MG, ANEU, CBC, GFR, ADIFF, CMP #### [address] [address] Neutrophils/100 WBC (Bld) 60.5 % Normal 50.0-75.0 [facility] Comment on above: Performed By: #### M DW, MG, ANEU, CBC, GFR, ADIFF, CMP #### [address] [address] .GFRon 06-17-2025 Estimated Glomerular Filtration Rate 86 ml/min/1.73sqm Normal [facility] Comment on above: Result Comment: Stages [...] MG, ANEU, CBC, GFR, ADIFF, CMP #### [address] [address] .MDWon 06-17-2025 Monocyte Distribution Width 18.43 Normal 0.00-20.00 [facility] Comment on above: Result Comment: For ED adult patients suspected of sepsis, MDW<=20.0 does not rule out sepsis or risk of sepsis Performed By: #### M DW, MG, ANEU, CBC, GFR, ADIFF, CMP #### [place] [address] .NEUABSon 06-17-2025 Neutrophil, Absolute 4.2 10 3/mcL Normal 2.3-8.1 [facility] Comment on above: Performed By: #### M DW, MG, ANEU, CBC, GFR, ADIFF, CMP #### [place] [address] CBCon 06-17-2025 Erythrocyte distribution width (RBC) [Ratio] 13.7 % Normal 11.5-15.5 [facility] Comment on above: Performed By: #### M DW, MG, ANEU, CBC, GFR, ADIFF, CMP #### [place] [address] Hematocrit (Bld) [Volume fraction] 40.7 % Normal 40.0-52.0 [facility] Comment on above: Performed By: #### M DW, MG, ANEU, CBC, GFR, ADIFF, CMP #### [place] [address] Hgb 14.0 G/dL Normal 13.0-17.5 [facility] Comment on above: Performed By: #### M DW, MG, ANEU, CBC, GFR, ADIFF, CMP #### [place] [address] MCH (RBC) [Entitic mass] 30.5 pg Normal 27.0-33.0 [facility] Comment on above: Performed By: #### M DW, MG, ANEU, CBC, GFR, ADIFF, CMP #### [place] [address] MCHC 34.3 G/dL Normal 32.0-36.0 [facility] Comment on above: Performed By: #### M DW, MG, ANEU, CBC, GFR, ADIFF, CMP #### [place] [address] MCV (RBC) [Entitic vol] 89.0 fL Normal 81.0-100.0 [facility] Comment on above: Performed By: #### M DW, MG, ANEU, CBC, GFR, ADIFF, CMP #### [place] [address] Platelet 190 10 3/mcL Normal 150-450 [facility] Comment on above: Performed By: #### M DW, MG, ANEU, CBC, GFR, ADIFF, CMP #### [place] [address] Platelet mean volume (Bld) [Entitic vol] 7.6 fL Normal 6.4-10.5 [facility] Comment on above: Performed By: #### M DW, MG, ANEU, CBC, GFR, ADIFF, CMP #### [place] [address] RBC 4.58 10 6/mcL Normal 4.50-6.00 [facility] Comment on above: Performed By: #### M DW, MG, ANEU, CBC, GFR, ADIFF, CMP #### [place] [address] WBC 6.9 10 3/mcL Normal 4.5-10.8 [facility] Comment on above: Performed By: #### M DW, MG, ANEU, CBC, GFR, ADIFF, CMP #### [place] [address] CMPon 06-17-2025 Albumin Level 3.9 G/dL Normal 3.2-4.8 [facility] Comment on above: Performed By: #### M DW, MG, ANEU, CBC, GFR, ADIFF, CMP #### [place] [address] Albumin/Globulin [Mass ratio] 1.1 {ratio} Normal 0.9-1.6 [facility] Comment on above: Performed By: #### M DW, MG, ANEU, CBC, GFR, ADIFF, CMP #### [place] [address] ALP [Catalytic activity/Vol] 65 U/L Normal 38-126 [facility] Comment on above: Performed By: #### M DW, MG, ANEU, CBC, GFR, ADIFF, CMP #### [address] [address] ALT [Catalytic activity/Vol] 17 U/L Normal 12-55 [facility] Comment on above: Performed By: #### M DW, MG, ANEU, CBC, GFR, ADIFF, CMP #### [address] [address] AST [Catalytic activity/Vol] 21 U/L Normal 8-34 [facility] Comment on above: Performed By: #### M DW, MG, ANEU, CBC, GFR, ADIFF, CMP #### [place] [id number] Bili Total 0.40 mg/dL Normal 0.20-1.20 [facility] Comment on above: Result Comment: Use of this assay is not recommended for patients undergoing treatment with eltrombopag due to the potential for falsely elevated results. Performed By: #### M DW, MG, ANEU, CBC, GFR, ADIFF, CMP #### [place] [address] BUN/Creatinine Ratio 21.3 ratio Normal 10.0-22.0 [facility] Comment on above: Performed By: #### M DW, MG, ANEU, CBC, GFR, ADIFF, CMP #### [place] [id number] Calcium [Mass/Vol] 9.5 mg/dL Normal 8.7-10.4 [facility] Comment on above: Performed By: #### M DW, MG, ANEU, CBC, GFR, ADIFF, CMP #### [address] [address] Chloride [Moles/Vol] 103 mmol/L Normal 98-110 [facility] Comment on above: Performed By: #### M DW, MG, ANEU, CBC, GFR, ADIFF, CMP #### [address] [address] CO2 [Moles/Vol] 29 mmol/L Normal 22-32 [facility] Comment on above: Performed By: #### M DW, MG, ANEU, CBC, GFR, ADIFF, CMP #### [place] [address] Creatinine [Mass/Vol] 0.89 mg/dL Normal 0.60-1.40 [facility] Comment on above: Result Comment: Test ing performed on [employer] analyzer using enzymatic creatinine methodology. Performed By: #### M DW, MG, ANEU, CBC, GFR, ADIFF, CMP #### [place] [address] Electrolyte Balance 9.0 mEq/L Normal 4.0-15.0 [facility] Comment on above: Performed By: #### M DW, MG, ANEU, CBC, GFR, ADIFF, CMP #### [place] [address] Globulin 3.5 G/dL Normal 2.5-4.2 [facility] Comment on above: Performed By: #### M DW, MG, ANEU, CBC, GFR, ADIFF, CMP #### [place] [address] Glucose [Mass/Vol] 114 mg/dL Normal 82-115 [facility] Comment on above: Performed By: #### M DW, MG, ANEU, CBC, GFR, ADIFF, CMP #### [place] [address] Potassium [Moles/Vol] 4.4 mmol/L Normal 3.5-5.0 [facility] Comment on above: Performed By: #### M DW, MG, ANEU, CBC, GFR, ADIFF, CMP #### [place] [id number] Sodium [Moles/Vol] 141 mmol/L Normal 136-145 [facility] Comment on above: Performed By: #### M DW, MG, ANEU, CBC, GFR, ADIFF, CMP #### [place] [address] Total Protein 7.4 G/dL Normal 5.7-8.2 [facility] Comment on above: Performed By: #### M DW, MG, ANEU, CBC, GFR, ADIFF, CMP #### [address] [address] Urea nitrogen [Mass/Vol] 19.0 mg/dL Normal 8.0-22.0 [facility] Comment on above: Performed By: #### M DW, MG, ANEU, CBC, GFR, ADIFF, CMP #### [address] [address] LABORATORYOrdered By: SYSTEM SYSTEM on 06-17-2025 Albumin BCP dye [Mass/Vol] 3.9 G/dL Normal 3.2 - 4.8 G/dL ADM SS Albumin/Globulin [Mass ratio] 1.1 {ratio} Normal 0.9 - 1.6 ratio AH ADM SS ALP [Catalytic activity/Vol] 65 U/L Normal 38 - 126 U/L AH ADM SS ALT No additional P-5'-P [Catalytic activity/Vol] 17 U/L Normal 12 - 55 U/L AH ADM SS AST [Catalytic activity/Vol] 21 U/L Normal 8 - 34 U/L ADM SS Basophils (Bld) [#/Vol] 0.1 103/mcL Normal 0.0 - 0.3 10^3/mcL Workflow SS Basophils/100 WBC (Bld) 0.7 % Normal 0.0 - 2.5 % Workflow SS Bilirubin [Mass/Vol] 0.40 mg/dL Normal 0.20 - 1.20 mg/dL AH ADM SS Comment on above: Interpretive Data: U se of this assay is not recommended for patients undergoing treatment with eltrombopag due to the potential for falsely elevated results. Calcium [Mass/Vol] 9.5 mg/dL Normal 8.7 - 10. 4 mg/dL AH ADM SS Chloride [Moles/Vol] 103 mmol/L Normal 98 - 11 0 mEq/L ADM SS CO2 [Moles/Vol] 29 mmol/L Normal 22 - 32 mEq/L AH ADM SS Creatinine [Mass/Vol] 0.89 mg/dL Normal 0.60 - 1.40 mg/dL AH ADM SS Comment on above: Interpretive Data: T esting performed on [employer] analyzer using enzymatic creatinine methodology. Electrolyte Balance [...] Filtration Rate 86 ml/min/1.73sqm Invalid Interpretation Code [facility] Comment on above: Interpretive Data: Stages of [...] 3.5 G/dL Normal 2.5 - 4.2 G/dL [facility] Glucose [Mass/Vol] 114 mg/dL Normal 82 - 115 mg/dL [facility] Hematocrit (Bld) [Volume fraction] 40.7 % Normal 40.0 - 52.0 % Workflow SS Hemoglobin (Bld) [Mass/Vol] 14.0 G/dL Normal 13.0 - 17.5 G/dL [facility] SS Lymphocytes (Bld) [#/Vol] 1.9 103/mcL Normal 0.9 - 4.3 10^3/mcL Workflow SS Lymphocytes/100 WBC (Bld) 28.0 % Normal 20.0 - 40.0 % Workflow SS Magnesium [Mass/Vol] 1.7 mg/dL Normal 1.6 - 2 .4 mg/dL [facility] SS MCH (RBC) [Entitic mass] 30.5 pg Normal 27. 0 - 33.0 pg Workflow SS MCHC 34.3 G/dL Normal 32.0 - 36.0 G/dL Workflow SS MCV (RBC) [Entitic vol] 89.0 fL Normal 81.0 - 100.0 fL Workflow SS Monocyte distribution width Auto (Bld) [Entitic vol] 18.43 1 Normal 0.00 - 20.00 AH Workflow SS Comment on above: Result Comment: For ED adult patients suspected of sepsis, MDW<=20.0 does not rule out sepsis or risk of sepsis Monocytes (Bld) [#/Vol] 0.6 103/mcL Normal 0.1 - 1.4 10^3/mcL AH Workflow SS Monocytes/100 WBC (Bld) 9.3 % Normal 2.0 - 13.0 % AH Workflow SS Neutrophils (Bld) [#/Vol] 4.2 103/mcL Normal 2.3 - 8.1 10^3/mcL AH Workflow SS Neutrophils/100 WBC (Bld) 60.5 % Normal 50.0 - 75.0 % AH Workflow SS Platelet mean volume (Bld) [Entitic vol] 7.6 fL Normal 6.4 - 10.5 fL Workflow SS Platelets (Bld) [#/Vol] 190 103/mcL Normal 150 - 450 10^3/mcL Workflow SS Potassium [Moles/Vol] 4.4 mmol/L Normal [...] ng/L Male: 0-54 ng/L Testing performed on [employer] analyzer using direct chemiluminescent technology. Urea nitrogen [Mass/Vol] 19.0 mg/dL Normal 8.0 - 22.0 mg/dL ADM SS Urea nitrogen/Creatinine [Mass ratio] 21.3 ratio Normal 10.0 - 22.0 ratio ADM SS WBC (Bld) [#/Vol] 6.9 103/mcL Normal 4.5 - 10.8 10^3/mcL Workflow SS MGon 06-17-2025 Magnesium [Mass/Vol] 1.7 mg/dL Normal 1.6-2.4 [facility] Comment on above: Performed By: #### M DW, MG, ANEU, CBC, GFR, ADIFF, CMP #### [address] [address] [facility] High Sensitivity Troponin I 11 ng/L Normal 0-54 [facility] Comment on above: Result Comment: High Sensitive Troponin I Reference Ranges: Female: 0-34 ng/L Male: 0-54 ng/L Testing performed on [employer] analyzer using direct chemiluminescent technology. Performed By: #### T [facility] #### [address] [address] XR CHEST 1 VIEWon 06-17-2025 XR CHEST [...] by: Radha Garcia Preliminary Report By: Radha Gacria Electronically signed By Radha Garcia Dictated Date: 06/17/2025 3:03:21 PM Prelim Date: 06/17/2025 3:05:51 PM Sign Date: 06/17/2025 3:05:51 PM Ordering Provider: LESLIE MATOS [facility] 12 Lead EKGon 06-15-2025 12 Lead EKG [facility] Cardiovascular Services [address] [place] [address] 12 Lead EKG 06/15/25 1516 MR#: [id number] Acct: [id number] Name: STONE HAILE Rep #: [id number] : 1945 79 From: Goldy Vergara MD [...] block Bifascicular block Abnormal ECG Confirmed by MARINA MENG, GOLDY ([id number]), supervising film or videotape editor STEF COBSY ([id number]) on 06/16/2025 8:37:18 AM Referred By: TB/CG Confirmed By: GOLDY VERGARA MD 06/16/25 0837 Date Goldy Vergara MD CC: Dr. Anibal Douglass, DO; [facility] Signed Normal [facility] Absolute lymphocyte countOrd ered By: Anibal Douglass on 06-15-2025 Lymphocytes Auto (Unsp spec) [#/Vol] 3.11 10*3/uL 0.83-4.51 [facility] Absolute neutrophil countOrd ered By: Anibal Douglass on 06-15-2025 Neutrophils (Bld) [#/Vol] 5.5 10*3/uL 2.0-7.7 [facility] Activated partial thrombopla stin time (aPTT) in platelet poor plasma by coagulation aOrdered By: Anibal Douglass on 06-15-2025 aPTT Coag (PPP) [Time] 28.6 s 24.1-36.2 [facility] Anion gap in Serum or Plasma Ordered By: Anibal Douglass on 06-15-2025 Anion gap [Moles/Vol] 13 mmol/L 5-15 [facility] Automated lymphocyte count a s percentage of total leukocytesOrdered By: Anibal Douglass on 06-15-2025 Lymphocytes/100 WBC Auto (Unsp spec) 31.7 % - [facility] BUN/creatinine ratioOrdered By: Anibal Douglass on 06-15-2025 Urea nitrogen/Creatinine [Mass ratio] 24.8 mg/mg High - [facility] Basic Metabolic Profile (BMP )on 06-15-2025 BUN/CRE 24.8 RATIO High 10-20 [facility] Comment on above: Performed By: #### L 501.9520, L300.3900, L501.4021, L506.0400, L100.0100, L300.4310, L501.5200, L500.2500, L501.93456 ####[facility] [address] [place], [address] Calcium [Mass/Vol] 9.7 mg/dL Normal 7.6-11.0 [facility] Comment on above: Performed By: #### L 501.9520, L300.3900, L501.4021, L506.0400, L100.0100, L300.4310, L501.5200, L500.2500, L501.37461 ####[facility] [address] [place], [address] Chloride [Moles/Vol] 100 mmol/L Normal 98-108 [facility] Comment on above: Performed By: #### L 501.9520, L300.3900, L501.4021, L506.0400, L100.0100, L300.4310, L501.5200, L500.2500, L501.37948 ####[facility] [address] [place], [address] CO2 [Moles/Vol] 24.3 mmol/L Normal 21.0-32.0 [facility] Comment on above: Performed By: #### L 501.9520, L300.3900, L501.4021, L506.0400, L100.0100, L300.4310, L501.5200, L500.2500, L501.00511 ####[facility] [address] [place], [address] Creatinine [Mass/Vol] 0.90 mg/dL Normal 0.70-1.20 [facility] Comment on above: Performed By: #### L 501.9520, L300.3900, L501.4021, L506.0400, L100.0100, L300.4310, L501.5200, L500.2500, L501.46373 ####[facility] [address] [place], [address] ECRCL 74.95 ml/min Normal 50-250 [facility] Comment on above: Performed By: #### L 501.9520, L300.3900, L501.4021, L506.0400, L100.0100, L300.4310, L501.5200, L500.2500, L501.45454 ####[facility] [address] [place], [place], [phone] GAP 13 Normal 5-15 [facility] Comment on above: Performed By: #### L 501.9520, L300.3900, L501.4021, L506.0400, L100.0100, L300.4310, L501.5200, L500.2500, L501.23258 ####[facility] [address] [place], [place], [phone] GFR/1.73 sq M.predicted among non-blacks MDRD (S/P/Bld) [Vol rate/Area] 86 mL/min/{1.73_m2} Normal >60 [facility] Comment on above: Result Comment: mL/m in/1.73m2 CKD-EPI Creatinine Equation (2020) Performed By: #### L 501.9520, L300.3900, L501.4021, L506.0400, L100.0100, L300.4310, L501.5200, L500.2500, L501.33707 ####[facility] [address] [place], [place], [phone] Glucose [Mass/Vol] 103 mg/dL High 70-99 [facility] Comment on above: Performed By: #### L 501.9520, L300.3900, L501.4021, L506.0400, L100.0100, L300.4310, L501.5200, L500.2500, L501.89574 ####[facility] [address] [place], [address] Potassium [Moles/Vol] 4.7 mmol/L Normal 3.3-5.1 [facility] Comment on above: Performed By: #### L 501.9520, L300.3900, L501.4021, L506.0400, L100.0100, L300.4310, L501.5200, L500.2500, L501.11687 ####[facility] [address] [place], [place], [phone]) Sodium [Moles/Vol] 138 mmol/L Normal 133-145 [facility] Comment on above: Performed By: #### L 501.9520, L300.3900, L501.4021, L506.0400, L100.0100, L300.4310, L501.5200, L500.2500, L501.04136 ####[facility] [address] [place], [place], [phone] Urea nitrogen [Mass/Vol] 22 mg/dL High 4-19 [facility] Comment on above: Performed By: #### L 501.9520, L300.3900, L501.4021, L506.0400, L100.0100, L300.4310, L501.5200, L500.2500, L501.88623 ####[facility] [address] [place], [place], [phone] Basophil percentageOrdered B y: Anibal Douglass on 06-15-2025 Basophils/100 WBC (Bld) 0.6 % 0-1 [facility] Brain/Head without Contrasto n 06-15-2025 Brain/Head without Contrast [facility] Imaging Services [address] [place], [place] [phone] Brain/Head without Contrast MR#: [id number] Acct: [id number] Name: STONE HAILE Rep #: [id number] : 1945 M 79 From: Ozzie Bah PCP: [facility] Status: REG ER Study: Brain/Head without Contrast Date of Exam: 05/19 08/12 Exam# [id number] Ordering Dr: Anibal Douglass DO PROCEDURE: BRAIN/HEAD [...] Contrast IMPRESSION: NO ACUTE FINDINGS Reading Location: [place] [address] CC: Dr. Anibal Douglass DO; [facility] Computer Bookkeeper: Signed Normal [facility] CBC W/Diff, Automatedon 05-19 Absolute Lymph 3.11 X10 3/uL Normal 0.83-4.51 [facility] Comment on above: Performed By: #### L 501.9520, L300.3900, L501.4021, L506.0400, L100.0100, L300.4310, L501.5200, L500.2500, L501.87846 ####[facility] [address] [place], [place], [address] Absolute Neut 5.5 X10 3/uL Normal 2.0-7.7 [facility] Comment on above: Performed By: #### L 501.9520, L300.3900, L501.4021, L506.0400, L100.0100, L300.4310, L501.5200, L500.2500, L501.10617 ####[facility] [address] [place], [place], [phone] Basophils/100 WBC (Bld) 0.6 % Normal 0-1 [facility] Comment on above: Performed By: #### L 501.9520, L300.3900, L501.4021, L506.0400, L100.0100, L300.4310, L501.5200, L500.2500, L501.06365 ####[facility] [id number] [facility] [place], [address]([phone] Eosinophils/100 WBC (Bld) 2.1 % Normal 0-5 [facility] Comment on above: Performed By: #### L 501.9520, L300.3900, L501.4021, L506.0400, L100.0100, L300.4310, L501.5200, L500.2500, L501.38400 ####[facility] [id number] [facility] [place], [address](518) Erythrocyte distribution width (RBC) [Ratio] 13.2 % Normal 11.6-14.6 [facility] Comment on above: Performed By: #### L 501.9520, L300.3900, L501.4021, L506.0400, L100.0100, L300.4310, L501.5200, L500.2500, L501.31303 ####[facility] [id number] [place], [address]([phone] Hematocrit (Bld) [Volume fraction] 41.3 % Normal 40-54 [facility] Comment on above: Performed By: #### L 501.9520, L300.3900, L501.4021, L506.0400, L100.0100, L300.4310, L501.5200, L500.2500, L501.45819 ####[facility] [address] [place], [address] Hemoglobin (Bld) [Mass/Vol] 13.7 g/dL Normal 13.0-16.5 [facility] Comment on above: Performed By: #### L 501.9520, L300.3900, L501.4021, L506.0400, L100.0100, L300.4310, L501.5200, L500.2500, L501.37384 ####[facility] [address] [place], [address] IG% 0.300 Normal 0.0-0.9 [facility] Comment on above: Result Comment: IG% - Immature Granulocytes (promyelocytes, myelocytes and metamyelocytes) > 1% indicates that a LEFT SHIFT is Present. Performed By: #### L 501.9520, L300.3900, L501.4021, L506.0400, L100.0100, L300.4310, L501.5200, L500.2500, L501.41802 ####[facility] [address] [place], [address] Lymphocytes/100 WBC (Bld) 31.7 % Normal 19-41 [facility] Comment on above: Performed By: #### L 501.9520, L300.3900, L501.4021, L506.0400, L100.0100, L300.4310, L501.5200, L500.2500, L501.96833 ####[facility] [address] [place], [address] MCH (RBC) [Entitic mass] 30.2 pg Normal 27.0-32.0 [facility] Comment on above: Performed By: #### L 501.9520, L300.3900, L501.4021, L506.0400, L100.0100, L300.4310, L501.5200, L500.2500, L501.59110 ####[facility] [address] [place], [address] MCHC (RBC) [Mass/Vol] 33.2 g/dL Normal 32-36 [facility] Comment on above: Performed By: #### L 501.9520, L300.3900, L501.4021, L506.0400, L100.0100, L300.4310, L501.5200, L500.2500, L501.46280 ####[facility] [address] [place], [address] MCV (RBC) [Entitic vol] 91.0 fL Normal 80-94 [facility] Comment on above: Performed By: #### L 501.9520, L300.3900, L501.4021, L506.0400, L100.0100, L300.4310, L501.5200, L500.2500, L501.90892 ####[facility] [address] [place], [address] Monocytes/100 WBC (Bld) 9.6 % Normal 0-10 [facility] Comment on above: Performed By: #### L 501.9520, L300.3900, L501.4021, L506.0400, L100.0100, L300.4310, L501.5200, L500.2500, L501.92145 ####[facility] [address] [place], [address] Neutrophils/100 WBC (Bld) 55.7 % Normal 47-70 [facility] Comment on above: Performed By: #### L 501.9520, L300.3900, L501.4021, L506.0400, L100.0100, L300.4310, L501.5200, L500.2500, L501.95360 ####[facility] [address] [place], [phone]) Nucleated RBC (Bld) [#/Vol] 0 10*3/uL Normal 0-5 [facility] Comment on above: Performed By: #### L 501.9520, L300.3900, L501.4021, L506.0400, L100.0100, L300.4310, L501.5200, L500.2500, L501.58274 ####[facility] [address] [place], [address]( Platelet mean volume (Bld) [Entitic vol] 10.4 fL Normal 6.2-12.0 [facility] Comment on above: Performed By: #### L 501.9520, L300.3900, L501.4021, L506.0400, L100.0100, L300.4310, L501.5200, L500.2500, L501.49600 ####[facility] [address] [place], [address] Platelets (Bld) [#/Vol] 214 10*3/uL Normal 150-450 [facility] Comment on above: Performed By: #### L 501.9520, L300.3900, L501.4021, L506.0400, L100.0100, L300.4310, L501.5200, L500.2500, L501.90209 ####[facility] [address] [place], [address] RBC (Bld) [#/Vol] 4.54 10*6/uL Low 4.6-6.2 [facility] Comment on above: Performed By: #### L 501.9520, L300.3900, L501.4021, L506.0400, L100.0100, L300.4310, L501.5200, L500.2500, L501.87358 ####[facility] [address] [place], [address] RDW SD 44.1 fl High 35.1-43.9 [facility] Comment on above: Performed By: #### L 501.9520, L300.3900, L501.4021, L506.0400, L100.0100, L300.4310, L501.5200, L500.2500, L501.14317 ####[facility] [address] [place], [address] WBC (Bld) [#/Vol] 9.8 10*3/uL Normal 4.4-11.0 [facility] Comment on above: Performed By: #### L 501.9520, L300.3900, L501.4021, L506.0400, L100.0100, L300.4310, L501.5200, L500.2500, L501.85059 ####[facility] [address] [facility] [place], [address] Carbon dioxide, total [Moles /volume] in Central venous bloodOrdered By: Anibal Douglass on 06-15-2025 CO2 [Moles/Vol] 24.3 mmol/L 21.0-32.0 [facility] Chest PA and Lateralon 06-15 Chest PA and Lateral [facility] Imaging Services [address] [place], [place] [address] Chest PA and Lateral MR#: [id number] Acct: [id number] Name: STONE HAILE Rep #: [id number] : 1945 M 79 From: Ozzie Bah PCP: [facility] Status: [facility] ER Study: Chest PA and Lateral Date of Exam: 06/15/25 Exam# [id number] Ordering Dr: Anibal Douglass DO PROCEDURE: CHEST [...] effusion or pneumothorax is seen. Reading Location: [place] [address] CC: Dr. Anibal Douglass DO; [facility] Computer Bookkeeper: Signed Normal [facility] Chloride assayOrdered By: Dillon Douglass on 06-15-2025 Chloride [Moles/Vol] 100 mmol/L 98-108 [facility] Emergency Department Summary on 06-15-2025 Emergency Department Summary [facility] Medical Records Department [address] [place] [address] Emergency Department Summary 06/15/25 MR#: [id number] Acct: [id number] Name: STONE HAILE Rep #: [id number] : 1945 79 From: Anibal Douglass DO PCP: [facility] Status:DEP ER Location: ED HPI History [...] self and states that he called the [facility] and they advised him to come to [...] periodically see the lines in his vision. 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 Normal [facility] Eosinophil percentageOrdered By: Anibal Douglass on 06-15-2025 Eosinophils/100 WBC (Bld) 2.1 % 0-5 [facility] Erythrocyte distribution wid th ratioOrdered By: Anibal Douglass on 06-15-2025 Erythrocyte distribution width (RBC) [Ratio] 13.2 % 11.6-14.6 [facility] Erythrocyte distribution wid th standard deviationOrdered By: Anibalhelen Douglass on 06-15-2025 Erythrocyte distribution width (RBC) [Ratio] 44.1 fl High 35.1-43.9 [facility] Free T3on 06-15-2025 Free T3 [Mass/Vol] 2.4 pg/mL Normal 2.18-3.98 [facility] Comment on above: Performed By: #### L 501.5477, L300.3900, L501.4021, L506.0400, L100.0100, L300.4310, L501.5200, L500.2500, L501.74212 ####[facility] [address] [place], [place], [address] Free Q7Jvdtyxc By: Anibal quevedo on 06-15-2025 Free T3 [Mass/Vol] 2.4 pg/mL 2.18-3.98 [facility] Glomerular filtration rate ( GFR) estimation/1.73 sq m using serum, plasma, or whole bOrdered By: Anibal Douglass on 06-15-2025 GFR/1.73 sq M.predicted among non-blacks MDRD (S/P/Bld) [Vol rate/Area] 86 mL/min/{1.73_m2} >60 [facility] Comment on above: mL/min/1.73m2 CKD-EP I Creatinine Equation (2020) Hematocrit Auto (Bld) [Volum e fraction]Ordered By: Anibal Douglass on 06-15-2025 Hematocrit (Bld) [Volume fraction] 41.3 % 40-54 [facility] Hemoglobin measurementOrdere d By: Anibal Douglass on 06-15-2025 Hemoglobin (Bld) [Mass/Vol] 13.7 g/dL 13.0-16.5 [facility] Immature granulocytes/100 WB C Auto (Bld)Ordered By: Anibal Douglass on 06-15-2025 Immature granulocytes/100 WBC (Bld) 0.300 % 0.0-0.9 [facility] Comment on above: IG% - Immature Granu locytes (promyelocytes, myelocytes and metamyelocytes) > 1% indicates that a LEFT SHIFT is Present. International normalized rat io (INR) calculationOrdered By: Anibal Douglass on 06-15-2025 INR Coag (Bld) [Relative time] 1.1 {INR} [facility] L501.4021on 06-15-2025 Trop T High Sen 18 ng/L Normal <=22 [facility] Comment on above: Performed By: #### L 501.9520, L300.3900, L501.4021, L506.0400, L100.0100, L300.4310, L501.5200, L500.2500, L501.77420 ####[facility] [address] [place], [place], [phone] MCV (mean corpuscular volume ) determinationOrdered By: Anibal Douglass on 06-15-2025 MCV (RBC) [Entitic vol] 91.0 fL 80-94 [facility] Magnesiumon 06-15-2025 Magnesium [Mass/Vol] 1.8 mg/dL Normal 1.5-2.2 [facility] Comment on above: Performed By: #### L 501.9520, L300.3900, L501.4021, L506.0400, L100.0100, L300.4310, L501.5200, L500.2500, L501.14029 ####[facility] [address] [place], [place], [id number] Magnesium measurement (mass/ volume)Ordered By: Anibal Douglass on 06-15-2025 Magnesium (Unsp spec) [Mass/Vol] 1.8 mg/dL 1.5-2.2 [facility] Mean corpuscular hemoglobin (MCH) determinationOrdered By: Anibal Douglass on 06-15-2025 MCH (RBC) [Entitic mass] 30.2 pg 27.0-32.0 [facility] Mean corpuscular hemoglobin concentration (MCHC) determinationOrdered By: Anibal Douglass on 06-15-2025 MCHC (RBC) [Mass/Vol] 33.2 g/dL 32-36 [facility] Mean platelet volume determi nationOrdered By: Anibal Douglass on 06-15-2025 Platelet mean volume (Bld) [Entitic vol] 10.4 fL 6.2-12.0 [facility] Monocyte percentageOrdered B y: Anibal Douglass on 06-15-2025 Monocytes/100 WBC (Bld) 9.6 % 0-10 [facility] Neutrophil percentageOrdered By: Anibal Douglass on 06-15-2025 Neutrophils/100 WBC (Bld) 55.7 % 47-70 [facility] Nucleated red blood cell per centageOrdered By: Anibal Douglass on 06-15-2025 Nucleated RBC/100 WBC (Bld) [Ratio] 0 % 0-5 [facility] Partial Thromboplast Timeon 06-15-2025 aPTT Coag (Bld) [Time] 28.6 s Normal 24.1-36.2 [facility] Comment on above: Performed By: #### L 501.9520, L300.3900, L501.4021, L506.0400, L100.0100, L300.4310, L501.5200, L500.2500, L501.47382 ####[facility] [address] [place], [address] Platelet countOrdered By: Dillon Douglass on 06-15-2025 Platelets (Bld) [#/Vol] 214 10*3/uL 150-450 [facility] Potassium measurement (mass/ volume)Ordered By: Anibal Douglass on 06-15-2025 Potassium (Unsp spec) [Mass/Vol] 4.7 mmol/L 3.3-5.1 [facility] Prothrombin Time w/INRon INR Coag (PPP) [Relative time] 1.1 {INR} Normal [facility] Comment on above: Performed By: #### L 501.9520, L300.3900, L501.4021, L506.0400, L100.0100, L300.4310, L501.5200, L500.2500, L501.53621 ####[facility] [address] [place], [address] PT Coag (PPP) [Time] 14.1 s Normal 11.7-14.9 [facility] Comment on above: Performed By: #### L 501.9520, L300.3900, L501.4021, L506.0400, L100.0100, L300.4310, L501.5200, L500.2500, L501.98013 ####[facility] [address] [place], [place], [phone] Prothrombin timeOrdered By: Anibal Douglass on 06-15-2025 PT Coag (PPP) [Time] 14.1 s 11.7-14.9 [facility] RBC Auto (Bld) [#/Vol]Ordere d By: Anibal Douglass on 06-15-2025 RBC (Bld) [#/Vol] 4.54 10*6/uL Low 4.6-6.2 [facility] Serum creatinine measurement (mass/volume)Ordered By: Anibal Douglass on 06-15-2025 Creatinine [Mass/Vol] 0.90 mg/dL 0.70-1.20 [facility] Serum glucose measurement (m ass/volume)Ordered By: Anibal Douglass on 06-15-2025 Glucose [Mass/Vol] 103 mg/dL High 70-99 [facility] Serum or plasma calcium corina urement (mass/volume)Ordered By: Anibal Douglass on 06-15-2025 Calcium [Mass/Vol] 9.7 mg/dL 7.6-11.0 [facility] Serum or plasma urea nitroge n measurement (mass/volume)Ordered By: Anibal Douglass on 06-15-2025 Urea nitrogen [Mass/Vol] 22 mg/dL High 4-19 [facility] Sodium levelOrdered By: Kevin Douglass on 06-15-2025 Sodium [Moles/Vol] 138 mmol/L 133-145 [facility] T4 Free Directon 06-15-2025 T4 FREE DIRECT 1.30 ng/dL Normal 0.76-1.46 [facility] Comment on above: Performed By: #### L 501.9520, L300.3900, L501.4021, L506.0400, L100.0100, L300.4310, L501.5200, L500.2500, L501.96073 ####[facility] [address] [place], [place], [id number] T4 freeOrdered By: Anibal quevedo on 06-15-2025 Free T4 [Mass/Vol] 1.30 ng/dL 0.76-1.46 [facility] TSH DL <= 0.005 mIU/L QnOrde red By: Anibal Douglass on 06-15-2025 TSH Qn 6.250 uIU/mL High 0.300-4.200 [facility] Thyroid Stim Hormone (TSH)on 06-15-2025 TSH 6.250 uIU/mL High 0.300-4.200 [facility] Comment on above: Performed By: #### L 501.9520, L300.3900, L501.4021, L506.0400, L100.0100, L300.4310, L501.5200, L500.2500, L501.55513 ####[facility] [address] [place], [address] Troponin T HS 2 HRon 025 Trop T High Sen 18 ng/L Normal <=22 [facility] Comment on above: Performed By: #### L 499.0042 ####[facility] [address] [place], [address] Troponin T HS 4 HRon 025 Trop T High Sen Normal <=22 [facility] Comment on above: Result Comment: pt d ischarged Performed By: #### L 499.0043 #### [facility] [address] [place], [address] Troponin T.cardiac [Mass/vol ume] in Serum or Plasma by High sensitivity methodOrdered By: Anibal Douglass on 06-15-2025 Troponin T.cardiac High sensitivity method [Mass/Vol] 18 ng/L <22 [facility] Troponin T.cardiac High sensitivity method [Mass/Vol] 18 ng/L <22 [facility] White blood cell (WBC) count Ordered By: Anibal Douglass on 06-15-2025 WBC (Bld) [#/Vol] 9.8 10*3/uL 4.4-11.0 [facility] Absolute lymphocyte countOrd ered By: Dr. Arciniega on 02-19-2023 Lymphocytes Auto (Unsp spec) [#/Vol] 1.50 10*3/uL 0.83-4.51 [facility] Basophil percentageOrdered B y: Dr. Arciniega on 02-19-2023 Basophils/100 WBC (Bld) 0.5 % 0-1 [facility] Chloride [Moles/Vol] 103 mmol/L 98-107 [facility] Eosinophils/100 WBC (Bld) 3.1 % 0-5 [facility] Glucose [Mass/Vol] 111 mg/dL 74-106 [facility] Comment on above: Fasting Glucose resu lt from 100 to 125 mg/dL suggests IMPAIRED HOMEOSTASIS per A.D.A. criteria. Neutrophils (Bld) [#/Vol] 5.0 10*3/uL 2.0-7.7 [facility] Neutrophils/100 WBC (Bld) 67.9 % 47-70 [facility] Potassium [Moles/Vol] 4.1 mmol/L 3.5-5.1 [facility] Sodium [Moles/Vol] 137 mmol/L 136-145 [facility] WBC (Bld) [#/Vol] 7.4 10*3/uL 4.4-11.0 [facility] Blood erythrocytes count (nu mber/volume)Ordered By: Dr. Arciniega on 02-19-2023 RBC (Bld) [#/Vol] 4.35 10*6/uL 4.6-6.2 [facility] Blood hemoglobin measurement (mass/volume)Ordered By: Dr. Arciniega on 02-19-2023 Hemoglobin (Bld) [Mass/Vol] 12.8 g/dL 13.0-16.5 [facility] Blood lymphocytes/100 leukoc ytesOrdered By: Dr. Arciniega on 02-19-2023 Lymphocytes/100 WBC (Bld) 20.4 % 19-41 [facility] Blood monocytes/100 leukocyt esOrdered By: Dr. Arciniega on 02-19-2023 Monocytes/100 WBC (Bld) 6.3 % 0-10 [facility] Blood platelet mean volumeOr dered By: Dr. Arciniega on 02-19-2023 Platelet mean volume (Bld) [Entitic vol] 8.7 fL 6.2-12.0 [facility] Determination of erythrocyte mean corpuscular volume (MCV)Ordered By: Dr. Arciniega on 02-19-2023 MCV (RBC) [Entitic vol] 88.5 fL 80-94 [facility] Hematocrit Auto (Bld) [Volum e fraction]Ordered By: Dr. Arciniega on 02-19-2023 Hematocrit (Bld) [Volume fraction] 38.5 % 40-54 [facility] - Chemistry and C hemistry - challengeOrdered By: Dr. Arciniega on 02-19-2023 CO2 [Moles/Vol] 27.0 mmol/L 21.0-32.0 [facility] Urea nitrogen/Creatinine [Mass ratio] 17.0 mg/mg 10-20 [facility] - Hematology and Cell countsOrdered By: Dr. Arciniega on 02-19-2023 Erythrocyte distribution width (RBC) [Entitic vol] 44.4 fL 35.1-43.9 [facility] Erythrocyte distribution width (RBC) [Ratio] 13.6 % 11.6-14.6 [facility] Immature granulocytes/100 WBC (Bld) 1.800 % 0.0-0.9 [facility] Comment on above: IG% - Immature Granu locytes (promyelocytes, myelocytes and metamyelocytes) > 1% indicates that a LEFT SHIFT is Present. MCH (RBC) [Entitic mass] 29.4 pg 27.0-32.0 [facility] Nucleated RBC/100 WBC (Bld) [Ratio] 0 % 0-5 [facility] MCHC Auto (RBC) [Mass/Vol]Or dered By: Dr. Arciniega on 02-19-2023 MCHC (RBC) [Mass/Vol] 33.2 g/dL 32-36 [facility] No Panel InformationOrdered By: Dr. Arciniega on 02-19-2023 Estimated Creatinine Clearance Calc 65.79 ml/min [facility] Estimated GFR (MDRD) Amer 100 mL/min >60 [facility] Comment on above: GFR Calc Estimated GFR (MDRD) Non-Af Amer 82 mL/min >60 [facility] Comment on above: Non- GFR Calc Platelets bldOrdered By: Dr. Arciniega on 02-19-2023 Platelets (Bld) [#/Vol] 279 10*3/uL 150-450 [facility] Serum or plasma calcium corina urement (mass/volume)Ordered By: Dr. Arciniega on 02-19-2023 Calcium [Mass/Vol] 9.0 mg/dL 8.5-10.1 [facility] Serum or plasma creatinine m easurement (mass/volume)Ordered By: Dr. Arciniega on 02-19-2023 Creatinine [Mass/Vol] 0.94 mg/dL 0.70-1.30 [facility] Comment on above: The validity of the calculated GFR & GFRAA in patients over 70 years has not been determined. Clinical correlation is essential. Serum or plasma urea nitroge n measurement (mass/volume)Ordered By: Dr. Arciniega on 02-19-2023 Urea nitrogen [Mass/Vol] 16 mg/dL 7-18 [facility] Thin prep Papanicolaou smear with manual screeningOrdered By: Dr. Arciniega on 02-19-2023 Thin prep Papanicolaou smear with manual screening 7 5-15 [facility] - Microbiology an d Antimicrobial susceptibilityOrdered By: Dr. 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 Gutiérrez on 02-13-2023 Bacteria identified Cx Nom (Bld) Escherichia coli [facility] Culture, urineOrdered By: Dr Benson Gutiérrez on 02-12-2023 Bacteria identified Cx Nom (U) Escherichia coli [facility] Absolute lymphocyte countOrd ered By: Dr. Avery on 02-11-2023 Lymphocytes Auto (Unsp spec) [#/Vol] 0.93 10*3/uL 0.83-4.51 [facility] Basophil percentageOrdered B y: Dr. Avery on 02-11-2023 Basophils/100 WBC (Bld) 0.4 % 0-1 [facility] Chloride [Moles/Vol] 114 mmol/L 98-107 [facility] Eosinophils/100 WBC (Bld) 0.5 % 0-5 [facility] Glucose [Mass/Vol] 144 mg/dL 74-106 [facility] Comment on above: Fasting Glucose resu lt greater than or equal to 126 mg/dL suggests DIABETES MELLITUS per A.D.A. criteria. Neutrophils (Bld) [#/Vol] 8.8 10*3/uL 2.0-7.7 [facility] Neutrophils/100 WBC (Bld) 84.2 % 47-70 [facility] Potassium [Moles/Vol] 4.0 mmol/L 3.5-5.1 [facility] Sodium [Moles/Vol] 140 mmol/L 136-145 [facility] WBC (Bld) [#/Vol] 10.4 10*3/uL 4.4-11.0 [facility] Blood erythrocytes count (nu mber/volume)Ordered By: Dr. Avery on 02-11-2023 RBC (Bld) [#/Vol] 3.82 10*6/uL 4.6-6.2 [facility] Blood hemoglobin measurement (mass/volume)Ordered By: Dr. Avery on 02-11-2023 Hemoglobin (Bld) [Mass/Vol] 11.5 g/dL 13.0-16.5 [facility] Blood lymphocytes/100 leukoc ytesOrdered By: Dr. Avery on 02-11-2023 Lymphocytes/100 WBC (Bld) 8.9 % 19-41 [facility] Blood monocytes/100 leukocyt esOrdered By: Dr. Avery on 02-11-2023 Monocytes/100 WBC (Bld) 5.4 % 0-10 [facility] Blood platelet mean volumeOr dered By: Dr. Avery on 02-11-2023 Platelet mean volume (Bld) [Entitic vol] 10.3 fL 6.2-12.0 [facility] Determination of erythrocyte mean corpuscular volume (MCV)Ordered By: Dr. Avery on 02-11-2023 MCV (RBC) [Entitic vol] 93.7 fL 80-94 [facility] Hematocrit Auto (Bld) [Volum e fraction]Ordered By: Dr. vAery on 02-11-2023 Hematocrit (Bld) [Volume fraction] 35.8 % 40-54 [facility] - Chemistry and C hemistry - challengeOrdered By: Dr. Avery on 02-11-2023 CO2 [Moles/Vol] 21.0 mmol/L 21.0-32.0 [facility] Urea nitrogen/Creatinine [Mass ratio] 31.1 mg/mg 10-20 [facility] - Hematology and Cell countsOrdered By: Dr. Avery on 02-11-2023 Erythrocyte distribution width (RBC) [Entitic vol] 50.3 fL 35.1-43.9 [facility] Erythrocyte distribution width (RBC) [Ratio] 14.6 % 11.6-14.6 [facility] Immature granulocytes/100 WBC (Bld) 0.600 % 0.0-0.9 [facility] Comment on above: IG% - Immature Granu locytes (promyelocytes, myelocytes and metamyelocytes) > 1% indicates that a LEFT SHIFT is Present. MCH (RBC) [Entitic mass] 30.1 pg 27.0-32.0 [facility] Nucleated RBC/100 WBC (Bld) [Ratio] 0 % 0-5 [facility] MCHC Auto (RBC) [Mass/Vol]Or dered By: Dr. Avery on 02-11-2023 MCHC (RBC) [Mass/Vol] 32.1 g/dL 32-36 [facility] No Panel InformationOrdered By: Dr. Avery on 02-11-2023 Estimated Creatinine Clearance Calc 71.09 ml/min [facility] Estimated GFR (MDRD) Amer 109 mL/min >60 [facility] Comment on above: GFR Calc Estimated GFR (MDRD) Non-Af Amer 90 mL/min >60 [facility] Comment on above: Non- GFR Calc Platelets bldOrdered By: Dr. Avery on 02-11-2023 Platelets (Bld) [#/Vol] 127 10*3/uL 150-450 [facility] Serum or plasma calcium corina urement (mass/volume)Ordered By: Dr. Avery on 02-11-2023 Calcium [Mass/Vol] 7.8 mg/dL 8.5-10.1 [facility] Serum or plasma creatinine m easurement (mass/volume)Ordered By: Dr. Avery on 02-11-2023 Creatinine [Mass/Vol] 0.87 mg/dL 0.70-1.30 [facility] Comment on above: The validity of the calculated GFR & GFRAA in patients over 70 years has not been determined. Clinical correlation is essential. Serum or plasma urea nitroge n measurement (mass/volume)Ordered By: Dr. Avery on 02-11-2023 Urea nitrogen [Mass/Vol] 27 mg/dL 7-18 [facility] Thin prep Papanicolaou smear with manual screeningOrdered By: Dr. Avery on 02-11-2023 Thin prep Papanicolaou smear with manual screening 5 5-15 [facility] Absolute lymphocyte countOrd ered By: Dr. Gutiérrez on 02-10-2023 Lymphocytes Auto (Unsp spec) [#/Vol] 0.70 10*3/uL 0.83-4.51 [facility] Basophil percentageOrdered B y: Dr. Gutiérrez on 02-10-2023 Lactate [Moles/Vol] 2.1 mmol/L 0.4-2.0 [facility] [facility] [place] Comment on above: Critical Result(s) C alled at: 14:19:02 02/10/2023 by: Kishor Nails RN (MS3). Results read back by same. Basophil percentage 25-50 SEEN /hpf 0-5 [facility] Basophils/100 WBC (Bld) 0.3 % 0-1 [facility] [place] Bilirubin [Mass/Vol] 1.10 mg/dL 0.20-1.00 [facility] Comment on above: For patients on eltr ombopag therapy, use of Dimension [place] TBIL is not recommended. Chloride [Moles/Vol] 103 mmol/L 98-107 [facility] Eosinophils/100 WBC (Bld) 0.1 % 0-5 [facility] Glucose [Mass/Vol] 204 mg/dL 74-106 [facility] Comment on above: Glucose result great er than or equal to 200 mg/dLsuggests DIABETES MELLITUS per A.D.A. criteria. Lactate [Moles/Vol] 5.5 mmol/L 0.4-2.0 [facility] [place] Comment on above: Critical Result(s) C alled at: 09:41:59 02/10/2023 by: Kishor Castro RN (ER). Results read back by same. Neutrophils (Bld) [#/Vol] 8.6 10*3/uL 2.0-7.7 [facility] Neutrophils/100 WBC (Bld) 91.1 % 47-70 [facility] Potassium [Moles/Vol] 4.1 mmol/L 3.5-5.1 [facility] Protein [Mass/Vol] 8.1 g/dL 6.4-8.2 [facility] Sodium [Moles/Vol] 136 mmol/L 136-145 [facility] WBC (Bld) [#/Vol] 9.4 10*3/uL 4.4-11.0 [facility] Bilirubin Test strip Ql (U)O rdered By: Dr. Gutiérrez on 02-10-2023 Bilirubin Ql (U) Negative Negative [facility] Blood erythrocytes count (nu mber/volume)Ordered By: Dr. Gutiérrez on 02-10-2023 RBC (Bld) [#/Vol] 5.04 10*6/uL 4.6-6.2 [facility] [place] Blood hemoglobin measurement (mass/volume)Ordered By: Dr. Gutiérrez on 02-10-2023 Hemoglobin (Bld) [Mass/Vol] 14.8 g/dL 13.0-16.5 [facility] Blood lymphocytes/100 leukoc ytesOrdered By: Dr. Gutiérrez on 02-10-2023 Lymphocytes/100 WBC (Bld) 7.4 % 19-41 [facility] Blood monocytes/100 leukocyt esOrdered By: Dr. Gutiérrez on 02-10-2023 Monocytes/100 WBC (Bld) 1.0 % 0-10 [facility] Blood platelet mean volumeOr dered By: Dr. Gutiérrez on 02-10-2023 Platelet mean volume (Bld) [Entitic vol] 10.0 fL 6.2-12.0 [facility] Determination of erythrocyte mean corpuscular volume (MCV)Ordered By: Dr. Gutiérrez on 02-10-2023 MCV (RBC) [Entitic vol] 90.9 fL 80-94 [facility] Hematocrit Auto (Bld) [Volum e fraction]Ordered By: Dr. Gutiérrez on 02-10-2023 Hematocrit (Bld) [Volume fraction] 45.8 % 40-54 [facility] INR in Blood by Coagulation assayOrdered By: Dr. Gutiérrez on 02-10-2023 INR Coag (Bld) [Relative time] 1.4 {INR} [facility] Influenza virus A and B and SARS-CoV-2 (COVID-19) Ag panel - Upper respiratory specimOrdered By: Dr. Gutiérrez on 02-10-2023 SARS-CoV-2 (COVID-19) RNA RAJNI+probe Ql (Resp) [facility] Ketones Test strip Ql (U)Ord ered By: Dr. Gutiérrez on 02-10-2023 Ketones Ql (U) 5 mg/dl Negative [facility] Laboratory - Chemistry and C hemistry - challengeOrdered By: Dr. Gutiérrez on 02-10-2023 ALP [Catalytic activity/Vol] 79 U/L 45-117 [facility] ALT [Catalytic activity/Vol] 25 U/L 16-61 [facility] CO2 [Moles/Vol] 21.0 mmol/L 21.0-32.0 [facility] Globulin (S) [Mass/Vol] 4.5 g/dL 2.2-4.2 [facility] [place] Urea nitrogen/Creatinine [Mass ratio] 21.4 mg/mg 10-20 [facility] Laboratory - CoagulationOrde red By: Dr. Gutiérrez on 02-10-2023 aPTT Coag (Bld) [Time] 29.4 s 24.1-36.2 [facility] PT Coag (PPP) [Time] 17.0 s 11.7-14.9 [facility] Laboratory - Hematology and Cell countsOrdered By: Dr. Gutiérrez on 02-10-2023 Erythrocyte distribution width (RBC) [Entitic vol] 46.6 fL 35.1-43.9 [facility] Erythrocyte distribution width (RBC) [Ratio] 14.0 % 11.6-14.6 [facility] Immature granulocytes/100 WBC (Bld) 0.100 % 0.0-0.9 [facility] Comment on above: IG% - Immature Granu locytes (promyelocytes, myelocytes and metamyelocytes) > 1% indicates that a LEFT SHIFT is Present. MCH (RBC) [Entitic mass] 29.4 pg 27.0-32.0 [facility] Nucleated RBC/100 WBC (Bld) [Ratio] 0 % 0-5 [facility] MCHC Auto (RBC) [Mass/Vol]Or dered By: Dr. Gutiérrez on 02-10-2023 MCHC (RBC) [Mass/Vol] 32.3 g/dL 32-36 [facility] Mucus LM Ql (Urine sed)Order ed By: Dr. Gutiérrez on 02-10-2023 Mucus Ql (Urine sed) 0 SEEN /hpf [facility] Nitrite Test strip Ql (U)Ord ered By: Dr. Gutiérrez on 02-10-2023 Nitrite Ql (U) Positive Negative [facility] No Panel InformationOrdered By: Dr. Gutiérrez on 02-10-2023 Estimated Creatinine Clearance Calc 44.18 ml/min [facility] Estimated GFR (MDRD) Amer 63 mL/min >60 [facility] Comment on above: GFR Calc Estimated GFR (MDRD) Non-Af Amer 52 mL/min >60 [facility] Comment on above: Non- GFR Calc Platelets bldOrdered By: Dr. Gutiérrez on 02-10-2023 Platelets (Bld) [#/Vol] 183 10*3/uL 150-450 [facility] Protein Test strip Ql (U)Ord ered By: Dr. Gutiérrez on 02-10-2023 Protein Ql (U) 100 mg/dl Negative [facility] Serum or plasma albumin corina urement (mass/volume)Ordered By: Dr. Gutiérrez on 02-10-2023 Albumin [Mass/Vol] 3.6 g/dL 3.2-5.0 [facility] Serum or plasma albumin/glob ulin mass ratioOrdered By: Dr. Gutiérrez on 02-10-2023 Albumin/Globulin [Mass ratio] 0.8 {ratio} 0.9-2.4 [facility] Serum or plasma calcium corina urement (mass/volume)Ordered By: Dr. Gutiérrez on 02-10-2023 Calcium [Mass/Vol] 9.2 mg/dL 8.5-10.1 [facility] Serum or plasma creatinine m easurement (mass/volume)Ordered By: Dr. Gutiérrez on 02-10-2023 Creatinine [Mass/Vol] 1.40 mg/dL 0.70-1.30 [facility] Comment on above: The validity of the calculated GFR & GFRAA in patients over 70 years has not been determined. Clinical correlation is essential. Serum or plasma urea nitroge n measurement (mass/volume)Ordered By: Dr. Gutiérrez on 02-10-2023 Urea nitrogen [Mass/Vol] 30 mg/dL 7-18 [facility] Squamous epithelial cells de tection in urine sediment by light microscopyOrdered By: Dr. Gutiérrez on 02-10-2023 Epithelial cells.squamous LM Ql (Urine sed) 0 SEEN /hpf 0-5 [facility] Thin prep Papanicolaou smear with manual screeningOrdered By: Dr. Gutiérrez on 02-10-2023 Thin prep Papanicolaou smear with manual screening 15 U/L 15-37 [facility] Thin prep Papanicolaou smear with manual screening 12 5-15 [facility] Urine blood detectionOrdered By: Dr. Gutiérrez on 02-10-2023 RBC Ql (U) 150 /ul Negative [facility] RBC Ql (U) 10-25 SEEN /hpf 0-5 [facility] Urine clarityOrdered By: Dr. Gutiérrez on 02-10-2023 Clarity (U) Sl. Cloudy Clear [facility] Urine color determinationOrd ered By: Dr. Gutiérrez on 02-10-2023 Color (U) Yellow Yellow [facility] Urine glucose detectionOrder ed By: Dr. Gutiérrez on 02-10-2023 Glucose Ql (U) Normal mg/dl Normal [facility] Urine leukocyte esterase det ection by dipstickOrdered By: Dr. Gutiérrez on 02-10-2023 Leukocyte esterase Test strip Ql (U) 100 /ul Negative [facility] Urine pHOrdered By: Dr. Shaun champagne on 02-10-2023 pH (U) 6.0 [pH] 5.0 - 8.0 [facility] Urine sediment bacteria coun t by microscopy (number/high power field)Ordered By: Dr. Gutiérrez on 02-10-2023 Bacteria LM.HPF (Urine sed) [#/Area] 3 /[HPF] None Seen [facility] Urine specific gravity measu rementOrdered By: Dr. Gutiérrez on 02-10-2023 Specific gravity (U) [Rel density] 1.015 1.002-1.030 [facility] Urobilinogen Auto test strip Ql (U)Ordered By: Dr. Gutiérrez on 02-10-2023 Urobilinogen Ql (U) Normal mg/dl Normal [facility] Absolute lymphocyte counton 12-12-2021 Lymphocytes Auto (Unsp spec) [#/Vol] 2.16 10*3/uL 0.83-4.51 [facility] Work Phone: Basophil percentageon 2021 Basophils/100 WBC (Bld) 0.6 % 0-1 [facility] Work Phone: Bilirubin [Mass/Vol] 0.40 mg/dL 0.20-1.00 [facility] Work Phone: Comment on above: For patients on eltr ombopag therapy, use of Dimension [place] TBIL is not recommended. Chloride [Moles/Vol] 102 mmol/L 98-107 [facility] Work Phone: Eosinophils/100 WBC (Bld) 2.9 % 0-5 [facility] Work Phone: Glucose [Mass/Vol] 119 mg/dL 74-106 [facility] Work Phone: Comment on above: Fasting Glucose resu lt from 100 to 125 mg/dL suggests IMPAIRED HOMEOSTASIS per A.D.A. criteria. Neutrophils (Bld) [#/Vol] 5.2 10*3/uL 2.0-7.7 [facility] Work Phone: [phone] Neutrophils/100 WBC (Bld) 62.3 % 47-70 [facility] Work Phone: Potassium [Moles/Vol] 4.2 mmol/L 3.5-5.1 [facility] Work Phone: Protein [Mass/Vol] 7.4 g/dL 6.4-8.2 [facility] Work Phone: Sodium [Moles/Vol] 135 mmol/L 136-145 [facility] Work Phone: WBC (Bld) [#/Vol] 8.3 10*3/uL 4.4-11.0 [facility] Work Phone: Blood erythrocytes count (nu mber/volume)on 12-12-2021 RBC (Bld) [#/Vol] 3.91 10*6/uL 4.6-6.2 [facility] Blood hemoglobin measurement (mass/volume)on 12-12-2021 Hemoglobin (Bld) [Mass/Vol] 11.4 g/dL 13.0-16.5 [facility] Work Phone: Blood lymphocytes/100 leukoc yteson 12-12-2021 Lymphocytes/100 WBC (Bld) 26.2 % 19-41 [facility] Work Phone: Blood monocytes/100 leukocyt eson 12-12-2021 Monocytes/100 WBC (Bld) 7.5 % 0-10 [facility] Work Phone: Blood platelet mean volumeon 12-12-2021 Platelet mean volume (Bld) [Entitic vol] 9.7 fL 6.2-12.0 [facility] Work Phone: Determination of erythrocyte mean corpuscular volume (MCV)on 12-12-2021 MCV (RBC) [Entitic vol] 88.5 fL 80-94 [facility] Work Phone: Hematocrit Auto (Bld) [Volum e fraction]on 12-12-2021 Hematocrit (Bld) [Volume fraction] 34.6 % 40-54 [facility] Work Phone: Laboratory - Chemistry and C hemistry - challengeon 12-12-2021 ALP [Catalytic activity/Vol] 80 U/L 45-117 [facility] Work Phone: ALT [Catalytic activity/Vol] 19 U/L 16-61 [facility] Work Phone: CO2 [Moles/Vol] 25.0 mmol/L 21.0-32.0 [facility] Work Phone: Free T4 [Mass/Vol] 1.39 ng/dL 0.76-1.46 [facility] Work Phone: Globulin (S) [Mass/Vol] 4.2 g/dL 2.2-4.2 [facility] Work Phone: Urea nitrogen/Creatinine [Mass ratio] 27.7 mg/mg 10-20 [facility] Work Phone: Laboratory - Coagulationon 0 12-12-2021 aPTT Coag (Bld) [Time] 57.0 s 24.1-36.2 [facility] Work Phone: Laboratory - Hematology and Cell countson 12-12-2021 Erythrocyte distribution width (RBC) [Entitic vol] 43.7 fL 35.1-43.9 [facility] Work Phone: Erythrocyte distribution width (RBC) [Ratio] 13.4 % 11.6-14.6 [facility] Work Phone: Immature granulocytes/100 WBC (Bld) 0.500 % 0.0-0.9 [facility] Work Phone: Comment on above: IG% - Immature Granu locytes (promyelocytes, myelocytes and metamyelocytes) > 1% indicates that a LEFT SHIFT is Present. MCH (RBC) [Entitic mass] 29.2 pg 27.0-32.0 [facility] Work Phone: Nucleated RBC/100 WBC (Bld) [Ratio] 0 % 0-5 [facility] Work Phone: MCHC Auto (RBC) [Mass/Vol]on 12-12-2021 MCHC (RBC) [Mass/Vol] 32.9 g/dL 32-36 [facility] Work Phone: No Panel Informationon 12-12 Estimated Creatinine Clearance Calc 62.24 ml/min [facility] Work Phone: Estimated GFR (MDRD) Amer 92 mL/min >60 [facility] Work Phone: Comment on above: GFR Calc Estimated GFR (MDRD) Non-Af Amer 76 mL/min >60 [facility] Work Phone: Comment on above: Non- GFR Calc Platelets bldon 12-12-2021 Platelets (Bld) [#/Vol] 411 10*3/uL 150-450 [facility] Work Phone: Serum or plasma albumin corina urement (mass/volume)on 12-12-2021 Albumin [Mass/Vol] 3.2 g/dL 3.2-5.0 [facility] Work Phone: Serum or plasma albumin/glob ulin mass ratioon 12-12-2021 Albumin/Globulin [Mass ratio] 0.8 {ratio} 0.9-2.4 [facility] Work Phone: Serum or plasma calcium corina urement (mass/volume)on 12-12-2021 Calcium [Mass/Vol] 8.8 mg/dL 8.5-10.1 [facility] Work Phone: Serum or plasma creatinine m easurement (mass/volume)on 12-12-2021 Creatinine [Mass/Vol] 1.01 mg/dL 0.70-1.30 [facility] Work Phone: Comment on above: The validity of the calculated GFR & GFRAA in patients over 70 years has not been determined. Clinical correlation is essential. Serum or plasma urea nitroge n measurement (mass/volume)on 12-12-2021 Urea nitrogen [Mass/Vol] 28 mg/dL 7-18 [facility] Work Phone: Thin prep Papanicolaou smear with manual screeningon 12-12-2021 Thin prep Papanicolaou smear with manual screening 12 U/L 15-37 [facility] Work Phone: Thin prep Papanicolaou smear with manual screening 8 5-15 [facility] Work Phone: Whole blood hemoglobin A1c/t otal hemoglobin ratio (mass fraction)on 12-12-2021 HbA1c (Bld) [Mass fraction] 6.2 % 3.8-5.6 [facility] Work Phone: Comment on above: Normal < 5.7 % Predi abetic 5.7 - 6.4 % Diabetic >or= 6.5 % Please note range changes. Basophil percentageon 2021 Cholesterol [Mass/Vol] 167 mg/dL <200 [facility] Work Phone: Comment on above: <200 mg/dL Desirable 200-240 mg/dL Borderline >240 mg/dL High Risk Triglyceride [Mass/Vol] 122 mg/dL [facility] Work Phone: Comment on above: The drugs N-Acetylcy steine and Metamizole may falsely depress this assay.Serum Triglycerides Reference Interval Normal <150 mg/dL Borderline high 150 - 199 mg/dL High 200 - 499 mg/dL Very High > or = 500 mg/dL Basophil percentage 4.4 mg/dL 2.5-4.9 [facility] [place] Work Phone: Laboratory - Chemistry and C hemistry - challengeon 12-11-2021 Magnesium [Mass/Vol] 1.8 mg/dL 1.6-2.6 [facility] Work Phone: No Panel Informationon 12-11 Thyroid Stimulating Hormone (TSH) 8.45 uIU/mL 0.358-3.74 [facility] Work Phone: Serum or plasma cholesterol in HDL measurement (mass/volume)on 12-11-2021 Cholesterol in HDL [Mass/Vol] 36 mg/dL [facility] Work Phone: Comment on above: The drugs N-Acetylcy steine and Metamizole may falsely depress this assay. Reference Range HDL <40 mg/dL Low HDL Cholesterol HDL >or= 60 mg/dL High HDL Cholesterol Serum or plasma cholesterol in VLDL measurement (mass/volume)on 12-11-2021 Cholesterol in VLDL [Mass/Vol] 24 mg/dL 5-40 [facility] Work Phone: Serum or plasma low density lipoprotein (LDL) cholesterol measurement (mass/volume)on 12-11-2021 Cholesterol in LDL [Mass/Vol] 107 mg/dL 0-130 [facility] Work Phone: Basophil percentageon 2021 Basophil percentage 0 SEEN /hpf [facility] Work Phone: Bilirubin Test strip Ql (U)o n 12-10-2021 Bilirubin Ql (U) Negative Negative [facility] Work Phone: INR in Blood by Coagulation assayon 12-10-2021 INR Coag (Bld) [Relative time] 1.1 {INR} [facility] Work Phone: Ketones Test strip Ql (U)on 12-10-2021 Ketones Ql (U) Negative Negative [facility] Work Phone: Laboratory - Coagulationon 0 12-10-2021 PT Coag (PPP) [Time] 13.9 s 11.7-14.9 [facility] Work Phone: Mucus LM Ql (Urine sed)on Mucus Ql (Urine sed) 0 SEEN /hpf [facility] Work Phone: Nitrite Test strip Ql (U)on 12-10-2021 Nitrite Ql (U) Negative Negative [facility] Work Phone: No Panel Informationon 12-10 Troponin I High Sensitivity 187 pg/mL 3.0-78.0 [facility] Work Phone: Comment on above: Critical Result(s) C alled at: 17:28:35 12/10/2021 by: axel hargrove to Juliette Mchugh RN PCU. Results read back by same. Please Note: New Test Units and Gender Specific Reference Ranges. For more information see Policy Stat Procedure [place] High Sensitivity Troponin (TNIH) and attachments. D-Dimer Quantitative (PE/DVT) 9.25 FEU/ug/m 0.27-0.49 [facility] Work Phone: Comment on above: D-Dimer ELEVATED (>0 .49): Additional studies and clinicalassessments are indicated to conclude diagnosis of:Deep Vein Thrombosis (DVT) or Pulmonary Embolism (PE)CRITICAL VALUE VERIFIED. CALLED TO GINETTE JURADO12/10/21 Clovis Romo.RESULTS READ BACK BY SAME . SARS-CoV-2 Antigen (Rapid) [facility] Work Phone: Protein Test strip Ql (U)on 12-10-2021 Protein Ql (U) 15 mg/dl Negative [facility] Work Phone: Squamous epithelial cells de tection in urine sediment by light microscopyon 12-10-2021 Epithelial cells.squamous LM Ql (Urine sed) 0-5 SEEN /hpf [facility] Work Phone: Urine blood detectionon 11-19 RBC Ql (U) Negative Negative [facility] Work Phone: RBC Ql (U) 0 SEEN /hpf [facility] Work Phone: Urine clarityon 12-10-2021 Clarity (U) Sl. Cloudy Clear [facility] Work Phone: Urine color determinationon 12-10-2021 Color (U) Yellow Yellow [facility] Work Phone: Urine glucose detectionon Glucose Ql (U) Normal mg/dl Normal [facility] Work Phone: Urine leukocyte esterase det ection by dipstickon 12-10-2021 Leukocyte esterase Test strip Ql (U) Negative Negative [facility] Work Phone: Urine pHon 12-10-2021 pH (U) 6.0 [pH] [facility] Work Phone: Urine sediment bacteria coun t by microscopy (number/high power field)on 12-10-2021 Bacteria LM.HPF (Urine sed) [#/Area] RARE /hpf None Seen [facility] Work Phone: Urine specific gravity measu rementon 12-10-2021 Specific gravity (U) [Rel density] 1.020 [facility] Work Phone: Urobilinogen Auto test strip Ql (U)on 12-10-2021 Urobilinogen Ql (U) Normal mg/dl Normal [facility] Work Phone: Vital Signs Date Time Vital Sign Value Performing Clinician Faci lity 09-04-2025 12:35-0400 Body temperature 98.6 [degF] [facility] 09-04-2025 12:35-0400 Diastolic blood pressure 63 mm[Hg] [facility] 09-04-2025 12:35-0400 Heart rate 54 /min [facility] 09-04-2025 12:35-0400 Respiratory rate 18 /min [facility] 09-04-2025 12:35-0400 SaO2% (BldA) [Mass fraction] 100 % [facility] 09-04-2025 12:35-0400 Systolic blood pressure 133 mm[Hg] [facility] 09-04-2025 09:42-0400 Body height 177.8 cm [facility] 09-04-2025 09:42-0400 Body mass index (BMI) [Ratio] 30.4 kg/m2 [facility] 09-04-2025 09:42-0400 Body weight 96.16 kg [facility] 06-15-2025 19:22-0400 Body temperature 97.8 [degF] [facility] 06-15-2025 19:22-0400 Diastolic blood pressure 87 mm[Hg] [facility] 06-15-2025 19:22-0400 Heart rate 62 /min [facility] 06-15-2025 19:22-0400 Respiratory rate 20 /min [facility] 06-15-2025 19:22-0400 SaO2% (BldA) [Mass fraction] 95 % [facility] 06-15-2025 19:22-0400 Systolic blood pressure 140 mm[Hg] [facility] 06-15-2025 15:05-0400 Body height 177.8 cm [facility] 06-15-2025 15:05-0400 Body mass index (BMI) [Ratio] 30.4 kg/m2 [facility] 06-15-2025 15:05-0400 Body weight 96.29 kg [facility] 02-19-2023 18:03-0400 Heart rate 71 /min [facility] 02-19-2023 18:03-0400 Respiratory rate 22 /min [facility] 02-19-2023 18:01-0400 Diastolic blood pressure 74 mm[Hg] [facility] 02-19-2023 18:01-0400 SaO2% (BldA) [Mass fraction] 95 % [facility] 02-19-2023 18:01-0400 Systolic blood pressure 169 mm[Hg] [facility] 02-19-2023 16:57-0400 Body temperature 99.2 [degF] [facility] 02-19-2023 16:53-0400 Body height 177.8 cm [facility] 02-19-2023 16:53-0400 Body mass index (BMI) [Ratio] 31.9 kg/m2 [facility] 02-19-2023 16:53-0400 Body weight 101.06 kg [facility] 02-12-2023 11:12-0400 Body temperature 98.4 [degF] [facility] 02-12-2023 11:12-0400 Diastolic blood pressure 74 mm[Hg] [facility] 02-12-2023 11:12-0400 Heart rate 62 /min [facility] 02-12-2023 11:12-0400 Respiratory rate 16 /min [facility] 02-12-2023 11:12-0400 SaO2% (BldA) [Mass fraction] 96 % [facility] 02-12-2023 11:12-0400 Systolic blood pressure 145 mm[Hg] [facility] 02-10-2023 13:15-0400 Body height 177.8 cm [facility] 02-10-2023 13:15-0400 Body mass index (BMI) [Ratio] 31.7 kg/m2 [facility] 02-10-2023 13:15-0400 Body weight 100.33 kg [facility] 02-10-2023 12:52-0400 Body temperature 99.7 [degF] [facility] 02-10-2023 12:52-0400 Diastolic blood pressure 60 mm[Hg] [facility] 02-10-2023 12:52-0400 Heart rate 79 /min [facility] 02-10-2023 12:52-0400 Respiratory rate 19 /min [facility] 02-10-2023 12:52-0400 SaO2% (BldA) [Mass fraction] 94 % [facility] 02-10-2023 12:52-0400 Systolic blood pressure 96 mm[Hg] [facility] 02-10-2023 08:34-0400 Body mass index (BMI) [Ratio] 32.1 kg/m2 [facility] 02-10-2023 08:34-0400 Body weight 101.5 kg [facility] 02-10-2023 08:22-0400 Body height 177.8 cm [facility] 03-02-2022 13:02-0400 Body height 177.[address] Tamia Mccray Work Phone: [facility] Work Phone: 03-02-2022 13:02-0400 Body weight 90.[address] Tamia Mccray Work Phone: [facility] Work Phone: 01-31-2022 14:07-0400 Body height 177.[address] Tamia Mccray Work Phone: [facility] Work Phone: 01-31-2022 14:07-0400 Body weight 90.[address] Tamia Mccray Work Phone: [facility] Work Phone: 01-31-2022 14:02-0400 Body mass index (BMI) [Ratio] 28.5 kg/m2 Dr. Tamia Mccray Work Phone: [facility] Work Phone: 01-31-2022 14:02-0400 Heart rate 59 /min Dr. Tamia Mccray Work Phone: [facility] Work Phone: 01-31-2022 14:02-0400 SaO2% (BldA) [Mass fraction] 98 % Dr. Tamia Mccray Work Phone: [facility] Work Phone: 12-12-2021 07:24-0500 Body temperature 97.7 [degF] Dr. Tamia Mccray Work Phone: [facility] Work Phone: 12-12-2021 07:24-0500 Diastolic blood pressure 62 mm[Hg] Dr. Tamia Mccray Work Phone: [facility] Work Phone: 12-12-2021 07:24-0500 Heart rate 74 /min Dr. Tamia Mccray Work Phone: [facility] Work Phone: 12-12-2021 07:24-0500 Respiratory rate 16 /min Dr. Tamia Mccray Work Phone: [facility] Work Phone: 12-12-2021 07:24-0500 SaO2% (BldA) [Mass fraction] 100 % Dr. Tamia Mccray Work Phone: [facility] Work Phone: 12-12-2021 07:24-0500 Systolic blood pressure 117 mm[Hg] Dr. Tamia Mccray Work Phone: [facility] Work Phone: 12-12-2021 04:53-0500 Body weight 86.[address] Tamia Mccray Work Phone: [facility] Work Phone: 12-10-2021 15:17-0500 Body mass index (BMI) [Ratio] 27.7 kg/m2 Dr. Tamia Mccray Work Phone: [facility] Work Phone: Encounters Encounter Date Encounter Type Care Provider Facility Start: 09-04-2025 End: 09-04-2025 Emergency department patient visit [facility] Facility:[facility] Start: 06-17-2025 End: 06-17-2025 Emergency department patient visit BRENDA CAVAZOS MD [facility] Start: 06-15-2025 End: 06-15-2025 Emergency department patient visit [facility] -Emergency Department Work Phone: Start: 02-19-2023 End: 02-19-2023 Emergency department patient visit [facility]Emergency Department Start: 02-12-2023 Non-patient / Non-visit [facility] Start: 02-11-2023 Non-patient / Non-visit [facility] Start: 02-10-2023 Non-patient / Non-visit [facility] Start: 02-10-2023 End: 02-12-2023 Evaluation and management of inpatient [facility]-Medical Surgical 3 Start: 02-10-2023 End: 02-10-2023 Emergency department patient visit [facility]Emergency Department Start: 03-16-2022 End: 03-17-[address] Tamia Mccray Work Phone: [facility]-Cardiac Rehab Start: 02-12-2022 End: 02-15-[address] Tamia Mccray Work Phone: [facility] Start: 01-31-2022 End: 01-31-[address] Tamia Mccray Work Phone: [facility] Start: 12-12-2021 Non-patient / Non-visit Dr. Shanna Mccray Work Phone: [facility] Start: 12-12-2021 Non-patient / Non-visit Dr. Shanna Mccray Work Phone: [facility] Start: 12-11-2021 Non-patient / Non-visit Dr. Shanna Mccray Work Phone: [facility] Start: 12-10-2021 Non-patient / Non-visit Dr. Shanna Mccray Work Phone: [facility] Start: 12-10-2021 End: 12-12-2021 Evaluation and management of inpatient Dr. Tamia Mccray Work Phone: [facility]-Progressive Care Unit Procedures Date Procedure Procedure Detail Performing Clinician Start: 09-04-2025 SARS-CoV-2, Influenz a & RSV (PCR) [facility] Start: 09-04-2025 Radiologic exam ches t 2 views [facility] Start: 09-04-2025 Estimated creatinine clearance [facility] Start: 06-15-2025 X-ray of chest, PA a nd lateral views [facility] Start: 06-15-2025 CT of head without contrast [facility] Start: 06-15-2025 Estimated creatinine clearance [facility] Start: 02-10-2023 Plain chest X-ray [facility] Start: 12-10-2021 SARS-CoV-2 Antigen (Rapid) Dr. Tamia Mccray Work Phone: Start: 12-10-2021 CT angiography of ch est with contrast Dr. Tamia Mccray Work Phone: Start: 12-10-2021 Plain chest X-ray Dr. Cristino Mccray Work Phone: Bacteria identified in Blood by Culture [facility] Bacteria identified in Blood by Culture [facility] SARS-CoV-2 & FLU Ant igen (Rapid) [facility] Urine culture [facility] Plan of Treatment Date Care Activity Detail Author Start: 09-04-2025 [facility] Start: 06-15-2025 [facility] Start: 02-19-2023 Plain chest X-ray Chest PA and Lateral [facility] Start: 02-19-2023 XR Chest PA and Lateral [facility] Start: 02-12-2023 Patient discharge [facility] Start: 02-12-2023 Care planning and pr oblem solving actions [facility] Start: 02-12-2023 Removal of urinary catheter [facility] Start: 02-11-2023 Care planning and pr oblem solving actions [facility] Start: 02-10-2023 Ambulation without limitation [facility] Start: 02-10-2023 Assessment of risk o f venous thromboembolism [facility] Start: 02-10-2023 Insertion of cathete r into peripheral vein [facility] Start: 02-10-2023 Providing care accor ding to standard [facility] Start: 02-10-2023 Following clinical p athway protocol [facility] Start: 02-10-2023 End: 02-10-2023 [facility] Start: 02-10-2023 Admission procedure [facility] Start: 02-10-2023 End: 02-10-2023 Blood culture [facility] Start: 02-10-2023 End: 02-10-2023 [facility] Bacteria identified in Blood by Culture Blood Culture [facility] Bacteria identified in Blood by Culture Blood Culture [facility] Bacteria identified in Urine by Culture [facility] Bacteria identified in Urine by Culture Urine Culture [facility] Patient Education [facility] Work Phone: Patient referral [facility] Work Phone: Troponin T.cardiac [Mass/volume] in Serum or Plasma by High sensitivity method [facility] Immunizations Immunization Date Immunization Notes Care Provider Fa [facility] 09-10-2022 influenza, injectabl e, quadrivalent, preservative free [facility] 09-10-2022 influenza, seasonal, injectable [facility] 10-23-2021 Covid (Pfizer) Dr. Tamia yen Work Phone: [facility] 09-18-[address] Tamia Mccray Work Phone: [facility] 02-20-2021 Covid (Pfizer) Dr. Tamia yen Work Phone: [facility] Payers Date Payer Category Payer Medicare [id number] 2025 Private Health Insurance [facility] [id number] 2025 Unknown [id number] 2025 Self-pay [id number] 2025 Unknown [id number] 90 2003 Unknown [id number] 1945 Unknown [id number] Medicare [id number] Unknown [id number] Unknown [id number] Social History Date Type Detail Facility Start: 01-31-2022 End: 02-19-2023 Tobacco smoking status NDIS Unknown if ever smoked [facility] Start: 1945 Sex Assigned At Male [facility] Start: 06-15-2025 End: 09-04-2025 Tobacco smoking status NHIS Ex-smoker (finding) [facility] Sexual Orientation [facility] Start: 06-17-2025 Sex Male (finding) [facility] Sex Male [facility] Goals Date Patient Goal Desired Activity /State Functional Status Date Assessment Result Facility 02-12-2023 Functional status Chair [facility] Work Phone: 12-12-2021 Functional status Activity Abili ty Standby Assist [facility] Work Phone: 12-12-2021 Functional status Ambulates [facility] Work Phone: Mental Status Date Assessment Result Facility 09-04-2025 Cognitive function Level Of Consciousness Awake [facility] Work Phone: 06-15-2025 Cognitive function Voice/Name [facility] Work Phone: 02-12-2023 Cognitive function Voice/Name [facility] Work Phone: 12-12-2021 Cognitive function Voice/Name;Deep Pain [facility] Work Phone: Clinical Notes 02-10-2023 to 09-04-2025 Note Date & Type Note Facility 09-04-2025 Discharge summary [facility] 09-04-2025 Radiology Diagnostic study note [facility] Imaging Services [address] [place], [place] [address] Chest PA and Lateral MR#: [id number] Acct: [id number] Name: STONE HAILE Rep #: [id number] : 1945 M 79 From: Lucian Lee MD PCP: [facility] Status: REG ER Study:Chest PA and Lateral Date of Exam: 09/04/25 Exam# [id number] Ordering Dr: Ravin Naik MD PROCEDURE: CHEST PA AND LATERAL 09/04/2025 REASON FOR EXAM: COUGH TECHNIQUE: Procedure Code: RADCXR Modality: DX Procedure: CHEST PA AND LATERAL COMPARISON: 06/15/2025 FINDINGS: LUNGS AND PLEURA: The lungs are clear. No pleural effusion or pneumothorax. HEART AND MEDIASTINUM: The heart size and mediastinal contours are normal. 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 Left atrial appendage closure device again noted. AORTA: Calcified thoracic aorta. BONES: No acute osseous abnormality. Stable anterior wedge deformity of the T8 vertebral body. RAD/Chest PA and Lateral IMPRESSION: NO ACUTE FINDINGS. Reading Location: [facility] CC: Dr. Ravin Naik MD; [facility] ~ Computer Bookkeeper: Signed [facility] 06-17-2025 Hospital Discharge instructions Patient Education 06/17/2025 19:48:12 Weakness (Uncertain [...] red color) Loss of consciousness Severe headache [id number] [employer]. [address] [place] [address]. All rights reserved. This information is not intended as a substitute for professional medical care. Always follow your healthcare professional's instructions. Follow Up Care 06/17/2025 14:34:38 With:KOSTA RAINEY MD Address: [address] [facility] [address] [facility] [place] [address] [phone] When:2-4 days Comments:Make an appointment in 2 to 4 days with your physician. Return if you are worse in any way. With:[facility] Address: [address] [place] [address]- When:2-4 days Comments:Return to ED if symptoms worsen [facility] 06-17-2025 Emergency department Discharge summary Discharge Instructions Thank you for allowing [facility] to assist you with your healthcare needs. [...] within 14 days after discharge, please call [facility] at [phone]. Post Acute Orders No qualifying data available. You Need to Schedule the Following Appointments Follow Up with KOSTA RAINEY MD When:Within 2-4 days Where:[address] [facility] [address] [facility] [place] [address]- [phone] Additional Information: Make an appointment in 2 to 4 days with your physician. Return if you are worse in any way. Follow Up with [facility] When:Within 2-4 days Where:[address] [place] [address]- Additional Information: Return to ED if symptoms [...] red color) Loss of consciousness Severe headache [phone] [employer]. [address] [place] [address]. All rights reserved. This information is not intended as a substitute for professional medical care. Always follow your healthcare professional's instructions. Additional Information VACCINATE! IT SAVES LIVES! Members of the community who have not yet received the COVID-19 vaccine and would like to receive it can visit one of [facility] vaccine clinics. There are many vaccine clinic locations within the [facility]. For locations and available times, please visit [email or web address] It is important to note that some COVID mobile vaccine clinics are held outdoors and may be canceled in rainy or stormy conditions. To learn more about pediatric vaccinations (ages 5-11), we invite you to visit the [facility] webpage. https://www.[email or web address].org/pag es/2594-Bzeii-Udvkpzmsvha-Frequent ul-Gkbxv-Feichnvgz.html To learn more about the COVID-19 vaccine, we invite you to visit the CDC website for a list of frequently asked questions. https://www.cdc.gov/coronavirus/20 19-ncov/vaccines/faq.html [facility] Patient Portal Access Instructions: Stay connected with your healthcare team and access your personal medical information anytime with the [facility] Patient Portal. If you would like a full copy of your medical records please contact the [facility] Medical Records Department Saturday through Saturday between 8a.m. and 4:30p.m. Please follow the directions below to access the portal: 1.Access the email account you provided upon registration to the [facility].2.Look for an invitation email from [facility].3.Open the email and access the invitation link: Accept Invitation to [facility].Fill in the required knox to create your account. Sign into [email or web address] with your username and password that you [...] you will allow to register on the [facility] Patient Portal for access to your information. You can also access the [facility] Patient Portal on the [employer] [place]. Simply click on Health Records under Health Data and then click on the [facility] logo. HOW TO SAFELY DISPOSE OF PRESCRIPTION [...] Call your local pharmacy or go to http://Digital Assent.Fanchimp/9C4Dq1v to find one close to you.3.Make use of household items: Use cat litter or old coffee grounds to dispose medications if other options are not available. Mix your drugs with these household products, seal them in an airtight container and throw it into the garbage. Call [facility]: [phone] to be sure your drugs can be [...] been reviewed and explained to me and I,STONE HAILE understand my current condition and have read and understand these discharge instructions. I have received a written copy of the plan/instructions. If I have questions, I am aware that I should contact my doctor. Patient/Parcel Wrapper Signature: Date/Time: Relationship to Patient: ___ Witness Name/Signature: Date/Time: [facility] 06-17-2025 Note Exam Date Time Procedure Performing Provider Status 06/17/25 2:51 PM XR Chest 1 View RADHA GARCIA MD; Flora arce (Verified) [id number] ORIGINAL EXAMINATION: ONE XRAY VIEW OF THE [...] by: Radha Garcia Preliminary Report By: Radha Garcai Electronically signed By Radha Garcia Dictated Date: 06/17/2025 3:03:21 PM Prelim Date: 06/17/2025 3:05:51 PM Sign Date: 06/17/2025 3:05:51 PM Ordering Provider: LESLIE MATOS [id number] Note* Exam Date Time Procedure Performing Provider Status 06/17/25 2:34 PM EKG (ED) - CV BRENDA CAVAZOS MD; Aut h (Verified) ECG Final Report SINUS RHYTHM PROLONGED LA INTERVAL RBBB AND LAFB Electronic Signature: BRENDA CAVAZOS MD 06/17/2025 17:05:13 [id number] Radiology Diagnostic study note [facility] Imaging Services [address] [place] [address] [id number] Brain/Head without Contrast MR#: [id number] Acct: [id number] Name: STONE HAILE Rep #: [id number] : 1945 M 79 From: Johnny Conti MD PCP: [facility] Status: REG ER Study:Brain/Head without Contrast Date of Exa m: 06/15/25 Exam# [id number] Ordering Dr: Cathie Douglass DO PROCEDURE: BRAIN/HEAD [...] Contrast IMPRESSION: NO ACUTE FINDINGS Reading Location: [place] [address] CC: Dr. Anibal Douglass DO; [facility] ~ Computer Bookkeeper: Signed [facility]07-29-2025 Radiology Diagnostic study note [facility] Imaging Services [address] [place] [address] Chest PA and Lateral MR#: [id number] Acct: [id number] Name: STONE HAILE Rep #: [id number] : 1945 M 79 From: Johnny Conti MD PCP: [facility] Status: REG ER Study:Chest PA and Lateral Date of Exam: 06/15/25 Exam# [id number] Ordering Dr: Cathie Douglass DO PROCEDURE: CHEST [...] effusion or pneumothorax is seen. Reading Location: [place] [address] CC: Dr. Anibal Douglass DO; [facility] ~ Computer Bookkeeper: Signed [facility]04-04-[address] Arciniega [facility] February 19, 2023 6:01pm Note Date/Time February 19, 2023 5:13 pm [facility] Medical Records Department [address] [address] Emergency Department Summary 02/19/23 MR#: [id number] Acct: [id number] Name: STONE HAILE Rep #:[id number] : 1945 77 From: Jam Arciniega MD PCP: [place] [place] Status:REG ER Location: ED HPI History of [...] similar symptoms: No Recent Illness/Hospitalization: Yes (Urosepsis) [facility] Medical History Atrial fibrillation BPH (benign prostatic [...] Type Severity Reaction Status Date / Time Zcqriks-ILG-GhQ Reductase Allergy Other Verified 02/19/23 16:53 Inhibitor [...] intact bilaterally and no sensory deficits noted Anthony Coma Scale: document GCS findings Spontaneous Obeys [...] % (Auto) 67.9 Lymph % (Auto) 20.4 Benson % (Auto) 6.3 Eos % (Auto) 3.1 [...] Rx Instructions: start on [facility] Care Provider[facility] Ref[facility] [Primary [facility] Provider] - 3-5 Days if not improving Disposition Disposition: Home, Self Care What to do if you have Problems For any increased pain, shortness of breath, bleeding, nausea or vomiting, chestpain, or any unexpected problems, contact your Primary Care Provider. Call [facility] ([phone]) or report to the closest Emergency Room. Call 911 if necessary. 02/19/23 180 <Electronically signed by Jam Arciniega MD> Cosigner Signature (if applicable): CC: [facility] ~ Signed [facility] Work Phone: 1(870) 533-711403-27-[address] Avery [facility] February 11, 2023 4:18pm Note Date/Time February 11, 2023 4:1 8pm [facility] Medical Records Department [address] [place] [address] Progress Note - Hospitalist 02/11/23 1615 MR#: [id number] Acct: [id number] Name: STONE HAILE Rep #:[id number] : 1945 77 From: Lc Avery DO PCP: [facility] Status:ADM IN Location: [facility] [id number] Reason for Visit Reason for Visit: Diagnoses Urinary tract infection, site not specified (02/10/23) Subjective Subjective Was seen and examined today, I talked with his who was in the room at the time of my examination. Patient's blood culture was positive for gram-negative lactose manufacturing support engineer, the actual identity is not back at [...] 84.2 H, Lymph % (Auto) 8.9 L, Benson % (Auto) 5.4, Eos % (Auto) 0.5, Baso % (Auto) 0.4, Absolute Neuts (auto) 8.8 H, Absolute Lymphs (auto) 0.93, Nucleated RBC % 0 02/11/23 06:33: Sodium 140, Potassium 4.0, Chloride 114 H, Carbon Dioxide 21.0, Anion Gap 5, BUN 27 H, Creatinine 0.87, Estim Creat Clear Calc 71.09, Est GFR (MDRD) Af Amer 109, Est GFR (MDRD) Non-Af 90, BUN/Creatinine Ratio 31.1 H, Glucose 144 H, Calcium 7.8 L Micro: Microbiology 02/10/23 08:52 Blood Culture (Wb) - Anticubital Left Blood Culture - Preliminary GNR lactose manufacturing support engineer 02/10/23 08:53 Blood Culture (Wb) - Anticubital Right Blood Culture - Preliminary GNR lactose manufacturing support engineer 02/10/23 08:53 Urine Catheter - Catheter Urine Culture - Preliminary GNR lactose manufacturing support engineer 02/10/23 08:50 Nasal Secretion SARS-CoV-2 & FLU [...] 35 minutes Charges/Coding Visit Charges Inpatient E&M: 59595 Subs Hosp L2 02/11/23 1618 <Electronically signed by Lc Avery DO> Cosigner Signature (if applicable): CC: ~ Signed [facility] Work Phone: 1(129) 258-650803-26-[address] Gutiérrez [facility] February 10, 2023 3:31pm Note Date/Time February 10, 2023 8:3 3am [facility] Medical Records Department [address] [place] [address] Emergency Department Summary 02/10/23 MR#: [id number] Acct: [id number] Name: STONE HAILE Rep #:[id number] : 1945 77 From: Kelly Gutiérrez MD PCP: [facility] Status:ADM IN Location: [place] [address] HPI History of Present Illness Chief Complaint: [...] nausea. He has had a mild cough. [facility] Medical History Atrial fibrillation BPH (benign prostatic [...] Type Severity Reaction Status Date / Time Fdfcsdo-AFU-JjU Reductase Allergy Other Verified 02/10/23 08:21 Inhibitor [...] narrative: Sepsis work-up initiated. Patient placed on playground monitor. EKG obtained to evaluate for cardiac arrhythmia/ischemia. [...] 91.1 H Lymph % (Auto) 7.4 L Benson % (Auto) 1.0 Eos % (Auto) 0.1 [...] Color Urine Clarity Urine pH Ur Specific [place] Urine Protein Urine Glucose (UA) Urine Ketones Urine Occult Blood Urine Nitrite Urine Bilirubin Urine Urobilinogen Ur Leukocyte Esterase Urine RBC Urine WBC Ur Squamous Epith Cells Urine Bacteria Urine Mucus 02/10/23 02/10/23 08:53 08:53 WBC RBC Hgb Hct MCV MCH MCHC RDW Std Deviation RDW Coeff of Ethan Plt Count MPV Immature Gran % (Auto) Neut % (Auto) Lymph % (Auto) Benson % (Auto) Eos % (Auto) Baso % [...] Sl. Cloudy Urine pH 6.0 Ur Specific [place] 1.015 Urine Protein 100 H Urine Glucose [...] 2.5 mg PO DAILY Primary Care Provider[facility]errals: [facility] [Primary Care Provider] - Disposition Disposition: Acute Care Hospital [facility] What to do if you have Problems For any increased pain, shortness of breath, bleeding, nausea or vomiting, chestpain, or any unexpected problems, contact your Primary Care Provider. Call [facility] ([phone]) or report to the closest Emergency Room. Call 911 if necessary. 02/10/23 1531 <Electronically signed by Kelly Gutiérrez MD> Cosigner Signature (if applicable): CC: [facility] ~ Signed [facility] Work Phone: 1(586) 765-354103-26-2023 History and physical note Author Dr. Avery [facility] February 10, 2023 1:11pm Note Date/Time February 10, 2023 12: 36pm [facility] Medical Records Department [address] [place] [address] H&P Exam - Hospitalist 02/10/23 1236 MR#: [id number] Acct: [id number] Name: STONE HAILE Rep #:[id number] : 1945 77 From: Lc Avery DO [facility]CP: [facility] Status:ADM IN Location: [address] HPI - General General Date of Service: 02/10/23 Chief Complaint: Chills, dysuria HPI Narrative STONE HAILE, is a 77 M who presents to the ER at [facility] with complaints of dysuria x48 hours [...] year. Patient takes Eliquis for paroxysmal A-fib. [facility] Medical History Atrial fibrillation BPH (benign prostatic [...] Type Severity Reaction Status Date / Time Hgcgbdg-EIH-NcC Reductase Allergy Other Verified 02/10/23 08:21 Inhibitor [...] 91.1 H, Lymph % (Auto) 7.4 L, Benson %(Auto) 1.0, Eos % (Auto) 0.1, Baso [...] Sl. Cloudy, Urine pH 6.0, Ur Specific [place] 1.015, Urine Protein 100 H, Urine Glucose [...] 1. Severe cystitis-patient will be admitted to [facility] 3, he will be given IV Rocephin, fluids will be administered, labs will be monitored. It is unclear atthis time with the patient actually has sepsis. #2 dehydration-patient was given fluid bolus in the emergency room, I will continue vigorous fluid administration on [facility] #3 coronary artery disease-this appears stable at [...] 75 minutes Charges/Coding Visit Charges Inpatient E&M: 07304 Init Hosp L3 02/10/23 1252 <Electronically signed by Lc Avery DO> Cosigner Signature (if applicable): CC: Dr. Lc Avery DO; [facility]~ Signed ADDENDUM by Dr. Lc Avery [...] (if applicable): cc: Dr. Lc Avery DO; [facility] [facility] Signed [facility] Work Phone: Discharge summary Author Dr. Avery [facility] February 12, 2023 9:49am Note Date/Time February 12, 2023 9:4 1am [facility] Medical Records Department [address] [place] [address] Instructions for Home/Discharge Instructions 02/12/23 0940 MR#: [id number] Acct: [id number] Name: STONE HAILE Rep #:[id number] : 1945 77 From: Lc Avery DO PCP: [facility] Status:ADM IN Discharge Instructions Diet Discharge Diet: [...] Attending Provider: Lc Avery Primary Care Provider: [facility] Discharge Orders/Prescriptions Prescriptions: New tamsulosin 0.4 mg [...] mg PO QHS Referrals / [facility] [facility] [Primary Care Provider] - Within 2 Weeks Disposition Disposition (needs filled in before D/C Order can be placed): Home, Self Care 02/12/23 0949<Electronically signed by Lc Avery DO>Lc Avery DO CC: [facility] ~ Signed [facility] Work Phone: Discharge summary Author Ravin Naik [facility] Note Date/Time September 04, 2025 1 :30pm [facility] Medical Records Department [address] [place] [address] Emergency Department Summary 09/04/25 MR#: [id number] Acct: [id number] Name: STONE HAILE Rep #:[id number] : 1945 79 From: Ravin Naik MD PCP: [facility] Status:REG ER Location: ED HPI History of Present Illness Chief Complaint: General Illness Narrative Narrative: 79-year-old male past medical history of hypertension, coronary artery disease presents with upper respiratory infection type symptoms that he has had for the last 5 days or so. He states his symptoms began on Saturday when he went fishing,came home and had a scratchy throat. That seemed to improve. However, a few days ago he has developed a cough, low energy, and the chills. This was after he went bowling. Throughout the night, he felt like he could not sleep unless he had a fan on him. He felt subjectively feverish. He denies any shortness ofbreath, but he states he has had low energy. No other exacerbating or alleviating factors. He states he has not had his immunizations yet this year. Sore throat has improved. [facility] Medical History Osteoarthritis Aortic valve stenosis Hyperglycemia HLD (hyperlipidemia) Normocytic anemia History of alcohol abuse History of tobacco abuse Seasonal allergies Hypothyroidism Carotid artery stenosis CAD (coronary artery disease) BPH (benign prostatic hyperplasia) Elevated troponin Atrial fibrillation Fatigue HTN (hypertension) Home Medications ?Medication ?Instructions ?Recorded ?Last Taken ?Type amlodipine 5 mg tablet 5 mg PO DAILY 12/10/2106/15 History cetirizine 10 mg tablet 10 mg PO DAILY 12/10/2105/19 History levothyroxine 125 mcg tablet 125 mcg PO DAILY 12/10/21 06/15/25 History apixaban 5 mg tablet (Eliquis) 5 mg PO BID #60 tabs 06/15/25 Rx lisinopril 2.5 mg tablet 2.5 mg PO DAILY HTN 02/10/23 06/15/25 History tamsulosin 0.4 mg capsule 0.8 mg (2 x 0.4 mg) PO QHS # 60 caps 02/12/23 06/14/25 Rx alirocumab 75 mg/mL subcutaneous 75 mg subcut Q4W 05/12 Unknown History pen injector cyanocobalamin (vitamin B-12) 1,000 mcg IM Q4W 5 Unknown History 1,000 mcg/mL injection solution diclofenac sodium 1 % topical gel 2 g topical BID PRN pain 08/23/25 Unknown History metoprolol succinate 25 mg 25 mg PO QDAY 08/23/25 Unkn own History tablet,extended release 24 hr Allergy/AdvReac Type Severity Reaction Status Date / Time ezetimibe (From Zetia) Allergy Unknown unknown Verified 09/04/25 09:44 Bluwhnm-ABZ-ZpY Reductase Allergy Other Verified 09/04/25 09:44 Inhibitor ibuprofen AdvReac Other Verified 09/04/25 09:44 Surgical History H/O right and left heart catheterization S/P AVR (aortic valve replacement) S/P CABG (coronary artery bypass graft) Hx of heart artery stent Social History household members: none Smoking Status: Former smoker substance use type: does not use ROS ROS ED ROS Narrative Review of systems positive for scratchy throat, occasional cough, low energy, malaise and fatigue. Positive chills, no overt fever. No chest pain or shortness of breath. No exacerbating or alleviating factors. EXAM Physical Exam Narrative Exam Narrative: Afebrile. Vital signs noted. Nontoxic-appearing. Cardiovascular examination reveals regular rate and rhythm. Lungs are clear to auscultation bilaterally with the exception of occasional rhonchi right greater than left. Airway patent. No pharyngeal erythema or exudate. No drooling or trismus. Neck soft and supple without meningismus. Abdomen is soft and nontender with positive bowel sounds. No noted pedal edema bilaterally. Neurological examination nonfocal, nonlateralizing. Const Vital Signs: 09/04/25 09:42 09/04/25 09:53 09/04/25 11:42 Temperature 99.1 F Temperature Source Oral Pulse Rate 76 50 L Respiratory Rate 16 16 Respiratory Effort Normal Non-Labored Respiratory Pattern Normal Blood Pressure 149/62 H 131/65 H Blood Pressure Mean 91 87 Pulse Ox 98 96 Oxygen Delivery Method Room Air MDM MDM MDM Narrative Medical decision making narrative: The differential diagnosis includes but not limited to bronchitis versus pneumonia versus viral syndrome. I do not feel he needs a strep swab as he states his symptoms are improving. Temperature is 99.1 degrees. He was swabbedfor COVID, influenza, and RSV. Chest x-ray was obtained and 2 views to help rule out pneumonia and the need for antibiotics. Baseline laboratories will be obtained as he has history of anemia. He may have dehydration or other electrolyte abnormality, but history and physical does not support this as he has not had nausea, vomiting, or diarrhea. I reviewed his laboratory work and he has slight elevation of his white count at11.3 which I think is not specific, hemoglobin 13.3, hematocrit 39.6, platelet count normal at 158. BMP shows no evidence of extreme dehydration with glucose elevated at 130 with a normal anion gap of 13, BUN is only slightly elevated at 22 with normal creatinine of 0.94. Chest x-ray 2 views interpreted by myself independently shows no evidence of a pneumonia or pneumothorax. I do not feel antibiotics are indicated. I reviewedhis respiratory swab and he is negative for COVID, influenza, and RSV. I do notfeel antivirals are indicated. Upon repeat examination, he states he is feeling improved from when he came in, even better than yesterday evening. I feel he can be discharged to follow-up. Return instructions to the emergency department were reviewed. Dlmt-vri-dgoohvheydrwevrcpt as needed. Disposition is discharged home in stable condition. History & Record Review Discussion w/independent historian: Patient and Family () Lab Data Attestation: I reviewed the patient's lab results. Labs: Laboratory Results - last 24 hr 09/04/25 10:30 WBC 11.3 H RBC 4.43 L Hgb 13.3 Hct 39.6 L MCV 89.4 MCH 30.0 MCHC 33.6 RDW Std Deviation 45.1 H RDW Coeff of Ethan 13.8 Plt Count 158 MPV 9.7 Immature Gran % (Auto) 0.400 Neut % (Auto) 83.2 H Lymph % (Auto) 9.8 L Benson % (Auto) 5.8 Eos % (Auto) 0.4 Baso % (Auto) 0.4 Absolute Neuts (auto) 9.4 H Absolute Lymphs (auto) 1.11 Nucleated RBC % 0 Sodium 139 Potassium 3.9 Chloride 101 Carbon Dioxide 25.7 Anion Gap 13 BUN 22 H Creatinine 0.94 Estim Creat Clear Calc 71.71 Est GFR (MDRD) Non-Af 81 BUN/Creatinine Ratio 23.8 H Glucose 130 H Calcium 8.9 Radiography Diagnostic Testing: Clinical Impression(s) from Imaging Studies Chest X-Ray 09/04/25 11:20 IMPRESSION: NO ACUTE FINDINGS. Reading Location: [facility] Discharge Plan Triage Chief Complaint: General Illness ED Provider: Ravin Naik Dx/Rx/DC Orders Clinical Impression: URI (upper respiratory infection), Viral syndrome Instructions: ED Viral Syndrome (Adult), ED URI, Viral, No Abx (Adult) Prescriptions: No Action cyanocobalamin (vitamin B-12) 1,000 mcg/mL solution 1,000 mcg IM Q4W metoprolol succinate 25 mg tablet extended release 24 hr 25 mg PO QDAY diclofenac sodium 1 % gel 2 g topical BID PRN (Reason: pain) Rx Instructions: apply to left knee alirocumab 75 mg/mL pen injector 75 mg subcut Q4W cetirizine 10 mg Tablet 10 mg PO DAILY amlodipine 5 mg Tablet 5 mg PO DAILY levothyroxine 125 mcg Tablet 125 mcg PO DAILY Eliquis 5 mg Tablet 5 mg PO BID Qty: 60 1RF lisinopril 2.5 mg Tablet 2.5 mg PO DAILY tamsulosin 0.4 mg Capsule 0.8 mg PO QHS Qty: 60 0RF [facility] [Primary Care Provider, None] - 3-5 Days if not improving Activity Restrictions/Additional Instructions: Return with sustained high fever, difficulty breathing, new or worsening symptoms. Dmha-ijy-cydxgoz medications as needed. Print Language: Gambian Disposition Disposition: Home, Self Care What to do if you have Problems For any increased pain, shortness of breath, bleeding, nausea or vomiting, chestpain, or any unexpected problems, contact your Primary Care Provider. Call [facility] ([phone]) or report to the closest Emergency Room. Call 911 if necessary. 09/04/25 1230 <Electronically signed by Ravin Naik MD> Cosigner Signature (if applicable): CC: [facility] ~ Signed [facility] Work Phone: Evaluation + Plan note No data available for this section [facility] Evaluation noteNo assessment information available [facility] Work Phone: Evaluation note* Diagnosis Onset Date Resolution Status Sepsis acute UTI (urinary tract infection) acute [facility] Work Phone: History and physical note Author Dr. Avery [facility] February 10, 2023 12:52pm Note Date/Time February 10, 2023 12: 36pm [facility] Medical Records Department [address] [place] [address] H&P Exam - Hospitalist 02/10/23 1236 MR#: [id number] Acct: [id number] Name: STONE HAILE Rep #:[id number] : 1945 77 From: Lc Avery DO PCP: [facility] Status:REG ER Location: ED HPI - General General Date of Service: 02/10/23 Chief Complaint: Chills, dysuria HPI Narrative STONE HAILE, is a 77 M who presents to the ER at [facility] with complaints of dysuria x48 hours [...] year. Patient takes Eliquis for paroxysmal A-fib. [facility] Medical History Atrial fibrillation BPH (benign prostatic [...] Type Severity Reaction Status Date / Time Yntjvlr-YIW-GyE Reductase Allergy Other Verified 02/10/23 08:21 Inhibitor [...] 91.1 H, Lymph % (Auto) 7.4 L, Benson %(Auto) 1.0, Eos % (Auto) 0.1, Baso [...] Sl. Cloudy, Urine pH 6.0, Ur Specific [place] 1.015, Urine Protein 100 H, Urine Glucose [...] 1. Severe cystitis-patient will be admitted to [facility] 3, he will be given IV Rocephin, fluids will be administered, labs will be monitored. It is unclear atthis time with the patient actually has sepsis. #2 dehydration-patient was given fluid bolus in the emergency room, I will continue vigorous fluid administration on [facility] #3 coronary artery disease-this appears stable at [...] 75 minutes Charges/Coding Visit Charges Inpatient E&M: 01599 Init Hosp L3 02/10/23 1252 <Electronically signed by Lc Avery DO> Cosigner Signature (if applicable): CC: Dr. Lc Avery, ; [facility]~ Signed [facility] Work Phone: Hospital Discharge instructionsAdditional Instructions Return with sustained high fever, difficulty breathing, new or worsening symptoms. Qzff-rdz-ermctrq medications as needed.[facility] Work Phone: Reason for referral (narrative)No reason for referral information availableWSumma Health Work Phone: Chief Complaint and Reason for [...] Date DIZZINESS, BLURRED VISION June 15 3:04pm Chief Complaint Admit Date DIZZINESS, BLURRED VISION June 15 3:04pm general ill September 04, 2025 9 :40am Advance Directives Advance Directive Response Recorded Date/ Time Living Will No January 31, 2022 2:02pm Power of Director Of Human Resources No January 31 2:02pm Advance Directive Response Recorded Date/ Time Living Will No February 10, 2023 8:23am Power of Director Of Human Resources No February 10 8:23am Advance Directive Response Recorded Date/ Time Living Will No February 10, 2023 1:16pm Power of Director Of Human Resources No February 10 1:16pm Advance Directive Response Recorded Date/ Time Living Will No February 19, 2023 6:19pm Power of Director Of Human Resources No February 19 6:19pm Advance Directive Response Recorded Date/ Time Do you have a Healthcare Power of Director Of Human Resources? No June 15, 2025 3:11pm Advance Directive Response Recorded Date/ Time Do you have a Healthcare Power of Director Of Human Resources? No June 15, 2025 2:11pm Do you have a Healthcare Power of Director Of Human Resources? No September 04, 2025 8:54am Summary Purpose Family History No Family History Records Found Additional Source Comments Goals (unrecognized section and content) Goals may be documented in a n alternate sectionGoals may be documented in an alternate sectionGoals may be documented in an alternate sectionGoals may be documented in an alternate section No data available for this sectionGoals may be documented in an alternate section Care Teams (unrecognized sec tion and content) Team Status: Active Member Role Status Dates Dr. Jerardo Moore MD Family Provider Active [facility] Primary Care Provider Active Team Status: Active Member Role Status Dates [facility] Primary Care Provider Active Dr. Kelly Gutiérrez MD Emergency Provider Active Dr. Lc Avery DO Attending Provider Active Team Status: Inactive Member Role Status Dates [facility] Primary Care Provider Active Dr. Kelly Gutiérrez MD Emergency Provider Active Team Status: Active Member Role Status Dates [facility] Primary Care Provider Active Dr. Kelly Gutiérrez MD Emergency Provider Active Dr. Lc Avery DO Admit Provider, Attending Provider, Other Provider Active Team Status: Inactive Member Role Status Dates [facility] Primary Care Provider Active Dr. Kelly Gutiérrez MD Emergency Provider Active Dr. Lc Avery DO Admit Provider, Attending Pro vider Active Team Status: Inactive Member Role Status Dates [facility] Primary Care Provider Active Dr. Jam Arciniega MD Emergency Provider Active Team Status: Active Member Role/Relationship Status Dates [facility] Primary Care Provider Active Team Status: Inactive Member Role/Relationship Status Dates [facility] Primary Care Provider Active Start: June 15, 2025 End: June 15, 2025 Dr. Anibal Douglass DO Emergency Provider Active Start: June 15, 2025 End: June 15, 2025 Team Status: Active Member Role/Relationship Status Dates [facility] Primary care physician Active Team Status: Inactive Member Role/Relationship Status Dates [facility] Primary care physician Active Start : June 15, 2025 End: June 15, 2025 Dr. Anibal Douglass DO Attending physician Active Start: June 15, 2025 End: June 15, 2025 Dr. Anibal Douglass DO Emergency Department Physician A ctive Start: June 15, 2025 End: June 15, 2025 Team Status: Inactive Member Role/Relationship Status Dates [facility] Primary care physician Active Start : September 04, 2025 End: September 04, 2025 Ravin Naik MD Attending physician Active Sta rt: September 04, 2025 End: September 04, 2025 Ravin Naik MD Emergency Department Physician Activ e Start: September 04, 2025 End: September 04, 2025 (unrecognized sect ion and content) No Status Records FoundNo Status Records Found INFORMATION SOURCE (unrecogn ized section and content) DATE CREATED AUTHOR 06/27/2025 [facility] DATE CREATED AUTHOR SINDHU SONG 09/10/2025 [facility] FOR RECORDS PERTAINING TO PATIENTS WHO ARE [...] BE BASED ON THE PRIMARY CLINICAL RECORDS. [facility]. provides no warranty or guarantee of the accuracy or completeness of information in this document.
== END | disposition home or self-care (01) ==
LOC: CVS 06:40
PROVIDERS: Referring Provider Internal Medicine Cardiovascular Disease; Visit Provider Internal Medicine Cardiovascular Disease
DX: I10 Essential (primary) hypertension (principal); I49.5 Sick sinus syndrome; I48.0 Paroxysmal atrial fibrillation; I25.10 Atherosclerotic heart disease of native coronary artery without angina pectoris; E78.5 Hyperlipidemia, unspecified; G45.3 Amaurosis fugax
CPT/HCPCS: 93306; 93880; Q9957; A4216; C8929

== ENCOUNTER 2025-11-04 16:17 | Observation (INO) | payer OTHER, SELFPAY ==
[2022-03-02 13:02] VITALS: BMI 28.5
[2025-10-21 11:16] LABS: Red Blood Cells-Urine 0 SEEN /hpf (0-5)
[2025-10-21 12:03] LABS: Hematocrit 38.4 % (40-54); Hemoglobin 12.9 g/dL (13.0-16.5); Mean Corp Hgb Conc 33.6 g/dL (32-36); Mean Corpuscular Volume 89.9 fL (80-94); Mean Platelet Vol. 9.9 fl (6.2-12.0); Platelet Count 200 K/mm3 (150-450); RBC Distribution Width CV 13.9 % (11.6-14.6); RBC Distribution Width SD 45.6 fl (35.1-43.9); Red Blood Count 4.27 M/mm3 (4.6-6.2); White Blood Count 5.8 K/mm3 (4.4-11.0)
[2025-10-21 12:08] LABS: Color, Urine Yellow (Yellow); Glucose, Dipstick Normal (Normal); Ketone-Dipstick Negative (Negative); Leukocyte Esterase-Dipstick 500 /ul (Negative); Nitrite-Dipstick Positive (Negative); Occult Blood-Urine 10 /ul (Negative); Protein-Dipstick 30 mg/dl (Negative); Specific Gravity, Urine 1.020 (1.002-1.030); Urine Bilirubin Dipstick Negative (Negative)
[2025-10-21 12:16] LABS: Prothrombin Time (Protime)PT. 17.0 SECONDS (11.7-14.9)
[2025-10-21 12:43] LABS: Mucous, Urine 1+ /hpf (<or=2+); Squamous Epithelial Cells - UA 0-5 SEEN /hpf (0-5)
[2025-10-21 13:02] LABS: Anion Gap 13 (5-15); BUN 26 mg/dL (4-19); BUN/Creat Ratio 27.1 RATIO (10-20); Calcium,Total 9.1 mg/dL (7.6-11.0); Carbon Dioxide 24.2 mmol/L (21.0-32.0); Chloride 101 mmol/L (98-108); Glucose 165 mg/dL (70-99); Potassium 4.1 mmol/L (3.3-5.1)
[2025-10-29 07:32] VITALS: BMI 30.8
--- OUTSIDE RECORDS SUMMARY | 2025-11-01 07:25 | XMS RPT_ITS | CCD ---
Author Organization [facility] Care Team Providers Care Client Associate Name Role Phone Dr. Tamia Mccray Emergency Provider [place], [place] Primary Care Provider Dr. Bailey Bynum Admit Provider Dr. Bailey Garcia Attending Provider Dr. Bailey Garcia Other Provider Dr. Facundo Costa Other Provider Dr. Annie Hernandez Attending Provider Dr. Annie Hernandez Other Provider Dr. Thomas Franks Attending Provider Dr. Annie Hernandez Referring Provider Dr. Rhina Palma Other Provider Dr. Rhina Palma Attending Provider [place], [place] Primary Care Provider Dr. Kelly Lewis Emergency Provider [phone] Lc Avery Attending Provider Dr. Lc Avery Admit Provider Dr. Lc Avery Other Provider [place] Primary Care Provider Dr. Anibal Handy DO Emergency Provider [facility] Primary Care Physician [phone] BRENDA CAVAZOS MD Attending Unavailable [facility] Primary Care Unavailable [facility], [place] Primary Care Unavailable Anibal Douglass Attending Unavailable [facility], [place] Primary Care Unavailable Ravin Naik Attending Unavailable [facility], [place] Primary Care Physician Unavailab Dr. Anibal Ho DO Attending Physician Dr. Anibal Douglass DO Emergency Department Physic sneha Ravin Naik MD Attending Physician Ravin Naik MD Emergency Department Physician Allergies Allergy Classification Reported Allergen(s) Allergy Type Date of Onset Reaction(s) Facility (7 sources) Ibuprofen Drug Allergy 12-10-2021 Other [facility] (8 sources) Jmajcbl-Tiz-Fqz Reductase Inhibitor; Translations: [Esrbsfg-Zjw-Tro Reductase Inhibitor] Allergy to substance 12-10-2021 Other [facility] (1 source) ezetimibe Drug Allergy 09-04-2025 [facility] Repository (1 source) Ibuprofen Drug Allergy 09-04-2025 [facility] Repository (1 source) ezetimibe Drug Allergy 09-04-2025 unknown [facility] Medications Current Medications Medication Drug Class(es) Dates [...] Drug Class(es) Dates Sig (Normalized) Sig (Original) [id number] 200 actuat albuterol 0.09 mg/actuat metered dose [...] Coronary arteriosclerosis; Translations: [Atherosclerotic heart disease of [place] coronary artery without angina pectoris] 09-02-2025 Chronic Essential hypertension (4 sources) Hypertensive disorder; Translations: [Essential (primary) hypertension] 02-19-2023 Chronic Comment on above: denies Malaise and fatigue (2 sources) Asthenia; Translations: [Weakness] Onset: 06-17-2025 Episodic Other aftercare (3 sources) Long-term current use of anticoagulant; Translations: [MCFP (current) use of anticoagulants] 02-19-2023 Episodic Other [...] Auto (Unsp spec) [#/Vol] 1.11 10*3/uL 0.83-4.51 [facility] Absolute neutrophil countOrd ered By: Ravin Oteroroxy on 09-04-2025 Neutrophils (Bld) [#/Vol] 9.4 10*3/uL High 2.0-7.7 [facility] Anion gap in Serum or Plasma Ordered By: Ravin Naik on 09-04-2025 Anion gap [Moles/Vol] 13 mmol/L 5-15 [facility] Automated lymphocyte count a s percentage of total leukocytesOrdered By: Ravin Naik on 09-04-2025 Lymphocytes/100 WBC Auto (Unsp spec) 9.8 % Low - [facility] BUN/creatinine ratioOrdered By: Ravin Naik on 09-04-2025 Urea nitrogen/Creatinine [Mass ratio] 23.8 mg/mg High 09-06 [facility] Basic Metabolic Profile (BMP )on 09-04-2025 BUN/CRE 23.8 RATIO High 09-06 [facility] Comment on above: Performed By: #### L 500.2500, L100.0100 #### [facility] [address] [place], [address] Calcium [Mass/Vol] 8.9 mg/dL Normal 7.6-11.0 [facility] Comment on above: Performed By: #### L 500.2500, L100.0100 #### [facility] [address] [place], [address] Chloride [Moles/Vol] 101 mmol/L Normal 98-108 [facility] Comment on above: Performed By: #### L 500.2500, L100.0100 #### [facility] [address] [place], [address] CO2 [Moles/Vol] 25.7 mmol/L Normal 21.0-32.0 [facility] Comment on above: Performed By: #### L 500.2500, L100.0100 #### [facility] [address] [place], [address] Creatinine [Mass/Vol] 0.94 mg/dL Normal 0.70-1.20 [facility] Comment on above: Performed By: #### L 500.2500, L100.0100 #### [facility] [address] [place], [address] ECRCL 71.71 ml/min Normal 50-250 [facility] Comment on above: Performed By: #### L 500.2500, L100.0100 #### [facility] [address] [place], [address] GAP 13 Normal 5-15 [facility] Comment on above: Performed By: #### L 500.2500, L100.0100 #### [facility] [address] [place], [address] GFR/1.73 sq M.predicted among non-blacks MDRD (S/P/Bld) [Vol rate/Area] 81 mL/min/{1.73_m2} Normal >60 [facility] Comment on above: Result Comment: mL/m in/1.73m2 CKD-EPI Creatinine Equation (2020) Performed By: #### L 500.2500, L100.0100 #### [facility] [address] [place], [address] Glucose [Mass/Vol] 130 mg/dL High 70-99 [facility] Comment on above: Performed By: #### L 500.2500, L100.0100 #### [facility] [address] [place], [address] Potassium [Moles/Vol] 3.9 mmol/L Normal 3.3-5.1 [facility] Comment on above: Performed By: #### L 500.2500, L100.0100 #### [facility] [address] [place], [address] Sodium [Moles/Vol] 139 mmol/L Normal 133-145 [facility] Comment on above: Performed By: #### L 500.2500, L100.0100 #### [facility] [address] [place], [address] Urea nitrogen [Mass/Vol] 22 mg/dL High 4-19 [facility] Comment on above: Performed By: #### L 500.2500, L100.0100 #### [facility] [address] [place], [address] Basophil percentageOrdered B y: Ravin Naik on 09-04-2025 Basophils/100 WBC (Bld) 0.4 % 0-1 [facility] CBC W/Diff, Automatedon 08-18 Absolute Lymph 1.11 X10 3/uL Normal 0.83-4.51 [facility] Comment on above: Performed By: #### L 500.2500, L100.0100 #### [facility] [address] [place], [address] Absolute Neut 9.4 X10 3/uL High 2.0-7.7 [facility] Comment on above: Performed By: #### L 500.2500, L100.0100 #### [facility] [address] [place], [address] Basophils/100 WBC (Bld) 0.4 % Normal 0-1 [facility] Comment on above: Performed By: #### L 500.2500, L100.0100 #### [facility] [address] [place], [address] Eosinophils/100 WBC (Bld) 0.4 % Normal 0-5 [facility] Comment on above: Performed By: #### L 500.2500, L100.0100 #### [facility] [address] [place], [address] Erythrocyte distribution width (RBC) [Ratio] 13.8 % Normal 11.6-14.6 [facility] Comment on above: Performed By: #### L 500.2500, L100.0100 #### [facility] [address] [place], [address] Hematocrit (Bld) [Volume fraction] 39.6 % Low 40-54 [facility] Comment on above: Performed By: #### L 500.2500, L100.0100 #### [facility] [address] [place], [address] Hemoglobin (Bld) [Mass/Vol] 13.3 g/dL Normal 13.0-16.5 [facility] Comment on above: Performed By: #### L 500.2500, L100.0100 #### [facility] [address] [place], [address] IG% 0.400 Normal 0.0-0.9 [facility] Comment on above: Result Comment: IG% - Immature Granulocytes (promyelocytes, myelocytes and metamyelocytes) > 1% indicates that a LEFT SHIFT is Present. Performed By: #### L 500.2500, L100.0100 #### [facility] [address] [place], [address] Lymphocytes/100 WBC (Bld) 9.8 % Low 19-41 [facility] Comment on above: Performed By: #### L 500.2500, L100.0100 #### [facility] [address] [place], [address] MCH (RBC) [Entitic mass] 30.0 pg Normal 27.0-32.0 [facility] Comment on above: Performed By: #### L 500.2500, L100.0100 #### [facility] [address] [place], [address] MCHC (RBC) [Mass/Vol] 33.6 g/dL Normal 32-36 [facility] Comment on above: Performed By: #### L 500.2500, L100.0100 #### [facility] [address] [place], [address] MCV (RBC) [Entitic vol] 89.4 fL Normal 80-94 [facility] Comment on above: Performed By: #### L 500.2500, L100.0100 #### [facility] [address] [place], [address] Monocytes/100 WBC (Bld) 5.8 % Normal 0-10 [facility] Comment on above: Performed By: #### L 500.2500, L100.0100 #### [facility] [address] [place], [address] Neutrophils/100 WBC (Bld) 83.2 % High 47-70 [facility] Comment on above: Performed By: #### L 500.2500, L100.0100 #### [facility] [address] [place], [address] Nucleated RBC (Bld) [#/Vol] 0 10*3/uL Normal 0-5 [facility] Comment on above: Performed By: #### L 500.2500, L100.0100 #### [facility] [address] [place], [address] Platelet mean volume (Bld) [Entitic vol] 9.7 fL Normal 6.2-12.0 [facility] Comment on above: Performed By: #### L 500.2500, L100.0100 #### [facility] [address] [place], [address] Platelets (Bld) [#/Vol] 158 10*3/uL Normal 150-450 [facility] Comment on above: Performed By: #### L 500.2500, L100.0100 #### [facility] [address] [place], [address] RBC (Bld) [#/Vol] 4.43 10*6/uL Low 4.6-6.2 [facility] Comment on above: Performed By: #### L 500.2500, L100.0100 #### [facility] [address] [place], [address] RDW SD 45.1 fl High 35.1-43.9 [facility] Comment on above: Performed By: #### L 500.2500, L100.0100 #### [facility] [address] [place], [address] WBC (Bld) [#/Vol] 11.3 10*3/uL High 4.4-11.0 [facility] Comment on above: Performed By: #### L 500.2500, L100.0100 #### [facility] [address] [place], [address] Carbon dioxide, total [Moles /volume] in Central venous bloodOrdered By: Ravin Naik on 09-04-2025 CO2 [Moles/Vol] 25.7 mmol/L 21.0-32.0 [facility] Chest PA and Lateralon 09-04 Chest PA and Lateral [facility] [address] [place] [address] Chest PA and Lateral MR#: [id number] Acct: [id number] Name: STONE HAILE David Rep #: [id number] : 1945 M 79 From: Lisha Lee MD PCP: [facility] Status: [facility] ER Study: Chest PA and Lateral Date of Exam: 09/04/25 Exam# [id number] Ordering Dr: Ravin Naik MD PROCEDURE: CHEST [...] Lateral IMPRESSION: NO ACUTE FINDINGS. Reading Location: [id number] CC: Dr. Ravin Naik MD; [facility] Door To Door Selling Agent: Signed Normal [facility] Chloride assayOrdered By: Fran Naik on 09-04-2025 Chloride [Moles/Vol] 101 mmol/L 98-108 [facility] Emergency Department Summary on 09-04-2025 Emergency Department Summary [facility] Medical Records Department [address] [place] [address] Emergency Department Summary 09/04/25 MR#: [id number] Acct: [id number] Name: STONE HAILE Rep #: [id number] : 1945 79 From: Ravin Naik MD PCP: [facility] Status:REG ER Location: ED HPI History [...] yet this year. Sore throat has improved. [facility] Medical History Osteoarthritis Aortic valve stenosis [...] Zetia) Allergy Unknown unknown Verified 09/04/25 09:44 Fnhstoh-FGX-OxP Reductase Allergy Other Verified 09/04/25 09:44 Inhibitor [...] abnormality, but (more content not included)... Normal [facility] Eosinophil percentageOrdered By: Ravin Naik on 09-04-2025 Eosinophils/100 WBC (Bld) 0.4 % 0-5 [facility] Erythrocyte distribution wid th ratioOrdered By: Ravin Naik on 09-04-2025 Erythrocyte distribution width (RBC) [Ratio] 13.8 % 11.6-14.6 [facility] Erythrocyte distribution wid th standard deviationOrdered By: Ravin Naik on 09-04-2025 Erythrocyte distribution width (RBC) [Ratio] 45.1 fl High 35.1-43.9 [facility] Glomerular filtration rate ( GFR) estimation/1.73 sq m using serum, plasma, or whole bOrdered By: Ravin Naik on 09-04-2025 GFR/1.73 sq M.predicted among non-blacks MDRD (S/P/Bld) [Vol rate/Area] 81 mL/min/{1.73_m2} >60 [facility] Comment on above: mL/min/1.73m2 CKD-EP I Creatinine Equation (2020) Hematocrit Auto (Bld) [Volum e fraction]Ordered By: Ravin Naik on 09-04-2025 Hematocrit (Bld) [Volume fraction] 39.6 % Low 40-54 [facility] Hemoglobin measurementOrdere d By: Ravin Naik on 09-04-2025 Hemoglobin (Bld) [Mass/Vol] 13.3 g/dL 13.0-16.5 [facility] Immature granulocytes/100 WB C Auto (Bld)Ordered By: Ravin Naik on 09-04-2025 Immature granulocytes/100 WBC (Bld) 0.400 % 0.0-0.9 [facility] Comment on above: IG% - Immature Granu locytes (promyelocytes, myelocytes and metamyelocytes) > 1% indicates that a LEFT SHIFT is Present. Influenza virus A and B and SARS-CoV-2 (COVID-19) and Respiratory syncytial virus RNAOrdered By: Ravin Naik on 09-04-2025 SARS-CoV-2 (COVID-19) RNA RAJNI+probe Ql (Unsp spec) [facility] M100.678on 09-04-2025 M100.678 Normal Reference Ran ge = Negative GeneXpert Instrument, PCR method SARS-CoV-2 (COVID 19) Negative INFLUENZA A Negative INFLUENZA B Negative RSV PCR Negative Normal [facility] Comment on above: Performed By: #### M 100.678 #### [facility] [address] [place] [address], [address] MCV (mean corpuscular volume ) determinationOrdered By: Ravin Naik on 09-04-2025 MCV (RBC) [Entitic vol] 89.4 fL 80-94 [facility] Mean corpuscular hemoglobin (MCH) determinationOrdered By: Ravin Naik on 09-04-2025 MCH (RBC) [Entitic mass] 30.0 pg 27.0-32.0 [facility] Mean corpuscular hemoglobin concentration (MCHC) determinationOrdered By: Ravin Naik on 09-04-2025 MCHC (RBC) [Mass/Vol] 33.6 g/dL 32-36 [facility] Mean platelet volume determi nationOrdered By: Ravin Naik on 09-04-2025 Platelet mean volume (Bld) [Entitic vol] 9.7 fL 6.2-12.0 [facility] Monocyte percentageOrdered B y: Ravin Naik on 09-04-2025 Monocytes/100 WBC (Bld) 5.8 % 0-10 [facility] Neutrophil percentageOrdered By: Ravin Naik on 09-04-2025 Neutrophils/100 WBC (Bld) 83.2 % High 47-70 [facility] Nucleated red blood cell per centageOrdered By: Ravin Naik on 09-04-2025 Nucleated RBC/100 WBC (Bld) [Ratio] 0 % 0-5 [facility] Platelet countOrdered By: Fran Naik on 09-04-2025 Platelets (Bld) [#/Vol] 158 10*3/uL 150-450 [facility] Potassium measurement (mass/ volume)Ordered By: Ravin Naik on 09-04-2025 Potassium (Unsp spec) [Mass/Vol] 3.9 mmol/L 3.3-5.1 [facility] RBC Auto (Bld) [#/Vol]Ordere d By: Ravin Naik on 09-04-2025 RBC (Bld) [#/Vol] 4.43 10*6/uL Low 4.6-6.2 [facility] Serum creatinine measurement (mass/volume)Ordered By: Ravin Naik on 09-04-2025 Creatinine [Mass/Vol] 0.94 mg/dL 0.70-1.20 [facility] Serum glucose measurement (m ass/volume)Ordered By: Ravin Naik on 09-04-2025 Glucose [Mass/Vol] 130 mg/dL High 70-99 [facility] Serum or plasma calcium corina urement (mass/volume)Ordered By: Ravin Naik on 09-04-2025 Calcium [Mass/Vol] 8.9 mg/dL 7.6-11.0 [facility] Serum or plasma urea nitroge n measurement (mass/volume)Ordered By: Ravin Naik on 09-04-2025 Urea nitrogen [Mass/Vol] 22 mg/dL High 4-19 [facility] Sodium levelOrdered By: Ravin Naik on 09-04-2025 Sodium [Moles/Vol] 139 mmol/L 133-145 [facility] White blood cell (WBC) count Ordered By: Ravin Naik on 09-04-2025 WBC (Bld) [#/Vol] 11.3 10*3/uL High 4.4-11.0 [facility] .Auto Diffon 06-17-2025 Basophil, Absolute 0.1 10 3/mcL Normal 0.0-0.3 [facility] Comment on above: Performed By: #### M DW, MG, ANEU, CBC, GFR, ADIFF, CMP #### [address] [address] Basophils/100 WBC (Bld) 0.7 % Normal 0.0-2.5 [facility] Comment on above: Performed By: #### M DW, MG, ANEU, CBC, GFR, ADIFF, CMP #### [address] [address] Eosinophil, Absolute 0.1 10 3/mcL Normal 0.0-0.7 [facility] Comment on above: Performed By: #### M DW, MG, ANEU, CBC, GFR, ADIFF, CMP #### [address] [address] Eosinophils/100 WBC (Bld) 1.5 % Normal 0.0-6.0 [facility] Comment on above: Performed By: #### M DW, MG, ANEU, CBC, GFR, ADIFF, CMP #### [address] [address] Lymphocyte, Absolute 1.9 10 3/mcL Normal 0.9-4.3 [facility] Comment on above: Performed By: #### M DW, MG, ANEU, CBC, GFR, ADIFF, CMP #### [address] [address] Lymphocytes/100 WBC (Bld) 28.0 % Normal 20.0-40.0 [facility] Comment on above: Performed By: #### M DW, MG, ANEU, CBC, GFR, ADIFF, CMP #### [place] [id number] [place] [address] Monocyte, Absolute 0.6 10 3/mcL Normal 0.1-1.4 [facility] Comment on above: Performed By: #### M DW, MG, ANEU, CBC, GFR, ADIFF, CMP #### [address] [address] Monocytes/100 WBC (Bld) 9.3 % Normal 2.0-13.0 [facility] Comment on above: Performed By: #### M DW, MG, ANEU, CBC, GFR, ADIFF, CMP #### [address] [address] Neutrophils/100 WBC (Bld) 60.5 % Normal 50.0-75.0 [facility] Comment on above: Performed By: #### M DW, MG, ANEU, CBC, GFR, ADIFF, CMP #### [address] [address] .GFRon 06-17-2025 Estimated Glomerular Filtration Rate 86 ml/min/1.73sqm Normal [facility] Comment on above: Result Comment: Stages [...] MG, ANEU, CBC, GFR, ADIFF, CMP #### [address] [address] .MDWon 06-17-2025 Monocyte Distribution Width 18.43 Normal 0.00-20.00 [facility] Comment on above: Result Comment: For ED adult patients suspected of sepsis, MDW<=20.0 does not rule out sepsis or risk of sepsis Performed By: #### M DW, MG, ANEU, CBC, GFR, ADIFF, CMP #### [place] [address] .NEUABSon 06-17-2025 Neutrophil, Absolute 4.2 10 3/mcL Normal 2.3-8.1 [facility] Comment on above: Performed By: #### M DW, MG, ANEU, CBC, GFR, ADIFF, CMP #### [place] [address] CBCon 06-17-2025 Erythrocyte distribution width (RBC) [Ratio] 13.7 % Normal 11.5-15.5 [facility] Comment on above: Performed By: #### M DW, MG, ANEU, CBC, GFR, ADIFF, CMP #### [place] [address] Hematocrit (Bld) [Volume fraction] 40.7 % Normal 40.0-52.0 [facility] Comment on above: Performed By: #### M DW, MG, ANEU, CBC, GFR, ADIFF, CMP #### [place] [address] Hgb 14.0 G/dL Normal 13.0-17.5 [facility] Comment on above: Performed By: #### M DW, MG, ANEU, CBC, GFR, ADIFF, CMP #### [place] [address] MCH (RBC) [Entitic mass] 30.5 pg Normal 27.0-33.0 [facility] Comment on above: Performed By: #### M DW, MG, ANEU, CBC, GFR, ADIFF, CMP #### [place] [address] MCHC 34.3 G/dL Normal 32.0-36.0 [facility] Comment on above: Performed By: #### M DW, MG, ANEU, CBC, GFR, ADIFF, CMP #### [place] [address] MCV (RBC) [Entitic vol] 89.0 fL Normal 81.0-100.0 [facility] Comment on above: Performed By: #### M DW, MG, ANEU, CBC, GFR, ADIFF, CMP #### [place] [address] Platelet 190 10 3/mcL Normal 150-450 [facility] Comment on above: Performed By: #### M DW, MG, ANEU, CBC, GFR, ADIFF, CMP #### [place] [address] Platelet mean volume (Bld) [Entitic vol] 7.6 fL Normal 6.4-10.5 [facility] Comment on above: Performed By: #### M DW, MG, ANEU, CBC, GFR, ADIFF, CMP #### [place] [address] RBC 4.58 10 6/mcL Normal 4.50-6.00 [facility] Comment on above: Performed By: #### M DW, MG, ANEU, CBC, GFR, ADIFF, CMP #### [place] [address] WBC 6.9 10 3/mcL Normal 4.5-10.8 [facility] Comment on above: Performed By: #### M DW, MG, ANEU, CBC, GFR, ADIFF, CMP #### [place] [address] CMPon 06-17-2025 Albumin Level 3.9 G/dL Normal 3.2-4.8 [facility] Comment on above: Performed By: #### M DW, MG, ANEU, CBC, GFR, ADIFF, CMP #### [place] [address] Albumin/Globulin [Mass ratio] 1.1 {ratio} Normal 0.9-1.6 [facility] Comment on above: Performed By: #### M DW, MG, ANEU, CBC, GFR, ADIFF, CMP #### [place] [address] ALP [Catalytic activity/Vol] 65 U/L Normal 38-126 [facility] Comment on above: Performed By: #### M DW, MG, ANEU, CBC, GFR, ADIFF, CMP #### [address] [address] ALT [Catalytic activity/Vol] 17 U/L Normal 12-55 [facility] Comment on above: Performed By: #### M DW, MG, ANEU, CBC, GFR, ADIFF, CMP #### [address] [address] AST [Catalytic activity/Vol] 21 U/L Normal 8-34 [facility] Comment on above: Performed By: #### M DW, MG, ANEU, CBC, GFR, ADIFF, CMP #### [place] [id number] Bili Total 0.40 mg/dL Normal 0.20-1.20 [facility] Comment on above: Result Comment: Use of this assay is not recommended for patients undergoing treatment with eltrombopag due to the potential for falsely elevated results. Performed By: #### M DW, MG, ANEU, CBC, GFR, ADIFF, CMP #### [place] [address] BUN/Creatinine Ratio 21.3 ratio Normal 10.0-22.0 [facility] Comment on above: Performed By: #### M DW, MG, ANEU, CBC, GFR, ADIFF, CMP #### [place] [id number] Calcium [Mass/Vol] 9.5 mg/dL Normal 8.7-10.4 [facility] Comment on above: Performed By: #### M DW, MG, ANEU, CBC, GFR, ADIFF, CMP #### [address] [address] Chloride [Moles/Vol] 103 mmol/L Normal 98-110 [facility] Comment on above: Performed By: #### M DW, MG, ANEU, CBC, GFR, ADIFF, CMP #### [address] [address] CO2 [Moles/Vol] 29 mmol/L Normal 22-32 [facility] Comment on above: Performed By: #### M DW, MG, ANEU, CBC, GFR, ADIFF, CMP #### [place] [address] Creatinine [Mass/Vol] 0.89 mg/dL Normal 0.60-1.40 [facility] Comment on above: Result Comment: Test ing performed on [employer] analyzer using enzymatic creatinine methodology. Performed By: #### M DW, MG, ANEU, CBC, GFR, ADIFF, CMP #### [place] [address] Electrolyte Balance 9.0 mEq/L Normal 4.0-15.0 [facility] Comment on above: Performed By: #### M DW, MG, ANEU, CBC, GFR, ADIFF, CMP #### [place] [address] Globulin 3.5 G/dL Normal 2.5-4.2 [facility] Comment on above: Performed By: #### M DW, MG, ANEU, CBC, GFR, ADIFF, CMP #### [place] [address] Glucose [Mass/Vol] 114 mg/dL Normal 82-115 [facility] Comment on above: Performed By: #### M DW, MG, ANEU, CBC, GFR, ADIFF, CMP #### [place] [address] Potassium [Moles/Vol] 4.4 mmol/L Normal 3.5-5.0 [facility] MAIN Comment on above: Performed By: #### M DW, MG, ANEU, CBC, GFR, ADIFF, CMP #### [place] [id number] Sodium [Moles/Vol] 141 mmol/L Normal 136-145 [facility] MAIN Comment on above: Performed By: #### M DW, MG, ANEU, CBC, GFR, ADIFF, CMP #### [place] [address] Total Protein 7.4 G/dL Normal 5.7-8.2 [facility] MAIN Comment on above: Performed By: #### M DW, MG, ANEU, CBC, GFR, ADIFF, CMP #### [address] [address] Urea nitrogen [Mass/Vol] 19.0 mg/dL Normal 8.0-22.0 [facility] MAIN Comment on above: Performed By: #### M DW, MG, ANEU, CBC, GFR, ADIFF, CMP #### [address] [address] LABORATORYOrdered By: SYSTEM SYSTEM on 06-17-2025 Albumin [...] above: Interpretive Data: T esting performed on GoodGuide analyzer using enzymatic creatinine methodology. Electrolyte Balance [...] Filtration Rate 86 ml/min/1.73sqm Invalid Interpretation Code [facility] Comment on above: Interpretive Data: Stages of [...] 3.5 G/dL Normal 2.5 - 4.2 G/dL [facility] Glucose [Mass/Vol] 114 mg/dL Normal 82 - 115 mg/dL [facility] Hematocrit (Bld) [Volume fraction] 40.7 % Normal 40.0 - 52.0 % Workflow SS Hemoglobin (Bld) [Mass/Vol] 14.0 G/dL Normal 13.0 - 17.5 G/dL [facility] SS Lymphocytes (Bld) [#/Vol] 1.9 103/mcL Normal 0.9 - 4.3 10^3/mcL Workflow SS Lymphocytes/100 WBC (Bld) 28.0 % Normal 20.0 - 40.0 % Workflow SS Magnesium [Mass/Vol] 1.7 mg/dL Normal 1.6 - 2 .4 mg/dL [facility] SS MCH (RBC) [Entitic mass] 30.5 pg [...] ng/L Male: 0-54 ng/L Testing performed on Xamplified analyzer using direct chemiluminescent technology. Urea nitrogen [Mass/Vol] 19.0 mg/dL Normal 8.0 - 22.0 mg/dL ADM SS Urea nitrogen/Creatinine [Mass ratio] 21.3 ratio Normal 10.0 - 22.0 ratio ADM SS WBC (Bld) [#/Vol] 6.9 103/mcL Normal 4.5 - 10.8 10^3/mcL Workflow SS MGon 06-17-2025 Magnesium [Mass/Vol] 1.7 mg/dL Normal 1.6-2.4 [facility] MAIN Comment on above: Performed By: #### M DW, MG, ANEU, CBC, GFR, ADIFF, CMP #### [address] [address] [facility] High Sensitivity Troponin I 11 ng/L Normal 0-54 [facility] MAIN Comment on above: Result Comment: High Sensitive Troponin I Reference Ranges: Female: 0-34 ng/L Male: 0-54 ng/L Testing performed on Xamplified analyzer using direct chemiluminescent technology. Performed By: #### T [facility] #### [address] [address] XR CHEST 1 VIEWon 06-17-2025 XR CHEST [...] 06/17/2025 3:05:51 PM Ordering Provider: LESLIE MATOS [facility] 12 Lead EKGon 06-15-2025 12 Lead EKG [facility] [address] [place] [address] 12 Lead EKG 06/15/25 1516 MR#: [id number] Acct: [id number] Name: STONE HAILE Rep #: [id number] : 1945 79 From: Goldy Vergara MD [...] block Abnormal ECG Confirmed by MARINA MENG, GOLYD ([id number]), telegraph editor STEF COSBY ([id number]) on 06/16/2025 8:37:18 AM Referred By: TB/CG Confirmed By: GOLDY VERGARA MD 06/16/25 0837 Date Goldy Vergara MD CC: Dr. Anibal Douglass, DO; [facility] Signed Normal [facility] Absolute lymphocyte countOrd ered By: Anibal Douglass on 06-15-2025 Lymphocytes Auto (Unsp spec) [#/Vol] 3.11 10*3/uL 0.83-4.51 [facility] Absolute neutrophil countOrd ered By: Anibal Douglass on 06-15-2025 Neutrophils (Bld) [#/Vol] 5.5 10*3/uL 2.0-7.7 [facility] Activated partial thrombopla stin time (aPTT) in platelet poor plasma by coagulation aOrdered By: Anibal Douglass on 06-15-2025 aPTT Coag (PPP) [Time] 28.6 s 24.1-36.2 [facility] Anion gap in Serum or Plasma Ordered By: Anibal Douglass on 06-15-2025 Anion gap [Moles/Vol] 13 mmol/L 5-15 [facility] Automated lymphocyte count a s percentage of total leukocytesOrdered By: Anibal Douglass on 06-15-2025 Lymphocytes/100 WBC Auto (Unsp spec) 31.7 % - [facility] BUN/creatinine ratioOrdered By: Anibal Douglass on 06-15-2025 Urea nitrogen/Creatinine [Mass ratio] 24.8 mg/mg High - [facility] Basic Metabolic Profile (BMP )on 06-15-2025 BUN/CRE 24.8 RATIO High 10-20 [facility] Comment on above: Performed By: #### L 501.9520, L300.3900, L501.4021, L506.0400, L100.0100, L300.4310, L501.5200, L500.2500, L501.40546 ####[facility] [address] [place], [address] Calcium [Mass/Vol] 9.7 mg/dL Normal 7.6-11.0 [facility] Comment on above: Performed By: #### L 501.9520, L300.3900, L501.4021, L506.0400, L100.0100, L300.4310, L501.5200, L500.2500, L501.33551 ####[facility] [address] [place], [address] Chloride [Moles/Vol] 100 mmol/L Normal 98-108 [facility] Comment on above: Performed By: #### L 501.9520, L300.3900, L501.4021, L506.0400, L100.0100, L300.4310, L501.5200, L500.2500, L501.51772 ####[facility] [address] [place], [address] CO2 [Moles/Vol] 24.3 mmol/L Normal 21.0-32.0 [facility] Comment on above: Performed By: #### L 501.9520, L300.3900, L501.4021, L506.0400, L100.0100, L300.4310, L501.5200, L500.2500, L501.38221 ####[facility] [address] [place], [address] Creatinine [Mass/Vol] 0.90 mg/dL Normal 0.70-1.20 [facility] Comment on above: Performed By: #### L 501.9520, L300.3900, L501.4021, L506.0400, L100.0100, L300.4310, L501.5200, L500.2500, L501.99583 ####[facility] [address] [place], [address] ECRCL 74.95 ml/min Normal 50-250 [facility] Comment on above: Performed By: #### L 501.9520, L300.3900, L501.4021, L506.0400, L100.0100, L300.4310, L501.5200, L500.2500, L501.54391 ####[facility] [address] [place], [place], [id number] GAP 13 Normal 5-15 [facility] Comment on above: Performed By: #### L 501.9520, L300.3900, L501.4021, L506.0400, L100.0100, L300.4310, L501.5200, L500.2500, L501.16751 ####[facility] [address] [place], [place], [phone] GFR/1.73 sq M.predicted among non-blacks MDRD (S/P/Bld) [Vol rate/Area] 86 mL/min/{1.73_m2} Normal >60 [facility] Comment on above: Result Comment: mL/m in/1.73m2 CKD-EPI Creatinine Equation (2020) Performed By: #### L 501.9520, L300.3900, L501.4021, L506.0400, L100.0100, L300.4310, L501.5200, L500.2500, L501.32320 ####[facility] [address] [place], [place], [phone] Glucose [Mass/Vol] 103 mg/dL High 70-99 [facility] Comment on above: Performed By: #### L 501.9520, L300.3900, L501.4021, L506.0400, L100.0100, L300.4310, L501.5200, L500.2500, L501.97833 ####[facility] [address] [place], [address] Potassium [Moles/Vol] 4.7 mmol/L Normal 3.3-5.1 [facility] Comment on above: Performed By: #### L 501.9520, L300.3900, L501.4021, L506.0400, L100.0100, L300.4310, L501.5200, L500.2500, L501.43560 ####[facility] [address] [place], [place], [phone](035) Sodium [Moles/Vol] 138 mmol/L Normal 133-145 [facility] Comment on above: Performed By: #### L 501.9520, L300.3900, L501.4021, L506.0400, L100.0100, L300.4310, L501.5200, L500.2500, L501.88168 ####[facility] [address] [place], [place], [phone] Urea nitrogen [Mass/Vol] 22 mg/dL High 4-19 [facility] Comment on above: Performed By: #### L 501.9520, L300.3900, L501.4021, L506.0400, L100.0100, L300.4310, L501.5200, L500.2500, L501.55241 ####[facility] [address] [place], [place], [phone] Basophil percentageOrdered B y: Anibal Douglass on 06-15-2025 Basophils/100 WBC (Bld) 0.6 % 0-1 [facility] Brain/Head without Contrasto n 06-15-2025 Brain/Head without Contrast [facility] Imaging Services [address] [place], [place] [phone] Brain/Head without Contrast MR#: [id number] Acct: [id number] Name: STONE HAILE Rep #: [id number] : 1945 M 79 From: Ozzie Bah PCP: [facility] Status: REG ER Study: Brain/Head without Contrast Date of Exam: 05/19 08/12 Exam# [id number] Ordering Dr: Anibal Douglass DO PROCEDURE: BRAIN/HEAD [...] Contrast IMPRESSION: NO ACUTE FINDINGS Reading Location: [place] [address] CC: Dr. Anibal Douglass DO; [facility] Door To Door Selling Agent: Signed Normal [facility] CBC W/Diff, Automatedon 05-19 Absolute Lymph 3.11 X10 3/uL Normal 0.83-4.51 [facility] Comment on above: Performed By: #### L 501.9520, L300.3900, L501.4021, L506.0400, L100.0100, L300.4310, L501.5200, L500.2500, L501.47049 ####[facility] [address] [place], [place], [address] Absolute Neut 5.5 X10 3/uL Normal 2.0-7.7 [facility] Comment on above: Performed By: #### L 501.9520, L300.3900, L501.4021, L506.0400, L100.0100, L300.4310, L501.5200, L500.2500, L501.07183 ####[facility] [address] [place], [place], [phone] Basophils/100 WBC (Bld) 0.6 % Normal 0-1 [facility] Comment on above: Performed By: #### L 501.9520, L300.3900, L501.4021, L506.0400, L100.0100, L300.4310, L501.5200, L500.2500, L501.03520 ####[facility] [address] [facility] [place], [address] Eosinophils/100 WBC (Bld) 2.1 % Normal 0-5 [facility] Comment on above: Performed By: #### L 501.9520, L300.3900, L501.4021, L506.0400, L100.0100, L300.4310, L501.5200, L500.2500, L501.54114 ####[facility] [address] [facility] [place], [address](470) Erythrocyte distribution width (RBC) [Ratio] 13.2 % Normal 11.6-14.6 [facility] Comment on above: Performed By: #### L 501.9520, L300.3900, L501.4021, L506.0400, L100.0100, L300.4310, L501.5200, L500.2500, L501.85543 ####[facility] [address] [facility] [place], [address] Hematocrit (Bld) [Volume fraction] 41.3 % Normal 40-54 [facility] Comment on above: Performed By: #### L 501.9520, L300.3900, L501.4021, L506.0400, L100.0100, L300.4310, L501.5200, L500.2500, L501.67425 ####[facility] [address] [place], [address] Hemoglobin (Bld) [Mass/Vol] 13.7 g/dL Normal 13.0-16.5 [facility] Comment on above: Performed By: #### L 501.9520, L300.3900, L501.4021, L506.0400, L100.0100, L300.4310, L501.5200, L500.2500, L501.27409 ####[facility] [address] [place], [address] IG% 0.300 Normal 0.0-0.9 [facility] Comment on above: Result Comment: IG% - Immature Granulocytes (promyelocytes, myelocytes and metamyelocytes) > 1% indicates that a LEFT SHIFT is Present. Performed By: #### L 501.9520, L300.3900, L501.4021, L506.0400, L100.0100, L300.4310, L501.5200, L500.2500, L501.95209 ####[facility] [address] [place], [address] Lymphocytes/100 WBC (Bld) 31.7 % Normal 19-41 [facility] Comment on above: Performed By: #### L 501.9520, L300.3900, L501.4021, L506.0400, L100.0100, L300.4310, L501.5200, L500.2500, L501.41520 ####[facility] [address] [place], [address] MCH (RBC) [Entitic mass] 30.2 pg Normal 27.0-32.0 [facility] Comment on above: Performed By: #### L 501.9520, L300.3900, L501.4021, L506.0400, L100.0100, L300.4310, L501.5200, L500.2500, L501.10407 ####[facility] [address] [place], [address] MCHC (RBC) [Mass/Vol] 33.2 g/dL Normal 32-36 [facility] Comment on above: Performed By: #### L 501.9520, L300.3900, L501.4021, L506.0400, L100.0100, L300.4310, L501.5200, L500.2500, L501.94203 ####[facility] [address] [place], [address] MCV (RBC) [Entitic vol] 91.0 fL Normal 80-94 [facility] Comment on above: Performed By: #### L 501.9520, L300.3900, L501.4021, L506.0400, L100.0100, L300.4310, L501.5200, L500.2500, L501.87340 ####[facility] [address] [place], [address] Monocytes/100 WBC (Bld) 9.6 % Normal 0-10 [facility] Comment on above: Performed By: #### L 501.9520, L300.3900, L501.4021, L506.0400, L100.0100, L300.4310, L501.5200, L500.2500, L501.02932 ####[facility] [address] [place], [address] Neutrophils/100 WBC (Bld) 55.7 % Normal 47-70 [facility] Comment on above: Performed By: #### L 501.9520, L300.3900, L501.4021, L506.0400, L100.0100, L300.4310, L501.5200, L500.2500, L501.46606 ####[facility] [address] [place], [address](744) Nucleated RBC (Bld) [#/Vol] 0 10*3/uL Normal 0-5 [facility] Comment on above: Performed By: #### L 501.9520, L300.3900, L501.4021, L506.0400, L100.0100, L300.4310, L501.5200, L500.2500, L501.77910 ####[facility] [address] [place], [address]( Platelet mean volume (Bld) [Entitic vol] 10.4 fL Normal 6.2-12.0 [facility] Comment on above: Performed By: #### L 501.9520, L300.3900, L501.4021, L506.0400, L100.0100, L300.4310, L501.5200, L500.2500, L501.21537 ####[facility] [address] [place], [address] Platelets (Bld) [#/Vol] 214 10*3/uL Normal 150-450 [facility] Comment on above: Performed By: #### L 501.9520, L300.3900, L501.4021, L506.0400, L100.0100, L300.4310, L501.5200, L500.2500, L501.87904 ####[facility] [address] [place], [address] RBC (Bld) [#/Vol] 4.54 10*6/uL Low 4.6-6.2 [facility] Comment on above: Performed By: #### L 501.9520, L300.3900, L501.4021, L506.0400, L100.0100, L300.4310, L501.5200, L500.2500, L501.94354 ####[facility] [address] [place], [address] RDW SD 44.1 fl High 35.1-43.9 [facility] Comment on above: Performed By: #### L 501.9520, L300.3900, L501.4021, L506.0400, L100.0100, L300.4310, L501.5200, L500.2500, L501.42536 ####[facility] [address] [place], [address] WBC (Bld) [#/Vol] 9.8 10*3/uL Normal 4.4-11.0 [facility] Comment on above: Performed By: #### L 501.9520, L300.3900, L501.4021, L506.0400, L100.0100, L300.4310, L501.5200, L500.2500, L501.46046 ####[facility] [address] [facility], [address] Carbon dioxide, total [Moles /volume] in Central venous bloodOrdered By: Anibal Douglass on 06-15-2025 CO2 [Moles/Vol] 24.3 mmol/L 21.0-32.0 [facility] Chest PA and Lateralon 06-15 Chest PA and Lateral [facility] Imaging Services [address] [place], [place] [address] Chest PA and Lateral MR#: [id number] Acct: [id number] Name: STONE HAILE Rep #: [id number] : 1945 M 79 From: Ozzie Bah PCP: [facility] Status: [facility] ER Study: Chest PA and Lateral Date of Exam: 06/15/25 Exam# [id number] Ordering Dr: Anibal Douglass DO PROCEDURE: CHEST [...] effusion or pneumothorax is seen. Reading Location: [place] [address] CC: Dr. Anibal Douglass DO; [facility] Door To Door Selling Agent: Signed Normal [facility] Chloride assayOrdered By: Dillon Douglass on 06-15-2025 Chloride [Moles/Vol] 100 mmol/L 98-108 [facility] Emergency Department Summary on 06-15-2025 Emergency Department Summary [facility] Medical Records Department [address] [place] [address] Emergency Department Summary 06/15/25 MR#: [id number] Acct: [id number] Name: STONE HAILE Rep #: [id number] : 1945 79 From: Anibal Douglass DO PCP: [facility] Status:DEP ER Location: ED HPI History [...] self and states that he called the [place] and they advised him to come to [...] periodically see the lines in his vision. [facility] Medical History HLD (hyperlipidemia) Normocytic anemia [...] Type Severity Reaction Status Date / Time Wbzzxkf-BMW-EqN Reductase Allergy Other Verified 06/15/25 15:07 Inhibitor [...] following commands knew that he was at [facility] the year is 2024 Skin: Warm, [...] 107 108 (more content not included)... Normal [facility] Eosinophil percentageOrdered By: Anibal Douglass on 06-15-2025 Eosinophils/100 WBC (Bld) 2.1 % 0-5 [facility] Erythrocyte distribution wid th ratioOrdered By: Anibal Douglass on 06-15-2025 Erythrocyte distribution width (RBC) [Ratio] 13.2 % 11.6-14.6 [facility] Erythrocyte distribution wid th standard deviationOrdered By: Anibalhelen Douglass on 06-15-2025 Erythrocyte distribution width (RBC) [Ratio] 44.1 fl High 35.1-43.9 [facility] Free T3on 06-15-2025 Free T3 [Mass/Vol] 2.4 pg/mL Normal 2.18-3.98 [facility] Comment on above: Performed By: #### L 501.0661, L300.3900, L501.4021, L506.0400, L100.0100, L300.4310, L501.5200, L500.2500, L501.43605 ####[facility] [address] [place], [place], [address] Free M8Hkdyghf By: Anibal quevedo on 06-15-2025 Free T3 [Mass/Vol] 2.4 pg/mL 2.18-3.98 [facility] Glomerular filtration rate ( GFR) estimation/1.73 sq m using serum, plasma, or whole bOrdered By: Anibal Douglass on 06-15-2025 GFR/1.73 sq M.predicted among non-blacks MDRD (S/P/Bld) [Vol rate/Area] 86 mL/min/{1.73_m2} >60 [facility] Comment on above: mL/min/1.73m2 CKD-EP I Creatinine Equation (2020) Hematocrit Auto (Bld) [Volum e fraction]Ordered By: Anibal Douglass on 06-15-2025 Hematocrit (Bld) [Volume fraction] 41.3 % 40-54 [facility] Hemoglobin measurementOrdere d By: Anibal Douglass on 06-15-2025 Hemoglobin (Bld) [Mass/Vol] 13.7 g/dL 13.0-16.5 [facility] Immature granulocytes/100 WB C Auto (Bld)Ordered By: Anibal Douglass on 06-15-2025 Immature granulocytes/100 WBC (Bld) 0.300 % 0.0-0.9 [facility] Comment on above: IG% - Immature Granu locytes (promyelocytes, myelocytes and metamyelocytes) > 1% indicates that a LEFT SHIFT is Present. International normalized rat io (INR) calculationOrdered By: Anibal Douglass on 06-15-2025 INR Coag (Bld) [Relative time] 1.1 {INR} [facility] L501.4021on 06-15-2025 Trop T High Sen 18 ng/L Normal <=22 [facility] Comment on above: Performed By: #### L 501.9520, L300.3900, L501.4021, L506.0400, L100.0100, L300.4310, L501.5200, L500.2500, L501.08625 ####[facility] [address] [place], [place], [phone] MCV (mean corpuscular volume ) determinationOrdered By: Anibal Douglass on 06-15-2025 MCV (RBC) [Entitic vol] 91.0 fL 80-94 [facility] Magnesiumon 06-15-2025 Magnesium [Mass/Vol] 1.8 mg/dL Normal 1.5-2.2 [facility] Comment on above: Performed By: #### L 501.9520, L300.3900, L501.4021, L506.0400, L100.0100, L300.4310, L501.5200, L500.2500, L501.66780 ####[facility] [address] [place], [place], [phone] Magnesium measurement (mass/ volume)Ordered By: Anibal Douglass on 06-15-2025 Magnesium (Unsp spec) [Mass/Vol] 1.8 mg/dL 1.5-2.2 [facility] Mean corpuscular hemoglobin (MCH) determinationOrdered By: Anibal Douglass on 06-15-2025 MCH (RBC) [Entitic mass] 30.2 pg 27.0-32.0 [facility] Mean corpuscular hemoglobin concentration (MCHC) determinationOrdered By: Anibal Douglass on 06-15-2025 MCHC (RBC) [Mass/Vol] 33.2 g/dL 32-36 [facility] Mean platelet volume determi nationOrdered By: Anibal Douglass on 06-15-2025 Platelet mean volume (Bld) [Entitic vol] 10.4 fL 6.2-12.0 [facility] Monocyte percentageOrdered B y: Anibal Douglass on 06-15-2025 Monocytes/100 WBC (Bld) 9.6 % 0-10 [facility] Neutrophil percentageOrdered By: Anibal Douglass on 06-15-2025 Neutrophils/100 WBC (Bld) 55.7 % 47-70 [facility] Nucleated red blood cell per centageOrdered By: Anibal Douglass on 06-15-2025 Nucleated RBC/100 WBC (Bld) [Ratio] 0 % 0-5 [facility] Partial Thromboplast Timeon 06-15-2025 aPTT Coag (Bld) [Time] 28.6 s Normal 24.1-36.2 [facility] Comment on above: Performed By: #### L 501.9520, L300.3900, L501.4021, L506.0400, L100.0100, L300.4310, L501.5200, L500.2500, L501.10722 ####[facility] [address] [place], [address] Platelet countOrdered By: Dillon Douglass on 06-15-2025 Platelets (Bld) [#/Vol] 214 10*3/uL 150-450 [facility] Potassium measurement (mass/ volume)Ordered By: Anibal Douglass on 06-15-2025 Potassium (Unsp spec) [Mass/Vol] 4.7 mmol/L 3.3-5.1 [facility] Prothrombin Time w/INRon INR Coag (PPP) [Relative time] 1.1 {INR} Normal [facility] Comment on above: Performed By: #### L 501.9520, L300.3900, L501.4021, L506.0400, L100.0100, L300.4310, L501.5200, L500.2500, L501.72619 ####[facility] [address] [place], [address] PT Coag (PPP) [Time] 14.1 s Normal 11.7-14.9 [facility] Comment on above: Performed By: #### L 501.9520, L300.3900, L501.4021, L506.0400, L100.0100, L300.4310, L501.5200, L500.2500, L501.47549 ####[facility] [address] [place], [place], [phone] Prothrombin timeOrdered By: Anibal Douglass on 06-15-2025 PT Coag (PPP) [Time] 14.1 s 11.7-14.9 [facility] RBC Auto (Bld) [#/Vol]Ordere d By: Anibal Douglass on 06-15-2025 RBC (Bld) [#/Vol] 4.54 10*6/uL Low 4.6-6.2 [facility] Serum creatinine measurement (mass/volume)Ordered By: Anibal Douglass on 06-15-2025 Creatinine [Mass/Vol] 0.90 mg/dL 0.70-1.20 [facility] Serum glucose measurement (m ass/volume)Ordered By: Anibal Douglass on 06-15-2025 Glucose [Mass/Vol] 103 mg/dL High 70-99 [facility] Serum or plasma calcium corina urement (mass/volume)Ordered By: Anibal Douglass on 06-15-2025 Calcium [Mass/Vol] 9.7 mg/dL 7.6-11.0 [facility] Serum or plasma urea nitroge n measurement (mass/volume)Ordered By: Anibal Douglass on 06-15-2025 Urea nitrogen [Mass/Vol] 22 mg/dL High 4-19 [facility] Sodium levelOrdered By: Kevin Douglass on 06-15-2025 Sodium [Moles/Vol] 138 mmol/L 133-145 [facility] T4 Free Directon 06-15-2025 T4 FREE DIRECT 1.30 ng/dL Normal 0.76-1.46 [facility] Comment on above: Performed By: #### L [id number], L300.3900, L501.4021, L506.0400, L100.0100, L300.4310, L501.5200, L500.2500, L501.29326 ####[facility] [id number] [place], [place], [id number] T4 freeOrdered By: Anibal quevedo on 06-15-2025 Free T4 [Mass/Vol] 1.30 ng/dL 0.76-1.46 [facility] TSH DL <= 0.005 mIU/L QnOrde red By: Anibal Douglass on 06-15-2025 TSH Qn 6.250 uIU/mL High 0.300-4.200 [facility] Thyroid Stim Hormone (TSH)on 06-15-2025 TSH 6.250 uIU/mL High 0.300-4.200 [facility] Comment on above: Performed By: #### L [id number], L300.3900, L501.4021, L506.0400, L100.0100, L300.4310, L501.5200, L500.2500, L501.84768 ####[facility] [id number] [place], [address] Troponin T HS 2 HRon 025 Trop T High Sen 18 ng/L Normal <=22 [facility] Comment on above: Performed By: #### L 499.0042 ####[facility] [id number] [place], [address] Troponin T HS 4 HRon 025 Trop T High Sen Normal <=22 [facility] Comment on above: Result Comment: pt d ischarged Performed By: #### L [phone] #### [facility] [address] [place], [address] Troponin T.cardiac [Mass/vol ume] in Serum or Plasma by High sensitivity methodOrdered By: Anibal Douglass on 06-15-2025 Troponin T.cardiac High sensitivity method [Mass/Vol] 18 ng/L <22 [facility] Troponin T.cardiac High sensitivity method [Mass/Vol] 18 ng/L <22 [facility] White blood cell (WBC) count Ordered By: Anibal Douglass on 06-15-2025 WBC (Bld) [#/Vol] 9.8 10*3/uL 4.4-11.0 [facility] Absolute lymphocyte countOrd ered By: Dr. Arciniega on 02-19-2023 Lymphocytes Auto (Unsp spec) [#/Vol] 1.50 10*3/uL 0.83-4.51 [facility] Basophil percentageOrdered B y: Dr. Arciniega on 02-19-2023 Basophils/100 WBC (Bld) 0.5 % 0-1 [facility] Chloride [Moles/Vol] 103 mmol/L 98-107 [facility] Eosinophils/100 WBC (Bld) 3.1 % 0-5 [facility] Glucose [Mass/Vol] 111 mg/dL 74-106 [facility] Comment on above: Fasting Glucose resu lt from 100 to 125 mg/dL suggests IMPAIRED HOMEOSTASIS per A.D.A. criteria. Neutrophils (Bld) [#/Vol] 5.0 10*3/uL 2.0-7.7 [facility] Neutrophils/100 WBC (Bld) 67.9 % 47-70 [facility] Potassium [Moles/Vol] 4.1 mmol/L 3.5-5.1 [facility] Sodium [Moles/Vol] 137 mmol/L 136-145 [facility] WBC (Bld) [#/Vol] 7.4 10*3/uL 4.4-11.0 [facility] Blood erythrocytes count (nu mber/volume)Ordered By: Dr. Arciniega on 02-19-2023 RBC (Bld) [#/Vol] 4.35 10*6/uL 4.6-6.2 [facility] Blood hemoglobin measurement (mass/volume)Ordered By: Dr. Arciniega on 02-19-2023 Hemoglobin (Bld) [Mass/Vol] 12.8 g/dL 13.0-16.5 [facility] Blood lymphocytes/100 leukoc ytesOrdered By: Dr. Arciniega on 02-19-2023 Lymphocytes/100 WBC (Bld) 20.4 % 19-41 [facility] Blood monocytes/100 leukocyt esOrdered By: Dr. Arciniega on 02-19-2023 Monocytes/100 WBC (Bld) 6.3 % 0-10 [facility] Blood platelet mean volumeOr dered By: Dr. Arciniega on 02-19-2023 Platelet mean volume (Bld) [Entitic vol] 8.7 fL 6.2-12.0 [facility] Determination of erythrocyte mean corpuscular volume (MCV)Ordered By: Dr. Arciniega on 02-19-2023 MCV (RBC) [Entitic vol] 88.5 fL 80-94 [facility] Hematocrit Auto (Bld) [Volum e fraction]Ordered By: Dr. Arciniega on 02-19-2023 Hematocrit (Bld) [Volume fraction] 38.5 % 40-54 [facility] - Chemistry and C hemistry - challengeOrdered By: Dr. Arciniega on 02-19-2023 CO2 [Moles/Vol] 27.0 mmol/L 21.0-32.0 [facility] Urea nitrogen/Creatinine [Mass ratio] 17.0 mg/mg 10-20 [facility] - Hematology and Cell countsOrdered By: Dr. Arciniega on 02-19-2023 Erythrocyte distribution width (RBC) [Entitic vol] 44.4 fL 35.1-43.9 [facility] Erythrocyte distribution width (RBC) [Ratio] 13.6 % 11.6-14.6 [facility] Immature granulocytes/100 WBC (Bld) 1.800 % 0.0-0.9 [facility] Comment on above: IG% - Immature Granu locytes (promyelocytes, myelocytes and metamyelocytes) > 1% indicates that a LEFT SHIFT is Present. MCH (RBC) [Entitic mass] 29.4 pg 27.0-32.0 [facility] Nucleated RBC/100 WBC (Bld) [Ratio] 0 % 0-5 [facility] MCHC Auto (RBC) [Mass/Vol]Or dered By: Dr. Arciniega on 02-19-2023 MCHC (RBC) [Mass/Vol] 33.2 g/dL 32-36 [facility] No Panel InformationOrdered By: Dr. Arciniega on 02-19-2023 Estimated Creatinine Clearance Calc 65.79 ml/min [facility] Estimated GFR (MDRD) Amer 100 mL/min >60 [facility] Comment on above: GFR Calc Estimated GFR (MDRD) Non-Af Amer 82 mL/min >60 [facility] Comment on above: Non- GFR Calc Platelets bldOrdered By: Dr. Arciniega on 02-19-2023 Platelets (Bld) [#/Vol] 279 10*3/uL 150-450 [facility] Serum or plasma calcium corina urement (mass/volume)Ordered By: Dr. Arciniega on 02-19-2023 Calcium [Mass/Vol] 9.0 mg/dL 8.5-10.1 [facility] Serum or plasma creatinine m easurement (mass/volume)Ordered By: Dr. Arciniega on 02-19-2023 Creatinine [Mass/Vol] 0.94 mg/dL 0.70-1.30 [facility] Comment on above: The validity of the calculated GFR & GFRAA in patients over 70 years has not been determined. Clinical correlation is essential. Serum or plasma urea nitroge n measurement (mass/volume)Ordered By: Dr. Arciniega on 02-19-2023 Urea nitrogen [Mass/Vol] 16 mg/dL 7-18 [facility] Thin prep Papanicolaou smear with manual screeningOrdered By: Dr. Arciniega on 02-19-2023 Thin prep Papanicolaou smear with manual screening 7 5-15 [facility] - Microbiology an d Antimicrobial susceptibilityOrdered By: Dr. Gutiérrez on 02-14-2023 Bacteria identified Cx Nom (Bld) GNR lactose corn husk baler [facility] - Microbiology an d Antimicrobial susceptibilityOrdered By: Dr. Gutiérrez on 02-13-2023 Bacteria identified Cx Nom (Bld) Escherichia coli [facility] Culture, urineOrdered By: Dr Benson Gutiérrez on 02-12-2023 Bacteria identified Cx Nom (U) Escherichia coli [facility] Absolute lymphocyte countOrd ered By: Dr. Avery on 02-11-2023 Lymphocytes Auto (Unsp spec) [#/Vol] 0.93 10*3/uL 0.83-4.51 [facility] Basophil percentageOrdered B y: Dr. Avery on 02-11-2023 Basophils/100 WBC (Bld) 0.4 % 0-1 [facility] Chloride [Moles/Vol] 114 mmol/L 98-107 [facility] Eosinophils/100 WBC (Bld) 0.5 % 0-5 [facility] Glucose [Mass/Vol] 144 mg/dL 74-106 [facility] Comment on above: Fasting Glucose resu lt greater than or equal to 126 mg/dL suggests DIABETES MELLITUS per A.D.A. criteria. Neutrophils (Bld) [#/Vol] 8.8 10*3/uL 2.0-7.7 [facility] Neutrophils/100 WBC (Bld) 84.2 % 47-70 [facility] Potassium [Moles/Vol] 4.0 mmol/L 3.5-5.1 [facility] Sodium [Moles/Vol] 140 mmol/L 136-145 [facility] WBC (Bld) [#/Vol] 10.4 10*3/uL 4.4-11.0 [facility] Blood erythrocytes count (nu mber/volume)Ordered By: Dr. Avery on 02-11-2023 RBC (Bld) [#/Vol] 3.82 10*6/uL 4.6-6.2 [facility] Blood hemoglobin measurement (mass/volume)Ordered By: Dr. Avery on 02-11-2023 Hemoglobin (Bld) [Mass/Vol] 11.5 g/dL 13.0-16.5 [facility] Blood lymphocytes/100 leukoc ytesOrdered By: Dr. Avery on 02-11-2023 Lymphocytes/100 WBC (Bld) 8.9 % 19-41 [facility] Blood monocytes/100 leukocyt esOrdered By: Dr. Avery on 02-11-2023 Monocytes/100 WBC (Bld) 5.4 % 0-10 [facility] Blood platelet mean volumeOr dered By: Dr. Avery on 02-11-2023 Platelet mean volume (Bld) [Entitic vol] 10.3 fL 6.2-12.0 [facility] Determination of erythrocyte mean corpuscular volume (MCV)Ordered By: Dr. Avery on 02-11-2023 MCV (RBC) [Entitic vol] 93.7 fL 80-94 [facility] Hematocrit Auto (Bld) [Volum e fraction]Ordered By: Dr. Avery on 02-11-2023 Hematocrit (Bld) [Volume fraction] 35.8 % 40-54 [facility] - Chemistry and C hemistry - challengeOrdered By: Dr. Avery on 02-11-2023 CO2 [Moles/Vol] 21.0 mmol/L 21.0-32.0 [facility] Urea nitrogen/Creatinine [Mass ratio] 31.1 mg/mg 10-20 [facility] - Hematology and Cell countsOrdered By: Dr. Avery on 02-11-2023 Erythrocyte distribution width (RBC) [Entitic vol] 50.3 fL 35.1-43.9 [facility] Erythrocyte distribution width (RBC) [Ratio] 14.6 % 11.6-14.6 [facility] Immature granulocytes/100 WBC (Bld) 0.600 % 0.0-0.9 [facility] Comment on above: IG% - Immature Granu locytes (promyelocytes, myelocytes and metamyelocytes) > 1% indicates that a LEFT SHIFT is Present. MCH (RBC) [Entitic mass] 30.1 pg 27.0-32.0 [facility] Nucleated RBC/100 WBC (Bld) [Ratio] 0 % 0-5 [facility] MCHC Auto (RBC) [Mass/Vol]Or dered By: Dr. Avery on 02-11-2023 MCHC (RBC) [Mass/Vol] 32.1 g/dL 32-36 [facility] No Panel InformationOrdered By: Dr. Avery on 02-11-2023 Estimated Creatinine Clearance Calc 71.09 ml/min [facility] Estimated GFR (MDRD) Amer 109 mL/min >60 [facility] Comment on above: GFR Calc Estimated GFR (MDRD) Non-Af Amer 90 mL/min >60 [facility] Comment on above: Non- GFR Calc Platelets bldOrdered By: Dr. Avery on 02-11-2023 Platelets (Bld) [#/Vol] 127 10*3/uL 150-450 [facility] Serum or plasma calcium corina urement (mass/volume)Ordered By: Dr. Avery on 02-11-2023 Calcium [Mass/Vol] 7.8 mg/dL 8.5-10.1 [facility] Serum or plasma creatinine m easurement (mass/volume)Ordered By: Dr. Avery on 02-11-2023 Creatinine [Mass/Vol] 0.87 mg/dL 0.70-1.30 [facility] Comment on above: The validity of the calculated GFR & GFRAA in patients over 70 years has not been determined. Clinical correlation is essential. Serum or plasma urea nitroge n measurement (mass/volume)Ordered By: Dr. Avery on 02-11-2023 Urea nitrogen [Mass/Vol] 27 mg/dL 7-18 [facility] Thin prep Papanicolaou smear with manual screeningOrdered By: Dr. Avery on 02-11-2023 Thin prep Papanicolaou smear with manual screening 5 5-15 [facility] Absolute lymphocyte countOrd ered By: Dr. Gutiérrez on 02-10-2023 Lymphocytes Auto (Unsp spec) [#/Vol] 0.70 10*3/uL 0.83-4.51 [facility] Basophil percentageOrdered B y: Dr. Gutiérrez on 02-10-2023 Lactate [Moles/Vol] 2.1 mmol/L 0.4-2.0 [facility] Comment on above: Critical Result(s) C alled at: 14:19:02 02/10/2023 by: Kishor Nails RN (MS3). Results read back by same. Basophil percentage 25-50 SEEN /hpf 0-5 [facility] Basophils/100 WBC (Bld) 0.3 % 0-1 [facility] Bilirubin [Mass/Vol] 1.10 mg/dL 0.20-1.00 [facility] Comment on above: For patients on eltr ombopag therapy, use of Dimension [place] TBIL is not recommended. Chloride [Moles/Vol] 103 mmol/L 98-107 [facility] Eosinophils/100 WBC (Bld) 0.1 % 0-5 [facility] Glucose [Mass/Vol] 204 mg/dL 74-106 [facility] Comment on above: Glucose result great er than or equal to 200 mg/dLsuggests DIABETES MELLITUS per A.D.A. criteria. Lactate [Moles/Vol] 5.5 mmol/L 0.4-2.0 [facility] Comment on above: Critical Result(s) C alled at: 09:41:59 02/10/2023 by: Kishor Castro RN (ER). Results read back by same. Neutrophils (Bld) [#/Vol] 8.6 10*3/uL 2.0-7.7 [facility] Neutrophils/100 WBC (Bld) 91.1 % 47-70 [facility] Potassium [Moles/Vol] 4.1 mmol/L 3.5-5.1 [facility] Protein [Mass/Vol] 8.1 g/dL 6.4-8.2 [facility] Sodium [Moles/Vol] 136 mmol/L 136-145 [facility] WBC (Bld) [#/Vol] 9.4 10*3/uL 4.4-11.0 [facility] Bilirubin Test strip Ql (U)O rdered By: Dr. Gutiérrez on 02-10-2023 Bilirubin Ql (U) Negative Negative [facility] Blood erythrocytes count (nu mber/volume)Ordered By: Dr. Gutiérrez on 02-10-2023 RBC (Bld) [#/Vol] 5.04 10*6/uL 4.6-6.2 [facility] Blood hemoglobin measurement (mass/volume)Ordered By: Dr. Gutiérrez on 02-10-2023 Hemoglobin (Bld) [Mass/Vol] 14.8 g/dL 13.0-16.5 [facility] Blood lymphocytes/100 leukoc ytesOrdered By: Dr. Gutirérez on 02-10-2023 Lymphocytes/100 WBC (Bld) 7.4 % 19-41 [facility] Blood monocytes/100 leukocyt esOrdered By: Dr. Gutiérrez on 02-10-2023 Monocytes/100 WBC (Bld) 1.0 % 0-10 [facility] Blood platelet mean volumeOr dered By: Dr. Gutiérrez on 02-10-2023 Platelet mean volume (Bld) [Entitic vol] 10.0 fL 6.2-12.0 [facility] Determination of erythrocyte mean corpuscular volume (MCV)Ordered By: Dr. Gutiérrez on 02-10-2023 MCV (RBC) [Entitic vol] 90.9 fL 80-94 [facility] Hematocrit Auto (Bld) [Volum e fraction]Ordered By: Dr. Gutiérrez on 02-10-2023 Hematocrit (Bld) [Volume fraction] 45.8 % 40-54 [facility] INR in Blood by Coagulation assayOrdered By: Dr. Gutiérrez on 02-10-2023 INR Coag (Bld) [Relative time] 1.4 {INR} [facility] Influenza virus A and B and SARS-CoV-2 (COVID-19) Ag panel - Upper respiratory specimOrdered By: Dr. Gutiérrez on 02-10-2023 SARS-CoV-2 (COVID-19) RNA RAJNI+probe Ql (Resp) [facility] Ketones Test strip Ql (U)Ord ered By: Dr. Gutiérrez on 02-10-2023 Ketones Ql (U) 5 mg/dl Negative [facility] - Chemistry and C hemistry - challengeOrdered By: Dr. Gutiérrez on 02-10-2023 ALP [Catalytic activity/Vol] 79 U/L 45-117 [facility] ALT [Catalytic activity/Vol] 25 U/L 16-61 [facility] CO2 [Moles/Vol] 21.0 mmol/L 21.0-32.0 [facility] Globulin (S) [Mass/Vol] 4.5 g/dL 2.2-4.2 [facility] Urea nitrogen/Creatinine [Mass ratio] 21.4 mg/mg 10-20 [facility] - CoagulationOrde red By: Dr. Gutiérrez on 02-10-2023 aPTT Coag (Bld) [Time] 29.4 s 24.1-36.2 [facility] PT Coag (PPP) [Time] 17.0 s 11.7-14.9 [facility] - Hematology and Cell countsOrdered By: Dr. Gutiérrez on 02-10-2023 Erythrocyte distribution width (RBC) [Entitic vol] 46.6 fL 35.1-43.9 [facility] Erythrocyte distribution width (RBC) [Ratio] 14.0 % 11.6-14.6 [facility] Immature granulocytes/100 WBC (Bld) 0.100 % 0.0-0.9 [facility] Comment on above: IG% - Immature Granu locytes (promyelocytes, myelocytes and metamyelocytes) > 1% indicates that a LEFT SHIFT is Present. MCH (RBC) [Entitic mass] 29.4 pg 27.0-32.0 [facility] Nucleated RBC/100 WBC (Bld) [Ratio] 0 % 0-5 [facility] MCHC Auto (RBC) [Mass/Vol]Or dered By: Dr. Gutiérrez on 02-10-2023 MCHC (RBC) [Mass/Vol] 32.3 g/dL 32-36 [facility] Mucus LM Ql (Urine sed)Order ed By: Dr. Gutiérrez on 02-10-2023 Mucus Ql (Urine sed) 0 SEEN /hpf [facility] Nitrite Test strip Ql (U)Ord ered By: Dr. Gutiérrez on 02-10-2023 Nitrite Ql (U) Positive Negative [facility] No Panel InformationOrdered By: Dr. Gutiérrez on 02-10-2023 Estimated Creatinine Clearance Calc 44.18 ml/min [facility] Estimated GFR (MDRD) Amer 63 mL/min >60 [facility] Comment on above: GFR Calc Estimated GFR (MDRD) Non-Af Amer 52 mL/min >60 [facility] Comment on above: Non- GFR Calc Platelets bldOrdered By: Dr. Gutiérrez on 02-10-2023 Platelets (Bld) [#/Vol] 183 10*3/uL 150-450 [facility] Protein Test strip Ql (U)Ord ered By: Dr. Gutiérrez on 02-10-2023 Protein Ql (U) 100 mg/dl Negative [facility] Serum or plasma albumin corina urement (mass/volume)Ordered By: Dr. Gutiérrez on 02-10-2023 Albumin [Mass/Vol] 3.6 g/dL 3.2-5.0 [facility] Serum or plasma albumin/glob ulin mass ratioOrdered By: Dr. Gutiérrez on 02-10-2023 Albumin/Globulin [Mass ratio] 0.8 {ratio} 0.9-2.4 [facility] Serum or plasma calcium corina urement (mass/volume)Ordered By: Dr. Gutiérrez on 02-10-2023 Calcium [Mass/Vol] 9.2 mg/dL 8.5-10.1 [facility] Serum or plasma creatinine m easurement (mass/volume)Ordered By: Dr. Gutiérrez on 02-10-2023 Creatinine [Mass/Vol] 1.40 mg/dL 0.70-1.30 [facility] Comment on above: The validity of the calculated GFR & GFRAA in patients over 70 years has not been determined. Clinical correlation is essential. Serum or plasma urea nitroge n measurement (mass/volume)Ordered By: Dr. Gutiérrez on 02-10-2023 Urea nitrogen [Mass/Vol] 30 mg/dL 7-18 [facility] Squamous epithelial cells de tection in urine sediment by light microscopyOrdered By: Dr. Gutiérrez on 02-10-2023 Epithelial cells.squamous LM Ql (Urine sed) 0 SEEN /hpf 0-5 [facility] Thin prep Papanicolaou smear with manual screeningOrdered By: Dr. Gutiérrez on 02-10-2023 Thin prep Papanicolaou smear with manual screening 15 U/L 15-37 [facility] Thin prep Papanicolaou smear with manual screening 12 5-15 [facility] Urine blood detectionOrdered By: Dr. Gutiérrez on 02-10-2023 RBC Ql (U) 150 /ul Negative [facility] RBC Ql (U) 10-25 SEEN /hpf 0-5 [facility] Urine clarityOrdered By: Dr. Gutiérrez on 02-10-2023 Clarity (U) Sl. Cloudy Clear [facility] Urine color determinationOrd ered By: Dr. Gutiérrez on 02-10-2023 Color (U) Yellow Yellow [facility] Urine glucose detectionOrder ed By: Dr. Gutiérrez on 02-10-2023 Glucose Ql (U) Normal mg/dl Normal [facility] Urine leukocyte esterase det ection by dipstickOrdered By: Dr. Gutiérrez on 02-10-2023 Leukocyte esterase Test strip Ql (U) 100 /ul Negative [facility] Urine pHOrdered By: Dr. Shaun champagne on 02-10-2023 pH (U) 6.0 [pH] 5.0 - 8.0 [facility] Urine sediment bacteria coun t by microscopy (number/high power field)Ordered By: Dr. Gutiérrez on 02-10-2023 Bacteria LM.HPF (Urine sed) [#/Area] 3 /[HPF] None Seen [facility] Urine specific gravity measu rementOrdered By: Dr. Gutiérrez on 02-10-2023 Specific gravity (U) [Rel density] 1.015 1.002-1.030 [facility] Urobilinogen Auto test strip Ql (U)Ordered By: Dr. Gutiérrez on 02-10-2023 Urobilinogen Ql (U) Normal mg/dl Normal [facility] Absolute lymphocyte counton 12-12-2021 Lymphocytes Auto (Unsp spec) [#/Vol] 2.16 10*3/uL 0.83-4.51 [facility] Work Phone: Basophil percentageon 2021 Basophils/100 WBC (Bld) 0.6 % 0-1 [facility] Work Phone: Bilirubin [Mass/Vol] 0.40 mg/dL 0.20-1.00 [facility] Work Phone: Comment on above: For patients on eltr ombopag therapy, use of Dimension [place] TBIL is not recommended. Chloride [Moles/Vol] 102 mmol/L 98-107 [facility] Work Phone: [phone] Eosinophils/100 WBC (Bld) 2.9 % 0-5 [facility] Work Phone: Glucose [Mass/Vol] 119 mg/dL 74-106 [facility] Work Phone: Comment on above: Fasting Glucose resu lt from 100 to 125 mg/dL suggests IMPAIRED HOMEOSTASIS per A.D.A. criteria. Neutrophils (Bld) [#/Vol] 5.2 10*3/uL 2.0-7.7 [facility] Work Phone: [phone] Neutrophils/100 WBC (Bld) 62.3 % 47-70 [facility] Work Phone: Potassium [Moles/Vol] 4.2 mmol/L 3.5-5.1 [facility] Work Phone: Protein [Mass/Vol] 7.4 g/dL 6.4-8.2 [facility] Work Phone: Sodium [Moles/Vol] 135 mmol/L 136-145 [facility] Work Phone: WBC (Bld) [#/Vol] 8.3 10*3/uL 4.4-11.0 [facility] Work Phone: Blood erythrocytes count (nu mber/volume)on 12-12-2021 RBC (Bld) [#/Vol] 3.91 10*6/uL 4.6-6.2 [facility] Work Phone: Blood hemoglobin measurement (mass/volume)on 12-12-2021 Hemoglobin (Bld) [Mass/Vol] 11.4 g/dL 13.0-16.5 [facility] Work Phone: Blood lymphocytes/100 leukoc yteson 12-12-2021 Lymphocytes/100 WBC (Bld) 26.2 % 19-41 [facility] Work Phone: Blood monocytes/100 leukocyt eson 12-12-2021 Monocytes/100 WBC (Bld) 7.5 % 0-10 [facility] Work Phone: Blood platelet mean volumeon 12-12-2021 Platelet mean volume (Bld) [Entitic vol] 9.7 fL 6.2-12.0 [facility] Work Phone: Determination of erythrocyte mean corpuscular volume (MCV)on 12-12-2021 MCV (RBC) [Entitic vol] 88.5 fL 80-94 [facility] Work Phone: Hematocrit Auto (Bld) [Volum e fraction]on 12-12-2021 Hematocrit (Bld) [Volume fraction] 34.6 % 40-54 [facility] Work Phone: Laboratory - Chemistry and C hemistry - challengeon 12-12-2021 ALP [Catalytic activity/Vol] 80 U/L 45-117 [facility] Work Phone: ALT [Catalytic activity/Vol] 19 U/L 16-61 [facility] Work Phone: CO2 [Moles/Vol] 25.0 mmol/L 21.0-32.0 [facility] Work Phone: Free T4 [Mass/Vol] 1.39 ng/dL 0.76-[facility].46 [facility]: Globulin (S) [Mass/Vol] 4.2 g/dL 2.2-4.2 [facility] Work Phone: Urea nitrogen/Creatinine [Mass ratio] 27.7 mg/mg 10-20 [facility] Work Phone: Laboratory - Coagulationon 0 12-12-2021 aPTT Coag (Bld) [Time] 57.0 s 24.1-36.2 [facility] Work Phone: Laboratory - Hematology and Cell countson 12-12-2021 Erythrocyte distribution width (RBC) [Entitic vol] 43.7 fL 35.1-43.9 [facility] Work Phone: Erythrocyte distribution width (RBC) [Ratio] 13.4 % 11.6-14.6 [facility] Work Phone: Immature granulocytes/100 WBC (Bld) 0.500 % 0.0-0.9 [facility] Work Phone: Comment on above: IG% - Immature Granu locytes (promyelocytes, myelocytes and metamyelocytes) > 1% indicates that a LEFT SHIFT is Present. MCH (RBC) [Entitic mass] 29.2 pg 27.0-32.0 [facility] Work Phone: Nucleated RBC/100 WBC (Bld) [Ratio] 0 % 0-5 [facility] Work Phone: MCHC Auto (RBC) [Mass/Vol]on 12-12-2021 MCHC (RBC) [Mass/Vol] 32.9 g/dL 32-36 [facility] Work Phone: No Panel Informationon 12-12 Estimated Creatinine Clearance Calc 62.24 ml/min [facility] Work Phone: Estimated GFR (MDRD) Amer 92 mL/min >60 [facility] Work Phone: Comment on above: GFR Calc Estimated GFR (MDRD) Non-Af Amer 76 mL/min >60 [facility] Work Phone: Comment on above: Non- GFR Calc Platelets bldon 12-12-2021 Platelets (Bld) [#/Vol] 411 10*3/uL 150-450 [facility] Work Phone: Serum or plasma albumin corina urement (mass/volume)on 12-12-2021 Albumin [Mass/Vol] 3.2 g/dL 3.2-5.0 [facility] Work Phone: Serum or plasma albumin/glob ulin mass ratioon 12-12-2021 Albumin/Globulin [Mass ratio] 0.8 {ratio} 0.9-2.4 [facility] Work Phone: Serum or plasma calcium corina urement (mass/volume)on 12-12-2021 Calcium [Mass/Vol] 8.8 mg/dL 8.5-10.1 [facility] Work Phone: Serum or plasma creatinine m easurement (mass/volume)on 12-12-2021 Creatinine [Mass/Vol] 1.01 mg/dL 0.70-1.30 [facility] Work Phone: Comment on above: The validity of the calculated GFR & GFRAA in patients over 70 years has not been determined. Clinical correlation is essential. Serum or plasma urea nitroge n measurement (mass/volume)on 12-12-2021 Urea nitrogen [Mass/Vol] 28 mg/dL 7-18 [facility] Work Phone: Thin prep Papanicolaou smear with manual screeningon 12-12-2021 Thin prep Papanicolaou smear with manual screening 12 U/L 15-37 [facility] Work Phone: Thin prep Papanicolaou smear with manual screening 8 5-15 [facility] Work Phone: Whole blood hemoglobin A1c/t otal hemoglobin ratio (mass fraction)on 12-12-2021 HbA1c (Bld) [Mass fraction] 6.2 % 3.8-5.6 [facility] Work Phone: Comment on above: Normal < 5.7 % Predi abetic 5.7 - 6.4 % Diabetic >or= 6.5 % Please note range changes. Basophil percentageon 2021 Cholesterol [Mass/Vol] 167 mg/dL <200 [facility] Work Phone: Comment on above: <200 mg/dL Desirable 200-240 mg/dL Borderline >240 mg/dL High Risk Triglyceride [Mass/Vol] 122 mg/dL [facility] Work Phone: Comment on above: The drugs N-Acetylcy steine and Metamizole may falsely depress this assay.Serum Triglycerides Reference Interval Normal <150 mg/dL Borderline high 150 - 199 mg/dL High 200 - 499 mg/dL Very High > or = 500 mg/dL Basophil percentage 4.4 mg/dL 2.5-4.9 [facility] Work Phone: Laboratory - Chemistry and C hemistry - challengeon 12-11-2021 Magnesium [Mass/Vol] 1.8 mg/dL 1.6-2.6 [facility] Work Phone: No Panel Informationon 12-11 Thyroid Stimulating Hormone (TSH) 8.45 uIU/mL 0.358-3.74 [facility] Work Phone: Serum or plasma cholesterol in HDL measurement (mass/volume)on 12-11-2021 Cholesterol in HDL [Mass/Vol] 36 mg/dL [facility] Work Phone: Comment on above: The drugs N-Acetylcy steine and Metamizole may falsely depress this assay. Reference Range HDL <40 mg/dL Low HDL Cholesterol HDL >or= 60 mg/dL High HDL Cholesterol Serum or plasma cholesterol in VLDL measurement (mass/volume)on 12-11-2021 Cholesterol in VLDL [Mass/Vol] 24 mg/dL 5-40 [facility] Work Phone: Serum or plasma low density lipoprotein (LDL) cholesterol measurement (mass/volume)on 12-11-2021 Cholesterol in LDL [Mass/Vol] 107 mg/dL 0-130 [facility] Work Phone: Basophil percentageon 2021 Basophil percentage 0 SEEN /hpf [facility] Work Phone: Bilirubin Test strip Ql (U)o n 12-10-2021 Bilirubin Ql (U) Negative Negative [facility] Work Phone: INR in Blood by Coagulation assayon 12-10-2021 INR Coag (Bld) [Relative time] 1.1 {INR} [facility] Work Phone: Ketones Test strip Ql (U)on 12-10-2021 Ketones Ql (U) Negative Negative [facility] Work Phone: Laboratory - Coagulationon 0 12-10-2021 PT Coag (PPP) [Time] 13.9 s 11.7-14.9 [facility] Work Phone: Mucus LM Ql (Urine sed)on Mucus Ql (Urine sed) 0 SEEN /hpf [facility] Work Phone: Nitrite Test strip Ql (U)on 12-10-2021 Nitrite Ql (U) Negative Negative [facility] Work Phone: No Panel Informationon 12-10 Troponin I High Sensitivity 187 pg/mL 3.0-78.0 [facility] Work Phone: Comment on above: Critical Result(s) C alled at: 17:28:35 12/10/2021 by: axel hargrove to Juliette Mchugh RN PCU. Results read back by same. Please Note: New Test Units and Gender Specific Reference Ranges. For more information see Policy Stat Procedure [place] High Sensitivity Troponin (TNIH) and attachments. D-Dimer Quantitative (PE/DVT) 9.25 FEU/ug/m 0.27-0.49 [facility] Work Phone: Comment on above: D-Dimer ELEVATED (>0 .49): Additional studies and clinicalassessments are indicated to conclude diagnosis of:Deep Vein Thrombosis (DVT) or Pulmonary Embolism (PE)CRITICAL VALUE VERIFIED. CALLED TO GINETTE JURADO12/10/21 Clovis Romo.RESULTS READ BACK BY SAME . SARS-CoV-2 Antigen (Rapid) [facility] Work Phone: Protein Test strip Ql (U)on 12-10-2021 Protein Ql (U) 15 mg/dl Negative [facility] Work Phone: Squamous epithelial cells de tection in urine sediment by light microscopyon 12-10-2021 Epithelial cells.squamous LM Ql (Urine sed) 0-5 SEEN /hpf [facility] Work Phone: Urine blood detectionon 11-19 RBC Ql (U) Negative Negative [facility] Work Phone: RBC Ql (U) 0 SEEN /hpf [facility] Work Phone: Urine clarityon 12-10-2021 Clarity (U) Sl. Cloudy Clear [facility] Work Phone: Urine color determinationon 12-10-2021 Color (U) Yellow Yellow [facility] Work Phone: Urine glucose detectionon Glucose Ql (U) Normal mg/dl Normal [facility] Work Phone: Urine leukocyte esterase det ection by dipstickon 12-10-2021 Leukocyte esterase Test strip Ql (U) Negative Negative [facility] Work Phone: Urine pHon 12-10-2021 pH (U) 6.0 [pH] [facility] Work Phone: Urine sediment bacteria coun t by microscopy (number/high power field)on 12-10-2021 Bacteria LM.HPF (Urine sed) [#/Area] RARE /hpf None Seen [facility] Work Phone: Urine specific gravity measu rementon 12-10-2021 Specific gravity (U) [Rel density] 1.020 [facility] Work Phone: Urobilinogen Auto test strip Ql (U)on 12-10-2021 Urobilinogen Ql (U) Normal mg/dl Normal [facility] Work Phone: Vital Signs Date Time Vital Sign Value Performing Clinician Faci lity 09-04-2025 12:35-0400 Body temperature 98.6 [degF] [facility] 09-04-2025 12:35-0400 Diastolic blood pressure 63 mm[Hg] [facility] 09-04-2025 12:35-0400 Heart rate 54 /min [facility] 09-04-2025 12:35-0400 Respiratory rate 18 /min [facility] 09-04-2025 12:35-0400 SaO2% (BldA) [Mass fraction] 100 % [facility] 09-04-2025 12:35-0400 Systolic blood pressure 133 mm[Hg] [facility] 09-04-2025 09:42-0400 Body height 177.8 cm [facility] 09-04-2025 09:42-0400 Body mass index (BMI) [Ratio] 30.4 kg/m2 [facility] 09-04-2025 09:42-0400 Body weight 96.16 kg [facility] 06-15-2025 19:22-0400 Body temperature 97.8 [degF] [facility] 06-15-2025 19:22-0400 Diastolic blood pressure 87 mm[Hg] [facility] 06-15-2025 19:22-0400 Heart rate 62 /min [facility] 06-15-2025 19:22-0400 Respiratory rate 20 /min [facility] 06-15-2025 19:22-0400 SaO2% (BldA) [Mass fraction] 95 % [facility] 06-15-2025 19:22-0400 Systolic blood pressure 140 mm[Hg] [facility] 06-15-2025 15:05-0400 Body height 177.8 cm [facility] 06-15-2025 15:05-0400 Body mass index (BMI) [Ratio] 30.4 kg/m2 [facility] 06-15-2025 15:05-0400 Body weight 96.29 kg [facility] 02-19-2023 18:03-0400 Heart rate 71 /min [facility] 02-19-2023 18:03-0400 Respiratory rate 22 /min [facility] 02-19-2023 18:01-0400 Diastolic blood pressure 74 mm[Hg] [facility] 02-19-2023 18:01-0400 SaO2% (BldA) [Mass fraction] 95 % [facility] 02-19-2023 18:01-0400 Systolic blood pressure 169 mm[Hg] [facility] 02-19-2023 16:57-0400 Body temperature 99.2 [degF] [facility] 02-19-2023 16:53-0400 Body height 177.8 cm [facility] 02-19-2023 16:53-0400 Body mass index (BMI) [Ratio] 31.9 kg/m2 [facility] 02-19-2023 16:53-0400 Body weight 101.06 kg [facility] 02-12-2023 11:12-0400 Body temperature 98.4 [degF] [facility] 02-12-2023 11:12-0400 Diastolic blood pressure 74 mm[Hg] [facility] 02-12-2023 11:12-0400 Heart rate 62 /min [facility] 02-12-2023 11:12-0400 Respiratory rate 16 /min [facility] 02-12-2023 11:12-0400 SaO2% (BldA) [Mass fraction] 96 % [facility] 02-12-2023 11:12-0400 Systolic blood pressure 145 mm[Hg] [facility] 02-10-2023 13:15-0400 Body height 177.8 cm [facility] 02-10-2023 13:15-0400 Body mass index (BMI) [Ratio] 31.7 kg/m2 [facility] 02-10-2023 13:15-0400 Body weight 100.33 kg [facility] 02-10-2023 12:52-0400 Body temperature 99.7 [degF] [facility] 02-10-2023 12:52-0400 Diastolic blood pressure 60 mm[Hg] [facility] 02-10-2023 12:52-0400 Heart rate 79 /min [facility] 02-10-2023 12:52-0400 Respiratory rate 19 /min [facility] 02-10-2023 12:52-0400 SaO2% (BldA) [Mass fraction] 94 % [facility] 02-10-2023 12:52-0400 Systolic blood pressure 96 mm[Hg] [facility] 02-10-2023 08:34-0400 Body mass index (BMI) [Ratio] 32.1 kg/m2 [facility] 02-10-2023 08:34-0400 Body weight 101.5 kg [facility] 02-10-2023 08:22-0400 Body height 177.8 cm [facility] 03-02-2022 13:02-0400 Body height 177.[address] Tamia Mccray Work Phone: [facility] Work Phone: 03-02-2022 13:02-0400 Body weight 90.[address] Tamia Mccray Work Phone: [facility] Work Phone: 01-31-2022 14:07-0400 Body height 177.[address] Tamia Mccray Work Phone: [facility] Work Phone: 01-31-2022 14:07-0400 Body weight 90.[address] Tamia Mccray Work Phone: [facility] Work Phone: 01-31-2022 14:02-0400 Body mass index (BMI) [Ratio] 28.5 kg/m2 Dr. Tamia Mccray Work Phone: [facility] Work Phone: 01-31-2022 14:02-0400 Heart rate 59 /min Dr. Tamia Mccray Work Phone: [facility] Work Phone: 01-31-2022 14:02-0400 SaO2% (BldA) [Mass fraction] 98 % Dr. Tamia Mccray Work Phone: [facility] Work Phone: 12-12-2021 07:24-0500 Body temperature 97.7 [degF] Dr. Tamia Mccray Work Phone: [facility] Work Phone: 12-12-2021 07:24-0500 Diastolic blood pressure 62 mm[Hg] Dr. Tamia Mccray Work Phone: [facility] Work Phone: 12-12-2021 07:24-0500 Heart rate 74 /min Dr. Tamia Mccray Work Phone: [facility] Work Phone: 12-12-2021 07:24-0500 Respiratory rate 16 /min Dr. Tamia Mccray Work Phone: [facility] Work Phone: 12-12-2021 07:24-0500 SaO2% (BldA) [Mass fraction] 100 % Dr. Taima Mccray Work Phone: [facility] Work Phone: 12-12-2021 07:24-0500 Systolic blood pressure 117 mm[Hg] Dr. Tamia Mccray Work Phone: [facility] Work Phone: 12-12-2021 04:53-0500 Body weight 86.[address] Tamia Mccray Work Phone: [facility] Work Phone: 12-10-2021 15:17-0500 Body mass index (BMI) [Ratio] 27.7 kg/m2 Dr. Tamia Mccray Work Phone: [facility] Work Phone: Encounters Encounter Date Encounter Type Care Provider Facility Start: 09-04-2025 End: 09-04-2025 Emergency department patient visit [facility] Facility:[facility] Start: 06-17-2025 End: 06-17-2025 Emergency department patient visit BRENDA CAVAZOS MD [facility] Start: 06-15-2025 End: 06-15-2025 Emergency department patient visit [facility] -Emergency Department Work Phone: Start: 02-19-2023 End: 02-19-2023 Emergency department patient visit [facility] Start: 02-12-2023 Non-patient / Non-visit [facility] Start: 02-11-2023 Non-patient / Non-visit [facility] Start: 02-10-2023 Non-patient / Non-visit [facility] Start: 02-10-2023 End: 02-12-2023 Evaluation and management of inpatient [facility] 3 Start: 02-10-2023 End: 02-10-2023 Emergency department patient visit [facility] Start: 03-16-2022 End: 03-17-[address] Tamia Mccray Work Phone: [facility] Start: 02-12-2022 End: 02-15-[address] Tamia Mccray Work Phone: [facility] Start: 01-31-2022 End: 01-31-[address] Tamia Mccray Work Phone: [facility] Start: 12-12-2021 Non-patient / Non-visit Dr. Shanna Mccray Work Phone: [facility] Start: 12-12-2021 Non-patient / Non-visit Dr. Shanna Mccray Work Phone: [facility] Start: 12-11-2021 Non-patient / Non-visit Dr. Shanna Mccray Work Phone: [facility] Start: 12-10-2021 Non-patient / Non-visit Dr. Shanna Mccray Work Phone: [facility] Start: 12-10-2021 End: 12-12-2021 Evaluation and management of inpatient Dr. Tamia Mccray Work Phone: [facility]-Progressive Care Unit Procedures Date Procedure Procedure Detail Performing Clinician Start: 09-04-2025 SARS-CoV-2, Influenz a & RSV (PCR) [facility] Start: 09-04-2025 Radiologic exam ches t 2 views [facility] Start: 09-04-2025 Estimated creatinine clearance [facility] Start: 06-15-2025 X-ray of chest, PA a nd lateral views [facility] Start: 06-15-2025 CT of head without contrast [facility] Start: 06-15-2025 Estimated creatinine clearance [facility] Start: 02-10-2023 Plain chest X-ray [facility] Start: 12-10-2021 SARS-CoV-2 Antigen (Rapid) Dr. Tamia Mccray Work Phone: Start: 12-10-2021 CT angiography of ch est with contrast Dr. Tamia Mccray Work Phone: Start: 12-10-2021 Plain chest X-ray Dr. Cristino Mccray Work Phone: Bacteria identified in Blood by Culture [facility] Bacteria identified in Blood by Culture [facility] SARS-CoV-2 & FLU Ant igen (Rapid) [facility] Urine culture [facility] Plan of Treatment Date Care Activity Detail Author Start: 09-04-2025 [facility] Start: 06-15-2025 [facility] Start: 02-19-2023 Plain chest X-ray Chest PA and Lateral [facility] Start: 02-19-2023 XR Chest PA and Lateral [facility] Start: 02-12-2023 Patient discharge [facility] Start: 02-12-2023 Care planning and pr oblem solving actions [facility] Start: 02-12-2023 Removal of urinary catheter [facility] Start: 02-11-2023 Care planning and pr oblem solving actions [facility] Start: 02-10-2023 Ambulation without limitation [facility] Start: 02-10-2023 Assessment of risk o f venous thromboembolism [facility] Start: 02-10-2023 Insertion of cathete r into peripheral vein [facility] Start: 02-10-2023 Providing care accor ding to standard [facility] Start: 02-10-2023 Following clinical p athway protocol [facility] Start: 02-10-2023 End: 02-10-2023 [facility] Start: 02-10-2023 Admission procedure [facility] Start: 02-10-2023 End: 02-10-2023 Blood culture [facility] Start: 02-10-2023 End: 02-10-2023 [facility] Bacteria identified in Blood by Culture Blood Culture [facility] Bacteria identified in Blood by Culture Blood Culture [facility] Bacteria identified in Urine by Culture [facility] Bacteria identified in Urine by Culture Urine Culture [facility] Patient Education [facility] Work Phone: Patient referral [facility] Work Phone: Troponin T.cardiac [Mass/volume] in Serum or Plasma by High sensitivity method [facility] Immunizations Immunization Date Immunization Notes Care Provider Fa [facility] 09-10-2022 influenza, injectabl e, quadrivalent, preservative free [facility] 09-10-2022 influenza, seasonal, injectable [facility] 10-23-2021 Covid (Pfizer) Dr. Tamia yen Work Phone: [facility] 09-18-[address] Tamia Mccray Work Phone: [facility] 02-20-2021 Covid (Pfizer) Dr. Tamia yen Work Phone: [facility] Payers Date Payer Category Payer Medicare [id number] 2025 [facility] [id number] 2025 Unknown [id number] 2025 Self-pay [id number] 2025 Unknown [id number] 90 2003 Unknown [id number] 1945 Unknown [id number] Medicare [id number] Unknown [id number] Unknown [id number] Social History Date Type Detail Facility Start: 01-31-2022 End: 02-19-2023 Tobacco smoking status FLIS Unknown if ever smoked [facility] Start: 1945 Sex Assigned At Male [facility] Start: 06-15-2025 End: 09-04-2025 Tobacco smoking status NHIS Ex-smoker (finding) [facility] Sexual Orientation [facility] Start: 06-17-2025 Sex Male (finding) [facility] Sex Male [facility] Goals Date Patient Goal Desired Activity /State Functional Status Date Assessment Result Facility 02-12-2023 Functional status Chair [facility] Work Phone: 12-12-2021 Functional status Activity Abili ty Standby Assist [facility] Work Phone: 12-12-2021 Functional status Ambulates [facility] Work Phone: Mental Status Date Assessment Result Facility 09-04-2025 Cognitive function Level Of Consciousness Awake [facility] Work Phone: 06-15-2025 Cognitive function Voice/Name [facility] Work Phone: 02-12-2023 Cognitive function Voice/Name [facility] Work Phone: 12-12-2021 Cognitive function Voice/Name;Deep Pain [facility] Work Phone: Clinical Notes 02-10-2023 to 09-04-2025 Note Date & Type Note Facility 09-04-2025 Discharge summary [facility] 09-04-2025 Radiology Diagnostic study note [facility] Imaging Services [address] [place], [place] [address] Chest PA and Lateral MR#: [id number] Acct: [id number] Name: STONE HAILE Rep #: [id number] : 1945 M 79 From: Lucian Lee MD PCP: [facility] Status: REG ER Study:Chest PA and Lateral Date of Exam: 09/04/25 Exam# [id number] Ordering Dr: Ravin Naik MD PROCEDURE: CHEST [...] Lateral IMPRESSION: NO ACUTE FINDINGS. Reading Location: [facility] CC: Dr. Ravin Naik MD; [facility] ~ Door To Door Selling Agent: Signed [facility] 06-17-2025 Hospital Discharge instructions Patient Education 06/17/2025 [...] red color) Loss of consciousness Severe headache [id number] [employer]. [address] [place] [address]. All rights reserved. This information is not intended as a substitute for professional medical care. Always follow your healthcare professional's instructions. Follow Up Care 06/17/2025 14:34:38 With:KOSTA RAINEY MD Address: [address] [facility] [place] [address] [phone] When:2-4 days Comments:Make an appointment in 2 to 4 days with your physician. Return if you are worse in any way. With:[facility] Address: [address] [place] [address]- When:2-4 days Comments:Return to ED if symptoms worsen [facility] 06-17-2025 Emergency department Discharge summary Discharge Instructions [...] within 14 days after discharge, please call [facility] at [phone]. Post Acute Orders No qualifying data available. You Need to Schedule the Following Appointments Follow Up with KOSTA RAINEY MD When:Within 2-4 days Where:[address] [facility] [address] [facility] [place] [address] [phone] Additional Information: Make an appointment in 2 to 4 days with your physician. Return if you are worse in any way. Follow Up with [facility] When:Within 2-4 days Where:[address] [place] [address]- Additional Information: Return to ED if symptoms [...] red color) Loss of consciousness Severe headache [id number] [employer]. [address] [place] [address]. All rights reserved. This information is not intended as a substitute for professional medical care. Always follow your healthcare professional's instructions. Additional Information VACCINATE! IT SAVES LIVES! Members of the community who have not yet received the COVID-19 vaccine and would like to receive it can visit one of [facility] vaccine clinics. There are many vaccine clinic locations within the [facility]. For locations and available times, please visit [email or web address] [email or web address] It is important to note that some COVID mobile vaccine clinics are held outdoors and may be canceled in rainy or stormy conditions. To learn more about pediatric vaccinations (ages 5-11), we invite you to visit the [facility] webpage. [email or web address]://[email or web address]/pag [email or web address]-Mqmha-[email or web address]-[email or web address] ao-Qdxbe-[email or web address].html To learn more about the COVID-19 vaccine, we invite you to visit the CDC website for a list of frequently asked questions. https://www.cdc.gov/coronavirus/20 19-ncov/vaccines/faq.html [facility] Patient Portal Access Instructions: Stay connected with your healthcare team and access your personal medical information anytime with the [facility] Patient Portal. If you would like a full copy of your medical records please contact the [facility] Medical Records Department Saturday through Saturday between 8a.m. and 4:30p.m. Please follow the directions below to access the portal: 1.Access the email account you provided upon registration to the [facility].2.Look for an invitation email from [facility].3.Open the email and access the invitation link: Accept Invitation to [facility]4.Fill in the required knox to create your [...] you will allow to register on the [facility] Patient Portal for access to your information. You can also access the [facility] Patient Portal on the [employer] [place]. Simply click on Health Records under [...] Call your local pharmacy or go to [email or web address] to find one close to you.3.Make use of household items: Use cat litter or old coffee grounds to dispose medications if other options are not available. Mix your drugs with these household products, seal them in an airtight container and throw it into the garbage. Call [facility]: [phone] to be sure your drugs can be [...] aware that I should contact my doctor. Patient/[employer] Clerk Signature: Date/Time: Relationship to Patient: ___ Witness Name/Signature: Date/Time: [facility] 06-17-2025 Note Exam Date Time Procedure Performing Provider Status 06/17/25 2:51 PM XR Chest 1 View RADHA GARCIA MD; Flora arce (Verified) [id number] ORIGINAL EXAMINATION: ONE XRAY VIEW OF THE [...] 06/17/2025 3:05:51 PM Ordering Provider: LESLIE MATOS [id number] Note* Exam Date Time Procedure Performing Provider Status 06/17/25 2:34 PM EKG (ED) - CV BRENDA CAVAZOS MD; Aut h (Verified) ECG Final Report SINUS RHYTHM PROLONGED IN INTERVAL RBBB AND LAFB Electronic Signature: BRENDA CAVAZOS MD 06/17/2025 17:05:13 [id number] Radiology Diagnostic study note [facility] Imaging Services [address] [place] [address] [id number] Brain/Head without Contrast MR#: [id number] Acct: [id number] Name: STONE HAILE Rep #: [id number] : 1945 M 79 From: Johnny Conti MD PCP: [facility] Status: REG ER Study:Brain/Head without Contrast Date of Exa m: 06/15/25 Exam# [id number] Ordering Dr: Cathie Douglass DO PROCEDURE: BRAIN/HEAD [...] Contrast IMPRESSION: NO ACUTE FINDINGS Reading Location: [place] [address] CC: Dr. Anibal Douglass DO; [facility] ~ Door To Door Selling Agent: Signed [facility]07-29-2025 Radiology Diagnostic study note [facility] Imaging Services [address] [place] [address] Chest PA and Lateral MR#: [id number] Acct: [id number] Name: STONE HAILE Rep #: [id number] : 1945 M 79 From: Johnny Conti MD PCP: [facility] Status: REG ER Study:Chest PA and Lateral Date of Exam: 06/15/25 Exam# [id number] Ordering Dr: Cathie Douglass DO PROCEDURE: CHEST [...] effusion or pneumothorax is seen. Reading Location: [place] [address] CC: Dr. Anibal Douglass DO; [facility] ~ Door To Door Selling Agent: Signed [facility]04-04-[address] Arciniega [facility] February 19, 2023 6:01pm Note Date/Time February 19, 2023 5:13 pm [facility] Medical Records Department [address] [place] [address] Emergency Department Summary 02/19/23 MR#: [id number] Acct: [id number] Name: STONE HAILE Rep #:[id number] : 1945 77 From: Jam Arciniega MD [place]CP: [place] [place] Status:REG ER Location: ED HPI History [...] similar symptoms: No Recent Illness/Hospitalization: Yes (Urosepsis) [facility] Medical History Atrial fibrillation BPH (benign [...] Type Severity Reaction Status Date / Time Vuiqcxx-QKG-ClF Reductase Allergy Other Verified 02/19/23 16:53 Inhibitor [...] % (Auto) 67.9 Lymph % (Auto) 20.4 [place] % (Auto) 6.3 Eos % (Auto) 3.1 [...] Rx Instructions: start on [facility] Care Provider[place] [facility] [facility] [[place] Provider] - 3-5 Days if not improving Disposition Disposition: Home, Self Care What to do if you have Problems For any increased pain, shortness of breath, bleeding, nausea or vomiting, chestpain, or any unexpected problems, contact your Primary Care Provider. Call [facility] ([phone]) or report to the closest Emergency Room. Call 911 if necessary. 02/19/23 180 <Electronically signed by Jam Arciniega MD> Cosigner Signature (if applicable): CC: [place] [facility] ~ Signed [facility] Work Phone: 1(506) 953-226803-27-[address] Avery [facility] February 11, 2023 4:18pm Note Date/Time February 11, 2023 4:1 8pm [facility] Medical Records Department [address] [place] [address] [id number] Progress Note - Hospitalist 02/11/23 1615 MR#: [id number] Acct: [id number] Name: STONE HAILE Rep #:[id number] : 1945 77 From: Lc Avery DO PCP: [facility] Status:ADM IN [place] [facility] [id number] Reason for Visit Reason for Visit: Diagnoses Urinary tract infection, site not specified (02/10/23) Subjective Subjective Was seen and examined today, I talked with his who was in the room at the time of my examination. Patient's blood culture was positive for gram-negative lactose corn husk baler, the actual identity is not back at [...] 84.2 H, Lymph % (Auto) 8.9 L, [place] % (Auto) 5.4, Eos % (Auto) 0.5, [...] Left Blood Culture - Preliminary GNR lactose corn husk baler 02/10/23 08:53 Blood Culture (Wb) - Anticubital Right Blood Culture - Preliminary GNR lactose corn husk baler 02/10/23 08:53 Urine Catheter - Catheter Urine Culture - Preliminary GNR lactose corn husk baler 02/10/23 08:50 Nasal Secretion SARS-CoV-2 & FLU [...] 35 minutes Charges/Coding Visit Charges Inpatient E&M: 79620 Subs Hosp L2 02/11/23 1618 <Electronically signed by Lc Avery DO> Cosigner Signature (if applicable): CC: ~ Signed [facility] Work Phone: [phone]) 500-893103-26-[address] Gutiérrez [facility] February 10, 2023 3:31pm Note Date/Time February 10, 2023 8:3 3am [facility] Medical Records Department [address] [place] [address] Emergency Department Summary 02/10/23 MR#: [id number] Acct: [id number] Name: STONE HAILE Rep #:[id number] : 1945 77 From: Kelly Gutiérrez MD PCP: [facility] Status:ADM IN Location: [place] [address] HPI History of Present Illness Chief Complaint: [...] nausea. He has had a mild cough. [facility] Medical History Atrial fibrillation BPH (benign [...] Type Severity Reaction Status Date / Time Bruqzlb-XZK-UdS Reductase Allergy Other Verified 02/10/23 08:21 Inhibitor [...] Sepsis work-up initiated. Patient placed on monitoring analyst. EKG obtained to evaluate for cardiac arrhythmia/ischemia. [...] 91.1 H Lymph % (Auto) 7.4 L [place] % (Auto) 1.0 Eos % (Auto) 0.1 [...] Color Urine Clarity Urine pH Ur Specific [place] Urine Protein Urine Glucose (UA) Urine Ketones Urine Occult Blood Urine Nitrite Urine Bilirubin Urine Urobilinogen Ur Leukocyte Esterase Urine RBC Urine WBC Ur Squamous Epith Cells Urine Bacteria Urine Mucus 02/10/23 02/10/23 08:53 08:53 WBC RBC Hgb Hct MCV MCH MCHC RDW Std Deviation RDW Coeff of Ethan Plt Count MPV Immature Gran % (Auto) Neut % (Auto) Lymph % (Auto) [place] % (Auto) Eos % (Auto) Baso % [...] Sl. Cloudy Urine pH 6.0 Ur Specific [place] 1.015 Urine Protein 100 H Urine Glucose [...] 2.5 mg PO DAILY [facility] [place] [facility] [[place] Provider] - Disposition Disposition: Acute Care Hospital [facility] What to do if you have Problems For any increased pain, shortness of breath, bleeding, nausea or vomiting, chestpain, or any unexpected problems, contact your Primary Care Provider. Call [facility] ([phone]) or report to the closest Emergency Room. Call 911 if necessary. 02/10/23 1531 <Electronically signed by Kelly Gutiérrez MD> Cosigner Signature (if applicable): CC: [place] [facility] ~ Signed [facility] Work Phone: [phone]) 470-762903-26-2023 History and physical note Author Dr. Avery [facility] February 10, 2023 1:11pm Note Date/Time February 10, 2023 12: 36pm [facility] Medical Records Department [address] [place] [address] H&P Exam - Hospitalist 02/10/23 1236 MR#: [id number] Acct: [id number] Name: STONE HAILE Rep #:[id number] : 1945 77 From: Lc Avery DO [facility] [facility] Status:ADM IN Location: [address] HPI - General General Date of Service: 02/10/23 Chief Complaint: Chills, dysuria HPI Narrative STONE HAILE, is a 77 M who presents to the ER at [facility] with complaints of dysuria x48 hours along [...] takes Eliquis for paroxysmal A-fib. [facility] Medical History Atrial fibrillation BPH [...] Type Severity Reaction Status Date / Time Pmmjsyx-OPA-ZoK Reductase Allergy Other Verified 02/10/23 08:21 Inhibitor [...] 91.1 H, Lymph % (Auto) 7.4 L, [place] %(Auto) 1.0, Eos % (Auto) 0.1, Baso [...] Sl. Cloudy, Urine pH 6.0, Ur Specific [place] 1.015, Urine Protein 100 H, Urine Glucose [...] 1. Severe cystitis-patient will be admitted to [facility] 3, he will be given IV Rocephin, fluids will be administered, labs will be monitored. It is unclear atthis time with the patient actually has sepsis. #2 dehydration-patient was given fluid bolus in the emergency room, I will continue vigorous fluid administration on [facility] #3 coronary artery disease-this appears [...] 75 minutes Charges/Coding Visit Charges Inpatient E&M: 25353 Init Hosp L3 02/10/23 1252 <Electronically signed by Lc Avery DO> Cosigner Signature (if applicable): CC: Dr. Lc Avery DO; [facility]~ Signed ADDENDUM by Dr. Lc Avery [...] (if applicable): cc: Dr. Lc Avery DO; [facility] ~* Signed [facility] Work Phone: Discharge summary Author Dr. Avery [facility] February 12, 2023 9:49am Note Date/Time February 12, 2023 9:4 1am [facility] Medical Records Department [address] [place] [address] Instructions for Home/Discharge Instructions 02/12/23 0940 MR#: [id number] Acct: [id number] Name: STONE HAILE Rep #:[id number] : 1945 77 From: Lc Avery DO PCP: [facility] Status:ADM IN Discharge Instructions Diet Discharge Diet: [...] Attending Provider: Lc Avery Primary Care Provider: [facility] Discharge Orders/Prescriptions Prescriptions: New tamsulosin 0.4 mg [...] mg PO QHS Referrals / Follow Up[place] [facility] [Primary Care Provider] - Within 2 Weeks Disposition Disposition (needs filled in before D/C Order can be placed): Home, Self Care 02/12/23 0949<Electronically signed by Lc Avery DO>Lc Avery DO CC: [place] [facility] ~ Signed [facility] Work Phone: Discharge summary Author Ravin Naik [facility] Note Date/Time September 04, 2025 1 :30pm [facility] Medical Records Department [address] [place] [address] Emergency Department Summary 09/04/25 MR#: [id number] Acct: [id number] Name: STONE HAILE Rep #:[id number] : 1945 79 From: Ravin Naik MD PCP: [facility] Status:REG ER Location: ED HPI History [...] yet this year. Sore throat has improved. [facility] Medical History Osteoarthritis Aortic valve stenosis [...] Zetia) Allergy Unknown unknown Verified 09/04/25 09:44 Xkieqde-MVG-FrT Reductase Allergy Other Verified 09/04/25 09:44 Inhibitor [...] instructions to the emergency department were reviewed. Mvxz-dfu-vcikqwjdvxsbkdqkxu as needed. Disposition is discharged home in [...] 83.2 H Lymph % (Auto) 9.8 L [place] % (Auto) 5.8 Eos % (Auto) 0.4 [...] 11:20 IMPRESSION: NO ACUTE FINDINGS. Reading Location: [facility] [place] Discharge Plan Triage Chief Complaint: General Illness [...] fever, difficulty breathing, new or worsening symptoms. Uujz-yjs-kdjgncu medications as needed. Print Language: Cameroonian Disposition Disposition: Home, Self Care What to do if you have Problems For any increased pain, shortness of breath, bleeding, nausea or vomiting, chestpain, or any unexpected problems, contact your Primary Care Provider. Call [facility] ([phone]) or report to the closest Emergency Room. Call 911 if necessary. 09/04/25 1230 <Electronically signed by Ravin Naik MD> Cosigner Signature (if applicable): CC: [place] [facility] ~ Signed [facility] Work Phone: Evaluation + Plan note No data available for this section [facility] Evaluation noteNo assessment information available [facility] Work Phone: Evaluation note* Diagnosis Onset Date Resolution Status Sepsis acute UTI (urinary tract infection) acute [facility] Work Phone: History and physical note Author Dr. Avery [facility] February 10, 2023 12:52pm Note Date/Time February 10, 2023 12: 36pm [facility] Medical Records Department [address] [place] [address] H&P Exam - Hospitalist 02/10/23 1236 MR#: [id number] Acct: [id number] Name: STONE HAILE Rep #:[id number] : 1945 77 From: Lc Avery DO PCP: [facility] Status:REG ER Location: ED HPI - General General Date of Service: 02/10/23 Chief Complaint: Chills, dysuria HPI Narrative STONE HAILE, is a 77 M who presents to the ER at [facility] with complaints of dysuria x48 hours along [...] takes Eliquis for paroxysmal A-fib. [facility] Medical History Atrial fibrillation BPH [...] Type Severity Reaction Status Date / Time Uqnootw-WXT-ZlM Reductase Allergy Other Verified 02/10/23 08:21 Inhibitor [...] 91.1 H, Lymph % (Auto) 7.4 L, [place] %(Auto) 1.0, Eos % (Auto) 0.1, Baso [...] Sl. Cloudy, Urine pH 6.0, Ur Specific [place] 1.015, Urine Protein 100 H, Urine Glucose [...] 1. Severe cystitis-patient will be admitted to [facility] 3, he will be given IV Rocephin, fluids will be administered, labs will be monitored. It is unclear atthis time with the patient actually has sepsis. #2 dehydration-patient was given fluid bolus in the emergency room, I will continue vigorous fluid administration on [facility] #3 coronary artery disease-this appears [...] 75 minutes Charges/Coding Visit Charges Inpatient E&M: 81746 Init Hosp L3 02/10/23 1252 <Electronically signed by Lc Avery DO> Cosigner Signature (if applicable): CC: Dr. Lc Avery, ; [facility]~ Signed [facility] Work Phone: Hospital Discharge instructionsAdditional Instructions Return with sustained high fever, difficulty breathing, new or worsening symptoms. Aajp-kth-gaqnlqg medications as needed.[facility] Work Phone: Reason for referral (narrative)No reason for referral information availableWPremier Health Work Phone: Chief Complaint and Reason [...] No January 31, 2022 2:02pm Power of Astronomy Instructor No January 31 2:02pm Advance Directive Response Recorded Date/ Time Living Will No February 10, 2023 8:23am Power of Astronomy Instructor No February 10 8:23am Advance Directive Response Recorded Date/ Time Living Will No February 10, 2023 1:16pm Power of Astronomy Instructor No February 10 1:16pm Advance Directive Response Recorded Date/ Time Living Will No February 19, 2023 6:19pm Power of Astronomy Instructor No February 19 6:19pm Advance Directive Response Recorded Date/ Time Do you have a Healthcare Power of Astronomy Instructor? No June 15, 2025 3:11pm Advance Directive Response Recorded Date/ Time Do you have a Healthcare Power of Astronomy Instructor? No June 15, 2025 2:11pm Do you have a Healthcare Power of Astronomy Instructor? No September 04, 2025 8:54am Summary Purpose [...] Dr. Jerardo Moore MD Family Provider Active [facility] Primary Care Provider Active Team Status: Active Member Role Status Dates [facility] Primary Care Provider Active Dr. Kelly Gutiérrez MD Emergency Provider Active Dr. Lc Avery DO Attending Provider Active Team Status: Inactive Member Role Status Dates [facility] Primary Care Provider Active Dr. Kelly Gutiérrez MD Emergency Provider Active Team Status: Active Member Role Status Dates [facility] Primary Care Provider Active Dr. Kelly Gutiérrez MD Emergency Provider Active Dr. Lc Avery DO Admit Provider, Attending Provider, Other Provider Active Team Status: Inactive Member Role Status Dates [facility] Primary Care Provider Active Dr. Kelly Gutiérrez MD Emergency Provider Active Dr. Lc Avery DO Admit Provider, Attending Pro vider Active Team Status: Inactive Member Role Status Dates [facility] Primary Care Provider Active Dr. Jam Arciniega MD Emergency Provider Active Team Status: Active Member Role/Relationship Status Dates [facility] Primary Care Provider Active Team Status: Inactive Member Role/Relationship Status Dates [facility] Primary Care Provider Active Start: June 15, 2025 End: June 15, 2025 Dr. Anibal Douglass DO Emergency Provider Active Start: June 15, 2025 End: June 15, 2025 Team Status: Active Member Role/Relationship Status Dates [facility] Primary care physician Active Team Status: Inactive Member Role/Relationship Status Dates [facility] Primary care physician Active Start : June 15, 2025 End: June 15, 2025 Dr. Anibal Douglass DO Attending physician Active Start: June 15, 2025 End: June 15, 2025 Dr. Anibal Douglass DO Emergency Department Physician A ctive Start: June 15, 2025 End: June 15, 2025 Team Status: Inactive Member Role/Relationship Status Dates [facility] Primary care physician Active Start : [...] section and content) DATE CREATED AUTHOR 06/27/2025 [facility] DATE CREATED AUTHOR SINDHU SONG 09/10/2025 [facility] FOR RECORDS PERTAINING TO PATIENTS WHO ARE [...] BE BASED ON THE PRIMARY CLINICAL RECORDS. [facility]. provides no warranty or guarantee of the accuracy or completeness of information in this document.
--- NOTE | 2025-11-04 16:19 | PCM.DC ---
Discharge Instructions DC O2, CPAP, BIPAP needs Home O2 Discharge instructions: No Dressing / Incision Discharge Activity: May Not Drive May shower in (days): 2 Additional Activity Instructions:: May shower or bathe on [day 3]. Do not scrub the incision or soak in the tub. Just wash with soap and let the water run over the incision. Gently pat dry with towel. Medications: Take your pain medication as directed. Refer to your discharge instruction sheet for a list of medications you are to take. Dressing / Incision Call your doctor if your incision/area has: Continuous Slow Oozing, Sudden Increased Bleeding, Increased Pain/ Swelling, Increased Redness, Foul Smelling Discharge and Swelling at the incision site Call your doctor if you observe: Fever of 101 or Higher, Shortness of breath, Dizziness, Fainting spells, Swelling in the ankles, Chest pain, Prolonged hiccupping and Increased palpitations (irregular heartbeat) Suture Line Care: Avoid Pulling/Pushing and Avoid Pinching/Bending Cleanse incision/area with: Do not get Incision Wet and Keep Dressing Clean & Dry Additional Dressing/Incision Instructions:: When dressing is removed, wash and dry incision. Keep covered with a light bandage if it is rubbing against your clothing. Do not cover the incision with an airtight bandage. Change the bandage daily. Do not remove steri strips. The strips will fall off on their own. Follow Up Care Please Follow Up With: Goldy Vergara MD When: Pacer follow-up on November 15 at 10 AM Test Results: Test results from this visit will be discussed in further detail at your follow-up appointment, if applicable. Discharge Plan Admission Attending Provider: Goldy Vergara [facility] Provider[place] [facility] Instructions Print Language: Slovak Discharge Orders/Prescriptions Prescriptions: No Action cyanocobalamin (vitamin B-12) 1,000 mcg/mL solution 1,000 mcg IM Q4W diclofenac sodium 1 % gel 2 g topical BID PRN (Reason: pain) Rx Instructions: apply to left knee finasteride 5 mg tablet 5 mg PO QDAY cholecalciferol (vitamin D3) 25 mcg (1,000 unit) capsule 25 mcg PO QDAY alirocumab 150 mg/mL pen injector 150 mg subcut Q4W cetirizine 10 mg Tablet 10 mg PO DAILY levothyroxine 125 mcg Tablet 125 mcg PO DAILY Eliquis 5 mg Tablet 5 mg PO BID Qty: 60 1RF tamsulosin 0.4 mg Capsule 0.8 mg PO QHS Qty: 60 0RF lisinopril 5 mg tablet 5 mg PO QDAY Qty: 90 3RF Referrals [facility] [Primary Care Provider, None] Disposition Disposition (needs filled in before D/C Order can be placed): Home, Self Care
[2025-11-04 17:00] VITALS: BP 123/68; PULSE 75; RESP 21; TEMP 36.6; O2SAT 98
[2025-11-04 18:00] VITALS: BP 154/73; PULSE 68; RESP 17; TEMP 36.6; O2SAT 97
[2025-11-04 19:10] VITALS: BP 126/62; PULSE 72; RESP 19; TEMP 36.7; O2SAT 98
[2025-11-04 20:00] VITALS: PULSE 65
[2025-11-05 02:00] VITALS: BP 131/69; PULSE 66; RESP 17; TEMP 36.8; O2SAT 96
[2025-11-05 04:10] VITALS: PULSE 71
--- NOTE | 2025-11-05 05:10 | RAD_ITS ---
PROCEDURE: CHEST PA AND LATERAL 11/05/2025 REASON FOR EXAM: POST PERMANANT ICD/PACEMAKER TECHNIQUE: Procedure Code: RADCXR Modality: DX Procedure: CHEST PA AND LATERAL COMPARISON: 09/04/25 FINDINGS: Interval placement of pacemaker in left chest. no focal consolidation. No pleural effusion or pneumothorax. Cardiac silhouette is within normal limits. Median sternotomy wires. No acute fractures. RAD/Chest PA and Lateral IMPRESSION: Interval placement of pacemaker in left chest. no focal consolidation. No pleur al effusion or pneumothorax. Reading Location: [facility]
[2025-11-05 05:34] VITALS: BMI 29.9
[2025-11-05 08:20] VITALS: BP 150/76; PULSE 85; RESP 18; TEMP 36.8; O2SAT 99
--- NOTE | 2025-11-22 09:45 | CL.IE_ITS ---
Patient: STONE HAILE Study Date: 11/04/2025 Performing: Goldy Vergara MD : 1945 Age: 79 Gender: male PROCEDURES PERFORMED LP04-(97700)INITIAL PACER INSERT+DUAL LEADS INDICATIONS Sinoatrial node dysfunction/Sick sinus syndrome PROCEDURE DETAILS The patient was brought to the Catheterization Lab in the postabsorptive nonsedated state. Informed consent was obtained prior to the procedure. Local anesthetic was given subcutaneously to the left subclavian region with Lidocaine 2%. Access was achieved and a guidewire was advanced into the left subclavian vein. Incision was made to the left subclavicular area. A peel-away sheath was inserted into the left subclavian vein. PPM ventricular lead was inserted / positioned to right ventricular septal wall. PPM ventricular lead testing performed. PPM ventricular lead testing performed. PPM atrial lead was inserted / positioned to the right atrial appendage. PPM atrial lead was repositioned and checked. The Atrial lead sutured in place with 2-0 Silk. The Ventricular PM lead sutured in place with 2-0 Silk. Device pocket was irrigated with antibiotic. PPM generator was attached to the lead(s) and inserted into the pocket. Subcutaneous closure was completed with 3-0 Vicryl. Skin closure was completed with 4-0 Vicryl. The patient tolerated the procedure well. Estimated Blood Loss: < 10 mls IMPLANTED / EX-PLANTED DEVICES IMPLANTED DEVICE(S): PPM Generator - Ophthalmic Medical Technologist: [employer], Model # Essentio MR TELLY GRUBER , Serial # [id number] PPM Atrial lead - Ophthalmic Medical Technologist: [employer], Model # Ingevity 52cm , Serial # [id number] PPM Ventricular lead - Ophthalmic Medical Technologist: [employer], Model # Ingevity 59 cm , Serial # [id number] DEVICE PARAMETERS ATRIAL LEAD PARAMETERS: P wave- 2.3 (mV) Current- 2.0 (mA) impedence- 501 (OHMS) threshold- 1.0 (V) VENTRICULAR LEAD PARAMETERS: R wave- 5.1 (mV) Current- 0.7 (mA) threshold- 0.7 (V) impedence- 938 (OHMS) DEVICE PARAMETERS: Mode- DDD Lower rate- 60 Upper rate- 120 CONCLUSIONS / RECOMMENDATIONS Device Conclusions: Successful implantation of a dual chamber pacemaker Device Recommendations: Follow up with Primary Care Physician PROCEDURE MEDICATIONS Versed 1 mg IV Fentanyl 50 mcg IV Versed 1 mg IV Oxygen: 2 L/min via nasal cannula Antibiotic given in appropriate timeframe. Ancef 2 Gm IV @ 11/04/2025 11:56:32 Signed By Goldy Vergara MD On 11/20/2025 3:14:06 PM Goldy Vergara MD
== END 2025-11-05 09:39 | disposition home or self-care (01) ==
LOC: CLSP 16:20 → ICU 16:57
PROVIDERS: Internal Medicine Cardiovascular Disease; Admitting Provider Internal Medicine Cardiovascular Disease; Referring Provider Internal Medicine Cardiovascular Disease; Visit Provider Internal Medicine Cardiovascular Disease
DX: Z45.018 Encounter for adjustment and management of other part of cardiac pacemaker (principal); I49.5 Sick sinus syndrome; I48.0 Paroxysmal atrial fibrillation; I25.10 Atherosclerotic heart disease of native coronary artery without angina pectoris; Z95.1 Presence of aortocoronary bypass graft; Z95.2 Presence of prosthetic heart valve; I44.0 Atrioventricular block, first degree; Z79.899 Other long term (current) drug therapy; Z79.01 Long term (current) use of anticoagulants; Z79.890 Hormone replacement therapy; E78.5 Hyperlipidemia, unspecified; I10 Essential (primary) hypertension; E03.9 Hypothyroidism, unspecified; N40.0 Benign prostatic hyperplasia without lower urinary tract symptoms; Z87.891 Personal history of nicotine dependence; G45.3 Amaurosis fugax
CPT/HCPCS: 33208; 36415; 71046; 80048; 81001; 84443; 85027; 85610; 99152; 99153; 99221; C1894; G0378